=== PATIENT | male | born 1970 | race Caucasian/White ===

== ENCOUNTER 2019-01-03 09:17 | Emergency (ER) | payer OTHER ==
--- OUTSIDE RECORDS SUMMARY | 2019-01-03 09:26 | XMS REPORT | Continuity of Care Document ---
:1970 Author Organization [employer] Care Team Providers Name Role Phone [facility] [place] Unavailable Unavailable Problems Problem Status Onset Classification Date Comments Source Date Reported GI BLEED, VOMITING Active [facility] BLOOD AND IN STOOL 017 [facility] MORBID OBESITY Active [facility] 014 [facility] CERVICAL SPONDYLOSIS Active [address] OTHER Active 012 [facility] HYPOKALEMIA, GENERAL Active WEAKNESS 012 [facility] CHEST PAIN R/O ACS Active 012 [facility] DYSPNEA, AMS Active [address] Anxiety (finding) Active Problem 09/21/2016 [facility] Coronary Active Problem 09/21/2016 [facility] arteriosclerosis Medical (disorder) [place] Congestive heart Active Problem 09/21/2016 [facility] failure (disorder) [facility] Chronic obstructive Active Problem 09/21/2016 [facility] lung disease [facility] (disorder) [place] Hypertensive disorder, Active Problem 09/21/2016 [facility] systemic arterial Medical (disorder) [place] Morbid obesity Active Problem 09/21/2016 [facility] (disorder) [facility] Schizoaffective Active Problem 09/21/2016 [facility] disorder (disorder) [facility] Altered mental status Active Problem 11/28/2011 [facility] Anxiety Active Problem 11/28/2011 [facility] Chest pain Active Problem 11/28/2011 [facility] Nausea Active Problem 11/28/2011 [facility] Pain Active Problem 11/28/2011 [facility] Altered mental status Active Problem 06/25/2013 [facility] (finding) [facility] Chest pain (finding) Active Problem 06/25/2013 [facility] history of bipolar Resolved Problem 06/25/2013 [facility] disease(Confirmed) [facility] Hypercholesterolemia Active Problem 06/25/2013 [facility] (disorder) [facility] Nausea (finding) Active Problem 06/25/2013 [facility] Pain (finding) Active Problem 06/25/2013 [facility] Reflux (finding) Active Problem 06/25/2013 [facility] Sleep apnea (finding) Active Problem 06/25/2013 [facility] RESPIRATORY ABNORM NEC Active [facility] ALTERED MENTAL STATUS Active [facility] CERVICAL SPONDYLOSIS Active [facility] MORBID OBESITY Active [facility] Medications Medication Details Route Status Patient Ordering Order Source Instructions Provider Date Sucralfate 1000 1 gm=1 tab, Active 09/18[facility] [place] MG Oral Tablet PO, QID, # 28 2016 Medical [Carafate] tab, 0 Center Refill(s) Sucralfate 100 1 gm, 1 tab, No Longer 09/17[facility] MG/ML Oral Route: PO, Active 2016 Medical Suspension Drug form: Center [Carafate] TAB, QID, Dosing Weight 81.818, kg, Start date: 09/17/16 18:15:00 CDT, Stop date: 10/17/16 17:00:00 CDT pantoprazole 40 mg, Route: No Longer 09/17[facility] IVP, Drug Active 2016 Medical form: INJ, Center BID, Dosing Weight 81.818, kg, Start date: 09/17/16 18:15:00 CDT, Duration: 30 day, Stop date: 10/17/16 17:00:00 CDTNotes: (Same as: Protonix) Trazodone 50 mg=1 tab, Active 09/17[facility] Hydrochloride 50 PO, Bedtime, 2017 Medical MG Oral Tablet # 30 tab, 1 Center Refill(s) Sertraline 100 100 mg=1 tab, Active 09/17[facility] MG Oral Tablet PO, Daily, # 2017 Medical [Zoloft] 90 tab, 0 Center Refill(s) quetiapine 400 400 mg=1 tab, Active 09/17[facility] MG Oral Tablet PO, QPM, 0 2016 Medical [Seroquel] Refill(s) Center Lurasidone 60 mg=1 tab, Active 09/17[facility] Hydrochloride 60 PO, Daily, 0 2016 Medical MG Oral Tablet Refill(s) [place] [Latuda] Ondansetron 4 mg, 2 mL, Inactive 09/17[facility] Route: IVP, 2016 Medical Drug form: Center INJ, ONCE, Dosing Weight 81.818, kg, PRN Nausea & Vomiting, Start date: 09/17/16 10:05:00 CDTNotes: (Same as: Zofran) MEDICATION WASTE Product Size: 4 mg Product Wasted: ___ mg Flumazenil 0.2 mg, 2 mL, Inactive [facility] Route: IVP2016 Medical Drug form: Center INJ, PRN, Dosing Weight 81.818, kg, PRN Benzodiazepin e Reversal, Initial dose, Start date: 09/17/16 10:05:00 CDT, Duration: 1 day, Stop date: 09/18/16 10:04:00 CDTNotes: (Same as: Romazicon) Naloxone 0.4 mg, 1 mL, Inactive [facility] Route: IVP2016 Medical Drug form: Center INJ, Q2MIN, Dosing Weight 81.818, kg, PRN Narcotic Reversal, Start date: 09/17/16 10:05:00 CDT, Duration: 8 doses or times, Stop date: 09/18/16 0:00:00 CDTNotes: Same as Narcan Hydromorphone 0.5 mg, 0.25 Inactive [facility] mL, Route: 2016 Medical IVP, Drug Center form: INJ, Q5Min, Dosing Weight 81.818, kg, PRN Pain Score 7-10, Start date: 09/17/16 10:05:00 CDT, Duration: 4 doses or times, Stop date: 09/18/16 0:00:00 CDTNotes: Same as: Dilaudid Morphine 2 mg, 1 mL, Inactive [facility] Route: IVP2016 Medical Drug form: Center INJ, Q5Min, Dosing Weight 81.818, kg, PRN Pain Score 4-6, Start date: 09/17/16 10:05:00 CDT, Duration: 5 doses or times, Stop date: 09/18/16 0:00:00 CDTNotes: (Same as:MORPhine Sulfate) Labetalol 10 mg, 2 mL, Inactive [facility] Route: IVP2016 Medical Drug form: Center INJ, Q5Min, Dosing Weight 81.818, kg, PRN Elevated BP, Start date: 09/17/16 10:05:00 CDT, Duration: 5 doses or times, Stop date: 09/18/16 0:00:00 CDT Hydralazine 10 mg, 0.5 Inactive [place] mL, Route: 2017 Medical IVP, Drug Center form: INJ, Q20Min, Dosing Weight 81.818, kg, PRN Elevated BP, Start date: 09/17/16 10:05:00 CDT, Duration: 2 doses or times, Stop date: 09/18/16 0:00:00 CDTNotes: (Same as: Apresoline) Push over 5 minutes lithium 600 mg, 2 No Longer [place] cap, Route: Active 2017 Medical PO, Drug Center form: CAP, BID, Dosing Weight 139.545, kg, Start date: 09/17/16 9:00:00 CDT, Duration: 30 day, Stop date: 10/16/16 17:00:00 CDTNotes: Give with food. (Same as: [place] Carbonate) Abilify 2 mg, 1 tab, No Longer [facility] Route: PO, Active 2016 Medical Drug form: Center TAB, Daily, Dosing Weight 139.545, kg, Start date: 09/17/16 9:00:00 CDT, Duration: 30 day, Stop date: 10/16/16 9:00:00 CDTNotes: Same as: Abilify Non-Formulary Item Alprazolam 2 MG 2 mg, 4 tab, No Longer [place] Oral Tablet Route: PO, Active 2016 Medical [Xanax] Drug form: Center TAB, BID, Dosing Weight 139.545, kg, Start date: 09/17/16 9:00:00 CDT, Duration: 30 day, Stop date: 10/16/16 17:00:00 CDTNotes: With food or milk (Same as: Xanax) Docusate 100 mg, 1 No Longer [facility] cap, Route: Active 2017 Medical PO, Drug Center form: CAP, BID, Dosing Weight 139.545, kg, Start date: 09/17/16 9:00:00 CDT, Duration: 30 day, Stop date: 10/16/16 17:00:00 CDTNotes: (Same as: Colace) (Do Not Crush) Albuterol 0.833 3 ml, Route: No Longer [place] MG/ML / NEB, Drug Active 2017 Medical Ipratropium Form: SOLN, [place] [facility] 0.167 Dosing Weight MG/ML Inhalant 81.818, kg, Solution PRN, PRN [DuoNeb] Respiratory Protocol, Start date: 09/17/16 6:40:00 CDT, Duration: 30 day, Stop date: 10/17/16 6:39:00 CDTNotes: (Same as: Duoneb) sodium chloride 1,000 mL, No Longer [place] 0.9% 1000 ml INJ Rate: 100 Active 2017 Medical 1,000 mL ml/hr, Infuse Center over: 10 hr, Route: IV, Dosing Weight 139.545 kg, Total Volume: 1,000, Start date: 09/17/16 6:02:00 CDT, Duration: 30 day, Stop date: 10/17/16 6:01:00 CDT Sodium Chloride 100 mL, Rate: Inactive [place] 0.154 MEQ/ML 10 ml/hr, 2017 Medical Injectable Infuse over: [place] Solution 10 hr, Route: IVPB, Dosing Weight 139.545 kg, Total Volume: 100, Infuse at 8 mg / hr for 72 hours for GI bleeding, Start date: 09/17/16 6:02:00 CDT, Duration: 72 hr, Stop date: 09/20/16 6:01:00 CDT Protonix 40 mg, PO, Active [place] BID, # 30 2017 Medical tab, 0 Center Refill(s) lithium 600 mg 600 mg=1 cap, Active [facility] oral capsule PO, BID, 0 2016 Medical Refill(s) Center Alprazolam 2 MG 2 mg=1 tab, Inactive [facility] Oral Tablet PO, BID, 0 2017 Medical [Xanax] Refill(s) Center aripiprazole 2 2 mg=1 tab, Inactive [facility] MG Oral Tablet PO, Daily, 0 2017 Medical [Abilify] Refill(s) Center Sucralfate 100 1 gm=10 mL, Inactive [place] MG/ML Oral PO, 2017 Medical Suspension QID-Before Center [Carafate] Meals, 0 Refill(s) Acetaminophen 1 tab, Route: No Longer [place] 325 MG / PO, Drug Active 2016 Medical Hydrocodone Form: TAB, Center Bitartrate 5 MG Dosing Weight Oral Tablet 139.545, kg, Q6H, PRN Pain Score 4-6, Start date: 09/17/16 5:56:00 CDT, Duration: 30 day, Stop date: 10/17/16 5:55:00 CDTNotes: (Same as: [place] 325/5) Do not exceed 4gm/day of acetaminophen . Acetaminophen 650 mg, 2 No Longer [place] tab, Route: Active 2016 Medical PO, Drug Center form: TAB, Q6H, Dosing Weight 139.545, kg, PRN Pain 1-3/Temp > 100.4 F, Start date: 09/17/16 5:56:00 CDT, Duration: 30 day, Stop date: 10/17/16 5:55:00 CDTNotes: Do not exceed 4 gm/day. (Same as: Tylenol) Ondansetron 4 mg, 2 mL, No Longer [place] Route: IVP, Active 2016 Medical Drug form: Center INJ, Q6H, Dosing Weight 139.545, kg, PRN Nausea & Vomiting, Start date: 09/17/16 5:56:00 CDT, Duration: 30 day, Stop date: 10/17/16 5:55:00 CDTNotes: (Same as: Zofran) MEDICATION WASTE Product Size: 4 mg Product Wasted: 0 mg pantoprazole 40 =1 Pack, PO, Active [facility] MG Granules Daily, # 30 2013 Medical [Protonix] ea, 0 Center Refill(s) Acetaminophen 20 15 mL, PO, Active [facility] MG/ML / Q4H, Pain, # 2014 Medical Hydrocodone 470 mL, 0 Center Bitartrate 0.667 Refill(s) MG/ML Oral Solution Magnesium Oxide 500 mg, Inactive [place] Route: PO, 2013 Medical Drug form: Center TAB, ONCE, Dosing Weight 139.545, kg, Start date: 06/23/13 10:35:00, Stop date: 06/23/13 10:35:00 Magnesium 2 gm, 50 mL, Inactive [place] Sulfate Route: IVPB, 2013 Medical Drug form: [place] INJ, ONCE, Dosing Weight 139.545, kg, Total dose=2 gm, Start date: 06/23/13 7:35:00, Duration: 1 doses or times, Stop date: 06/23/13 7:35:00 Acetaminophen 20 15 mL, Route: No Longer [place] MG/ML / PO, Drug Active 2013 Medical Hydrocodone Form: SOLN, [place] Bitartrate 0.667 Dosing Weight MG/ML Oral 139.545, kg, Solution Q4H, Start date: 06/22/13 12:00:00, Duration: 30 day, Stop date: 07/22/13 8:00:00Do not exceed 4gm/day of acetaminophen . (Same as: Zolvit) Zofran 4 mg, 2 mL, No Longer [place] Route: IV, Active 2013 Medical Drug form: [place] INJ, Q4H, Dosing Weight 139.545, kg, PRN Nausea, Start date: 06/22/13 9:07:00, Duration: 30 day, Stop date: 07/22/13 9:06:00(Same as: Zofran) Acetaminophen 20 15 mL, Route: No Longer [facility] MG/ML / PO, Drug Active 2013 Medical Hydrocodone Form: SOLN, [place] Bitartrate 0.667 Dosing Weight MG/ML Oral 139.545, kg, Solution Q4H, PRN Pain, Start date: 06/22/13 7:52:00, Duration: 30 day, Stop date: 07/22/13 7:51:00Do not exceed 4gm/day of acetaminophen . (Same as: Zolvit) Enoxaparin 30 mg, 0.3 No Longer [place] mL, Route: Active 2013 Medical SUB-Q, Drug Center form: INJ, [id number], Dosing Weight 139.801, kg, Start date: 06/21/13 23:51:00, Duration: 30 day, Stop date: 07/21/13 11:51:00(Same as: Lovenox) Mefoxin 2 gm, Route: Inactive [place] IVPB, Drug 2013 Medical form: INJ, Center Q6H, Dosing Weight 139.801, kg, Start date: 06/21/13 15:00:00, Duration: 1 doses or times, Stop date: 06/21/13 15:00:00(Same As: Mefoxin) Naloxone 0.04 mg, 0.1 Inactive [facility] mL, Route: 2013 Medical IVP, Drug Center form: INJ, Q2MIN, Dosing Weight 139.801, kg, PRN Narcotic Reversal, Start date: 06/21/13 12:20:00, Duration: 8 doses or times, Stop date: 06/22/13 0:00:00Same as Narcan Flumazenil 0.2 mg, 2 mL, Inactive [facility] Route: IVP2013 Medical Drug form: Center INJ, PRN, Dosing Weight 139.801, kg, PRN Benzodiazepin e Reversal, Initial dose, Start date: 06/21/13 12:20:00, Duration: 1 day, Stop date: 06/22/13 12:19:00(Same as: Romazicon) Labetalol 10 mg, 2 mL, Inactive 06/21[facility] Route: IVP2013 Medical Drug form: Center INJ, Q5Min, Dosing Weight 139.801, kg, PRN Elevated BP, Start date: 06/21/13 12:20:00, Duration: 5 doses or times, Stop date: 06/22/13 0:00:00 Hydralazine 10 mg, 0.5 Inactive [facility], Route: 2013 Medical IVP, Drug Center form: INJ, Q20Min, Dosing Weight 139.801, kg, PRN Elevated BP, Start date: 06/21/13 12:20:00, Duration: 2 doses or times, Stop date: 06/22/13 0:00:00(Same as: Apresoline) Push over 5 minutes Ondansetron 4 mg, 2 mL, Inactive 06/21[facility] Route: IVP2013 Medical Drug form: Center INJ, ONCE, Dosing Weight 139.801, kg, PRN Nausea & Vomiting, Start date: 06/21/13 12:20:00(Same as: Zofran) Hydromorphone 0.5 mg, 0.25 Inactive 06/21[facility] mL, Route: 2013 Medical IVP, Drug Center form: INJ, Q5Min, Dosing Weight 139.801, kg, PRN Pain Score 7-10, Start date: 06/21/13 12:20:00, Duration: 4 doses or times, Stop date: 06/22/13 0:00:00Same as: Dilaudid Hydromorphone 15 mg, 30 mL, No Longer [place] Route: IV, Active 2013 Medical Initial Center Loading Dose: 0.4mg, LITHOPLATE MAKER Dose: 0.3 mg, LITHOPLATE MAKER Lockout: 10 minutes, Continuous Basal Rate: 0 mg, 4 Hour Limit (In MG): 7.2, Drug Form: INJ, Continuous, Start date: 06/21/13 12:00:00, Duration: 30 day, Stop date: 07/21/13 1...(Same as: Dilaudid) conc=0.5 mg/ml Hydromorphone LITHOPLATE MAKER Dose: ;Delay: ;Basal: Cefoxitin 20 2 gm, Route: Inactive [facility] MG/ML Injectable IVPB, Drug 2013 Medical Solution form: INJ, Center Q6H, Dosing Weight 139.801, kg, Start date: 06/21/13 12:00:00, Duration: 1 doses or times, Stop date: 06/21/13 12:00:00(Same As: Mefoxin) Naloxone 0.04 mg, 0.1 No Longer [facility] mL, Route: Active 2013 Medical IVP, Drug Center form: INJ, Q2MIN, Dosing Weight 139.801, kg, PRN Narcotic Reversal, Start date: 06/21/13 11:50:00, Duration: 30 day, Stop date: 07/21/13 12:49:00Same as Narcan Promethazine 12.5 mg, 0.5 No Longer [facility] mL, Route: Active 2013 Medical IM, Drug Center form: INJ, Q4H, Dosing Weight 139.801, kg, PRN Nausea & Vomiting, Start date: 06/21/13 11:50:00, Duration: 30 day, Stop date: 07/21/13 11:49:00Do not give IV push. (Same as: Phenergan) Ondansetron 4 mg, 2 mL, No Longer [facility] Route: IVP, Active 2013 Medical Drug form: Center INJ, Q12H, Dosing Weight 139.801, kg, PRN Nausea & Vomiting, Start date: 06/21/13 11:50:00, Duration: 30 day, Stop date: 07/21/13 11:49:00(Same as: Zofran) Calcium Chloride 1,000 mL, No Longer [facility] 0.0014 MEQ/ML / Rate: 100 Active 2013 Medical Potassium ml/hr, Infuse Center Chloride 0.004 over: 10 hr, MEQ/ML / Sodium Route: IV, Chloride 0.103 Dosing Weight MEQ/ML / Sodium 139.801 kg, Lactate 0.028 Total Volume: MEQ/ML 1,000, Start Injectable date: Solution 06/21/13 11:50:00, Stop date: 07/21/13 11:49:00 heparin, porcine 5,000 unit, Inactive [facility] Route: SUB-Q, 2013 Medical ONCE, Dosing Center Weight 139.801, kg, Start date: 06/21/13 7:22:00, Stop date: 06/21/13 7:22:00 Mefoxin 2 gm, Route: Inactive [facility] IVPB, Drug 2013 Medical form: INJ, Center PRE OP, Start date: 06/21/13 3:00:00, Duration: 1 day, Stop date: 06/22/13 2:59:00(Same As: Mefoxin) scopolamine 1 patch, Inactive [facility] Route: TOP, 2013 Medical Drug form: [place] ERFILM, PRE OP, Start date: 06/21/13 3:00:00, Duration: 1 day, Stop date: 06/22/13 2:59:00Change patch every 72 hours (Same as: Transderm-Sco p) Ofirmev 1,000 mg, 100 No Longer [facility] mL, Route: Active 2013 Medical IV, Drug Center form: INJ, PRE OP, Start date: 06/21/13 3:00:00, Duration: 1 day, Stop date: 06/22/13 2:59:00Infuse over 15 minutes Do not exceed 4gm/day of acetaminophen Ambien PO, Bedtime, No Longer [facility] 0 Refill(s) Active 2013 Medical Center Lipitor PO, Daily, 0 No Longer [facility] Refill(s) Active 2013 Medical Center Prevacid 30 mg, PO, No Longer [facility] Daily, # 15 Active 2013 Medical cap, 0 Center Refill(s) aspirin 81 mg 81 mg, 1 tab, PO No Longer [facility] tablet, enteric Route: PO, Active 2011 Medical coated Drug form: [place] ECTAB, Daily, Start date: 11/26/11 9:00:00, Duration: 30 day, Stop date: 12/25/11 9:00:00 Nexium 40 mg, Route: PO No Longer [facility] PO, Daily, Active 2011 Medical Start date: [place] 11/26/11 9:00:00, Duration: 30 day, Stop date: 12/25/11 9:00:00 Abilify 2 mg, 1 tab, PO No Longer [facility] Route: PO, Active 2011 Medical Drug form: [place] TAB, Bedtime, Start date: 11/25/11 21:00:00, Duration: 30 day, Stop date: 12/24/11 21:00:00 OxyContin 20 mg, 1 tab, PO No Longer [facility] Route: PO, Active 2011 Medical Drug form: [place] ERTAB, Q12H, Start date: 11/25/11 21:00:00, Duration: 30 day, Stop date: 12/25/11 9:00:00 amitriptyline 50 mg, 1 tab, PO No Longer [facility] Route: PO, Active 2011 Medical Drug form: [place] TAB, Bedtime, Start date: 11/25/11 21:00:00, Duration: 30 day, Stop date: 12/24/11 21:00:00 cefazolin + 2 gm, Route: IVPB No Longer [facility] Sodium Chloride IVPB, [id number], Active 2011 Medical 0.9% IV 100 mL Start date: [place] 11/25/11 20:30:00, Duration: 3 doses or times, Stop date: 11/26/11 12:30:00 acetaminophen-ox 2 tab, Route: PO No Longer [facility] ycodone 325 mg-5 PO, Drug Active 2011 Medical mg oral tablet Form: TAB, Center Q4H, PRN Pain Score 4-6, Start date: 11/25/11 18:15:00, Duration: 30 day, Stop date: 12/25/11 18:14:00 dexamethasone 4 mg, 1 mL, IV No Longer [facility] Route: IV, Active 2011 Medical Drug form: Center INJ, Q6H, Start date: 11/25/11 18:00:00, Duration: 1 day, Stop date: 11/26/11 12:00:00 Toradol 30 mg/mL 30 mg, 1 mL, IV No Longer [facility] injectable Route: IV, Active 2011 Medical solution Drug form: [place] INJ, Q6H, Start date: 11/25/11 18:00:00, Duration: 24 hr, Stop date: 11/26/11 12:00:00 Lopressor 100 mg, 1 PO No Longer [facility] tab, Route: Active 2011 Medical PO, Drug Center form: TAB, BID, Start date: 11/25/11 17:00:00, Duration: 30 day, Stop date: 12/25/11 9:00:00 lithium 600 mg, 2 PO No Longer [facility] tab, Route: Active 2011 Medical PO, Drug Center form: ERTAB, BID, Start date: 11/25/11 17:00:00, Duration: 30 day, Stop date: 12/25/11 9:00:00 Colace 100 mg 100 mg, 1 PO No Longer [facility] oral capsule cap, Route: Active 2011 Medical PO, Drug Center form: CAP, BID, Start date: 11/25/11 17:00:00, Duration: 30 day, Stop date: 12/25/11 9:00:00 Protonix 40 mg, 1 tab, PO No Longer [facility] Route: PO, Active 2011 Medical Drug form: Center ECTAB, Before Dinner, Start date: 11/25/11 16:30:00, Duration: 30 day, Stop date: 12/24/11 16:30:00 cefazolin (SCIP) 2 gm, Route: IVPB No Longer [facility] IVPB, Drug Active 2011 Medical form: INJ, Center [id number], Start date: 11/25/11 15:00:00, Duration: 24 hr, Stop date: 11/26/11 7:00:00 ondansetron 4 mg, 2 mL, IVP No Longer [facility] Route: IVP, Active 2011 Medical Drug form: Center INJ, ONCE, PRN Nausea & Vomiting, Start date: 11/25/11 14:55:00 hydromorphone 0.5 mg, 0.25 IVP No Longer [facility] mL, Route: Active 2011 Medical IVP, Drug Center form: INJ, Q5Min, PRN Pain Score 4-6, Start date: 11/25/11 14:55:00, Duration: 5 doses or times, Stop date: 11/26/11 0:00:00 naloxone 0.04 mg, 0.1 IVP No Longer [facility] mL, Route: Active 2011 Medical IVP, Drug Center form: INJ, Q2MIN, PRN Narcotic Reversal, Start date: 11/25/11 14:55:00, Duration: 8 doses or times, Stop date: 11/26/11 0:00:00 flumazenil 0.2 mg, 2 mL, IVP No Longer [facility] Route: IVP, Active 2011 Medical Drug form: Center INJ, PRN, PRN Benzodiazepin e Reversal, Initial dose, Start date: 11/25/11 14:55:00, Duration: 30 day, Stop date: 12/25/11 14:54:00 Flexeril 5 mg, 0.5 PO No Longer [facility] tab, Route: Active 2011 Medical PO, Drug Center form: TAB, TID, PRN Spasm, Start date: 11/25/11 14:14:00, Duration: 30 day, Stop date: 12/25/11 14:13:00 Zofran 4 mg, 2 mL, IV No Longer [facility] Route: IV, Active 2011 Medical Drug form: Center INJ, Q6H, PRN as needed for nausea/vomiti ng, Start date: 11/25/11 14:14:00, Duration: 30 day, Stop date: 12/25/11 14:13:00 Dulcolax 10 mg, 2 tab, PO No Longer [facility] Laxative Route: PO, Active 2011 Medical Drug form: [place] ECTAB, Daily, PRN Constipation, Start date: 11/25/11 14:12:00, Duration: 30 day, Stop date: 12/25/11 14:11:00 Cepacol Lozenge 1 lozenge, MUCOUS No Longer [facility] Route: MUCOUS MEM Active 2011 Medical MEM, Q2H, [place] Drug form: CON PRN Sore Throat, Start date: 11/25/11 14:12:00, Duration: 30 day, Stop date: 12/25/11 14:11:00 morphine Sulfate 4 mg, 1 mL, IVP No Longer [facility] Route: IVP, Active 2011 Medical Drug form: [place] INJ, Q4H, PRN Pain Score 7-10, Start date: 11/25/11 14:11:00, Duration: 30 day, Stop date: 12/25/11 14:10:00 normal saline 1,000 mL, IV No Longer [facility] 0.9% IV 1,000 mL Rate: 75 Active 2011 [facility] ml/hr, Infuse [place] over: 13.3 hr, Route: IV, Dosing Weight 115.909 kg, Total Volume: 1,000, Start date: 11/25/11 14:11:00, Duration: 30 day, Stop date: 12/25/11 14:10:00 Percocet 5/325 1 tab, Route: PO No Longer [facility] oral tablet PO, Drug Active 2011 Medical Form: TAB, [place] Q4H, PRN Pain Score 4-6, Start date: 11/25/11 14:10:00, Duration: 30 day, Stop date: 12/25/11 14:09:00 Klonopin 2 mg, 2 tab, PO No Longer [facility] Route: PO, Active 2011 Medical Drug form: [place] TAB, BID, PRN Anxiety, Start date: 11/25/11 14:09:00, Duration: 30 day, Stop date: 12/25/11 14:08:00 cefazolin 1 gm, Route: IVPB No Longer [facility] IVPB, Drug Active 2011 Medical form: Center PDR/INJ, PRE OP, Priority: STAT, Start date: 11/25/11 6:16:00, Duration: 1 day, Stop date: 11/26/11 6:15:00 Percocet 10/325 1 to 2 tabs, PO Active [facility] oral tablet PO, 4-6x/Day, 2011 Medical PRN, 20 tab, Center Substitution Allowed, Soft Stop OxyContin 20 mg 20 mg, 1 tab, PO Active [facility] oral tablet, PO, Q12H, 2011 Medical extended release Substitution Center Allowed, ERTAB amitriptyline 50 50 mg, 1 tab, PO Active [facility] [place] mg oral tablet PO, Bedtime, 2011 Medical 30 tab, [place] Substitution Allowed, TAB aspirin 81 mg 81 mg, 1 tab, PO Active [facility] tablet, enteric PO, Daily, 0 2011 Medical coated tab, [place] Substitution Allowed, ECTAB Klonopin 2 mg, 2 tab, PO No Longer [place] Route: PO, Active 2011 [facility] Drug form: TAB, BID, Start date: 09/16/11 9:00:00, Duration: 30 day, Stop date: 10/15/11 17:00:00 Eskalith 300 mg, 1 PO No Longer [facility] tab, Route: Active 2011 [facility] PO, Drug form: TAB, QAM, Start date: 09/16/11 9:00:00, Duration: 30 day, Stop date: 10/15/11 9:00:00 Plavix 75 mg, 1 tab, PO No Longer Choudhury Route: PO, Active 2011 [facility] Drug form: TAB, Daily, Start date: 09/16/11 9:00:00, Duration: 30 day, Stop date: 10/15/11 9:00:00 Abilify 10 mg, 2 tab, PO No Longer Choudhury Route: PO, Active 2011 [facility] Drug form: TAB, Daily, Start date: 09/16/11 9:00:00, Duration: 30 day, Stop date: 10/15/11 9:00:00 aspirin 325 mg 325 mg, 1 PO No Longer Choudhury tablet tab, Route: Active 2011 [facility] PO, Drug form: TAB, Daily, Start date: 09/16/11 9:00:00, Duration: 30 day, Stop date: 10/15/11 9:00:00 acetaminophen-hy 1 tab, Route: PO No Longer Raichman drocodone 325 PO, Drug Active 2011 [facility] mg-10 mg oral Form: TAB, tablet Q6H, PRN Pain, Start date: 09/16/11 8:07:00, Duration: 30 day, Stop date: 10/16/11 8:06:00 aspirin 81 mg 81 mg, 1 tab, CHEW No Longer Mckinney tablet, chewable Route: CHEW, Active 2011 [facility] Drug form: CHEWTAB, Breakfast, Start date: 09/16/11 8:00:00, Duration: 30 day, Stop date: 10/15/11 8:00:00 aspirin 325 mg 325 mg, 1 PO No Longer Mckinney tablet tab, Route: Active 2011 [facility] PO, Drug form: TAB, Breakfast, Start date: 09/16/11 8:00:00, Duration: 30 day, Stop date: 10/15/11 8:00:00 nitroglycerin 2% 1 inch, TOP No Longer Choudhury topical ointment Route: TOP, Active 2011 [facility] Drug form: OINT, Q24H, Start date: 09/16/11 2:00:00, Duration: 30 day, Stop date: 10/15/11 2:00:00 Lopressor 100 mg, 1 PO No Longer Choudhury tab, Route: Active 2011 [facility] PO, Drug form: TAB, Q12H, Start date: 09/15/11 21:00:00, Duration: 30 day, Stop date: 10/15/11 9:00:00 Eskalith 600 mg, 2 PO No Longer Choudhury tab, Route: Active 2011 [facility] PO, Drug form: TAB, Bedtime, Start date: 09/15/11 21:00:00, Duration: 30 day, Stop date: 10/14/11 21:00:00 trazodone 50 mg 100 mg, 2 PO No Longer Choudhury oral tablet tab, Route: Active 2011 [facility] PO, Drug form: TAB, Bedtime, Start date: 09/15/11 21:00:00, Duration: 30 day, Stop date: 10/14/11 21:00:00 nitroglycerin 0.4 mg, 1 SL No Longer Choudhury 0.4 mg tab, Route: Active 2011 [facility] sublingual SL, Drug tablet form: TAB, PRN, PRN Chest Pain, Start date: 09/15/11 19:09:00, Duration: 30 day, Stop date: 10/15/11 19:08:00 bacitracin/neomy 1 appl, TOP No Longer Choudhury turner/polymyxin B Route: TOP, Active 2011 [facility] topical ointment BID, Drug form: OINT, Start date: 09/15/11 19:00:00, Duration: 30 day, Stop date: 10/15/11 17:00:00 Protonix 40 mg, 1 tab, PO No Longer Choudhury Route: PO, Active 2011 [facility] Drug form: ECTAB, Before Dinner, Priority: NOW, Start date: 09/15/11 19:00:00, Duration: 30 day, Stop date: 10/15/11 16:30:00 hydrOXYzine 25 mg, 1 tab, PO No Longer Choudhury 09/14/ hydrochloride 25 Route: PO, Active 2011 [facility] mg oral tablet Drug form: TAB, BID, Priority: NOW, Start date: 09/15/11 18:55:00, Duration: 30 day, Stop date: 10/15/11 17:00:00 acetaminophen-co 1 tab, Route: PO No Longer Choudhury deine 300 mg-30 PO, Drug Active 2011 [facility] mg oral tablet Form: TAB, Q4H, PRN Pain, Start date: 09/15/11 18:33:00, Duration: 30 day, Stop date: 10/15/11 18:32:00 Lovenox 120 mg, 0.8 SUB-Q No Longer Mckinney mL, Route: Active 2011 [facility] SUB-Q, Drug form: INJ, [id number], Start date: 09/15/11 18:00:00, Duration: 30 day, Stop date: 10/15/11 6:00:00 metoprolol 12.5 mg, 0.5 PO No Longer Mckinney tab, Route: Active 2011 [facility] PO, Drug form: ERTAB, QAM, Priority: NOW, Start date: 09/15/11 17:24:00, Duration: 30 day, Stop date: 10/15/11 9:00:00 ondansetron 4 mg, Route: IVP No Longer Castellano IVP, Drug Active 2011 [facility] form: INJ, ONCE, Priority: STAT, Start date: 09/15/11 13:08:00, Stop date: 09/15/11 13:08:00 morphine Sulfate 5 mg, Route: IV No Longer Castellano IV, ONCE, Active 2011 [facility] Priority: STAT, Start date: 09/15/11 13:08:00, Stop date: 09/15/11 13:08:00 Sodium Chloride 250 mL, IVPB No Longer Hoberman 0.9% IV Route: IVPB, Active 2011 [facility] Start date: 09/15/11 12:29:00, Duration: 30 day, Stop date: 10/15/11 12:28:00, PRN Line Flush BD Normal Saline 10 mL, Route: IVP No Longer Hoberman Flush IVP, Drug Active 2011 [facility] Form: INJ, PRN, PRN Line Flush, Start date: 09/15/11 12:28:00, Duration: 30 day, Stop date: 10/15/11 12:27:00 Saline Flush 5 ml, Route: IVP No Longer Castellano 0.9% IVP, Drug Active 2011 [facility] Form: INJ, PRN, PRN Line Flush, Start date: 09/15/11 12:18:00, Duration: 24 hr, Stop date: 09/16/11 12:17:00 predniSONE 40 mg, 2 tab, PO No Longer Choudhury Route: PO, Active 2011 [facility] Drug form: TAB, Daily, Start date: 09/09/11 9:00:00, Duration: 30 day, Stop date: 10/08/11 9:00:00 Protonix 40 mg, 1 tab, PO No Longer Choudhury Route: PO, Active 2011 [facility] Drug form: ECTAB, Before Dinner, Start date: 09/08/11 16:30:00, Duration: 30 day, Stop date: 10/07/11 16:30:00 azithromycin 250 500 mg, 2 PO No Longer Choudhury 09/07/ MH mg oral tablet tab, Route: Active 2011 [facility] PO, Drug form: TAB, Q24H, Start date: 09/08/11 16:00:00, Duration: 30 day, Stop date: 10/07/11 16:00:00 Eskalith 600 mg, 2 PO No Longer Choudhury tab, Route: Active 2011 [facility] PO, Drug form: TAB, BID, Start date: 09/08/11 9:00:00, Duration: 30 day, Stop date: 10/07/11 17:00:00 aspirin 81 mg 81 mg, 1 tab, CHEW No Longer Choudhury tablet, chewable Route: CHEW, Active 2011 [facility] Drug form: CHEWTAB, Daily, Start date: 09/08/11 9:00:00, Duration: 30 day, Stop date: 10/07/11 9:00:00 Plavix 75 mg, 1 tab, PO No Longer Choudhury Route: PO, Active 2011 [facility] Drug form: TAB, Daily, Start date: 09/08/11 9:00:00, Duration: 30 day, Stop date: 10/07/11 9:00:00 Haldol 10 mg, 2 mL, IM No Longer Raichman Route: IM, Active 2011 [facility] Drug form: INJ, ONCE, Start date: 09/07/11 21:35:00, Stop date: 09/07/11 21:35:00 Haldol 5 mg, 1 mL, IM No Longer Choudhury Route: IM, Active 2011 [facility] Drug form: INJ, ONCE, Start date: 09/07/11 21:09:00, Stop date: 09/07/11 21:09:00 Abilify 2 mg, 1 tab, PO No Longer Choudhury Route: PO, Active 2011 [facility] Drug form: TAB, Bedtime, Start date: 09/07/11 21:00:00, Duration: 30 day, Stop date: 10/06/11 21:00:00 Lopressor 100 mg, 1 PO No Longer Choudhury tab, Route: Active 2011 [facility] PO, Drug form: TAB, Q12H, Start date: 09/07/11 21:00:00, Duration: 30 day, Stop date: 10/07/11 9:00:00 Sodium Chloride 1,000 mL, IV No Longer Choudhury 0.9% IV 1,000 mL Rate: 80 Active 2011 [facility] ml/hr, Infuse over: 12.5 hr, Route: IV, Dosing Weight 100 kg, Total Volume: 1,000, Start date: 09/07/11 20:00:00, Duration: 30 day, Stop date: 10/07/11 19:59:00 albuterol 2.49 mg, 3 NEB No Longer Choudhury mL, Route: Active 2011 [facility] NEB, Drug form: SOLN, RQ6H, Start date: 09/07/11 20:00:00, Duration: 30 day, Stop date: 10/07/11 14:00:00 methylPREDNISolo 60 mg, 0.96 IV No Longer Choudhury ne mL, Route: Active 2011 [facility] IV, Drug form: INJ, Q6H, Start date: 09/07/11 18:00:00, Duration: 30 day, Stop date: 10/07/11 12:00:00 albuterol 2.49 mg, 3 NEB No Longer Choudhury mL, Route: Active 2011 [facility] NEB, Drug form: SOLN, RQ6H, PRN Shortness of breath, Start date: 09/07/11 17:13:00, Duration: 30 day, Stop date: 10/07/11 17:12:00 Flexeril Substitution Active Allowed 2011 [facility] Flexeril Substitution Active Allowed 2011 [facility] trazodone Substitution Active Allowed 2011 [facility] Librium Substitution Active Allowed 2011 [facility] clonidine Substitution Active Allowed 2011 [facility] Klonopin Substitution Active Allowed 2011 [facility] Nexium Substitution Active Allowed 2011 [facility] Lopressor Substitution Active Allowed 2011 [facility] Plavix Substitution Active Allowed 2011 [facility] Abilify Substitution Active Allowed 2011 [facility] lithium Substitution Active Allowed 2011 [facility] Phenergan Substitution Active Allowed 2011 [facility] Haldol 5 mg/mL Substitution Active injectable Allowed 2011 [facility] solution Benadryl Substitution Active Allowed 2011 [facility] Suboxone 8 mg-2 Substitution Active mg sublingual Allowed, 2011 [facility] tablet, Maintenance disintegrating Ativan Substitution Active Allowed 2011 [facility] Sodium Chloride 250 mL, IVPB No Longer [place] 0.9% IV Route: IVPB, Active 2011 [facility] Start date: 09/07/11 9:12:00, Duration: 30 day, Stop date: 10/07/11 9:11:00, PRN Line Flush BD Normal Saline 10 mL, Route: IVP No Longer [place] Flush IVP, Drug Active 2011 [facility] Form: INJ, PRN, PRN Line Flush, Start date: 09/07/11 9:12:00, Duration: 30 day, Stop date: 10/07/11 9:11:00 naloxone Route: IVP, IVP No Longer [place] Drug form: Active 2011 [facility] INJ, ONCE, Priority: STAT, Start date: 09/07/11 8:58:00, Stop date: 09/07/11 8:58:00 Allergies, Adverse Reactions, Alerts No Known Medication Allergies Immunizations No Data Provided for This Section Results Order Name Results Value Reference Date Interpretation Comments Source Range HEMATOLOGY Basophils # 0.1 0.0 - 0.2 09/18 [facility] /[address] [place] [address] HEMATOLOGY Lymphocytes 1.2 1.0 - 5.5 09/18 [facility] /[address] [place] [address] HEMATOLOGY Basophils 1.0 0.0 - 1.0 09/[address] HEMATOLOGY Eosinophils 0.1 0.0 - 0.5 09/18 [facility] /[address] [place] [address] HEMATOLOGY Monocytes # 0.2 0.0 - 0.8 09/18 [facility] /[address] [place] [address] HEMATOLOGY Segs 71.8 45.0 - 09/18 [facility] [place] 75.0 /2016 [facility] HEMATOLOGY Segs-Bands # 4.1 1.5 - 8.1 09/18 [facility] HEMATOLOGY Monocytes 4.1 2.0 - 12.0 09/18 [facility] HEMATOLOGY Lymphocytes 20.5 20.0 - 09/18 [place] 40.0 /2016 [facility] HEMATOLOGY Eosinophils 2.6 0.0 - 4.0 09/18 [facility] HEMATOLOGY RDW 13.2 11.5 - 09/18 [place] 14.5 /2016 [facility] HEMATOLOGY MCHC 34.6 32.0 - 09/18 [place] 36.0 /2016 [facility] HEMATOLOGY MCH 30.5 27.0 - 09/18 [place] 31.0 [facility] HEMATOLOGY Hct 22.2 42.0 - 09/18 [place] 54.0 [facility] HEMATOLOGY MCV 88.0 80.0 - 09/18 [place] 94.0 [facility] HEMATOLOGY Platelet 213 133 - 450 09/18 [facility] HEMATOLOGY MPV 8.7 7.4 - 10.4 09/18 [facility] HEMATOLOGY WBC 5.7 3.7 - 10.4 09/18 [facility] HEMATOLOGY RBC 2.52 4.70 - 09/18 [place] 6.10 [facility] HEMATOLOGY Hgb 7.7 14.0 - 09/18 [place] 18.0 [facility] CHEM PANEL eGFR 103 09/18 [facility] Comment: The Medical eGFR is Center calculated using the CKD-EPI formula. In most young, healthy individuals the eGFR will be >90 mL/min/1.73m2 . The eGFR declines with age. An eGFR of 60-89 may be normal in some populations, particularly the elderly, for whom the CKD-EPI formula has not been extensively validated. Use of the eGFR is not recommended in the following populations:< br/>
Bailey viduals with unstable creatinine concentration s, including patients and those with serious co-morbid conditions.<b r/>
Patie nts with extremes in muscle mass or diet.

The data above are obtained from the National Kidney Disease Education Program (NKDEP) which additionally recommends that when the eGFR is used in patients with extremes of body mass index for purposes of drug dosing, the eGFR should be multiplied by the estimated BMI. CHEM PANEL CO2 25 24 - 32 09/18 [facility] CHEM PANEL Calcium Lvl 7.8 8.5 - 10.5 09/18 [facility] CHEM PANEL Potassium 3.6 3.5 - 5.1 09/18 [facility] Lvl /2016 [facility] CHEM PANEL AGAP 9.6 10.0 - 09/18 [place] 20.0 [facility] CHEM PANEL Chloride Lvl 104 95 - 109 09/18 [facility] CHEM PANEL Creatinine 0.90 0.50 - 09/18 [facility] Lvl 1.40 [facility] CHEM PANEL Sodium Lvl 135 135 - 145 09/18 [facility] CHEM PANEL Glucose Lvl 180 70 - 99 09/18 [facility] CHEM PANEL BUN 10 7 - 22 09/18 [facility] BLOOD BANK RBC product Product available 09/17 [facility] RESULTS (09/17/16 8:34 AM) /2016 [facility] BLOOD BANK ABO/Rh A POS 09/17 [facility] RESULTS [facility] BLOOD BANK Antibody Negative 09/17 [facility] RESULTS Scrn (09/17/16 6:38 AM) [facility] CHEM PANEL Phosphorus 3.3 2.5 - 4.5 09/17 [facility] CHEM PANEL eGFR 105 09/17 Result Comment: The Medical eGFR is Center calculated using the CKD-EPI formula. In most young, healthy individuals the eGFR will be >90 mL/min/1.73m2 . The eGFR declines with age. An eGFR of 60-89 may be normal in some populations, particularly the elderly, for whom the CKD-EPI formula has not been extensively validated. Use of the eGFR is not recommended in the following populations:< br/>
Bailey viduals with unstable creatinine concentration s, including patients and those with serious co-morbid conditions.<b r/>
Patie nts with extremes in muscle mass or diet.

The data above are obtained from the National Kidney Disease Education Program (NKDEP) which additionally recommends that when the eGFR is used in patients with extremes of body mass index for purposes of drug dosing, the eGFR should be multiplied by the estimated BMI. CHEM PANEL Alk Phos 64 39 - 136 09/17 [facility] [place] /[address] [place] [address] CHEM PANEL ASPARTATE 6 0 - 37 06/ [facility] TRANSAMINASE [address] [place] [address] CHEM PANEL Bili Total 0.6 0.2 - 1.3 06/ [address] CHEM PANEL ALANINE 13 0 - 65 06/ [facility] AMINOTRANSFE /[address] [place] [address] [facility] Globulin 2.6 2.7 - 4.2 06/ [address] CHEM PANEL A/G Ratio 1.0 0.7 - 1.6 / [address] CHEM PANEL Sodium Lvl 141 135 - 145 06/ [address] CHEM PANEL Creatinine 0.85 0.50 - 06/ [facility] 1.40 [facility] CHEM PANEL BUN 18 7 - [address] CHEM PANEL Potassium 4.4 3.5 - 5.1 09/17 [facility] [address] [place] [address] CHEM PANEL Glucose Lvl 96 70 - 99 09/[address] CHEM PANEL CO2 28 24 - 32 09/[address] CHEM PANEL AGAP 11.4 10.0 - 06 [facility] 20.0 [facility] CHEM PANEL Chloride Lvl 106 95 - 109 / [address] CHEM PANEL B/C Ratio 21 6 - 25 06/ [address] CHEM PANEL Calcium Lvl 8.3 8.5 - 10.5 09/[address] CHEM PANEL Total 5.2 6.4 - 8.4 / [facility] Protein [address] CHEM PANEL Albumin Lvl 2.6 3.5 - 5.0 / [address] CHEM PANEL Magnesium 2.1 1.8 - 2.4 06/ [address] HEMATOLOGY Lymphocytes 1.6 1.0 - 5.5 06/ [address] HEMATOLOGY Segs-Bands # 5.0 1.5 - 8.1 06/ [address] HEMATOLOGY Monocytes # 0.5 0.0 - 0.8 06/ [address] HEMATOLOGY Basophils # 0.1 0.0 - 0.2 06/ [address] HEMATOLOGY Eosinophils 0.1 0.0 - 0.5 06/ [address] HEMATOLOGY Basophils 0.9 0.0 - 1.0 06/ /2016 [facility] HEMATOLOGY Segs 69.6 45.0 - 06/ [place] 75.0 /2016 [facility] HEMATOLOGY Monocytes 6.4 2.0 - 12.0 06/ [facility] HEMATOLOGY Lymphocytes 22.3 20.0 - 06/02 [place] 40.0 /2016 [facility] HEMATOLOGY Eosinophils 0.8 0.0 - 4.0 06/ [facility] HEMATOLOGY PTT 29.3 22.9 - 06/ [place] 35.8 /2016 [facility] HEMATOLOGY INR 1.20 0.85 - 06 [place] 1.17 /2016 [facility] HEMATOLOGY PT 15.5 12.0 - 06 [place] 14.7 [facility] HEMATOLOGY RDW 12.8 11.5 - 06/ [place] 14.5 /2016 [facility] HEMATOLOGY Platelet 246 133 - 450 06 [facility] HEMATOLOGY MPV 9.0 7.4 - 10.4 09/17 [facility] HEMATOLOGY MCH 29.8 27.0 - 06 [place] 31.0 /2016 [facility] HEMATOLOGY MCHC 34.3 32.0 - 06/ [place] 36.0 /2016 [facility] HEMATOLOGY Hgb 7.6 14.0 - 06 [place] 18.0 /2016 [facility] HEMATOLOGY RBC 2.56 4.70 - 09/17 [place] 6.10 /2016 [facility] HEMATOLOGY Hct 22.2 42.0 - 06/ [place] 54.0 /2016 [facility] HEMATOLOGY MCV 87.0 80.0 - 09/17 [place] 94.0 [facility] HEMATOLOGY WBC 7.2 3.7 - 10.4 06 [facility] CHEM PANEL Magnesium 1.7 1.8 - 2.4 06/23 [facility] Lvl /2013 [facility] CHEM PANEL Phosphorus 3.1 2.5 - 4.5 03 [facility] ELECTROLYT AGAP 11.7 10.0 - 03 [facility] ES 20.0 [facility] ELECTROLYT eGFR 105 06/23 <sup>1</sup>R [facility] esult Medical Comment: The Center eGFR is calculated using the CKD-EPI formula. In most young, healthy individuals the eGFR will be >90 mL/min/1.73m2 . The eGFR declines with age. An eGFR of 60-89 may be normal in some populations, particularly the elderly, for whom the CKD-EPI formula has not been extensively validated. Use of the eGFR is not recommended in the following populations:& lt;br/>
I ndividuals with unstable creatinine concentration s, including patients and those with serious co-morbid conditions.<b r/>
Patie nts with extremes in muscle mass or diet.

The data above are obtained from the National Kidney Disease Education Program (NKDEP) which additionally recommends that when the eGFR is used in patients with extremes of body mass index for purposes of drug dosing, the eGFR should be multiplied by the estimated BMI. ELECTROLYT Creatinine 0.9 0.5 - 1.4 06/23 [facility] ELECTROLYT Potassium 3.7 3.5 - 5.1 06/23 [facility] ELECTROLYT Sodium Lvl 138 135 - 145 06/23 [facility] ELECTROLYT CO2 27 24 - 32 06/23 [facility] ELECTROLYT Chloride Lvl 103 95 - 109 06/23 [facility] ELECTROLYT BUN 11 7 - 22 06/23 [facility] ELECTROLYT Glucose Lvl 95 70 - 99 06/23 <sup>4</sup>I [facility] nterpretive Medical Data: Adult Center reference range values reflect the clinical guidelines
of the [place] [employer]. ELECTROLYT Calcium Lvl 8.6 8.5 - 10.5 06/23 [facility] HEMATOLOGY MCV 87.7 80.0 - 06/23 94.0 [facility] HEMATOLOGY MCH 31.2 27.0 - 06/23 [place] 31.0 [facility] HEMATOLOGY Hct 34.1 42.0 - 06/23 [place] 54.0 [facility] HEMATOLOGY Hgb 12.1 14.0 - 06/23 18.0 [facility] HEMATOLOGY Platelet 148 133 - 450 06/23 [facility] HEMATOLOGY MPV 9.1 7.4 - 10.4 06/23 [facility] HEMATOLOGY RDW 14.3 11.5 - 06/23 [place] 14.5 [facility] HEMATOLOGY MCHC 35.6 32.0 - 03 [place] 36.0 /2013 [facility] HEMATOLOGY RBC X 10x6 3.89 4.70 - 06/23 [place] 6.10 /2013 [facility] HEMATOLOGY WBC X 10x3 6.6 3.7 - 10.4 06/23 [facility] HEMATOLOGY Eosinophils 0.1 0.0 - 0.5 06/23 [place] # /2013 [facility] HEMATOLOGY Lymphocytes 1.7 1.0 - 5.5 06/23 [facility] HEMATOLOGY Eosinophils 1.6 0.0 - 4.0 06/23 [facility] HEMATOLOGY Segs-Bands # 4.3 1.5 - 8.1 06/23 [facility] HEMATOLOGY Basophils 0.5 0.0 - 1.0 06/23 [facility] HEMATOLOGY Monocytes # 0.4 0.0 - 0.8 06/23 [facility] HEMATOLOGY Segs 66.0 45.0 - 06/23 [place] 75.0 [facility] HEMATOLOGY Lymphocytes 26.0 20.0 - 06/23 [place] 40.0 /2013 [facility] HEMATOLOGY Monocytes 5.9 2.0 - 12.0 06/23 [facility] CHEM PANEL eGFR 124 06/22 <sup>2</sup>R [facility] Medical Comment: The Center eGFR is calculated using the CKD-EPI formula. In most young, healthy individuals the eGFR will be >90 mL/min/1.73m2 . The eGFR declines with age. An eGFR of 60-89 may be normal in some populations, particularly the elderly, for whom the CKD-EPI formula has not been extensively validated. Use of the eGFR is not recommended in the following populations:& lt;br/>
I ndividuals with unstable creatinine concentration s, including patients and those with serious co-morbid conditions.<b r/>
Patie nts with extremes in muscle mass or diet.

The data above are obtained from the National Kidney Disease Education Program (NKDEP) which additionally recommends that when the eGFR is used in patients with extremes of body mass index for purposes of drug dosing, the eGFR should be multiplied by the estimated BMI. CHEM PANEL Magnesium 2.0 1.8 - 2.4 06/22 [facility] Lvl /2013 [facility] CHEM PANEL Phosphorus 4.8 2.5 - 4.5 03 [facility] HEMATOLOGY WBC X 10x3 11.7 3.7 - 10.4 03 [facility] HEMATOLOGY MPV 9.5 7.4 - 10.4 06/22 [facility] HEMATOLOGY Hct 39.7 42.0 - 03 [place] 54.0 /2013 [facility] HEMATOLOGY MCH 29.8 27.0 - 03 [place] 31.0 /2013 [facility] HEMATOLOGY MCV 89.3 80.0 - 03 [place] 94.0 /2013 [facility] HEMATOLOGY RBC X 10x6 4.45 4.70 - 03 [place] 6.10 /2013 [facility] HEMATOLOGY Hgb 13.3 14.0 - 03 [place] 18.0 /2013 [facility] HEMATOLOGY RDW 14.3 11.5 - 03 [place] 14.5 /2013 [facility] HEMATOLOGY MCHC 33.4 32.0 - 03 [place] 36.0 /2013 [facility] HEMATOLOGY Platelet 185 133 - 450 03 [facility] HEMATOLOGY Monocytes # 0.5 0.0 - 0.8 03 [facility] HEMATOLOGY Segs-Bands # 10.4 1.5 - 8.1 06/22 [facility] HEMATOLOGY Lymphocytes 0.9 1.0 - 5.5 03 [place] # /2013 [facility] HEMATOLOGY Monocytes 4.1 2.0 - 12.0 03 [facility] HEMATOLOGY Basophils 0.1 0.0 - 1.0 06/22 [facility] HEMATOLOGY Lymphocytes 7.3 20.0 - 03 [place] 40.0 /2013 [facility] HEMATOLOGY Segs 88.5 45.0 - 03 [place] 75.0 /2013 [facility] CHEM PANEL AGAP 13.9 10.0 - 03 20.0 [facility] CHEM PANEL CO2 25 24 - 32 03 [facility] CHEM PANEL Calcium Lvl 8.9 8.5 - 10.5 03 [facility] CHEM PANEL Chloride Lvl 100 95 - 109 03 [facility] CHEM PANEL Sodium Lvl 134 135 - 145 03 [facility] CHEM PANEL Potassium 4.9 3.5 - 5.1 06/22 [facility] CHEM PANEL BUN 10 7 - 22 06/22 [facility] CHEM PANEL Creatinine 0.6 0.5 - 1.4 06/22 [facility] CHEM PANEL Glucose Lvl 98 70 - 99 06/22 <sup>5</sup>I nterpretive Medical Data: Adult Center reference range values reflect the clinical guidelines
of the [place] [employer]. CHEM PANEL eGFR 82 06/21 <sup>3</sup>R esult Medical Comment: The Center eGFR is calculated using the CKD-EPI formula. In most young, healthy individuals the eGFR will be >90 mL/min/1.73m2 . The eGFR declines with age. An eGFR of 60-89 may be normal in some populations, particularly the elderly, for whom the CKD-EPI formula has not been extensively validated. Use of the eGFR is not recommended in the following populations:& lt;br/>
I ndividuals with unstable creatinine concentration s, including patients and those with serious co-morbid conditions.<b r/>
Patie nts with extremes in muscle mass or diet.

The data above are obtained from the National Kidney Disease Education Program (NKDEP) which additionally recommends that when the eGFR is used in patients with extremes of body mass index for purposes of drug dosing, the eGFR should be multiplied by the estimated BMI. CHEM PANEL Creatinine 1.1 0.5 - 1.4 06/21 [facility] HEMATOLOGY Platelet 172 133 - 450 06/21 [facility] HEMATOLOGY aPTT 27.9 22.9 - 06/21 <sup>7</sup>I [facility] 35.8 /2013 nterpretive Medical Data: Heparin Center Therapeutic Range: 57 - 92 Seconds CHEM PANEL B/C Ratio 13 6 - 25 06/15 [facility] CHEM PANEL A/G Ratio 1.3 0.7 - 1.6 06/15 [facility] CHEM PANEL Globulin 3.2 2.0 - 4.0 06/15 [facility] CHEM PANEL AGAP 15.2 10.0 - 06/15 [facility] [place] 20.0 [facility] CHEM PANEL ALANINE 37 0 - 65 06/15 [facility] AMINOTRANSFE [facility] RASE [place] CHEM PANEL Bili Total 0.9 0.2 - 1.3 06/15 [facility] CHEM PANEL Calcium Lvl 9.1 8.5 - 10.5 06/15 [facility] CHEM PANEL BUN 12 7 - 22 06/15 [facility] CHEM PANEL Glucose Lvl 66 70 - 99 06/15 <sup>6</sup>I nterpretive Medical Data: Adult Center reference range values reflect the clinical guidelines
of the [place] [employer]. CHEM PANEL Alk Phos 100 39 - 136 06/15 [facility] CHEM PANEL Albumin Lvl 4.1 3.5 - 5.0 06/15 [facility] CHEM PANEL CO2 25 24 - 32 06/15 [facility] CHEM PANEL Chloride Lvl 104 95 - 109 06/15 [facility] CHEM PANEL Potassium 4.2 3.5 - 5.1 06/15 [facility] [employer] [facility] [employer] Lvl [facility] CHEM PANEL Sodium Lvl 140 135 - 145 06/15 [facility] CHEM PANEL ASPARTATE 15 0 - 37 06/15 TRANSAMINASE [facility] CHEM PANEL Total 7.3 6.4 - 8.4 06/15 Protein [facility] HEMATOLOGY Basophils # 0.1 0.0 - 0.2 06/15 [facility] HEMATOLOGY Monocytes # 0.7 0.0 - 0.8 06/15 [facility] HEMATOLOGY Eosinophils 0.2 0.0 - 0.5 06/15 [place] [facility] HEMATOLOGY Segs-Bands # 7.2 1.5 - 8.1 06/15 [facility] HEMATOLOGY Lymphocytes 2.7 1.0 - 5.5 06/15 [facility] HEMATOLOGY Lymphocytes 24.5 20.0 - 06/15 [place] 40.0 [facility] HEMATOLOGY Segs 66.4 45.0 - 06/15 [place] 75.0 /2013 [facility] HEMATOLOGY Monocytes 6.4 2.0 - 12.0 06/15 [facility] HEMATOLOGY Basophils 0.5 0.0 - 1.0 06/15 [facility] HEMATOLOGY Eosinophils 2.2 0.0 - 4.0 06/15 [facility] HEMATOLOGY MPV 9.7 7.4 - 10.4 06/15 [facility] HEMATOLOGY WBC X 10x3 10.9 3.7 - 10.4 06/15 [facility] HEMATOLOGY RDW 14.4 11.5 - 06/15 [place] 14.5 /2013 [facility] HEMATOLOGY RBC X 10x6 4.70 4.70 - 06/15 [place] 6.10 /2013 [facility] HEMATOLOGY Hct 41.3 42.0 - 06/15 [place] 54.0 /2013 [facility] HEMATOLOGY Hgb 14.5 14.0 - 06/15 [place] 18.0 /2013 [facility] HEMATOLOGY MCH 30.8 27.0 - 06/15 [place] 31.0 /2013 [facility] HEMATOLOGY MCV 87.7 80.0 - 06/15 [place] 94.0 /2013 [facility] HEMATOLOGY MCHC 35.1 32.0 - 06/15 [place] 36.0 /2013 [facility] SPECIAL Hgb A1C 4.4 <=5.6 % 06/15 [facility] CHEMISTRY [facility] URINE AND UA <=1.0 0.1 - 1.0 06/15 [facility] Urobilinogen mg/dL /2013 [facility] URINE AND Micro? Not Indicated 06/15 [facility] *NA* /2013 [facility] (06/15/2013 14:45:00 [facility] [place] URINE AND UA pH 6.5 5.0 - 8.0 06/15 [facility] STOOL [facility] URINE AND UA Turbidity Clear Clear 06/15 [facility] (06/15/2013 14:45:00 [facility]) /2013 [facility] URINE AND UA Spec Grav 1.018 <=1.030 06/15 [facility] STOOL [facility] URINE AND UA Color Yellow Yellow 06/15 [facility] *NA* /2013 Medical (06/15/2013 14:45:00 [facility]) [place] URINE AND UA Mucus Few /LPF None Seen 06/15 [facility] STOOL /LPF /2013 [facility] URINE AND UA Glucose Negative Negative 06/15 [facility] mg/dL mg/dL [facility] URINE AND UA Ketones Negative Negative 06/15 [facility] mg/dL mg/dL [facility] URINE AND UA Protein Negative Negative 06/15 [facility] [place] STOOL mg/dL mg/dL [facility] URINE AND UA Leuk Est Negative Negative 06/15 [facility] STOOL (06/15/2013 14:45:00 [facility] URINE AND UA WBC <1 0 - 5 06/15 [facility] STOOL [facility] URINE AND UA Blood Negative Negative 06/15 [facility] STOOL (06/15/2013 14:45:00 [facility]) [facility] URINE AND UA Nitrite Negative Negative 06/15 [facility] STOOL (06/15/2013 14:45:00 [facility] URINE AND UA Bili Negative Negative 06/15 [facility] STOOL *NA* /2013 Medical (06/15/2013 14:45:00 [facility]) Center BLOOD BANK ABO/Rh A POS 11/24 Unknown [facility] RESULTS [facility] BLOOD BANK Antibody Negative 11/24 Normal [facility] RESULTS Scrn (11/25/2011 10:10:00) [facility] CHEMISTRY AGAP 15.0 10.0 - 08 Normal [facility] 20.0 [facility] CHEMISTRY BUN 9 7 - 22 11/22 Normal [facility] CHEMISTRY Creatinine 0.9 0.5 - 1.4 11/22 Normal [facility] Lvl [facility] CHEMISTRY Glucose Lvl 75 70 - 99 11/22 Normal <sup>1</sup>I nterpretive Medical Data: Adult Center reference range values reflect the clinical guidelines
of the [place] [employer]. CHEMISTRY Chloride Lvl 106 95 - 109 / Normal [facility] CHEMISTRY Sodium Lvl 142 135 - 145 11/22 Normal [facility] Center CHEMISTRY CO2 26 24 - 32 / Normal [facility] CHEMISTRY Potassium 5.0 3.5 - 5.1 / Normal [facility] [employer] Lvl [facility] CHEMISTRY Calcium Lvl 9.6 8.5 - 10.5 / Normal [facility] HEMATOLOGY Basophils # 0.0 0.0 - 0.2 08/ Normal [facility] HEMATOLOGY Lymphocytes 3.3 1.0 - 5.5 08/ Normal [facility] [employer] [facility] # /2011 [facility] Center HEMATOLOGY Monocytes # 0.5 0.0 - 0.8 08/ Normal [facility] HEMATOLOGY Eosinophils 0.2 0.0 - 0.5 08/ Normal [facility] [place] # /2012 [facility] HEMATOLOGY Segs 59.7 45.0 - 08/ Normal [place] 75.0 /2011 [facility] HEMATOLOGY Monocytes 4.8 2.0 - 12.0 08/ Normal /2011 [facility] HEMATOLOGY Segs-Bands # 5.9 1.5 - 8.1 08/ Normal /2011 [facility] HEMATOLOGY Eosinophils 2.0 0.0 - 4.0 08/ Normal /2011 [facility] HEMATOLOGY Basophils 0.5 0.0 - 1.0 08/ Normal /2011 [facility] HEMATOLOGY Lymphocytes 33.0 20.0 - 08/ Normal [place] 40.0 /2011 [facility] HEMATOLOGY RDW 13.7 11.5 - 08/ Normal [place] 14.5 [facility] HEMATOLOGY Platelet 249 133 - 450 08/ Normal /2011 [facility] HEMATOLOGY RBC 4.89 4.70 - 08 Normal [place] 6.10 /2011 [facility] HEMATOLOGY Hgb 15.4 14.0 - 08 Normal [place] 18.0 /2011 [facility] HEMATOLOGY Hct 45.3 42.0 - 08/ Normal [place] 54.0 /2011 [facility] HEMATOLOGY MCHC 34.0 32.0 - 08/ Normal [place] 36.0 /2011 [facility] HEMATOLOGY MCV 92.6 80.0 - 08/ Normal [place] 94.0 /2011 [facility] HEMATOLOGY MCH 31.5 27.0 - 08/ HI [place] 31.0 /2011 [facility] HEMATOLOGY MPV 9.4 7.4 - 10.4 / Normal [facility] HEMATOLOGY WBC 9.9 3.7 - 10.4 / Normal [facility] HEMATOLOGY INR 1.04 0.85 - 08 Normal <sup>2</sup>I [facility] [employer] 1.17 nterpretive Medical Data: Center RECOMMENDED RANGES FOR PROTIME INR:
2.0-3.0 for most medical and surgical thromboemboli c states.
2.5-3.5 for artificial heart valves and recurrent embolism.<br/ >
INR SHOULD BE USED ONLY FOR PATIENTS ON STABLE ANTICOAGULANT THERAPY. HEMATOLOGY PT 13.6 12.0 - 08/ Normal [place] 14.7 /2011 [facility] HEMATOLOGY PTT 29.0 22.9 - 08/ Normal <sup>3</sup>I [facility] 35.8 /2011 nterpretive Medical Data: Heparin Center Therapeutic Range: 57 - 92 Seconds CHEMISTRY Troponin-I <0.02 0.00 - 09/15 Normal 0.40 /2011 [facility] CHEMISTRY CK MB 3.0 0.5 - 3.6 09/15 Normal [facility] CHEMISTRY Total CK 90 12 - 191 09/15 Normal [facility] CHEMISTRY HDL 21 >=35 09/15 LOW [facility] CHEMISTRY CHD Risk 5.86 4.00 - 09/15 Normal [facility] 7.30 [facility] CHEMISTRY LDL 72 0 - 129 09/15 Normal [facility] CHEMISTRY Chol 123 120 - 200 09/15 Normal [facility] CHEMISTRY Trig 149 0 - 200 09/15 Normal [facility] CHEMISTRY Phosphorus 3.8 2.5 - 4.5 09/15 Normal [facility] CHEMISTRY BUN 6 7 - 22 09/15 LOW [facility] CHEMISTRY Glucose Lvl 98 70 - 99 09/15 Normal <sup>1</sup>I nterpretive [facility] Data: Adult reference range values reflect the clinical guidelines of the [place] [employer]. CHEMISTRY Chloride Lvl 106 95 - 109 09/15 Normal [facility] CHEMISTRY Potassium 4.0 3.5 - 5.1 09/15 Normal [facility] CHEMISTRY Sodium Lvl 141 135 - 145 09/15 Normal [facility] CHEMISTRY Creatinine 0.9 0.5 - 1.4 09/15 Normal [facility] CHEMISTRY AGAP 10.0 10.0 - 09/15 Normal 20.0 [facility] CHEMISTRY Calcium Lvl 8.8 8.5 - 10.5 09/15 Normal [facility] CHEMISTRY CO2 29 24 - 32 09/15 Normal [facility] CHEMISTRY Magnesium 2.0 1.8 - 2.4 09/15 Normal [facility] CHEMISTRY CK MB Index 3.3 0.0 - 2.5 09/15 HI /2011 [facility] HEMATOLOGY Hgb 13.3 14.0 - 09/15 LOW 18.0 /2011 [facility] HEMATOLOGY MCV 92.0 80.0 - 09/15 Normal 94.0 /2011 [facility] HEMATOLOGY MCHC 34.6 32.0 - 09/15 Normal [facility] 36.0 /2011 [facility] HEMATOLOGY MCH 31.8 27.0 - 09/15 HI [facility] 31.0 /2011 [facility] HEMATOLOGY RDW 13.2 11.5 - 09/15 Normal [facility] 14.5 /2011 [facility] HEMATOLOGY Platelet 191 133 - 450 09/15 Normal /2011 [facility] HEMATOLOGY MPV 8.6 7.4 - 10.4 09/15 Normal /2011 [facility] HEMATOLOGY Hct 38.3 42.0 - 09/15 LOW MH 54.0 /2011 [facility] HEMATOLOGY RBC 4.16 4.70 - 09/15 LOW MH 6.10 /2011 [facility] HEMATOLOGY WBC 6.2 3.7 - 10.4 09/15 Normal /2011 [facility] HEMATOLOGY INR 1.04 0.85 - 09/15 Normal <sup>6</sup>I MH 1.17 /2011 nterpretive [facility] Data: RECOMMENDED RANGES FOR PROTIME INR: 2.0-3.0 for most medical and surgical thromboemboli c states. 2.5-3.5 for artificial heart valves and recurrent embolism. INR SHOULD BE USED ONLY FOR PATIENTS ON STABLE ANTICOAGULANT THERAPY. HEMATOLOGY PT 13.6 12.0 - 09/15 Normal 14.7 [facility] HEMATOLOGY PTT 31.9 22.9 - 09/15 Normal <sup>8</sup>I [facility] 35.8 /2011 nterpretive [facility] Data: Heparin Therapeutic Range: 57 - 92 Seconds HEMATOLOGY Basophils # 0.0 0.0 - 0.2 09/15 Normal /2011 [facility] HEMATOLOGY Eosinophils 0.1 0.0 - 0.5 09/15 Normal # /2011 [facility] HEMATOLOGY Monocytes # 0.4 0.0 - 0.8 09/15 Normal /2011 [facility] HEMATOLOGY Lymphocytes 1.4 1.0 - 5.5 09/15 Normal MH # /2011 [facility] HEMATOLOGY Segs-Bands # 4.3 1.5 - 8.1 09/15 Normal /2011 [facility] HEMATOLOGY Eosinophils 2.3 0.0 - 4.0 09/15 Normal /2011 [facility] HEMATOLOGY Basophils 0.5 0.0 - 1.0 09/15 Normal /2011 [facility] HEMATOLOGY Lymphocytes 21.8 20.0 - 09/15 Normal 40.0 /2011 [facility] HEMATOLOGY Segs 69.3 45.0 - 09/15 Normal MH 75.0 /2011 [facility] HEMATOLOGY Monocytes 6.1 2.0 - 12.0 09/15 Normal /2011 [facility] CHEMISTRY Hgb A1C 4.7 09/14 NA <sup>4</sup>I nterpretive [facility] Data: HbA1C% eAG(mg/dL) Interpretatio n 6.0 126 Very good control 6.5 140 Very good control 7.0 154 Good Control 7.5 169 Good Control 8.0 183 Marginal Control, take action to lower 8.5 197 Marginal Control, take action to lower 9.0 212 Poor Control, take action to lower 9.5 226 Poor Control, take action to lower 10.0 240 Poor Control, take action to lower CHEMISTRY Magnesium 1.9 1.8 - 2.4 09/14 Normal MH Lvl [facility] CHEMISTRY TSH 0.820 0.360 - 09/14 Normal MH 3.740 /2011 [facility] CHEMISTRY CK MB 2.9 0.5 - 3.6 09/14 Normal [facility] CHEMISTRY CK MB Index 2.5 0.0 - 2.5 09/14 Normal [facility] CHEMISTRY Troponin-I <0.02 0.00 - 09/14 Normal MH 0.40 /2011 [facility] CHEMISTRY Total CK 118 12 - 191 09/14 Normal [facility] CHEMISTRY U Cannab Scr Negative Negative 09/14 NA MH *NA* /2011 [facility] (09/15/2011 13:00:00) CHEMISTRY U Phencyc Negative Negative 09/14 NA MH Scr *NA* /2011 [facility] (09/15/2011 13:00:00) CHEMISTRY U Opiate Scr Positive Negative 09/14 ABN MH *ABN* /2011 [facility] (09/15/2011 13:00:00) CHEMISTRY UDS Note See Note 5 09/14 Normal <sup>5</sup>I (09/15/2011 13:00:00) nterpretive [facility] Data: Drugs reported as positive have not been confirmed by a second method and should be used for medical purposes only. To order confirmation, contact laboratory. note: Below are cut-off concentration s for all urine drugs of abuse performed in the laboratory. Some drugs listed in the table may not be included in this panel. Description Cut-off concentration Amphetamine 1000 ng/mL Barbiturates 200 ng/mL Benzodiazepin es 300 ng/mL Cocaine metabolites 300 ng/mL Opiates 300 ng/mL Phencyclidine 25 ng/mL Propoxyphene 300 ng/mL Marijuana metabolites 50 ng/mL Methadone 300 ng/mL Urine alcohol 20 mg/dL CHEMISTRY U Cocaine Negative Negative 09/14 NA MH Scr *NA* /2011 [facility] (09/15/2011 13:00:00) CHEMISTRY U Amph Scr Negative Negative 09/14 NA MH *NA* [facility] (09/15/2011 13:00:00) CHEMISTRY U Annette Scr Negative Negative 09/14 NA MH *NA* [facility] (09/15/2011 13:00:00) CHEMISTRY U Benzodia Positive Negative 09/14 ABN MH Scr *ABN* [facility] (09/15/2011 13:00:00) CHEMISTRY BNP 36 <=100 09/14 Normal <sup>3</sup>I nterpretive [facility] Data: Elevated results are in line with increasing severity of congestive heart failure. Minor elevations between 100 and 300 may be seen with Myocardial Ischemia, Sodium retaining drugs, and compensated/t reated heart failure. CHEMISTRY Chloride Lvl 104 95 - 109 09/14 Normal [facility] CHEMISTRY Potassium 4.2 3.5 - 5.1 09/14 Normal [facility] CHEMISTRY Creatinine 1.0 0.5 - 1.4 09/14 Normal [facility] CHEMISTRY BUN 8 7 - 22 09/14 [facility] CHEMISTRY Sodium Lvl 138 135 - 145 09/14 [facility] CHEMISTRY ALT 29 0 - 65 09/14 Normal [facility] CHEMISTRY Alk Phos 57 39 - 136 09/14 Normal [facility] CHEMISTRY Albumin Lvl 3.5 3.5 - 5.0 09/14 [facility] CHEMISTRY Calcium Lvl 8.9 8.5 - 10.5 09/14 Normal [facility] CHEMISTRY Total 6.5 6.4 - 8.4 09/14 Normal [facility] CHEMISTRY CO2 29 24 - 32 09/14 Normal [facility] CHEMISTRY A/G Ratio 1.2 0.7 - 1.6 09/14 Normal [facility] CHEMISTRY B/C Ratio 8 6 - 25 09/14 Normal [facility] CHEMISTRY Globulin 3.0 2.0 - 4.0 09/14 [facility] CHEMISTRY Bili Total 0.6 0.2 - 1.3 09/14 Normal /2011 [facility] CHEMISTRY AST 17 0 - 37 09/14 Normal /2011 [facility] CHEMISTRY Glucose Lvl 86 70 - 99 09/14 Normal <sup>2</sup>I MH /2011 nterpretive [facility] Data: Adult reference range values reflect the clinical guidelines of the [place] [employer]. CHEMISTRY AGAP 9.2 10.0 - 09/14 LOW MH 20.0 /2011 [facility] CHEMISTRY CK MB 3.0 0.5 - 3.6 09/14 Normal [facility] CHEMISTRY Troponin-I <0.02 0.00 - 09/14 Normal MH 0.40 /2011 [facility] CHEMISTRY Total CK 138 12 - 191 09/14 Normal /2011 [facility] CHEMISTRY CK MB Index 2.2 0.0 - 2.5 09/14 Normal [facility] HEMATOLOGY INR 1.01 0.85 - 09/14 Normal <sup>7</sup>I MH 1.17 nterpretive [facility] Data: RECOMMENDED RANGES FOR PROTIME INR: 2.0-3.0 for most medical and surgical thromboemboli c states. 2.5-3.5 for artificial heart valves and recurrent embolism. INR SHOULD BE USED ONLY FOR PATIENTS ON STABLE ANTICOAGULANT THERAPY. HEMATOLOGY PTT 30.3 22.9 - 09/14 Normal <sup>9</sup>I MH 35.8 /2011 nterpretive [facility] Data: Heparin Therapeutic Range: 57 - 92 Seconds HEMATOLOGY PT 13.3 12.0 - 09/14 Normal MH 14.7 [facility] HEMATOLOGY MPV 9.6 7.4 - 10.4 09/14 Normal /2011 [facility] HEMATOLOGY MCHC 34.6 32.0 - 09/14 Normal MH 36.0 /2011 [facility] HEMATOLOGY RDW 13.0 11.5 - 09/14 Normal MH 14.5 /2011 [facility] HEMATOLOGY Platelet 206 133 - 450 09/14 Normal MH /2011 [facility] HEMATOLOGY RBC 4.07 4.70 - 09/14 LOW MH 6.10 [facility] HEMATOLOGY MCV 91.8 80.0 - 09/14 Normal MH 94.0 /2011 [facility] HEMATOLOGY WBC 7.2 3.7 - 10.4 09/14 Normal /2011 [facility] HEMATOLOGY Hgb 12.9 14.0 - 09/14 LOW MH 18.0 /2011 [facility] HEMATOLOGY Hct 37.3 42.0 - 09/14 LOW MH 54.0 /2011 [facility] HEMATOLOGY MCH 31.8 27.0 - 05 HI MH 31.0 /2011 [facility] HEMATOLOGY Basophils 0.6 0.0 - 1.0 / Normal MH /2011 [facility] HEMATOLOGY Eosinophils 0.1 0.0 - 0.5 / Normal MH # /2011 [facility] HEMATOLOGY Monocytes # 0.5 0.0 - 0.8 05/ Normal /2011 [facility] HEMATOLOGY Lymphocytes 1.9 1.0 - 5.5 09/14 Normal MH # /2011 [facility] HEMATOLOGY Segs-Bands # 4.6 1.5 - 8.1 09/14 Normal MH /2011 [facility] HEMATOLOGY Segs 64.4 45.0 - 05 Normal MH 75.0 /2011 [facility] HEMATOLOGY Eosinophils 2.0 0.0 - 4.0 09/14 Normal [facility] HEMATOLOGY Monocytes 6.5 2.0 - 12.0 09/14 Normal /2011 [facility] HEMATOLOGY Lymphocytes 26.5 20.0 - 09/14 Normal MH 40.0 /2011 [facility] HEMATOLOGY Basophils # 0.0 0.0 - 0.2 09/14 Normal [facility] BEDSIDE Comment1 Notify 09/08 NA GLUCOSE RN/MD [facility] TESTING BEDSIDE Gluc POC 101 70 - 99 09/08 [place] <sup>1</sup>I GLUCOSE [facility] /2011 nterpretive [facility] TESTING Data: Upper Reportable Limit: 200 mg/dL. BEDSIDE Gluc POC 98 70 - 99 09/08 Normal <sup>2</sup>I GLUCOSE [facility] nterpretive [facility] TESTING Data: Upper Reportable Limit: 200 mg/dL. BEDSIDE Gluc POC 90 70 - 99 09/07 Normal <sup>3</sup>I GLUCOSE [facility] /2011 nterpretive [facility] TESTING Data: Upper Reportable Limit: 200 mg/dL. BEDSIDE Comment1 Notify 09/07 NA GLUCOSE RN/MD /2011 [facility] TESTING BEDSIDE Comment2 Assess 09/07 NA GLUCOSE Patient /2011 [facility] TESTING BEDSIDE Comment1 Notify 09/07 NA GLUCOSE RN/MD /2011 [facility] TESTING BEDSIDE Comment2 Assess 09/07 NA GLUCOSE Patient /2011 [facility] TESTING BEDSIDE Comment2 Assess 09/07 NA GLUCOSE Patient /2011 [facility] TESTING CHEMISTRY U Opiate Scr Negative Negative 09/06 *NA* /2011 [facility] (09/07/2011 11:56:00) CHEMISTRY U Phencyc Negative Negative 05/22 NA MH Scr *NA* /2011 [facility] (09/07/2011 11:56:00) CHEMISTRY UDS Note See Note 5 09/06 Normal <sup>5</sup>I (09/07/2011 11:56:00) nterpretive [facility] Data: Drugs reported as positive have not been confirmed by a second method and should be used for medical purposes only. To order confirmation, contact laboratory. note: Below are cut-off concentration s for all urine drugs of abuse performed in the laboratory. Some drugs listed in the table may not be included in this panel. Description Cut-off concentration Amphetamine 1000 ng/mL Barbiturates 200 ng/mL Benzodiazepin es 300 ng/mL Cocaine metabolites 300 ng/mL Opiates 300 ng/mL Phencyclidine 25 ng/mL Propoxyphene 300 ng/mL Marijuana metabolites 50 ng/mL Methadone 300 ng/mL Urine alcohol 20 mg/dL CHEMISTRY U Amph Scr Negative Negative 09/06 NA MH *NA* /2011 [facility] (09/07/2011 11:56:00) CHEMISTRY U Benzodia Positive Negative 09/06 ABN MH Scr *ABN* /2011 [facility] (09/07/2011 11:56:00) CHEMISTRY U Cocaine Positive Negative 09/06 ABN MH Scr *ABN* /2011 [facility] (09/07/2011 11:56:00) CHEMISTRY U Cannab Scr Positive Negative 09/06 ABN MH *ABN* /2011 [facility] (09/07/2011 11:56:00) CHEMISTRY U Annette Scr Negative Negative 09/06 NA MH *NA* /2011 [facility] (09/07/2011 11:56:00) URINALYSIS UA Ketones Negative Negative 09/06 NA MH *NA* /2011 [facility] (09/07/2011 11:56:00) URINALYSIS UA Glucose Negative Negative 09/06 Normal (09/07/2011 11:56:00) [facility] URINALYSIS UA 0.2 0.1 - 1.0 09/06 Normal Urobilinogen /2011 [facility] URINALYSIS UA Blood Large Negative 09/06 ABN MH *ABN* /2011 [facility] (09/07/2011 11:56:00) URINALYSIS UA Bili Negative Negative 09/06 NA *NA* [facility] (09/07/2011 11:56:00) URINALYSIS UA Color Yellow Yellow 09/06 NA *NA* [facility] (09/07/2011 11:56:00) URINALYSIS UA Nitrite Negative Negative 09/06 Normal (09/07/2011 11:56:00) [facility] URINALYSIS UA Leuk Est Negative Negative 09/06 Normal (09/07/2011 11:56:00) [facility] URINALYSIS UA Protein Trace Negative 09/06 ABN *ABN* [facility] (09/07/2011 11:56:00) URINALYSIS UA pH 5.5 5.0 - 8.0 09/06 Normal [facility] URINALYSIS UA Spec Grav >=1.030 <=1.030 09/06 ABN *ABN* [facility] (09/07/2011 11:56:00) URINALYSIS UA Turbidity Slight Cloudy Clear 09/06 Normal (09/07/2011 11:56:00) [facility] URINALYSIS UA Amorph Few /HPF None Seen 09/06 [facility] Erin *ABN* [facility] (09/07/2011 11:56:00) URINALYSIS UA Sq Epi Few /LPF Few 09/06 Normal (09/07/2011 11:56:00) [facility] URINALYSIS UA RBC 0-2 /HPF 0 - 2 09/06 Normal (09/07/2011 11:56:00) [facility] URINALYSIS UA WBC 6-10 /HPF None Seen 09/06 ABN *ABN* /2011 [facility] (09/07/2011 11:56:00) URINALYSIS UA Mucus Moderate /LPF None Seen 09/06 ABN *ABN* [facility] (09/07/2011 11:56:00) URINALYSIS UA Bacteria Few /HPF None Seen 09/06 Normal (09/07/2011 11:56:00) [facility] CHEMISTRY Rate Art 10 09/06 NA [facility] CHEMISTRY Mode Art nrm 09/06 [facility] CHEMISTRY [place] Art Positive 09/06 Normal (09/07/2011 09:18:00) [place] CHEMISTRY BE Art 1 -2-2 - 2 09/06 Normal [place] CHEMISTRY Temp Art 37.0 09/06 NA [place] CHEMISTRY HCO3 Art 27 22 - 26 09/06 HI [facility] CHEMISTRY Site Art Right Ra 09/06 Normal MH (09/07/2011 09:18:00) [place] CHEMISTRY O2 Sat Art 98.0 95.0 - 09/06 Normal MH 100.0 /2011 [place] CHEMISTRY pCO2 Art 49 35 - 45 09/06 HI [place] CHEMISTRY pO2 Art 115 80 - 100 09/06 HI [place] CHEMISTRY pH Art 7.35 7.35 - 09/06 Normal MH 7.45 /2011 [place] CHEMISTRY Etoh (%) <0.003 09/06 NA <sup>6</sup>I nterpretive [facility] Data: Negative Range: <0.003% Toxic Range: >0.25% CHEMISTRY Ethanol Lvl <3 09/06 NA <sup>7</sup>I nterpretive [facility] Data: Negative Range: <3 mg/dL Toxic Range: >250 mg/dL CHEMISTRY Ammonia 28.0 <=45.0 09/06 Normal [facility] [facility] CHEMISTRY Bili Total 0.4 0.2 - 1.3 09/06 Normal [facility] CHEMISTRY ALT 20 0 - 65 09/06 Normal [facility] CHEMISTRY AST 44 0 - 37 09/06 HI [facility] CHEMISTRY Alk Phos 67 39 - 136 09/06 Normal [facility] CHEMISTRY Albumin Lvl 3.5 3.5 - 5.0 09/06 Normal [facility] CHEMISTRY Potassium 4.6 3.5 - 5.1 09/06 Normal [facility] CHEMISTRY CO2 26 24 - 32 09/06 Normal [facility] CHEMISTRY Chloride Lvl 109 95 - 109 09/06 Normal [facility] CHEMISTRY Total 6.3 6.4 - 8.4 09/06 LOW [facility] CHEMISTRY Calcium Lvl 8.1 8.5 - 10.5 09/06 LOW [facility] CHEMISTRY BUN 10 7 - 22 09/06 Normal [facility] CHEMISTRY Creatinine 0.9 0.5 - 1.4 09/06 Normal [facility] CHEMISTRY Sodium Lvl 142 135 - 145 09/06 Normal [facility] CHEMISTRY Glucose Lvl 111 70 - 99 09/06 HI <sup>4</sup>I MH /2011 nterpretive [facility] Data: Adult reference range values reflect the clinical guidelines of the [employer]. CHEMISTRY Globulin 2.8 2.0 - 4.0 09/06 Normal [facility] /2011 [facility] CHEMISTRY A/G Ratio 1.3 0.7 - 1.6 09/06 Normal /2011 [facility] CHEMISTRY B/C Ratio 11 6 - 25 09/06 Normal /2011 [facility] CHEMISTRY AGAP 11.6 10.0 - 09/06 Normal [facility] 20.0 /2011 [facility] HEMATOLOGY Eosinophils 0.0 0.0 - 0.5 / Normal MH # /2011 [facility] HEMATOLOGY Basophils # 0.0 0.0 - 0.2 09/06 Normal [facility] /2011 [facility] HEMATOLOGY Segs-Bands # 11.4 1.5 - 8.1 09/06 HI [facility] /2011 [facility] HEMATOLOGY Lymphocytes 1.1 1.0 - 5.5 09/06 Normal [facility] # /2011 [facility] HEMATOLOGY Monocytes # 0.6 0.0 - 0.8 09/06 Normal /2011 [facility] HEMATOLOGY Basophils 0.2 0.0 - 1.0 09/06 Normal [facility] /2011 [facility] HEMATOLOGY Lymphocytes 8.1 20.0 - 09/06 LOW MH 40.0 /2011 [facility] HEMATOLOGY Segs 86.7 45.0 - 09/06 HI MH 75.0 /2011 [facility] HEMATOLOGY Eosinophils 0.1 0.0 - 4.0 09/06 Normal [facility] HEMATOLOGY Monocytes 4.9 2.0 - 12.0 09/06 Normal /2011 [facility] HEMATOLOGY Hgb 13.6 14.0 - 09/06 LOW [facility] 18.0 [facility] HEMATOLOGY RBC 4.20 4.70 - 09/06 LOW MH 6.10 /2011 [facility] HEMATOLOGY WBC 13.1 3.7 - 10.4 09/06 HI MH /2011 [facility] HEMATOLOGY Hct 38.5 42.0 - 09/06 LOW MH 54.0 /2011 [facility] HEMATOLOGY MCH 32.3 27.0 - 09/06 HI MH 31.0 /2011 [facility] HEMATOLOGY MCV 91.8 80.0 - 09/06 Normal MH 94.0 /2011 [facility] HEMATOLOGY RDW 13.6 11.5 - 09/06 Normal MH 14.5 /2011 [facility] HEMATOLOGY MPV 9.2 7.4 - 10.4 09/06 Normal /2011 [facility] HEMATOLOGY Platelet 226 133 - 450 09/06 Normal MH /2011 [facility] HEMATOLOGY MCHC 35.2 32.0 - 09/06 Normal 36.0 /2011 [facility] IMMUNOLOGY [facility]-HIV 1/2 Negative Negative 09/06 NA Ab *NA* /2011 [facility] (09/07/2011 08:40:00) Pathology Reports No Data Provided for This Section Diagnostic Reports Report Value Date Source Chest 1view PORTABLE CHEST 2013-06-21 12:06:00 06/21/2013 [facility] COMPARISON: September 15, 2011 CLINICAL INDICATION: r/o pneumothorax IMPRESSION: New endotracheal tube is seen 3 cm above the gilberto. Low lung volumes with spurious widening of the cardiomediastinal silhouette and bilateral platelike atelectasis. A background of interstitial edema may be present. No large pneumothorax is identified, however, a supine film is suboptimal for that determination. An erect film of the chest is suggested in order to more accurately exclude a pneumothorax. Consultation Notes No Data Provided for This Section Discharge Summaries No Data Provided for This Section History and Physicals No Data Provided for This Section Vital Signs Vital Sign Value Date Comments Source Temperature Oral (F) 97.1 F 09/18/2016 [facility] Heart Rate 85 09/18/2016 [facility] Respitory Rate 18 09/18/2016 [facility] Systolic (mm Hg) 125 09/18/2016 [facility] Diastolic (mm Hg) 71 09/18/2016 [facility] Heart Rate 69 09/18/2016 [facility] Temperature Oral (F) 97.3 F 09/18/2016 [facility] Systolic (mm Hg) 118 09/18/2016 [facility] Diastolic (mm Hg) 81 09/18/2016 [facility] Respitory Rate 20 09/18/2016 [facility] Temperature Oral (F) 97.8 F 09/18/2016 [facility] Heart Rate 74 09/18/2016 [facility] Respitory Rate 18 09/18/2016 [facility] Systolic (mm Hg) 113 09/18/2016 [facility] Diastolic (mm Hg) 73 09/18/2016 [facility] BMI Calculated 23.8 09/17/2016 [facility] Weight 81.818 09/17/2016 [facility] Height 185.42 cm 09/17/2016 [facility] Respitory Rate 20 06/23/2013 [facility] Diastolic (mm Hg) 89 06/23/2013 [facility] Systolic (mm Hg) 139 06/23/2013 [facility] Heart Rate 88 06/23/2013 [facility] Temperature Oral (F) 97.6 F 06/23/2013 [facility] Diastolic (mm Hg) 90 06/23/2013 [facility] Systolic (mm Hg) 149 06/23/2013 [facility] Heart Rate 73 06/23/2013 [facility] Respitory Rate 20 06/23/2013 [facility] Temperature Oral (F) 98.4 F 06/23/2013 [facility] Diastolic (mm Hg) 80 06/23/2013 [facility] Temperature Oral (F) 97.9 F 06/23/2013 [facility] Heart Rate 72 06/23/2013 [facility] Respitory Rate 20 06/23/2013 [facility] Systolic (mm Hg) 128 06/23/2013 [facility] BMI Calculated 40.59 06/21/2013 [facility] Height 185.42 cm 06/21/2013 [facility] Weight 139.545 06/21/2013 [facility] BMI Calculated 40.66 06/21/2013 [facility] Weight 139.801 06/21/2013 [facility] Height 185.42 cm 06/15/2013 [facility] Respitory Rate 18 11/26/2011 [facility] Heart Rate 85 11/26/2011 [facility] Temperature Oral (F) 97.4 F 11/26/2011 [facility] Diastolic (mm Hg) 71 11/26/2011 [facility] Systolic (mm Hg) 123 11/26/2011 [facility] Systolic (mm Hg) 118 11/26/2011 [facility] Diastolic (mm Hg) 74 11/26/2011 [facility] Respitory Rate 18 11/26/2011 [facility] Temperature Oral (F) 97.1 F 11/26/2011 [facility] Heart Rate 90 11/26/2011 [facility] Diastolic (mm Hg) 73 11/26/2011 [facility] Systolic (mm Hg) 115 11/26/2011 [facility] Respitory Rate 18 11/26/2011 [facility] Heart Rate 80 11/26/2011 [facility] Temperature Oral (F) 97.6 F 11/26/2011 [facility] Weight 115.909 11/25/2011 [facility] Height 185.42 cm 11/25/2011 [facility] Weight 115.909 11/24/2011 [facility] Height 185.42 cm 11/24/2011 [facility] Weight 115.909 11/24/2011 [facility] Height 185.42 cm 11/24/2011 [facility] Temperature Oral (F) 97.3 F 09/16/2011 [facility] Heart Rate 73 09/16/2011 [facility] Respitory Rate 20 09/16/2011 [facility] Systolic (mm Hg) 124 09/16/2011 [facility] Diastolic (mm Hg) 64 09/16/2011 [facility] Systolic (mm Hg) 129 09/16/2011 [facility] Diastolic (mm Hg) 75 09/16/2011 [facility] Heart Rate 71 09/16/2011 [facility] Temperature Oral (F) 97.6 F 09/16/2011 [facility] Respitory Rate 20 09/16/2011 [facility] Heart Rate 78 09/16/2011 [facility] Diastolic (mm Hg) 63 09/16/2011 [facility] Respitory Rate 19 09/16/2011 [facility] Systolic (mm Hg) 111 09/16/2011 [facility] Temperature Oral (F) 98.0 F 09/16/2011 [facility] Weight 118.182 09/15/2011 [facility] Height 185.42 cm 09/15/2011 [facility] Heart Rate 64 09/09/2011 [facility] Temperature Oral (F) 98.3 F 09/09/2011 [facility] Respitory Rate 18 09/09/2011 [facility] Diastolic (mm Hg) 91 09/09/2011 [facility] Systolic (mm Hg) 144 09/09/2011 [facility] Temperature Oral (F) 98.1 F 09/09/2011 [facility] Heart Rate 68 09/09/2011 [facility] Respitory Rate 18 09/09/2011 [facility] Diastolic (mm Hg) 99 09/09/2011 [facility] Systolic (mm Hg) 140 09/09/2011 [facility] Respitory Rate 18 09/09/2011 [facility] Heart Rate 68 09/09/2011 [facility] Temperature Oral (F) 98.1 F 09/09/2011 [facility] Diastolic (mm Hg) 99 09/09/2011 [facility] Systolic (mm Hg) 140 09/09/2011 [facility] Weight 100.000 09/07/2011 [facility] Encounters Location Location Encounter Encounter Reason Attending ADM DC Status Source Details Type Number For Provider Date Date Visit Inpatient [id number] DYSPNEA, THOMPSON 09/06 09/08 Active [facility] 1 AMS CHOUDHURY [facility] palencia OU [id number] THOMPSON 09/14 09/15 Discharg [facility] 2 CHOUDHURY ed Dayday palencia [employer] OU [id number] MARISSA 11/24 11/25 [address] [facility] Inpatient [id number] _MAPID:Yoel Lynn 06/21 06/23 [facility] [id number] NCNTRRFV /2013 [place] [id number] [facility] Inpatient [id number] Mohamed 09/17 09/18 [facility] 3 Fontanez [facility] Preadmit [id number] MORBID DICK LYNN Active [place] [address] OBESITY [facility] Procedures Procedure Code Date Perfomer Comments Source Appendectomy [id number] [facility] Excision<sup>1</sup [id number] lipoma [facility] Gastric bypass [id number] [facility] Operation [id number] [facility] Tonsillectomy [id number] [facility] Assessment and Plan Assessment and Plan Date Source Extracted from:Title: GI consult note 09/18/2016 [facility] Author: Melina Bonilla MD Date: 09/17/16 Assessment/Plan 43 y/o male currently incarcerated with PMH of CAD s/p stents 2011 off of any ASA or Plavix with hx of Gastric bypass in 2013 complicated with multiple GI bleeding likely due to Anastomotic ul cers now here with Melena and significant acute on chronic anemia with stable vitals. UGI bleed - Differential includes anastomotic PUD due to ischemia at the site v/s Esophagitis v/s gastritis. - NO hx of liver disease or recent Etoh intake. Pt is incarcerated - Maintain 2 large bore IV's and IV fluid resuscitation - Make sure there is an active type and screen - Transfusion goals: Hgb >7gm/dl , INR <1.5 and platelet >50K. Currently at goal. - NPO. SMALL amount of ice chips is fine - PRN zofran for nausea/vomiting. - PPI drip 80mg bolus then 8mg/hr - Liquid caraftae 10ml QID X 2 weeks - vitals stable Plan - EGD Today - Pt is consented and posted. - F/u EGD reccomendations. Patient was seen and examined. Plan was discussed with the attending of Record - Dr. Sonali Bonilla MD Pager: [phone] Gastroenterology and Hepatology Fellow - PGY 4 Thank you for the consultation. Please page or call with questions or concerns. Addendum by Compa Lyon MD on 09/19/2016 17:17 CDT I have seen and examined the patient with Dr. Bonilla and Dr. Fong on September 17, 2016. I have reviewed the residents/fellows history, physical exam and the assessment and plan of care. I have personally reviewed the lab results and radiology tests and discussed the findings with Dr. Bonilla and Dr. Fong. Extracted from:Title: History and Physical Author: Jorge Fontanez MD Date: 09/17/16 Assessment/Plan 43 y/o male (incarcerated) with PMH of CAD s/p stents 2011, CHF, HTN, chronic bronchitis, morbid obesity s/p marilynn-en-Y gastric bypass 2013, anxiety, schizoaffective disorders who was referred from [facility] for evaluation of acute GI bleed. 1.Acute GI bleeding likely upper GI bleed secondary to PUD will keep NPO, will start IV hydration will place on IV protonix GTT will follow up stat repeat labs (CBC, CMP, Magnesium, Phosphorus and coagulation) and will transfuse PRBC if needed will follow up vital signs including orthostatics GI consult requested for evaluation Ordered: Admit/Condition 2.CAD - Coronary artery disease EKG at OSH, sinus tachycardia with no specific ST segment or T wave abnormalities will hold off aspirin and plavix given active GI bleed stable HR, will not restart lopressor now given risk of hypotension 3.CHF - Congestive heart failure pt reports chronic, well compensated, diastolic HF appears Euvolemic, not in distress will hold off restarting lasix diuresis for now 4.Hypertension well controlled off antihypertensives will follow up blood pressure trend and manage accordingly 5.COPD well saturating on room air will add as needed duoneb 6.Schizo-affective psychosis will resume home dose of abilify and lithium 7.Anxiety will resume home dose of xanax 8.Morbid obesity counselled on weight loss 9.Smoker counselled on cessation Prophylaxis SCD Disposition pending GI evaluation Extracted from:Title: Clinical Document 06/23/2013 [facility] Author: Robert Hinojosa Date: 06/22/2013 General Surgery Progress Note Patient: BRITTON KOHLI Age: 43 years Sex: Male : 1970 Associated Diagnoses: None Author: Robert Hinojosa MD Basic Information 43 yo male with MO (BMI 41) with many associated comorbidities including CHF, CAD, reflux esophagitis, HTN, and DAYLIN s/p robotic-assisted RYGB. Patient feels well this morning. Pain and nausea controlled. Review of Systems Constitutional: No fever, No chills. Eye: No recent visual problem. Respiratory: Denies shortness of breath. Cardiovascular: Denies chest pain. Gastrointestinal: Minimal incisional abdominal pain reported Hematology/Lymphatics: No bleeding tendency. Immunologic: Not immunocompromised. Integumentary: No rash. Neurologic: No numbness. Health Status Allergies: Allergies (1) Active Reaction NKDA None Documented Active Problems (13) Altered mental status Anxiety CAD - Coronary artery disease Chest pain CHF - Congestive heart failure COPD Hypercholesterolemia Hypertension Morbid obesity Nausea Pain Reflux Sleep apnea Scheduled Meds (2):acetaminophen-hydrocodone (acetaminophen-hydrocodone 300 mg- 10 mg/15 mL oral liquid), enoxaparin Unscheduled Meds: None PRN Meds (4):acetaminophen-hydrocodone (acetaminophen-hydrocodone 300 mg-10 mg/ 15 mL oral liquid), naloxone, ondansetron (Zofran), promethazine One Time Meds (1):(Completed) heparin Continuous Infusions (2):Lactated Ringers Injection IV 1,000 mL, hydromorphone 15 mg (HYDROmorphone 0.5mg/mL LITHOPLATE MAKER (15mg/30 mL) 15 mg) Physical Examination Vitals and Temp: Vitals Tmp(F) Pulse BP RR SpO2 FIO2 06/22 09:09 ---- --- ----- -- 98 28% 06/22 08:00 97.6 74 115/71 18 98 2.0L/m 06/22 04:24 97.6 72 116/74 20 98 2.0L/m 06/21 23:32 97.6 77 123/78 20 98 2.0L/m 06/21 21:02 ---- --- ----- -- 98 2.0L/m 24 Hr Tmax: 97.9F (36.61c) at 06/21 14:55 Vital Signs are the last 5 in the past 48 hours. Input/Output Record In Out Bal 06/22 24hr Tot 0 0 0 06/21 24hr Tot [phone] General: No acute distress, Patient alert and oriented x3. Respiratory: Lungs are clear to auscultation, Respirations are non-labored. Cardiovascular: Normal rate, Regular rhythm, No murmur. Gastrointestinal: Soft, appropriately tender, incisions c/d/i. No rebound or guarding. minimal abdominal distention. Neurologic: A&Ox3, nonfocal exam. Review / Management Results review: Labs (Last four charted values) WBC H 11.7 (JUN 22) H 10.9 (JUN 15) Hgb L 13.3 (JUN 22) 14.5 (JUN 15) Hct L 39.7 (JUN 22) L 41.3 (JUN 15) Plt 185 (JUN 22) 172 (JUN 21) 219 (JUN 15) Na L 134 (JUN 22) 140 (JUN 15) K 4.9 (JUN 22) 4.2 (JUN 15) CO2 25 (JUN 22) 25 (JUN 15) Cl 100 (JUN 22) 104 (JUN 15) Cr 0.6 (JUN 22) 1.1 (JUN 21) 0.9 (JUN 15) BUN 10 (JUN 22) 12 (JUN 15) Glucose Random 98 (JUN 22) L 66 (JUN 15) Mg 2.0 (JUN 22) Phos H 4.8 (JUN 22) Ca 8.9 (JUN 22) 9.1 (JUN 15) PTT 27.9 (JUN 21) Impression and Plan 43 yo male with MO (BMI 41) with many associated comorbidities including CHF, CAD, reflux esophagitis, HTN, and DAYLIN s/p robotic-assisted RYGB POD 1. Neuro - start zolvit liquid for pain control. wean LITHOPLATE MAKER today. CV - HDS Pulm - KEVIN, encourage IS GI - advance to bariatric clears today - wean IVF, strict I&Os. currently voiding spontaneously with adequate UOP. Heme: no evidence of bleeding ID: afebrile, no evidence of infection Ppx - lovenox Addendum by Dick Lynn MD on 06/24/2013 13:37 I, Dr. Dick Lynn, the consulting physician have seen and examined the patient with Dr. Hinojosa, reviewed the above note, and agree with the assessment and plan. Extracted from:Title: Clinical Document Author: Dick Lynn Date: 06/21/2013 DATE OF OPERATION/PROCEDURE: 06/21/2013 PREOPERATIVE DIAGNOSIS: 1. Morbid obesity. 2. CHF 3. CAD. 4. Reflux esophagitis. 5. Hypertension. 6. Obstructive sleep apnea. POSTOPERATIVE DIAGNOSIS: 1. Morbid obesity. 2. CHF 3. CAD. 4. Reflux esophagitis. 5. Hypertension. 6. Obstructive sleep apnea. PROCEDURES: 1. Robotic-assisted Marilynn-en-Y gastric bypass. 2. EGD. 3. Application of Evicel. SURGEON: Dr. Dick Lynn. BUILDING MAINTENANCE SUPERVISOR: Dr. Thu Heath. INDICATIONS FOR PROCEDURE: This is a 43-year-old male with severe morbid obesity with a BMI that started out at 41 before his weight loss at our medical managed weight loss program, who also has multiple comorbidities. The patient has elected to go forward with a laparoscopic Marilynn-en-Y gastric bypass after demonstrating a full understanding of the risks and benefits of the surgery. PROCEDURE IN DETAIL: The patient was brought to the operating room, placed supine on the operating table, and then was sedated, intubated, and placed under general endotracheal anesthesia. The abdomen was prepped and drape d in standard surgical fashion. The abdomen was entered using a 5-mm Optiview port in the right upper quadrant. Pneumoperitoneum was achieved and the entire abdomen was inspected with no gross abnormality identified. Additional ports were placed according to my normal robotic-assisted Marilynn-en-Y gastric bypass with an 8-mm port in the left upper quadrant, a 5-mm port in the left lateral position; a Magdy retracto r at the subxiphoid region and two 12 mm ports; one in the middle abdomen, one in the right upper abdomen. Attention was first turned to the stomach where the angle of His was taken down using blunt dissection and the fat pad was removed with the Harmonic scalpel. The pars flaccida was opened up to identify a clear posterior passageway. Next, the omentum was divided from the colon to the greater curvature. The robot was docked. I then created a small pouch around a 30 mL balloon using sequential staple fires from a flexible endoscopic stapler buttressed with SeamGuard. Once this was complete, the small bowel was measured from 50 cm from the ligament of Treitz and brought up to the small pouch. The posterior row of the two layered gastrojejunostomy was completed with 2-0 Vicryl suture. The small bowel was divided at this point. An additional 100 cm of small bowel was counted out and a [id number] functional end-to-side jejunojejunostomy was created using a single staple fire and closed with hand manuel turing. The mesentery defect was then closed using 2-0 silk suture. Attention was then turned back to the small pouch, which was opened using monopolar scissors using a 34-Danish calibration device to measure the size of the enterotomy. A two layered hand sewn gastrojej unostomy was then created with 2-0 Vicryl suture around the calibration tube. Once complete, the robot was undocked and EGD was passed into the oropharynx through the esophagus and into the small pouch. The pouch of the appropriate size and the anastomosis was found to be patent with no evidence of bleeding. A leak test was performed with no evidence of leak. The air was suctioned and the EGD was removed. Eviseal was placed at the anastomoses and at the Palacios defect. The 12-mm trocar sites were closed using interrupted 0 Vicryl suture passed with a Cedric- Gibbs. Pneumoperitoneum was released and all the trocars were removed. The trocar sites were closed using 4-0 Monocryl and covered in Dermabond. The patient was then awoken from anesthesia, extubated, and brought to the recovery room in good condition. INTRAVENOUS FLUIDS: Please see anesthesia records for IV fluids. ESTIMATED BLOOD LOSS: 30 mL. COMPLICATIONS: None. FINDINGS: Please see procedure in detail. Addendum by Dick Lynn MD on 06/21/2013 14:26 There were no qualified residents available so I asked Dr. Thu Heath to assist. Plan of Care No Data Provided for This Section Social History Social History Date Source Social History TypeResponse 09/17/2016 [facility] Substance Abuse Use: Current. Type: Marijuana. Recreational Drug Route: Inhaled. Frequency: 1-2 times per week. Previous Treatment: None. Started age 14 Years. IV drug use: No. Ready to change: No. Alcohol Current, Frequency: 1-2 times per year. Smoking Status Former smoker; Type: Cigarettes; Tobacco use per day: 2; Started [age] age: 14.0; Ready to change: No; Exposure to Tobacco Smoke None; Cigarette Smoking Last 365 Days Yes; Reg Smoking Cessation Counseling No Family History No Data Provided for This Section Advance Directives No Data Provided for This Section Functional Status No Data Provided for This Section
--- OUTSIDE RECORDS SUMMARY | 2019-01-03 09:27 | XMS REPORT | CCD ---
:1970 Author Organization [facility] Care Team Providers Name Role Phone Vivek Hyde Rae Consulting Provider Allergies, Adverse Reactions, Alerts Substance Reaction Status NKDA Active Problem List Condition Effective Dates Status Altered mental status Active Anxiety Active Medications Medication Instructions Start Date End Date Status Haldol 10 mg, 2 mL, Route: 09/07/2011 09/08/2011 Completed IM, Drug form: INJ, ONCE, Start date: 09/07/11 21:35:00, Stop date: 09/07/11 21:35:00 Lopressor Substitution Allowed 09/07/2011 Ordered Plavix Substitution Allowed 09/07/2011 Ordered Abilify Substitution Allowed 09/07/2011 Ordered lithium Substitution Allowed 09/07/2011 Ordered Phenergan Substitution Allowed 09/07/2011 Ordered Flexeril Substitution Allowed 09/07/2011 Ordered Haldol 5 mg/mL injectable Substitution Allowed 09/07/2011 Ordered solution predniSONE 40 mg, 2 tab, Route: 09/09/2011 09/09/2011 Discontinued PO, Drug form: TAB, Daily, Start date: 09/09/11 9:00:00, Duration: 30 day, Stop date: 10/08/11 9:00:00 Benadryl Substitution Allowed 09/07/2011 Ordered Flexeril Substitution Allowed 09/07/2011 Ordered trazodone Substitution Allowed 09/07/2011 Ordered azithromycin 250 mg oral 500 mg, 2 tab, Route: 09/08/2011 09/09/2011 Discontinued tablet PO, Drug form: TAB, Q24H, Start date: 09/08/11 16:00:00, Duration: 30 day, Stop date: 10/07/11 16:00:00 Suboxone 8 mg-2 mg Substitution Allowed, 09/07/2011 Ordered sublingual tablet, Maintenance disintegrating Librium Substitution Allowed 09/07/2011 Ordered naloxone Route: IVP, Drug form: 09/07/2011 09/07/2011 Completed INJ, ONCE, Priority: STAT, Start date: 09/07/11 8:58:00, Stop date: 09/07/11 8:58:00 Ativan Substitution Allowed 09/07/2011 Ordered clonidine Substitution Allowed 09/07/2011 Ordered Klonopin Substitution Allowed 09/07/2011 Ordered Sodium Chloride 0.9% IV 1,000 mL, Rate: 80 09/07/2011 09/08/2011 Discontinued 1,000 mL ml/hr, Infuse over: 12.5 hr, Route: IV, Dosing Weight 100 kg, Total Volume: 1,000, Start date: 09/07/11 20:00:00, Duration: 30 day, Stop date: 10/07/11 19:59:00 albuterol 2.49 mg, 3 mL, Route: 09/07/2011 09/09/2011 Discontinued NEB, Drug form: SOLN, RQ6H, PRN Shortness of breath, Start date: 09/07/11 17:13:00, Duration: 30 day, Stop date: 10/07/11 17:12:00 albuterol 2.49 mg, 3 mL, Route: 09/07/2011 09/09/2011 Discontinued NEB, Drug form: SOLN, RQ6H, Start date: 09/07/11 20:00:00, Duration: 30 day, Stop date: 10/07/11 14:00:00 Nexium Substitution Allowed 09/07/2011 Ordered Eskalith 600 mg, 2 tab, Route: 09/08/2011 09/09/2011 Discontinued PO, Drug form: TAB, BID, Start date: 09/08/11 9:00:00, Duration: 30 day, Stop date: 10/07/11 17:00:00 aspirin 81 mg tablet, 81 mg, 1 tab, Route: 09/08/2011 09/09/2011 Discontinued chewable CHEW, Drug form: CHEWTAB, Daily, Start date: 09/08/11 9:00:00, Duration: 30 day, Stop date: 10/07/11 9:00:00 Abilify 2 mg, 1 tab, Route: 09/07/2011 09/09/2011 Discontinued PO, Drug form: TAB, Bedtime, Start date: 09/07/11 21:00:00, Duration: 30 day, Stop date: 10/06/11 21:00:00 Lopressor 100 mg, 1 tab, Route: 09/07/2011 09/09/2011 Discontinued PO, Drug form: TAB, Q12H, Start date: 09/07/11 21:00:00, Duration: 30 day, Stop date: 10/07/11 9:00:00 Plavix 75 mg, 1 tab, Route: 09/08/2011 09/09/2011 Discontinued PO, Drug form: TAB, Daily, Start date: 09/08/11 9:00:00, Duration: 30 day, Stop date: 10/07/11 9:00:00 Protonix 40 mg, 1 tab, Route: 09/08/2011 09/09/2011 Discontinued PO, Drug form: ECTAB, Before Dinner, Start date: 09/08/11 16:30:00, Duration: 30 day, Stop date: 10/07/11 16:30:00 Sodium Chloride 0.9% IV 250 mL, Route: IVPB, 09/07/2011 09/09/2011 Discontinued Start date: 09/07/11 9:12:00, Duration: 30 day, Stop date: 10/07/11 9:11:00, PRN Line Flush Haldol 5 mg, 1 mL, Route: IM, 09/07/2011 09/08/2011 Completed Drug form: INJ, ONCE, Start date: 09/07/11 21:09:00, Stop date: 09/07/11 21:09:00 BD Normal Saline Flush 10 mL, Route: IVP, 09/07/2011 09/09/2011 Discontinued Drug Form: INJ, PRN, PRN Line Flush, Start date: 09/07/11 9:12:00, Duration: 30 day, Stop date: 10/07/11 9:11:00 methylPREDNISolone 60 mg, 0.96 mL, Route: 09/07/2011 09/08/2011 Discontinued IV, Drug form: INJ, Q6H, Start date: 09/07/11 18:00:00, Duration: 30 day, Stop date: 10/07/11 12:00:00 Vital Signs Most recent to oldest 1 2 3 [Reference Range]: Temperature Oral 98.3 DegF 98.1 DegF 98.1 DegF [96.4-99.1 DegF] (09/09/2011 15:09:00) (09/09/2011 14:38:00) (09/09/2011 12: 19:00) Systolic Blood Pressure 144 mmHg 140 mmHg 140 mmHg [90-140 mmHg] *HI* (09/09/2011 14:38:00) (09/09/2011 12:19:00) (09/09/2011 15:09:00) Diastolic Blood Pressure 91 mmHg 99 mmHg 99 mmHg [60-90 mmHg] *HI* *HI* *HI* (09/09/2011 15:09:00) (09/09/2011 14:38:00) (09/09/2011 12:19:00) Respiratory Rate [14-20 18 BRMIN 18 BRMIN 18 BRMIN BRMIN] (09/09/2011 15:09:00) (09/09/2011 14:38:00) (09/09/2011 12:19:00) Peripheral Pulse Rate 64 bpm 68 bpm 68 bpm [60-100 bpm] (09/09/2011 15:09:00) (09/09/2011 14:38:00) (09/09/2011 12:19: 00) Weight 100.000 kg (09/07/2011 08:27:00) Results BEDSIDE GLUCOSE TESTING Most recent to oldest 1 2 3 [Reference Range]: Gluc POC Lifscn [70-99 101 mg/dL 1 98 mg/dL 2 90 mg/dL 3 mg/dL] *HI* (09/08/2011 20:43:00) (09/08/2011 16:45:00) (09/09/2011 07:50:00) Comment1 Notify RN/MD Notify RN/MD Notify RN/MD *NA* *NA* *NA* (09/09/2011 07:50:00) (09/08/2011 16:45:00) (09/08/2011 11:56:00) Comment2 Assess Patient Assess Patient Assess Patient *NA* *NA* *NA* (09/08/2011 16:45:00) (09/08/2011 11:56:00) (09/08/2011 08:13:00) 1Interpretive Data: Upper Reportable Limit: 200 mg/dL.2Interpretive Data: Upper Reportable Limit: 200 mg/dL.3Interpretive Data: Upper Reportable Limit: 200 mg/dL.URINALYSIS Most recent to oldest [Reference Range]: 1 2 3 UA Turbidity [Clear] Slight Cloudy (09/07/2011 11:56:00) UA Color [Yellow] Yellow *NA* (09/07/2011 11:56:00) UA pH [5.0-8.0] 5.5 (09/07/2011 11:56:00) UA Spec Grav [<=1.030] >=1.030 *ABN* (09/07/2011 11:56:00) UA Glucose [Negative] Negative (09/07/2011 11:56:00) UA Blood [Negative] Large *ABN* (09/07/2011 11:56:00) UA Ketones [Negative] Negative *NA* (09/07/2011 11:56:00) UA Protein [Negative] Trace *ABN* (09/07/2011 11:56:00) UA Urobilinogen [0.1-1.0 EU/dL] 0.2 EU/dL (09/07/2011 11:56:00) UA Bili [Negative] Negative *NA* (09/07/2011 11:56:00) UA Leuk Est [Negative] Negative (09/07/2011 11:56:00) UA Nitrite [Negative] Negative (09/07/2011 11:56:00) UA WBC [None Seen /HPF] 6-10 /HPF *ABN* (09/07/2011 11:56:00) UA RBC [0-2 /HPF] 0-2 /HPF (09/07/2011 11:56:00) UA Bacteria [None Seen /HPF] Few /HPF (09/07/2011 11:56:00) UA Sq Epi [Few /LPF] Few /LPF (09/07/2011 11:56:00) UA Amorph Erin [None Seen /HPF] Few /HPF *ABN* (09/07/2011 11:56:00) UA Mucus [None Seen /LPF] Moderate /LPF *ABN* (09/07/2011 11:56:00) CHEMISTRY Most recent to oldest [Reference Range]: 1 2 3 Sodium Lvl [135-145 mEq/L] 142 mEq/L (09/07/2011 08:40:00) Potassium Lvl [3.5-5.1 mEq/L] 4.6 mEq/L (09/07/2011 08:40:00) Chloride Lvl [95-109 mEq/L] 109 mEq/L (09/07/2011 08:40:00) CO2 [24-32 mEq/L] 26 mEq/L (09/07/2011 08:40:00) AGAP [10.0-20.0 mEq/L] 11.6 mEq/L (09/07/2011 08:40:00) Creatinine Lvl [0.5-1.4 mg/dL] 0.9 mg/dL (09/07/2011 08:40:00) BUN [7-22 mg/dL] 10 mg/dL (09/07/2011 08:40:00) B/C Ratio [6-25] 11 (09/07/2011 08:40:00) Glucose Lvl [70-99 mg/dL] 111 mg/dL 4 *HI* (09/07/2011 08:40:00) Total Protein [6.4-8.4 g/dL] 6.3 g/dL *LOW* (09/07/2011 08:40:00) Albumin Lvl [3.5-5.0 g/dL] 3.5 g/dL (09/07/2011 08:40:00) Globulin [2.0-4.0 g/dL] 2.8 g/dL (09/07/2011 08:40:00) A/G Ratio [0.7-1.6] 1.3 (09/07/2011 08:40:00) Calcium Lvl [8.5-10.5 mg/dL] 8.1 mg/dL *LOW* (09/07/2011 08:40:00) ALT [0-65 U/L] 20 U/L (09/07/2011 08:40:00) AST [0-37 U/L] 44 U/L *HI* (09/07/2011 08:40:00) Alk Phos [39-136 U/L] 67 U/L (09/07/2011 08:40:00) Bili Total [0.2-1.3 mg/dL] 0.4 mg/dL (09/07/2011 08:40:00) Ammonia [<=45.0 uMol/L] 28.0 uMol/L (09/07/2011 08:40:00) U Amph Scr [Negative] Negative *NA* (09/07/2011 11:56:00) U Annette Scr [Negative] Negative *NA* (09/07/2011 11:56:00) U Benzodia Scr [Negative] Positive *ABN* (09/07/2011 11:56:00) U Cocaine Scr [Negative] Positive *ABN* (09/07/2011 11:56:00) U Opiate Scr [Negative] Negative *NA* (09/07/2011 11:56:00) U Phencyc Scr [Negative] Negative *NA* (09/07/2011 11:56:00) U Cannab Scr [Negative] Positive *ABN* (09/07/2011 11:56:00) UDS Note See Note 5 (09/07/2011 11:56:00) Etoh (%) <.003 % 6 *NA* (09/07/2011 08:40:00) Ethanol Lvl <3 mg/dL 7 *NA* (09/07/2011 08:40:00) pH Art [7.35-7.45] 7.35 (09/07/2011 09:18:00) pCO2 Art [35-45 mmHg] 49 mmHg *HI* (09/07/2011 09:18:00) pO2 Art [80-100 mmHg] 115 mmHg *HI* (09/07/2011 09:18:00) HCO3 Art [22-26 mMol/L] 27 mMol/L *HI* (09/07/2011 09:18:00) BE Art [-2-2 mMol/L] 1 mMol/L (09/07/2011 09:18:00) O2 Sat Art [95.0-100.0 %] 98.0 % (09/07/2011 09:18:00) Site Art Right Ra (09/07/2011 09:18:00) Temp Art 37.0 DegC *NA* (09/07/2011 09:18:00) Allens Art Positive (09/07/2011 09:18:00) Mode Art nrm *NA* (09/07/2011 09:18:00) Rate Art 10 *NA* (09/07/2011 09:18:00) 4Interpretive Data: Adult reference range values reflect the clinical guidelinesof the [place] [employer].5Interpretive Data: Drugs reported as positive have not been confirmed by a second method and should be used for medical purposes only. To orderconfirmation, contact laboratory. note : Below are cut-off concentrations for all urine drugs of abuse performed in the laboratory. Some drugs listed in the table may not be included in this panel.Description Cut-off concentration Amphetamine 1000 ng/mLBarbiturates 200 ng/mLBenzodiazepines 300 ng/mLCocaine metabolites 300 ng /mLOpiates 300 ng/mLPhencyclidine 25 ng/ mLPropoxyphene 300 ng/mLMarijuana metabolites 50 ng/ mLMethadone 300 ng/mLUrine alcohol 20 mg/ [id number] Data: Negative Range: <0.003%Toxic Range: >0.25% 7Interpretive Data: Negative Range: <3 mg/dLToxic Range: >250 mg/ dLHEMATOLOGY Most recent to oldest [Reference Range]: 1 2 3 WBC [3.7-10.4 K/CMM] 13.1 K/CMM *HI* (09/07/2011 08:40:00) RBC [4.70-6.10 M/CMM] 4.20 M/CMM *LOW* (09/07/2011 08:40:00) Hgb [14.0-18.0 g/dL] 13.6 g/dL *LOW* (09/07/2011 08:40:00) Hct [42.0-54.0 %] 38.5 % *LOW* (09/07/2011 08:40:00) MCV [80.0-94.0 fL] 91.8 fL (09/07/2011 08:40:00) MCH [27.0-31.0 pg] 32.3 pg *HI* (09/07/2011 08:40:00) MCHC [32.0-36.0 g/dL] 35.2 g/dL (09/07/2011 08:40:00) RDW [11.5-14.5 %] 13.6 % (09/07/2011 08:40:00) Platelet [133-450 K/CMM] 226 K/CMM (09/07/2011 08:40:00) MPV [7.4-10.4 fL] 9.2 fL (09/07/2011 08:40:00) Segs [45.0-75.0 %] 86.7 % *HI* (09/07/2011 08:40:00) Lymphocytes [20.0-40.0 %] 8.1 % *LOW* (09/07/2011 08:40:00) Monocytes [2.0-12.0 %] 4.9 % (09/07/2011 08:40:00) Eosinophils [0.0-4.0 %] 0.1 % (09/07/2011 08:40:00) Basophils [0.0-1.0 %] 0.2 % (09/07/2011 08:40:00) Segs-Bands # [1.5-8.1 K/CMM] 11.4 K/CMM *HI* (09/07/2011 08:40:00) Lymphocytes # [1.0-5.5 K/CMM] 1.1 K/CMM (09/07/2011 08:40:00) Monocytes # [0.0-0.8 K/CMM] 0.6 K/CMM (09/07/2011 08:40:00) Eosinophils # [0.0-0.5 K/CMM] 0.0 K/CMM (09/07/2011 08:40:00) Basophils # [0.0-0.2 K/CMM] 0.0 K/CMM (09/07/2011 08:40:00) IMMUNOLOGY Most recent to oldest [Reference Range]: 1 2 3 CDC-HIV 1/2 Ab [Negative] Negative *NA* (09/07/2011 08:40:00)
--- OUTSIDE RECORDS SUMMARY | 2019-01-03 09:27 | XMS REPORT | CCD ---
:1970 Author Organization [facility] Care Team Providers Name Role Phone Vivek Hyde Rae Consulting Provider Allergies, Adverse Reactions, Alerts Substance Reaction Status NKDA Active Problem List Condition Effective Dates Status Altered mental status Active Anxiety Active Chest pain Active Medications Medication Instructions Start Date End Date Status Saline Flush 0.9% 5 ml, Route: IVP, Drug 09/15/2011 09/15/2011 Discontinued Form: INJ, PRN, PRN Line Flush, Start date: 09/15/11 12:18:00, Duration: 24 hr, Stop date: 09/16/11 12:17:00 metoprolol 12.5 mg, 0.5 tab, Route: 09/15/2011 09/15/2011 Discontinued PO, Drug form: ERTAB, QAM, Priority: NOW, Start date: 09/15/11 17:24:00, Duration: 30 day, Stop date: 10/15/11 9:00:00 aspirin 81 mg tablet, 81 mg, 1 tab, Route: 09/16/2011 09/15/2011 Discontinued chewable CHEW, Drug form: CHEWTAB, Breakfast, Start date: 09/16/11 8:00:00, Duration: 30 day, Stop date: 10/15/11 8:00:00 Lovenox 120 mg, 0.8 mL, Route: 09/15/2011 09/16/2011 Discontinued SUB-Q, Drug form: INJ, [id number], Start date: 09/15/11 18:00:00, Duration: 30 day, Stop date: 10/15/11 6:00:00 Sodium Chloride 0.9% IV 250 mL, Route: IVPB, 09/15/2011 09/16/2011 Discontinued Start date: 09/15/11 12:29:00, Duration: 30 day, Stop date: 10/15/11 12:28:00, PRN Line Flush acetaminophen-hydrocodone 1 tab, Route: PO, Drug 09/16/2011 09/16/2011 Discontinued 325 mg-10 mg oral tablet Form: TAB, Q6H, PRN Pain, Start date: 09/16/11 8:07:00, Duration: 30 day, Stop date: 10/16/11 8:06:00 aspirin 325 mg tablet 325 mg, 1 tab, Route: 09/16/2011 09/15/2011 Discontinued PO, Drug form: TAB, Breakfast, Start date: 09/16/11 8:00:00, Duration: 30 day, Stop date: 10/15/11 8:00:00 BD Normal Saline Flush 10 mL, Route: IVP, Drug 09/15/2011 09/16/2011 Discontinued Form: INJ, PRN, PRN Line Flush, Start date: 09/15/11 12:28:00, Duration: 30 day, Stop date: 10/15/11 12:27:00 Lopressor 100 mg, 1 tab, Route: 09/15/2011 09/16/2011 Discontinued PO, Drug form: TAB, Q12H, Start date: 09/15/11 21:00:00, Duration: 30 day, Stop date: 10/15/11 9:00:00 Klonopin 2 mg, 2 tab, Route: PO, 09/16/2011 09/16/2011 Discontinued Drug form: TAB, BID, Start date: 09/16/11 9:00:00, Duration: 30 day, Stop date: 10/15/11 17:00:00 Eskalith 600 mg, 2 tab, Route: 09/15/2011 09/16/2011 Discontinued PO, Drug form: TAB, Bedtime, Start date: 09/15/11 21:00:00, Duration: 30 day, Stop date: 10/14/11 21:00:00 Eskalith 300 mg, 1 tab, Route: 09/16/2011 09/16/2011 Discontinued PO, Drug form: TAB, QAM, Start date: 09/16/11 9:00:00, Duration: 30 day, Stop date: 10/15/11 9:00:00 hydrOXYzine hydrochloride 25 mg, 1 tab, Route: PO, 09/15/2011 09/16/2011 Discontinued 25 mg oral tablet Drug form: TAB, BID, Priority: NOW, Start date: 09/15/11 18:55:00, Duration: 30 day, Stop date: 10/15/11 17:00:00 Plavix 75 mg, 1 tab, Route: PO, 09/16/2011 09/16/2011 Discontinued Drug form: TAB, Daily, Start date: 09/16/11 9:00:00, Duration: 30 day, Stop date: 10/15/11 9:00:00 aspirin 81 mg tablet, 81 mg, 1 tab, Route: 09/16/2011 09/16/2011 Discontinued chewable CHEW, Drug form: CHEWTAB, Breakfast, Start date: 09/16/11 8:00:00, Duration: 30 day, Stop date: 10/15/11 8:00:00 nitroglycerin 0.4 mg 0.4 mg, 1 tab, Route: 09/15/2011 09/16/2011 Discontinued sublingual tablet SL, Drug form: TAB, PRN, PRN Chest Pain, Start date: 09/15/11 19:09:00, Duration: 30 day, Stop date: 10/15/11 19:08:00 Abilify 10 mg, 2 tab, Route: PO, 09/16/2011 09/16/2011 Discontinued Drug form: TAB, Daily, Start date: 09/16/11 9:00:00, Duration: 30 day, Stop date: 10/15/11 9:00:00 trazodone 50 mg oral 100 mg, 2 tab, Route: 09/15/2011 09/16/2011 Discontinued tablet PO, Drug form: TAB, Bedtime, Start date: 09/15/11 21:00:00, Duration: 30 day, Stop date: 10/14/11 21:00:00 ondansetron 4 mg, Route: IVP, Drug 09/15/2011 09/15/2011 Completed form: INJ, ONCE, Priority: STAT, Start date: 09/15/11 13:08:00, Stop date: 09/15/11 13:08:00 bacitracin/neomycin/polymy 1 appl, Route: TOP, BID, 09/15/2011 09/16/2011 Discontinued sania B topical ointment Drug form: OINT, Start date: 09/15/11 19:00:00, Duration: 30 day, Stop date: 10/15/11 17:00:00 morphine Sulfate 5 mg, Route: IV, ONCE, 09/15/2011 09/15/2011 Completed Priority: STAT, Start date: 09/15/11 13:08:00, Stop date: 09/15/11 13:08:00 acetaminophen-codeine 300 1 tab, Route: PO, Drug 09/15/2011 09/16/2011 Discontinued mg-30 mg oral tablet Form: TAB, Q4H, PRN Pain, Start date: 09/15/11 18:33:00, Duration: 30 day, Stop date: 10/15/11 18:32:00 aspirin 325 mg tablet 325 mg, 1 tab, Route: 09/16/2011 09/15/2011 Discontinued PO, Drug form: TAB, Daily, Start date: 09/16/11 9:00:00, Duration: 30 day, Stop date: 10/15/11 9:00:00 Protonix 40 mg, 1 tab, Route: PO, 09/15/2011 09/16/2011 Discontinued Drug form: ECTAB, Before Dinner, Priority: NOW, Start date: 09/15/11 19:00:00, Duration: 30 day, Stop date: 10/15/11 16:30:00 nitroglycerin 2% topical 1 inch, Route: TOP, Drug 09/16/2011 09/16/2011 Discontinued ointment form: OINT, Q24H, Start date: 09/16/11 2:00:00, Duration: 30 day, Stop date: 10/15/11 2:00:00 Vital Signs Most recent to oldest 1 2 3 [Reference Range]: Height 185.42 cm (09/15/2011 12:11:00) Temperature Oral 97.3 DegF 97.6 DegF 98.0 DegF [96.4-99.1 DegF] (09/16/2011 13:10:00) (09/16/2011 08:12:00) (09/16/2011 04: 10:00) Systolic Blood Pressure 124 mmHg 129 mmHg 111 mmHg [90-140 mmHg] (09/16/2011 13:10:00) (09/16/2011 08:12:00) (09/16/2011 04:10: 00) Diastolic Blood Pressure 64 mmHg 75 mmHg 63 mmHg [60-90 mmHg] (09/16/2011 13:10:00) (09/16/2011 08:12:00) (09/16/2011 04:10: 00) Respiratory Rate [14-20 20 BRMIN 20 BRMIN 19 BRMIN BRMIN] (09/16/2011 13:10:00) (09/16/2011 08:12:00) (09/16/2011 04:10:00) Peripheral Pulse Rate 73 bpm 71 bpm 78 bpm [60-100 bpm] (09/16/2011 13:10:00) (09/16/2011 08:12:00) (09/16/2011 04:10: 00) Weight 118.182 kg (09/15/2011 12:11:00) Results CHEMISTRY Most recent to oldest 1 2 3 [Reference Range]: Sodium Lvl [135-145 mEq/L] 141 mEq/L 138 mEq/L (09/16/2011 07:30:00) (09/15/2011 13:00:00) Potassium Lvl [3.5-5.1 4.0 mEq/L 4.2 mEq/L mEq/L] (09/16/2011 07:30:00) (09/15/2011 13:00:00) Chloride Lvl [95-109 106 mEq/L 104 mEq/L mEq/L] (09/16/2011 07:30:00) (09/15/2011 13:00:00) CO2 [24-32 mEq/L] 29 mEq/L 29 mEq/L (09/16/2011 07:30:00) (09/15/2011 13:00:00) AGAP [10.0-20.0 mEq/L] 10.0 mEq/L 9.2 mEq/L (09/16/2011 07:30:00) *LOW* (09/15/2011 13:00:00) Creatinine Lvl [0.5-1.4 0.9 mg/dL 1.0 mg/dL mg/dL] (09/16/2011 07:30:00) (09/15/2011 13:00:00) BUN [7-22 mg/dL] 6 mg/dL 8 mg/dL *LOW* (09/15/2011 13:00:00) (09/16/2011 07:30:00) B/C Ratio [6-25] 8 (09/15/2011 13:00:00) Glucose Lvl [70-99 mg/dL] 98 mg/dL 1 86 mg/dL 2 (09/16/2011 07:30:00) (09/15/2011 13:00:00) Total Protein [6.4-8.4 6.5 g/dL g/dL] (09/15/2011 13:00:00) Albumin Lvl [3.5-5.0 g/dL] 3.5 g/dL (09/15/2011 13:00:00) Globulin [2.0-4.0 g/dL] 3.0 g/dL (09/15/2011 13:00:00) A/G Ratio [0.7-1.6] 1.2 (09/15/2011 13:00:00) Calcium Lvl [8.5-10.5 8.8 mg/dL 8.9 mg/dL mg/dL] (09/16/2011 07:30:00) (09/15/2011 13:00:00) Phosphorus [2.5-4.5 mg/dL] 3.8 mg/dL (09/16/2011 07:30:00) Magnesium Lvl [1.8-2.4 2.0 mg/dL 1.9 mg/dL mg/dL] (09/16/2011 07:30:00) (09/15/2011 18:40:00) ALT [0-65 U/L] 29 U/L (09/15/2011 13:00:00) AST [0-37 U/L] 17 U/L (09/15/2011 13:00:00) Alk Phos [39-136 U/L] 57 U/L (09/15/2011 13:00:00) Bili Total [0.2-1.3 mg/dL] 0.6 mg/dL (09/15/2011 13:00:00) Total CK [12-191 U/L] 90 U/L 118 U/L 138 U/L (09/16/2011 07:30:00) (09/15/2011 18:40:00) (09/15/2011 13:00:00) CK MB [0.5-3.6 ng/mL] 3.0 ng/mL 2.9 ng/mL 3.0 ng/mL (09/16/2011 07:30:00) (09/15/2011 18:40:00) (09/15/2011 13:00:00) CK MB Index [0.0-2.5] 3.3 2.5 2.2 *HI* (09/15/2011 18:40:00) (09/15/2011 13:00:00) (09/16/2011 07:30:00) Troponin-I [0.00-0.40 <0.02 ng/mL <0.02 ng/mL <0.02 ng/mL ng/mL] (09/16/2011:30:00) (09/15/2011 18:40:00) (09/15/2011 13:00:00) BNP [<=100 pg/mL] 36 pg/mL 3 (09/15/2011 13:00:00) CHD Risk [4.00-7.30] 5.86 (09/16/2011 07:30:00) Chol [120-200 mg/dL] 123 mg/dL (09/16/2011:30:00) Trig [0-200 mg/dL] 149 mg/dL (09/16/2011 07:30:00) HDL [>=35 mg/dL] 21 mg/dL *LOW* (09/16/2011 07:30:00) LDL [0-129 mg/dL] 72 mg/dL (09/16/2011 07:30:00) Hgb A1C 4.7 % 4 *NA* (09/15/2011 18:40:00) TSH [0.360-3.740 uIU/mL] 0.820 uIU/mL (09/15/2011 18:40:00) U Amph Scr [Negative] Negative *NA* (09/15/2011 13:00:00) U Annette Scr [Negative] Negative *NA* (09/15/2011 13:00:00) U Benzodia Scr [Negative] Positive *ABN* (09/15/2011 13:00:00) U Cocaine Scr [Negative] Negative *NA* (09/15/2011 13:00:00) U Opiate Scr [Negative] Positive *ABN* (09/15/2011 13:00:00) U Phencyc Scr [Negative] Negative *NA* (09/15/2011 13:00:00) U Cannab Scr [Negative] Negative *NA* (09/15/2011 13:00:00) UDS Note See Note 5 (09/15/2011 13:00:00) 1Interpretive Data: Adult reference range values reflect the clinical guidelinesof the [place] [employer].2Interpretive Data: Adult reference range values reflect the clinical guidelinesof the [place] [employer].3Interpretive Data: Elevated results are in line with increasing severity of congestive heart failure. Minor elevations between 100 and 300 may be seen with Myocardial Ischemia, Sodium retaining drugs, and compensated/ treated heart failure.4Interpretive Data: HbA1C% eAG(mg/dL) Interpretation 6.0 126Very good control 6.5 140 Very good control 7.0 154 Good Control 7.5 169 Good Control 8.0 183 Marginal Control, take action to lower 8.5 197 Marginal Control, take action to lower 9.0 212 Poor Control, take action to lower 9.5 226 Poor Control, takeaction to lower10.0 240 Poor Control, take action to [id number] Data: Drugs reported as positive have not been confirmed by a second method and should be used for medical purposes only. To orderconfirmation, contact laboratory. note: Below are cut-off concentrations for all urine drugs of abuse performed in the laboratory. Some drugs listed in the table may not be included in this panel.Description Cut-off concentration Amphetamine 1000 ng/mLBarbiturates 200 ng/mLBenzodiazepines 300 ng/mLCocaine metabolites 300 ng/mLOpiates 300 ng/mLPhencyclidine 25 ng/mLPropoxyphene 300 ng/mLMarijuana metabolites 50 ng/mLMethadone 300 ng/mLUrine alcohol 20 mg/dLHEMATOLOGY Most recent to oldest [Reference 1 2 3 Range]: WBC [3.7-10.4 K/CMM] 6.2 K/CMM 7.2 K/CMM (09/16/2011 07:30:00) (09/15/2011 13:00:00) RBC [4.70-6.10 M/CMM] 4.16 M/CMM 4.07 M/CMM *LOW* *LOW* (09/16/2011 07:30:00) (09/15/2011 13:00:00) Hgb [14.0-18.0 g/dL] 13.3 g/dL 12.9 g/dL *LOW* *LOW* (09/16/2011 07:30:00) (09/15/2011 13:00:00) Hct [42.0-54.0 %] 38.3 % 37.3 % *LOW* *LOW* (09/16/2011 07:30:00) (09/15/2011 13:00:00) MCV [80.0-94.0 fL] 92.0 fL 91.8 fL (09/16/2011 07:30:00) (09/15/2011 13:00:00) MCH [27.0-31.0 pg] 31.8 pg 31.8 pg *HI* *HI* (09/16/2011 07:30:00) (09/15/2011 13:00:00) MCHC [32.0-36.0 g/dL] 34.6 g/dL 34.6 g/dL (09/16/2011 07:30:00) (09/15/2011 13:00:00) RDW [11.5-14.5 %] 13.2 % 13.0 % (09/16/2011 07:30:00) (09/15/2011 13:00:00) Platelet [133-450 K/CMM] 191 K/CMM 206 K/CMM (09/16/2011 07:30:00) (09/15/2011 13:00:00) MPV [7.4-10.4 fL] 8.6 fL 9.6 fL (09/16/2011 07:30:00) (09/15/2011 13:00:00) Segs [45.0-75.0 %] 69.3 % 64.4 % (09/16/2011 07:30:00) (09/15/2011 13:00:00) Lymphocytes [20.0-40.0 %] 21.8 % 26.5 % (09/16/2011 07:30:00) (09/15/2011 13:00:00) Monocytes [2.0-12.0 %] 6.1 % 6.5 % (09/16/2011 07:30:00) (09/15/2011 13:00:00) Eosinophils [0.0-4.0 %] 2.3 % 2.0 % (09/16/2011 07:30:00) (09/15/2011 13:00:00) Basophils [0.0-1.0 %] 0.5 % 0.6 % (09/16/2011 07:30:00) (09/15/2011 13:00:00) Segs-Bands # [1.5-8.1 K/CMM] 4.3 K/CMM 4.6 K/CMM (09/16/2011 07:30:00) (09/15/2011 13:00:00) Lymphocytes # [1.0-5.5 K/CMM] 1.4 K/CMM 1.9 K/CMM (09/16/2011 07:30:00) (09/15/2011 13:00:00) Monocytes # [0.0-0.8 K/CMM] 0.4 K/CMM 0.5 K/CMM (09/16/2011 07:30:00) (09/15/2011 13:00:00) Eosinophils # [0.0-0.5 K/CMM] 0.1 K/CMM 0.1 K/CMM (09/16/2011 07:30:00) (09/15/2011 13:00:00) Basophils # [0.0-0.2 K/CMM] 0.0 K/CMM 0.0 K/CMM (09/16/2011 07:30:00) (09/15/2011 13:00:00) PT [12.0-14.7 seconds] 13.6 seconds 13.3 seconds (09/16/2011 07:30:00) (09/15/2011 13:00:00) INR [0.85-1.17] 1.04 6 1.01 7 (09/16/2011 07:30:00) (09/15/2011 13:00:00) PTT [22.9-35.8 seconds] 31.9 seconds 8 30.3 seconds 9 (09/16/2011 07:30:00) (09/15/2011 13:00:00) 6Interpretive Data: RECOMMENDED RANGES FOR PROTIME INR: 2.0-3.0 for most medical and surgical thromboembolic states. 2.5-3.5 for artificial heart valves and recurrent embolism.INR SHOULD BE USED ONLY FOR PATIENTS ON STABLE ANTICOAGULANT THERAPY.7Interpretive Data: RECOMMENDED RANGES FOR PROTIME INR: 2.0-3.0 for most medical and surgical thromboembolic states. 2.5-3.5 for artificial heart valves and recurrent embolism.INR SHOULD BE USED ONLY FOR PATIENTS ON STABLE ANTICOAGULANT THERAPY.8Interpretive Data: Heparin Therapeutic Range: 57 - 92 [id number] Data: Heparin Therapeutic Range : 57 - 92 Seconds
--- OUTSIDE RECORDS SUMMARY | 2019-01-03 09:27 | XMS REPORT | CCD ---
:1970 Author Organization [facility] Care Team Providers Name Role Phone Harris Preston Referring Provider Allergies, Adverse Reactions, Alerts Substance Reaction Status NKDA Active Problem List Condition Effective Dates Status Altered mental status Active Anxiety Active Chest pain Active Nausea Active Pain Active Medications Medication Instructions Start Date End Date Status cefazolin 1 gm, Route: IVPB, Drug 11/25/2011 11/25/2011 Completed form: PDR/INJ, PRE OP, Priority: STAT, Start date: 11/25/11 6:16:00, Duration: 1 day, Stop date: 11/26/11 6:15:00 OxyContin 20 mg oral 20 mg, 1 tab, PO, Q12H, 11/23/2011 Ordered tablet, extended release Substitution Allowed, ERTAB amitriptyline 50 mg oral 50 mg, 1 tab, PO, 11/23/2011 Ordered tablet Bedtime, 30 tab, Substitution Allowed, TAB aspirin 81 mg tablet, 81 mg, 1 tab, PO, Daily, 11/23/2011 Ordered enteric coated 0 tab, Substitution Allowed, ECTAB Percocet 5/325 oral 1 tab, Route: PO, Drug 11/25/2011 11/26/2011 Discontinued tablet Form: TAB, Q4H, PRN Pain Score 4-6, Start date: 11/25/11 14:10:00, Duration: 30 day, Stop date: 12/25/11 14:09:00 Lopressor 100 mg, 1 tab, Route: PO, 11/25/2011 11/26/2011 Discontinued Drug form: TAB, BID, Start date: 11/25/11 17:00:00, Duration: 30 day, Stop date: 12/25/11 9:00:00 lithium 600 mg, 2 tab, Route: PO, 11/25/2011 11/26/2011 Discontinued Drug form: ERTAB, BID, Start date: 11/25/11 17:00:00, Duration: 30 day, Stop date: 12/25/11 9:00:00 Abilify 2 mg, 1 tab, Route: PO, 11/25/2011 11/26/2011 Discontinued Drug form: TAB, Bedtime, Start date: 11/25/11 21:00:00, Duration: 30 day, Stop date: 12/24/11 21:00:00 cefazolin + Sodium 2 gm, Route: IVPB, 11/25/2011 11/26/2011 Completed Chloride 0.9% IV 100 mL [id number], Start date: 11/25/11 20:30:00, Duration: 3 doses or times, Stop date: 11/26/11 12:30:00 aspirin 81 mg tablet, 81 mg, 1 tab, Route: PO, 11/26/2011 11/26/2011 Discontinued enteric coated Drug form: ECTAB, Daily, Start date: 11/26/11 9:00:00, Duration: 30 day, Stop date: 12/25/11 9:00:00 Klonopin 2 mg, 2 tab, Route: PO, 11/25/2011 11/26/2011 Discontinued Drug form: TAB, BID, PRN Anxiety, Start date: 11/25/11 14:09:00, Duration: 30 day, Stop date: 12/25/11 14:08:00 OxyContin 20 mg, 1 tab, Route: PO, 11/25/2011 11/26/2011 Discontinued Drug form: ERTAB, Q12H, Start date: 11/25/11 21:00:00, Duration: 30 day, Stop date: 12/25/11 9:00:00 Nexium 40 mg, Route: PO, Daily, 11/26/2011 11/25/2011 Deleted Start date: 11/26/11 9:00:00, Duration: 30 day, Stop date: 12/25/11 9:00:00 acetaminophen-oxycodone 2 tab, Route: PO, Drug 11/25/2011 11/26/2011 Discontinued 325 mg-5 mg oral tablet Form: TAB, Q4H, PRN Pain Score 4-6, Start date: 11/25/11 18:15:00, Duration: 30 day, Stop date: 12/25/11 18:14:00 amitriptyline 50 mg, 1 tab, Route: PO, 11/25/2011 11/26/2011 Discontinued Drug form: TAB, Bedtime, Start date: 11/25/11 21:00:00, Duration: 30 day, Stop date: 12/24/11 21:00:00 Dulcolax Laxative 10 mg, 2 tab, Route: PO, 11/25/2011 11/26/2011 Discontinued Drug form: ECTAB, Daily, PRN Constipation, Start date: 11/25/11 14:12:00, Duration: 30 day, Stop date: 12/25/11 14:11:00 dexamethasone 4 mg, 1 mL, Route: IV, 11/25/2011 11/26/2011 Completed Drug form: INJ, Q6H, Start date: 11/25/11 18:00:00, Duration: 1 day, Stop date: 11/26/11 12:00:00 Cepacol Lozenge 1 lozenge, Route: MUCOUS 11/25/2011 11/26/2011 Discontinued MEM, Q2H, Drug form: CON PRN Sore Throat, Start date: 11/25/11 14:12:00, Duration: 30 day, Stop date: 12/25/11 14:11:00 Colace 100 mg oral 100 mg, 1 cap, Route: PO, 11/25/2011 11/26/2011 Discontinued capsule Drug form: CAP, BID, Start date: 11/25/11 17:00:00, Duration: 30 day, Stop date: 12/25/11 9:00:00 Flexeril 5 mg, 0.5 tab, Route: PO, 11/25/2011 11/26/2011 Discontinued Drug form: TAB, TID, PRN Spasm, Start date: 11/25/11 14:14:00, Duration: 30 day, Stop date: 12/25/11 14:13:00 ondansetron 4 mg, 2 mL, Route: IVP, 11/25/2011 11/25/2011 Discontinued Drug form: INJ, ONCE, PRN Nausea & Vomiting, Start date: 11/25/11 14:55:00 hydromorphone 0.5 mg, 0.25 mL, Route: 11/25/2011 11/25/2011 Completed IVP, Drug form: INJ, Q5Min, PRN Pain Score 4-6, Start date: 11/25/11 14:55:00, Duration: 5 doses or times, Stop date: 11/26/11 0:00:00 naloxone 0.04 mg, 0.1 mL, Route: 11/25/2011 11/25/2011 Discontinued IVP, Drug form: INJ, Q2MIN, PRN Narcotic Reversal, Start date: 11/25/11 14:55:00, Duration: 8 doses or times, Stop date: 11/26/11 0:00:00 flumazenil 0.2 mg, 2 mL, Route: IVP, 11/25/2011 11/25/2011 Discontinued Drug form: INJ, PRN, PRN Benzodiazepine Reversal, Initial dose, Start date: 11/25/11 14:55:00, Duration: 30 day, Stop date: 12/25/11 14:54:00 Protonix 40 mg, 1 tab, Route: PO, 11/25/2011 11/26/2011 Discontinued Drug form: ECTAB, Before Dinner, Start date: 11/25/11 16:30:00, Duration: 30 day, Stop date: 12/24/11 16:30:00 morphine Sulfate 4 mg, 1 mL, Route: IVP, 11/25/2011 11/26/2011 Discontinued Drug form: INJ, Q4H, PRN Pain Score 7-10, Start date: 11/25/11 14:11:00, Duration: 30 day, Stop date: 12/25/11 14:10:00 cefazolin (SCIP) 2 gm, Route: IVPB, Drug 11/25/2011 11/25/2011 Deleted form: INJ, ABXQ8H, Start date: 11/25/11 15:00:00, Duration: 24 hr, Stop date: 11/26/11 7:00:00 Toradol 30 mg/mL 30 mg, 1 mL, Route: IV, 11/25/2011 11/26/2011 Completed injectable solution Drug form: INJ, Q6H, Start date: 11/25/11 18:00:00, Duration: 24 hr, Stop date: 11/26/11 12:00:00 Zofran 4 mg, 2 mL, Route: IV, 11/25/2011 11/26/2011 Discontinued Drug form: INJ, Q6H, PRN as needed for nausea/vomiting, Start date: 11/25/11 14:14:00, Duration: 30 day, Stop date: 12/25/11 14:13:00 normal saline 0.9% IV 1,000 mL, Rate: 75 ml/hr, 11/25/2011 11/26/2011 Discontinued 1,000 mL Infuse over: 13.3 hr, Route: IV, Dosing Weight 115.909 kg, Total Volume: 1,000, Start date: 11/25/11 14:11:00, Duration: 30 day, Stop date: 12/25/11 14:10:00 Percocet 10/325 oral 1 to 2 tabs, PO, 11/23/2011 11/26/2011 Ordered tablet 4-6x/Day, PRN, 20 tab, Substitution Allowed, Soft Stop Vital Signs Most recent to oldest 1 2 3 [Reference Range]: Height 185.42 cm 185.42 cm 185.42 cm (11/25/2011 09:39:00) (11/24/2011 09:26:00) (11/24/2011 07:28:00) Temperature Oral 97.4 DegF 97.1 DegF 97.6 DegF [96.4-99.1 DegF] (11/26/2011 16:00:00) (11/26/2011 11:18:00) (11/26/2011 07: 26:00) Systolic Blood Pressure 123 mmHg 118 mmHg 115 mmHg [90-140 mmHg] (11/26/2011 16:00:00) (11/26/2011 11:18:00) (11/26/2011 07:26: 00) Diastolic Blood Pressure 71 mmHg 74 mmHg 73 mmHg [60-90 mmHg] (11/26/2011 16:00:00) (11/26/2011 11:18:00) (11/26/2011 07:26: 00) Respiratory Rate [14-20 18 BRMIN 18 BRMIN 18 BRMIN BRMIN] (11/26/2011 16:00:00) (11/26/2011 11:18:00) (11/26/2011 07:26:00) Peripheral Pulse Rate 85 bpm 90 bpm 80 bpm [60-100 bpm] (11/26/2011 16:00:00) (11/26/2011 11:18:00) (11/26/2011 07:26: 00) Weight 115.909 kg 115.909 kg 115.909 kg (11/25/2011 09:39:00) (11/24/2011 09:26:00) (11/24/2011 07:28:00) Results BLOOD BANK RESULTS Most recent to oldest [Reference Range]: 1 ABO/Rh A POS *Unknown* (11/25/2011 10:10:00) Antibody Scrn Negative (11/25/2011 10:10:00) CHEMISTRY Most recent to oldest [Reference Range]: 1 Sodium Lvl [135-145 mEq/L] 142 mEq/L (11/23/2011 16:00:00) Potassium Lvl [3.5-5.1 mEq/L] 5.0 mEq/L (11/23/2011 16:00:00) Chloride Lvl [95-109 mEq/L] 106 mEq/L (11/23/2011 16:00:00) CO2 [24-32 mEq/L] 26 mEq/L (11/23/2011 16:00:00) AGAP [10.0-20.0 mEq/L] 15.0 mEq/L (11/23/2011 16:00:00) Creatinine Lvl [0.5-1.4 mg/dL] 0.9 mg/dL (11/23/2011 16:00:00) BUN [7-22 mg/dL] 9 mg/dL (11/23/2011 16:00:00) Glucose Lvl [70-99 mg/dL] 75 mg/dL 1 (11/23/2011 16:00:00) Calcium Lvl [8.5-10.5 mg/dL] 9.6 mg/dL (11/23/2011 16:00:00) 1Interpretive Data: Adult reference range values reflect the clinical guidelines of the [place] [employer].HEMATOLOGY Most recent to oldest [Reference Range]: 1 WBC [3.7-10.4 K/CMM] 9.9 K/CMM (11/23/2011 16:00:00) RBC [4.70-6.10 M/CMM] 4.89 M/CMM (11/23/2011 16:00:00) Hgb [14.0-18.0 g/dL] 15.4 g/dL (11/23/2011 16:00:00) Hct [42.0-54.0 %] 45.3 % (11/23/2011 16:00:00) MCV [80.0-94.0 fL] 92.6 fL (11/23/2011 16:00:00) MCH [27.0-31.0 pg] 31.5 pg *HI* (11/23/2011 16:00:00) MCHC [32.0-36.0 g/dL] 34.0 g/dL (11/23/2011 16:00:00) RDW [11.5-14.5 %] 13.7 % (11/23/2011 16:00:00) Platelet [133-450 K/CMM] 249 K/CMM (11/23/2011 16:00:00) MPV [7.4-10.4 fL] 9.4 fL (11/23/2011 16:00:00) Segs [45.0-75.0 %] 59.7 % (11/23/2011 16:00:00) Lymphocytes [20.0-40.0 %] 33.0 % (11/23/2011 16:00:00) Monocytes [2.0-12.0 %] 4.8 % (11/23/2011 16:00:00) Eosinophils [0.0-4.0 %] 2.0 % (11/23/2011 16:00:00) Basophils [0.0-1.0 %] 0.5 % (11/23/2011 16:00:00) Segs-Bands # [1.5-8.1 K/CMM] 5.9 K/CMM (11/23/2011 16:00:00) Lymphocytes # [1.0-5.5 K/CMM] 3.3 K/CMM (11/23/2011 16:00:00) Monocytes # [0.0-0.8 K/CMM] 0.5 K/CMM (11/23/2011 16:00:00) Eosinophils # [0.0-0.5 K/CMM] 0.2 K/CMM (11/23/2011 16:00:00) Basophils # [0.0-0.2 K/CMM] 0.0 K/CMM (11/23/2011 16:00:00) PT [12.0-14.7 seconds] 13.6 seconds (11/23/2011 16:00:00) INR [0.85-1.17] 1.04 2 (11/23/2011 16:00:00) PTT [22.9-35.8 seconds] 29.0 seconds 3 (11/23/2011 16:00:00) 2Interpretive Data: RECOMMENDED RANGES FOR PROTIME INR: 2.0-3.0 for most medical and surgical thromboembolic states. 2.5-3.5 for artificial heart valves and recurrent embolism. INR SHOULD BE USED ONLY FOR PATIENTS ON STABLE ANTICOAGULANT THERAPY.3Interpretive Data: Heparin Therapeutic Range: 57 - 92 Seconds
--- OUTSIDE RECORDS SUMMARY | 2019-01-03 09:28 | XMS REPORT | Summary of Care ---
:1970 Author Encounter Dates Location Diagnoses Discharge Disposition Providers 06/21/2013 - [facility] Ish Lynn 06/23/[address] [place] [address] [address] Ish Lynn Reason for Visit MORBID OBESITY Vital Signs Most recent to oldest 1 2 3 [Reference Range]: Height 185.42 cm 185.42 cm (06/21/2013 14:25:00 [facility] (06/15/2013 15:08:00 [facility] Temperature Oral 97.6 DegF 98.4 DegF 97.9 DegF [96.4-99.1 DegF] (06/23/2013 08:10:00 [facility] (06/23/2013 05:16:00 [facility] (06/23/2013 01:11:00 [facility] Systolic Blood Pressure 139 mmHg 149 mmHg 128 mmHg [90-140 mmHg] (06/23/2013 08:10:00 [facility] *HI* (06/23/2013 01:11: 00 [facility] (06/23/2013 05:16:00 [facility] Diastolic Blood Pressure 89 mmHg 90 mmHg 80 mmHg [60-90 mmHg] (06/23/2013 08:10:00 [facility] (06/23/2013 05:16:00 [facility] (06/23/2013 01:11:00 [facility] Respiratory Rate [14-20 20 BRMIN 20 BRMIN 20 BRMIN BRMIN] (06/23/2013 08:10:00 [facility] (06/23/2013 05:16:00 [facility] (06/23/2013 01:11:00 [facility] Peripheral Pulse Rate 88 bpm 73 bpm 72 bpm [60-100 bpm] (06/23/2013 08:10:00 [facility] (06/23/2013 05:16:00 [facility] ([facility] Weight 139.545 kg 139.801 kg (06/21/2013 14:25:00 [facility]) (06/21/2013 06:49:00 [facility]) Body Mass Index 40.59 m2 40.66 m2 (06/21/2013 14:25:00 [facility]) (06/21/2013 06:49:00 [facility]) Problem List Condition Effective Dates Status Health Status Informant Altered mental status(Confirmed) Active Anxiety(Confirmed) Active CAD - Coronary artery Active disease(Confirmed) Chest pain(Confirmed) Active CHF - Congestive heart Active failure(Confirmed) COPD(Confirmed) Active history of bipolar Resolved disease(Confirmed) Hypercholesterolemia(Confirmed) Active Hypertension(Confirmed) Active Morbid obesity(Confirmed) Active Nausea(Confirmed) Active Pain(Confirmed) Active Reflux(Confirmed) Active Sleep apnea(Confirmed) Active Allergies, Adverse Reactions, Alerts Substance Reaction Severity Status NKDA Active Medications Medication Instructions Start Date Stop Date Status acetaminophen-hydrocodone 15 mL, Route: PO, Drug Form: SOLN, Dosing Weight 139.545, kg, Q4H, PRN Pain, Start date: 06/22/13 7:52:00, Duration: 30 day, Stop date: 07/22/13 7:51:00 06/22/2013 06/23/2013 Discontinued 300 mg-10 mg/15 mL oral Do not exceed 4gm/day of acetaminophen. (Same as: Zolvit) liquid acetaminophen-hydrocodone 15 mL, Route: PO, Drug Form: SOLN, Dosing Weight 139.545, kg, Q4H, Start date: 06/22/13 12:00:00, Duration: 30 day, Stop date: 8:00:00 06/22/2013 06/23/2013 Discontinued 300 mg-10 mg/15 mL oral Do not exceed 4gm/day of acetaminophen. (Same as: Zolvit) liquid acetaminophen-hydrocodone 15 mL, PO, Q4H, Pain, # 06/23/2013 Ordered 300 mg-10 mg/15 mL oral 470 mL, 0 Refill(s) liquid Ambien PO, Bedtime, 0 Refill(s) 06/15/2013 06/23/2013 Discontinued cefOXitin (SCIP) 2 gm, Route: IVPB, Drug form: INJ, Q6H, Dosing Weight 139.801 , kg, Start date: 06/21/13 12:00:00, Duration: 1 doses or times, Stop date: 09/29 12:00:00 06/21/2013 06/21/2013 Deleted (Same As: Mefoxin) enoxaparin 30 mg, 0.3 mL, Route: SUB-Q, Drug form: INJ, [id number], Dosing Weight 139.801, kg, Start date: 06/21/13 23:51:00, Duration: 30 day, Stop date: 07/21/13 11:51:00 06/21/2013 06/23/2013 Discontinued (Same as: Lovenox) flumazenil 0.2 mg, 2 mL, Route: IVP, Drug form: INJ, PRN, Dosing Weight 139.801, kg, PRN Benzodiazepine Reversal, Initial dose, Start date: 06/21/13 12: 20:00, Duration: 1 day, Stop date: 06/22/13 12:19:00 06/21/2013 06/21/2013 Discontinued (Same as: Romazicon) heparin 5,000 unit, Route: SUB-Q, 06/21/2013 06/21/2013 Completed ONCE, Dosing Weight 139.801, kg, Start date: 06/21/13 7:22:00, Stop date: 06/21/13 7:22:00 hydrALAZINE 10 mg, 0.5 mL, Route: IVP, Drug form: INJ, Q20Min, Dosing Weight 139.801, kg, PRN Elevated BP, Start date: 06/21/13 12:20:00, Duration: 2 doses or times, Stop date: 06/22/13 0:00:00 06/21/2013 06/21/2013 Discontinued (Same as: Apresoline)Push over 5 minutes hydromorphone 0.5 mg, 0.25 mL, Route: IVP, Drug form: INJ, Q5Min, Dosing Weight 139.801, kg, PRN Pain Score 7-10, Start date: 06/21/13 12:20:00, Duration : 4 doses or times, Stop date: 06/22/13 0:00:00 06/21/2013 06/21/2013 Discontinued Same as: Dilaudid HYDROmorphone 0.5mg/mL 15 mg, 30 mL, Route: IV, Initial Loading Dose: 0.4mg, ULTRASONIC TESTER Dose: 0.3 mg, ULTRASONIC TESTER Lockout: 10 minutes, Continuous Basal Rate: 0 mg, 4 Hour Limit (In MG): 7.2, Drug Form: INJ, Continuous, Start date: 06/21/13201306/22/2013 Discontinued ULTRASONIC TESTER (15mg/30 mL) 15 mg 12:00:00, Duration: 30 day, Stop date: 07/21/13 1... (Same as: Dilaudid) conc=0.5 mg/mlHydromorphone ULTRASONIC TESTER Dose: ;Delay: ;Basal: labetalol 10 mg, 2 mL, Route: IVP, 06/21/2013 06/21/2013 Discontinued Drug form: INJ, Q5Min, Dosing Weight 139.801, kg, PRN Elevated BP, Start date: 06/21/13 12:20:00, Duration: 5 doses or times, Stop date: 06/22/13 0:00:00 Lactated Ringers 1,000 mL, Rate: 100 06/21/2013 06/23/2013 Discontinued Injection IV 1,000 mL ml/hr, Infuse over: 10 hr, Route: IV, Dosing Weight 139.801 kg, Total Volume: 1,000, Start date: 06/21/13 11:50:00, Stop date: 07/21/13 11:49:00 Lipitor PO, Daily, 0 Refill(s) 06/15/2013 06/23/2013 Discontinued magnesium oxide 500 mg, Route: PO, Drug 06/23/2013 06/23/2013 Discontinued form: TAB, ONCE, Dosing Weight 139.545, kg, Start date: 06/23/13 10:35:00, Stop date: 06/23/13 10:35:00 magnesium sulfate 2 gm, 50 mL, Route: IVPB, 06/23/2013 06/23/2013 Completed Drug form: INJ, ONCE, Dosing Weight 139.545, kg, Total dose=2 gm, Start date: 06/23/13 7:35:00, Duration: 1 doses or times, Stop date: 06/23/13 7:35:00 Mefoxin 2 gm, Route: IVPB, Drug form: INJ, Q6H, Dosing Weight 139.801, kg, Start date: 06/21/13 15:00:00, Duration: 1 doses or times, Stop date: 06/21/13 15:00:00 06/21/2013 06/21/2013 Completed (Same As: Mefoxin) Mefoxin 2 gm, Route: IVPB, Drug form: INJ, PRE OP, Start date: 06/21/13 3:00: 00, Duration: 1 day, Stop date: 06/22/13 2:59:00 06/21/2013 06/21/2013 Completed (Same As: Mefoxin) naloxone 0.04 mg, 0.1 mL, Route: IVP, Drug form: INJ, Q2MIN, Dosing Weight 139.801, kg, PRN Narcotic Reversal, Start date: 06/21/13 11:50:00, Duration: 30 day, Stop date: 07/21/13 12:49:00 06/21/2013 06/23/2013 Discontinued Same as Narcan naloxone 0.04 mg, 0.1 mL, Route: IVP, Drug form: INJ, Q2MIN, Dosing Weight 139.801, kg, PRN Narcotic Reversal, Start date: 06/21/13 12:20:00, Duration: 8 doses or times, Stop date: 06/22/13 0:00:00 06/21/2013 06/21/2013 Discontinued Same as Narcan Ofirmev 1,000 mg, 100 mL, Route: IV, Drug form: INJ, PRE OP, Start date: 06/21 3:00:00, Duration: 1 day, Stop date: 06/22/13 2:59:00 06/21/20132013 Discontinued Infuse over 15 minutes Do not exceed 4gm/day of acetaminophen ondansetron 4 mg, 2 mL, Route: IVP, Drug form: INJ, Q12H, Dosing Weight 139.801, kg, PRN Nausea & Vomiting, Start date: 06/21/13 11:50:00, Duration: 30 day, Stop date: 07/21/13 11:49:00 06/21/2013 06/22/2013 Discontinued (Same as: Zofran) ondansetron 4 mg, 2 mL, Route: IVP, Drug form: INJ, ONCE, Dosing Weight 139.801, kg, PRN Nausea & Vomiting, Start date: 06/21/13 12:20:00 06/21/2013 06/21/2013 Completed (Same as: Zofran) Prevacid 30 mg, PO, Daily, # 15 06/15/2013 06/23/2013 Discontinued cap, 0 Refill(s) promethazine 12.5 mg, 0.5 mL, Route: IM, Drug form: INJ, Q4H, Dosing Weight 139.801, kg, PRN Nausea & Vomiting, Start date: 06/21/13 11:50:00, Duration: 30 day, Stop date: 07/21/13 11:49:00 06/21/2013 06/23/2013 Discontinued Do not give IV push. (Same as: Phenergan) Protonix 40 mg oral =1 Pack, PO, Daily, # 30 06/23/2013 Ordered granule ea, 0 Refill(s) scopolamine 1 patch, Route: TOP, Drug form: ERFILM, PRE OP, Start date: 3:00:00, Duration: 1 day, Stop date: 06/22/13 2:59:00 06/21/20132013 Completed Change patch every 72 hours (Same as: Transderm-Scop) Zofran 4 mg, 2 mL, Route: IV, Drug form: INJ, Q4H, Dosing Weight 139.545, kg, PRN Nausea, Start date: 06/22/13 9:07:00, Duration: 30 day, Stop date: 07/22/13 9:06:00 06/22/2013 06/23/2013 Discontinued (Same as: Zofran) Results ELECTROLYTES Most recent to oldest 1 2 3 [Reference Range]: Sodium Lvl [135-145 mEq/L] 138 mEq/L 134 mEq/L 140 mEq/L (06/23/2013 05:34:[facility] *[facility]* ([facility]15[facility]2013 14[facility]45[facility] ([facility] Potassium Lvl [3.5-5.1 3.7 mEq/L 4.9 mEq/L 4.2 mEq/L mEq/L] (06/23/2013 05:34:[facility] (06/22/2013 03:04:00 [facility] (06/15/2013 14:45:00 [facility]) Chloride Lvl [95-109 mEq/L] 103 mEq/L 100 mEq/L 104 mEq/L (06/23/2013 05:34:00 [facility]) (06/22/2013 03:04:00 [facility]) (06/15/2013 14:45:00 [facility]) CO2 [24-32 mEq/L] 27 mEq/L 25 mEq/L 25 mEq/L (06/23/2013 05:34:00 [facility]) (06/22/2013 03:04:00 [facility]) (06/15/2013 14:45:00 [facility]) AGAP [10.0-20.0 mEq/L] 11.7 mEq/L 13.9 mEq/L 15.2 mEq/L (06/23/2013 05:34:00 [facility]) (06/22/2013 03:04:00 [facility]) (06/15/2013 14:45:00 [facility]) CHEM PANEL Most recent to oldest 1 2 3 [Reference Range]: Creatinine Lvl [0.5-1.4 0.9 mg/dL 0.6 mg/dL 1.1 mg/dL mg/dL] (06/23/2013 05:34:00 [facility]) (06/22/2013 03:04:00 [facility]) (06/21/2013 11:50:00 [facility]) eGFR 105 mL/min/1.73m2 1 124 mL/min/1.73m2 2 82 mL/min/1.73m2 3 *NA* *NA* *NA* (06/23/2013 05:34:00 [facility]) (06/22/2013 03:04:25 [facility]) (06/21/2013 11:50:00 [facility]) BUN [7-22 mg/dL] 11 mg/dL 10 mg/dL 12 mg/dL (06/23/2013 05:34:00 [facility]) (06/22/2013 03:04:00 [facility]) (06/15/2013 14:45:00 [facility]) B/C Ratio [6-25] 13 (06/15/2013 14:45:00 [facility] Glucose Lvl [70-99 mg/dL] 95 mg/dL 4 98 mg/dL 5 66 mg/dL 6 (06/23/2013 05:34:00 [facility] (06/22/2013 [facility]:04:00 [facility] *LOW* (06/15/2013 14:45:00 [facility]) Total Protein [6.4-8.4 7.3 g/dL g/dL] (06/15/2013 14:45:00 [facility]) Albumin Lvl [3.5-5.0 g/dL] 4.1 g/dL (06/15/2013 14:45:00 [facility]) Globulin [2.0-4.0 g/dL] 3.2 g/dL (06/15/2013 14:45:00 [facility]) A/G Ratio [0.7-1.6] 1.3 (06/15/2013 14:45:00 [facility]) Calcium Lvl [8.5-10.5 8.6 mg/dL 8.9 mg/dL 9.1 mg/dL mg/dL] (06/23/2013 05:34:00 [facility]) (06/22/2013 03:04:00 [facility]) (06/15/2013 14:45:00 [facility]) Phosphorus [2.5-4.5 mg/dL] 3.1 mg/dL 4.8 mg/dL (06/23/2013 05:34:00 [facility]) *HI* (06/22/2013 03:04:25 [facility]) Magnesium Lvl [1.8-2.4 1.7 mg/dL 2.0 mg/dL mg/dL] *LOW* (06/22/2013 03:04:25 [facility]) (06/23/2013 05:34:00 [facility]) ALT [0-65 unit/L] 37 unit/L (06/15/2013 14:45:00 [facility]) AST [0-37 unit/L] 15 unit/L (06/15/2013 14:45:00 [facility]) Alk Phos [39-136 unit/L] 100 unit/L (06/15/2013 14:45:00 [facility]) Bili Total [0.2-1.3 mg/dL] 0.9 mg/dL (06/15/2013 14:45:00 [facility]) 1Result Comment: The eGFR is calculated using the CKD-EPI formula. In most young , healthy individualsthe eGFR will be >90 mL/min/1.73m2. The eGFR declines with age. An eGFR of 60-89 may be normal in some populations, particularly the elderly, for whom the CKD-EPI formula has not been extensively validated. Use of the eGFR is not recommended in the following populations: Individuals with unstable creatinine concentrations, including patients and those with serious co-morbid conditions. Patients with extremes in muscle mass or diet. The data above are obtained from the National Kidney Disease Education Program ( NKDEP) which additionally recommends that when the eGFR is used in patients with extremes of body mass index for purposesof drug dosing, the eGFR should be multiplied by the estimated BMI.2Result Comment: The eGFR is calculated using the CKD-EPI formula. In most young, healthy individualsthe eGFR will be >90 mL/ min/1.73m2. The eGFR declines with age. An eGFR of 60-89 may be normal in some populations, particularly the elderly, for whom the CKD-EPI formula has not been extensively validated. Use of the eGFR is not recommended in the following populations: Individuals with unstable creatinine concentrations, including patients and those with serious co-morbid conditions. Patients with extremes in muscle mass or diet. The data above are obtained from the National Kidney Disease Education Program ( NKDEP) which additionally recommends that when the eGFR is used in patients with extremes of body mass index for purposesof drug dosing, the eGFR should be multiplied by the estimated BMI.3Result Comment: The eGFR is calculated using the CKD-EPI formula. In most young, healthy individualsthe eGFR will be >90 mL/ min/1.73m2. The eGFR declines with age. An eGFR of 60-89 may be normal in some populations, particularly the elderly, for whom the CKD-EPI formula has not been extensively validated. Use of the eGFR is not recommended in the following populations: Individuals with unstable creatinine concentrations, including patients and those with serious co-morbid conditions. Patients with extremes in muscle mass or diet. The data above are obtained from the National Kidney Disease Education Program ( NKDEP) which additionally recommends that when the eGFR is used in patients with extremes of body mass index for purposesof drug dosing, the eGFR should be multiplied by the estimated BMI.4Interpretive Data: Adult reference range values reflect the clinical guidelines of the [place] [employer].5Interpretive Data: Adult reference range values reflect the clinical guidelines of the [place] [employer].6Interpretive Data: Adult reference range values reflect the clinical guidelines of the [place] [employer].SPECIAL CHEMISTRY Most recent to oldest [Reference Range]: 1 2 3 Hgb A1C [<=5.6 %] 4.4 % (06/15/2013 14:45:00 [facility]) URINE AND STOOL Most recent to oldest [Reference Range]: 1 2 3 UA Turbidity [Clear] Clear (06/15/2013 14:45:00 [facility]) UA Color [Yellow] Yellow *NA* (06/15/2013 14:45:00 [facility]) UA pH [5.0-8.0] 6.5 (06/15/2013 14:45:00 [facility]) UA Spec Grav [<=1.030] 1.018 (06/15/2013 14:45:00 [facility]) UA Glucose [Negative mg/dL] Negative mg/dL *NA* (06/15/2013 14:45:00 [facility]) UA Blood [Negative] Negative (06/15/2013 14:45:00 [facility]) UA Ketones [Negative mg/dL] Negative mg/dL *NA* (06/15/2013 14:45:00 [facility]) UA Protein [Negative mg/dL] Negative mg/dL (06/15/2013 14:45:00 [facility]) UA Urobilinogen [0.1-1.0 mg/dL] <=1.0 mg/dL *NA* (06/15/2013 14:45:00 [facility]) UA Bili [Negative] Negative *NA* (06/15/2013 14:45:00 [facility]) UA Leuk Est [Negative] Negative (06/15/2013 14:45:00 [facility]) UA Nitrite [Negative] Negative (06/15/2013 14:45:00 [facility]) UA WBC [0-5 /HPF] <1 /HPF (06/15/2013 14:45:00 [facility]) UA Mucus [None Seen /LPF] Few /LPF *NA* (06/15/2013 [facility]45[facility] Micro? Not Indicated *NA* (06/15/2013 14:45:00 [facility]) HEMATOLOGY Most recent to oldest 1 2 3 [Reference Range]: WBC [3.7-10.4 K/CMM] 6.6 K/CMM 11.7 K/CMM 10.9 K/CMM (06/23/2013 05:34:[facility] *HI* *HI* (06/22/2013 03:04:25 [facility]) (06/15/2013 [facility]45[facility] RBC [4.70-6.10 M/CMM] 3.89 M/CMM 4.45 M/CMM 4.70 M/CMM *LOW* *LOW* (06/15/2013 14:45:00 [facility] (06/23/2013 05:34[facility] (06/22/2013 [facility]:04:[facility]) Hgb [14.0-18.0 g/dL] 12.1 g/dL 13.3 g/dL 14.5 g/dL *LOW* *LOW* (06/15/2013 [facility]:45:[facility] (06/23/2013 [facility]34[facility] (06/22/2013 03:04:[facility]) Hct [42.0-54.0 %] 34.1 % 39.7 % 41.3 % *LOW* *LOW* *LOW* (06/23/2013 05:34:[facility] (06/22/2013 03:04:[facility]) (06/15/2013 14:45:00 [facility]) MCV [80.0-94.0 fL] 87.7 fL 89.3 fL 87.7 fL (06/23/2013 05:34:[facility] (06/22/2013 [facility]:04:[facility]) (06/15/2013 14:45:00 [facility]) MCH [27.0-31.0 pg] 31.2 pg 29.8 pg 30.8 pg *HI* (06/22/2013 03:04:25 [facility]) (06/15/2013 14:45:00 [facility]) (06/23/2013 05:34:00 [facility]) MCHC [32.0-36.0 g/dL] 35.6 g/dL 33.4 g/dL 35.1 g/dL (06/23/2013 05:34:00 [facility]) (06/22/2013 03:04:25 [facility]) (06/15/2013 14:45:00 [facility] RDW [11.5-14.5 %] 14.3 % 14.3 % 14.4 % (06/23/2013 05:34:00 [facility] (06/22/2013 03:04:25 [facility]) (06/15/2013 14:45:00 [facility]) Platelet [133-450 K/CMM] 148 K/CMM 185 K/CMM 172 K/CMM (06/23/2013 05:34:00 [facility]) (06/22/2013 03:04:25 [facility]) (06/21/2013 11:50:00 [facility] MPV [7.4-10.4 fL] 9.1 fL 9.5 fL 9.7 fL (06/23/2013 05:34:00 [facility]) (06/22/2013 03:04:25 [facility]) (06/15/2013 14:45:00 [facility] Segs [45.0-75.0 %] 66.0 % 88.5 % 66.4 % (06/23/2013 05:34:00 [facility] *HI* (06/15/2013 14:45:00 [facility] ([facility]/2013 [facility] Lymphocytes [20.0-40.0 %] 26.0 % 7.3 % 24.5 % (06/23/2013 05:34:00 [facility] *LOW* (06/15/2013 14:45:00 [facility] (06/22/2013 03:04:25 [facility] Monocytes [2.0-12.0 %] 5.9 % 4.1 % 6.4 % (06/23/2013 05:34:00 [facility]) (06/22/2013 03:04:25 [facility]) (06/15/2013 14:45:00 [facility] Eosinophils [0.0-4.0 %] 1.6 % 2.2 % (06/23/2013 05:34:00 [facility] (06/15/2013 14:45:00 [facility] Basophils [0.0-1.0 %] 0.5 % 0.1 % 0.5 % (06/23/2013 05:34:00 [facility]) (06/22/2013 03:04:25 [facility] (06/15/2013 14:45:00 [facility] Segs-Bands # [1.5-8.1 4.3 K/CMM 10.4 K/CMM 7.2 K/CMM K/CMM] (06/23/2013 05:34:00 [facility]) *HI* (06/15/2013 14:45:00 [facility]) (06/22/2013 03:04:25 [facility]) Lymphocytes # [1.0-5.5 1.7 K/CMM 0.9 K/CMM 2.7 K/CMM K/CMM] (06/23/2013 05:34:00 [facility] *LOW* (06/15/2013 14:45:00 [facility]) (06/22/2013 03:04:25 [facility]) Monocytes # [0.0-0.8 K/CMM] 0.4 K/CMM 0.5 K/CMM 0.7 K/CMM (06/23/2013 05:34:00 [facility]) (06/22/2013 03:04:25 [facility] (06/15/2013 14:45:00 [facility] Eosinophils # [0.0-0.5 0.1 K/CMM 0.2 K/CMM K/CMM] (06/23/2013 05:34:00 [facility]) (06/15/2013 14:45:00 [facility] Basophils # [0.0-0.2 K/CMM] 0.1 K/CMM (06/15/2013 14:45:00 [facility] PTT [22.9-35.8 seconds] 27.9 seconds 7 (06/21/2013 11:50:00 [facility]) 7Interpretive Data: Heparin Therapeutic Range: 57 - 92 Seconds Medications Administered During Your Visit No data available for this section Immunizations No data available for this section Procedures Procedure Type Body Site Date of Procedure Related Diagnosis Appendectomy Excision1 Operation Tonsillectomy 1lipoma Social History Social History Type Response Alcohol Current, Frequency: 1-2 times per year. Smoking Status Use: Former smoker. Type: Cigarettes. Tobacco smoke exposure: None. Did the Patient Smoke Cigarettes Anytime During the Last 365 Days? No. Cessation Counseling Provided? No. Assessment and Plan Extracted from: Title: Clinical Document Author: Robert Hinojosa Date: 06/22/2013 General Surgery [...] 1,000 mL, hydromorphone 15 mg (HYDROmorphone 0.5mg/mL ULTRASONIC TESTER (15mg/30 mL) 15 mg) Physical Examination Vitals [...] Tot 0 0 0 06/21 24hr Tot [id number] General: No acute distress, Patient alert [...] start zolvit liquid for pain control. wean ULTRASONIC TESTER today. CV - HDS Pulm - KEVIN, encourage IS GI - advance to bariatric clears today - wean IVF, strict I&Os. currently voiding spontaneously with adequate UOP. Heme: no evidence of bleeding ID: afebrile, no evidence of infection Ppx - lovenox Addendum by Ish Lynn MD on I, Dr. Ish Lynn, the consulting 06/24/2013 13:37 physician have seen and examined the patient with Dr. Hinojosa, reviewed the above note, and agree with the assessment and plan. Extracted from: Title: Clinical Document Author: Ish Lynn Date: 06/21/2013 DATE OF OPERATION/PROCEDURE: 06/21/2013 PREOPERATIVE DIAGNOSIS: 1. Morbid obesity. 2. CHF 3. CAD. 4. Reflux esophagitis. 5. Hypertension. 6. Obstructive sleep apnea. POSTOPERATIVE DIAGNOSIS: 1. Morbid obesity. 2. CHF 3. CAD. 4. Reflux esophagitis. 5. Hypertension. 6. Obstructive sleep apnea. PROCEDURES: 1. Robotic-assisted Jose-en-Y gastric bypass. 2. EGD. 3. Application of Evicel. SURGEON: Dr. Ish Lynn. BROADCAST ENGINEER: Dr. Thu Heath. INDICATIONS FOR PROCEDURE: This is a 43-year-old male with severe morbid obesity with a BMI that started out at 41 before his weight loss at our medical managed weight loss program, who also has multiple comorbidities. The patient has elected to go forward with a laparoscopic Jose-en-Y gastric bypass after demonstrating a full understanding [...] were placed according to my normal robotic-assisted Jose-en-Y gastric bypass with an 8-mm port in [...] small bowel was counted out and a [id number] functional end-to-side jejunojejunostomy was created using a single staple fire and closed with hand manuel turing. The mesentery defect was then closed using 2-0 silk suture. Attention was then turned back to the small pouch, which was opened using monopolar scissors using a 34-Cypriot calibration device to measure the size of [...] Please see procedure in detail. Addendum by Ish Lynn MD on There were no qualified residents 06/21/2013 14:26 available so I asked Dr. Thu Heath to assist.
--- OUTSIDE RECORDS SUMMARY | 2019-01-03 09:28 | XMS REPORT | Summary of Care ---
:1970 Author Organization [facility] Address [address] [place] [id number]- Encounter HQ Mitch_derrick(FIN) [phone] Date(s): 09/17/16 - 09/18/[address] Professional Services provided by The [facility] [place] [address]- Discharge Disposition: Home or Self Care Attending Physician: Prince Meagan Hunter MD Admitting Physician: Jorge Fontanez MD Referring Physician: Arturo Buckley MD Vital Signs Most recent to oldest [Reference 1 2 3 Range]: Height 185.42 cm (09/17/16 6:09 AM) Temperature Oral [96.4-99.1 DegF] 97.1 DegF 97.3 DegF 97.8 DegF (09/18/16 11:31 AM) (09/18/16 7:50 AM) (09/18/16 4:00 AM) Blood Pressure [90-140/60-90 125/71 mmHg 118/81 mmHg 113/73 mmHg mmHg] (09/18/16 11:31 AM) (09/18/16 7:50 AM) (09/18/16 4:00 AM) Respiratory Rate [14-20 BRMIN] 18 BRMIN 20 BRMIN 18 BRMIN (09/18/16 11:31 AM) (09/18/16 7:50 AM) (09/18/16 4:00 AM) Peripheral Pulse Rate [60-100 85 bpm 69 bpm 74 bpm bpm] (09/18/16 11:31 AM) (09/18/16 7:50 AM) (09/18/16 4:00 AM) Weight 81.818 kg (09/17/16 6:09 AM) Body Mass Index 23.8 m2 (09/17/16 6:09 AM) Problem List Condition Effective Dates Status Health Status Informant Anxiety(Confirmed) Active CAD - Coronary artery Active disease(Confirmed) CHF - Congestive heart Active failure(Confirmed) COPD(Confirmed) Active Hypertension(Confirmed) Active Morbid obesity(Confirmed) Active Schizo-affective psychosis(Confirmed) Active Allergies, Adverse Reactions, Alerts Substance Reaction Severity Status NKDA Active Medications Abilify 2 mg, 1 tab, Route: PO, Drug form: TAB, Daily, Dosing Weight 139.545, kg, Start date: 09/17/16 9:00:00 CDT, Duration: 30 day, Stop date: 10/16/16 9:00:00 CDT Notes: Same as: Abilify Non-Formulary Item Start Date: 09/17/16 Stop Date: 09/18/16 Status: DiscontinuedAbilify 2 mg oral tablet 2 mg=1 tab, PO, Daily, 0 Refill(s) Start Date: 09/17/16 Stop Date: 09/17/16 Status: Discontinuedacetaminophen 650 mg, 2 tab, Route: PO, Drug form: TAB, Q6H, Dosing Weight 139.545, kg, PRN Pain 1-3/Temp > 100.4 F, Start date: 09/17/16 5:56:00 CDT, Duration: 30 day, Stop date: 10/17/16 5:55:00 CDT Notes: Do not exceed 4 gm/day. (Same as: Tylenol) Start Date: 09/17/16 Stop Date: 09/18/16 Status: Discontinuedacetaminophen-hydrocodone 325 mg-5 mg oral tablet 1 tab, Route: PO, Drug Form: TAB, Dosing Weight 139.545, kg, Q6H, PRN Pain Score 4-6, Start date: 09/17/16 5:56:00 CDT, Duration: 30 day, Stop date: 5:55:00 CDT Notes: (Same as: [place] 325/5) Do not exceed 4gm/day of acetaminophen. Start Date: 09/17/16 Stop Date: 09/18/16 Status: Discontinuedacetaminophen-hydrocodone 325 mg-5 mg oral tablet 2 tab, Route: PO, Drug Form: TAB, Dosing Weight 139.545, kg, Q6H, PRN Pain Score 7-10, Start date: 09/17/16 5:56:00 CDT, Duration: 30 day, Stop date: 10/17 5:55:00 CDT Notes: (Same as: [place] 325/5) Do not exceed 4gm/day of acetaminophen. Start Date: 09/17/16 Stop Date: 09/18/16 Status: DiscontinuedANES flumazenil 0.2 mg, 2 mL, Route: IVP, Drug form: INJ, PRN, Dosing Weight 81.818, kg, PRN Benzodiazepine Reversal, Initial dose, Start date: 09/17/16 10:05:00 CDT, Duration: 1 day, Stop date: 09/18/16 10:04:00 CDT Notes: (Same as: Romazicon) Start Date: 09/17/16 Stop Date: 09/17/16 Status: DiscontinuedANES hydrALAZINE 10 mg, 0.5 mL, Route: IVP, Drug form: INJ, Q20Min, Dosing Weight 81.818, kg, PRN Elevated BP, Start date: 09/17/16 10:05:00 CDT, Duration: 2 doses or times, Stop date: 09/18/16 0:00:00 CDT Notes: (Same as: Apresoline)Push over 5 minutes Start Date: 09/17/16 Stop Date: 09/17/16 Status: DiscontinuedANES HYDROmorphone 0.5 mg, 0.25 mL, Route: IVP, Drug form: INJ, Q5Min, Dosing Weight 81.818, kg, PRN Pain Score 7-10, Start date: 09/17/16 10:05:00 CDT, Duration: 4 doses or times, Stop date: 09/18/16 0:00:00 CDT Notes: Same as: Dilaudid Start Date: 09/17/16 Stop Date: 09/17/16 Status: DiscontinuedANES labetalol 10 mg, 2 mL, Route: IVP, Drug form: INJ, Q5Min, Dosing Weight 81.818, kg, PRN Elevated BP, Start date: 09/17/16 10:05:00 CDT, Duration: 5 doses or times, Stop date: 09/18/16 0:00:00 CDT Start Date: 09/17/16 Stop Date: 09/17/16 Status: DiscontinuedANES morphine Sulfate 2 mg, 1 mL, Route: IVP, Drug form: INJ, Q5Min, Dosing Weight 81.818, kg, PRN Pain Score 4-6, Start date: 09/17/16 10:05:00 CDT, Duration: 5 doses or times, Stop date: 09/18/16 0:00:00 CDT Notes: (Same as:MORPhine Sulfate) Start Date: 09/17/16 Stop Date: 09/17/16 Status: DiscontinuedANES naloxone 0.4 mg, 1 mL, Route: IVP, Drug form: INJ, Q2MIN, Dosing Weight 81.818, kg, PRN Narcotic Reversal, Start date: 09/17/16 10:05:00 CDT, Duration: 8 doses or times , Stop date: 09/18/16 0:00:00 CDT Notes: Same as Narcan Start Date: 09/17/16 Stop Date: 09/17/16 Status: DiscontinuedANES ondansetron 4 mg, 2 mL, Route: IVP, Drug form: INJ, ONCE, Dosing Weight 81.818, kg, PRN Nausea & Vomiting, Start date: 09/17/16 10:05:00 CDT Notes: (Same as: [place]) MEDICATION WASTE Product Size: 4 mgProduct Wasted: ___ mg Start Date: 09/17/16 Stop Date: 09/17/16 Status: CompletedCarafate 1 g oral tablet 1 gm=1 tab, PO, QID, # 28 tab, 0 Refill(s) Start Date: 09/18/16 Stop Date: 09/25/16 Status: OrderedCarafate 1 g/10 mL oral suspension 1 gm, 1 tab, Route: PO, Drug form: TAB, QID, Dosing Weight 81.818, kg, Start date: 09/17/16 18:15:00CDT, Stop date: 10/17/16 17:00:00 CDT Start Date: 09/17/16 Stop Date: 09/18/16 Status: DiscontinuedCarafate 1 g/10 mL oral suspension 1 gm=10 mL, PO, QID-Before Meals, 0 Refill(s) Start Date: 09/17/16 Stop Date: 09/17/16 Status: Discontinueddocusate 100 mg, 1 cap, Route: PO, Drug form: CAP, BID, Dosing Weight 139.545, kg, Start date: 09/17/16 9:00:00 CDT, Duration: 30 day, Stop date: 10/16/16 17:00:00 CDT Notes: (Same as: Colace) (Do Not Crush) Start Date: 09/17/16 Stop Date: 09/18/16 Status: DiscontinuedDuoNeb inhalation solution 3 ml, Route: NEB, Drug Form: SOLN, Dosing Weight 81.818, kg, PRN, PRN Respiratory Protocol, Start date: 09/17/16 6:40:00 CDT, Duration: 30 day, Stop date: 10/17/16 6:39:00 CDT Notes: (Same as: Duoneb) Start Date: 09/17/16 Stop Date: 09/18/16 Status: DiscontinuedLatuda 60 mg oral tablet 60 mg=1 tab, PO, Daily, 0 Refill(s) Start Date: 09/17/16 Status: Orderedlithium 600 mg, 2 cap, Route: PO, Drug form: CAP, BID, Dosing Weight 139.545, kg, Start date: 09/17/16 9:00:00 CDT, Duration: 30 day, Stop date: 10/16/16 17:00:00 CDT Notes: Give with food. (Same as: [place] Carbon[place]) Start Date: 09/17/16 Stop Date: 09/18/16 Status: Discontinuedlithium 600 mg oral capsule 600 mg=1 cap, PO, BID, 0 Refill(s) Start Date: 09/17/16 Status: Orderedondansetron 4 mg, 2 mL, Route: IVP, Drug form: INJ, Q6H, Dosing Weight 139.545, kg, PRN Nausea & Vomiting, Start date: 09/17/16 5:56:00 CDT, Duration: 30 day, Stop date: 10/17/16 5:55:00 CDT Notes: (Same as: Zofran) MEDICATION WASTE Product Size: 4 mgProduct Wasted: 0 mg Start Date: 09/17/16 Stop Date: 09/18/16 Status: Discontinuedpantoprazole 40 mg, Route: IVP, Drug form: INJ, BID, Dosing Weight 81.818, kg, Start date: 18:15:00 CDT,Duration: 30 day, Stop date: 10/17/16 17:00:00 CDT Notes: (Same as: Protonix) Start Date: 09/17/16 Stop Date: 09/18/16 Status: Discontinuedpantoprazole 80 mg + sodium chloride 0.9% INJ 100 mL 100 mL, Rate: 10 ml/hr, Infuse over: 10 hr, Route: IVPB, Dosing Weight 139.545 kg, Total Volume: 100, Infuse at 8 mg / hr for 72 hours for GI bleeding, Start date: 09/17/16 6:02:00 CDT, Duration: 72 hr, Stop date: 09/20/16 6:01:00 CDT Start Date: 09/17/16 Stop Date: 09/17/16 Status: DiscontinuedProtonix 40 mg, PO, BID, # 30 tab, 0 Refill(s) Start Date: 09/17/16 Stop Date: 10/17/16 Status: OrderedSEROquel 400 mg oral tablet 400 mg=1 tab, PO, QPM, 0 Refill(s) Start Date: 09/17/16 Status: Orderedsodium chloride 0.9% 1000 ml INJ 1,000 mL 1,000 mL, Rate: 100 ml/hr, Infuse over: 10 hr, Route: IV, Dosing Weight 139.545 kg, Total Volume: 1,000, Start date: 09/17/16 6:02:00 CDT, Duration: 30 day, Stop date: 10/17/16 6:01:00 CDT Start Date: 09/17/16 Stop Date: 09/18/16 Status: Discontinuedtrazodone 50 mg oral tablet 50 mg=1 tab, PO, Bedtime, # 30 tab, 1 Refill(s) Start Date: 09/17/16 Status: OrderedXanax 2 mg oral tablet 2 mg, 4 tab, Route: PO, Drug form: TAB, BID, Dosing Weight 139.545, kg, Start date: 09/17/16 9:00:00CDT, Duration: 30 day, Stop date: 10/16/16 17:00:00 CDT Notes: With food or milk(Same as: Xanax) Start Date: 09/17/16 Stop Date: 09/18/16 Status: DiscontinuedXanax 2 mg oral tablet 2 mg=1 tab, PO, BID, 0 Refill(s) Start Date: 09/17/16 Stop Date: 09/17/16 Status: DiscontinuedZoloft 100 mg oral tablet 100 mg=1 tab, PO, Daily, # 90 tab, 0 Refill(s) Start Date: 09/17/16 Status: Ordered Results BLOOD BANK RESULTS Most recent to oldest [Reference Range]: 1 2 ABO/Rh A POS *Unknown* (09/17/16 6:38 AM) Antibody Scrn Negative (09/17/16 6:38 AM) RBC product Product available (09/17/16 8:34 AM) ELECTROLYTES Most recent to oldest [Reference Range]: 1 2 Sodium Lvl [135-145 mEq/L] 135 mEq/L 141 mEq/L (09/18/16 8:43 AM) (09/17/16 6:38 AM) Potassium Lvl [3.5-5.1 mEq/L] 3.6 mEq/L 4.4 mEq/L (09/18/16 8:43 AM) (09/17/16 6:38 AM) Chloride Lvl [95-109 mEq/L] 104 mEq/L 106 mEq/L (09/18/16 8:43 AM) (09/17/16 6:38 AM) CO2 [24-32 mEq/L] 25 mEq/L 28 mEq/L (09/18/16 8:43 AM) (09/17/16 6:38 AM) AGAP [10.0-20.0 mEq/L] 9.6 mEq/L 11.4 mEq/L *LOW* (09/17/16 6:38 AM) (09/18/16 8:43 AM) CHEM PANEL Most recent to oldest [Reference Range]: 1 2 Creatinine Lvl [0.50-1.40 mg/dL] 0.90 mg/dL 0.85 mg/dL (09/18/16 8:43 AM) (09/17/16 6:38 AM) eGFR 103 mL/min/1.73m2 1 105 mL/min/1.73m2 2 *NA* *NA* (09/18/16 8:43 AM) (09/17/16 6:38 AM) BUN [7-22 mg/dL] 10 mg/dL 18 mg/dL (09/18/16 8:43 AM) (09/17/16 6:38 AM) B/C Ratio [6-25] 21 (09/17/16 6:38 AM) Glucose Lvl [70-99 mg/dL] 180 mg/dL 96 mg/dL *HI* (09/17/16 6:38 AM) (09/18/16 8:43 AM) Total Protein [6.4-8.4 g/dL] 5.2 g/dL *LOW* (09/17/16 6:38 AM) Albumin Lvl [3.5-5.0 g/dL] 2.6 g/dL *LOW* (09/17/16 6:38 AM) Globulin [2.7-4.2 g/dL] 2.6 g/dL *LOW* (09/17/16 6:38 AM) A/G Ratio [0.7-1.6] 1.0 (09/17/16 6:38 AM) Calcium Lvl [8.5-10.5 mg/dL] 7.8 mg/dL 8.3 mg/dL *LOW* *LOW* (09/18/16 8:43 AM) (09/17/16 6:38 AM) Phosphorus [2.5-4.5 mg/dL] 3.3 mg/dL (09/17/16 6:38 AM) Magnesium Lvl [1.8-2.4 mg/dL] 2.1 mg/dL (09/17/16 6:38 AM) ALT [0-65 unit/L] 13 unit/L (09/17/16 6:38 AM) AST [0-37 unit/L] 6 unit/L (09/17/16 6:38 AM) Alk Phos [39-136 unit/L] 64 unit/L (09/17/16 6:38 AM) Bili Total [0.2-1.3 mg/dL] 0.6 mg/dL (09/17/16 6:38 AM) 1Result Comment: The eGFR is calculated using [...] eGFR should be multiplied by the estimated BMI.HEMATOLOGY Most recent to oldest [Reference Range]: 1 2 WBC [3.7-10.4 K/CMM] 5.7 K/CMM 7.2 K/CMM (09/18/16 8:51 AM) (09/17/16 6:38 AM) RBC [4.70-6.10 M/CMM] 2.52 M/CMM 2.56 M/CMM *LOW* *LOW* (09/18/16 8:51 AM) (09/17/16 6:38 AM) Hgb [14.0-18.0 g/dL] 7.7 g/dL 7.6 g/dL *LOW* *LOW* (09/18/16 8:51 AM) (09/17/16 6:38 AM) Hct [42.0-54.0 %] 22.2 % 22.2 % *LOW* *LOW* (09/18/16 8:51 AM) (09/17/16 6:38 AM) MCV [80.0-94.0 fL] 88.0 fL 87.0 fL (09/18/16 8:51 AM) (09/17/16 6:38 AM) MCH [27.0-31.0 pg] 30.5 pg 29.8 pg (09/18/16 8:51 AM) (09/17/16 6:38 AM) MCHC [32.0-36.0 g/dL] 34.6 g/dL 34.3 g/dL (09/18/16 8:51 AM) (09/17/16 6:38 AM) RDW [11.5-14.5 %] 13.2 % 12.8 % (09/18/16 8:51 AM) (09/17/16 6:38 AM) Platelet [133-450 K/CMM] 213 K/CMM 246 K/CMM (09/18/16 8:51 AM) (09/17/16 6:38 AM) MPV [7.4-10.4 fL] 8.7 fL 9.0 fL (09/18/16 8:51 AM) (09/17/16 6:38 AM) Segs [45.0-75.0 %] 71.8 % 69.6 % (09/18/16 8:51 AM) (09/17/16 6:38 AM) Lymphocytes [20.0-40.0 %] 20.5 % 22.3 % (09/18/16 8:51 AM) (09/17/16 6:38 AM) Monocytes [2.0-12.0 %] 4.1 % 6.4 % (09/18/16 8:51 AM) (09/17/16 6:38 AM) Eosinophils [0.0-4.0 %] 2.6 % 0.8 % (09/18/16 8:51 AM) (09/17/16 6:38 AM) Basophils [0.0-1.0 %] 1.0 % 0.9 % (09/18/16 8:51 AM) (09/17/16 6:38 AM) Segs-Bands # [1.5-8.1 K/CMM] 4.1 K/CMM 5.0 K/CMM (09/18/16 8:51 AM) (09/17/16 6:38 AM) Lymphocytes # [1.0-5.5 K/CMM] 1.2 K/CMM 1.6 K/CMM (09/18/16 8:51 AM) (09/17/16 6:38 AM) Monocytes # [0.0-0.8 K/CMM] 0.2 K/CMM 0.5 K/CMM (09/18/16 8:51 AM) (09/17/16 6:38 AM) Eosinophils # [0.0-0.5 K/CMM] 0.1 K/CMM 0.1 K/CMM (09/18/16 8:51 AM) (09/17/16 6:38 AM) Basophils # [0.0-0.2 K/CMM] 0.1 K/CMM 0.1 K/CMM (09/18/16 8:51 AM) (09/17/16 6:38 AM) PT [12.0-14.7 seconds] 15.5 seconds *HI* (09/17/16 6:38 AM) INR [0.85-1.17] 1.20 *HI* (09/17/16 6:38 AM) PTT [22.9-35.8 seconds] 29.3 seconds (09/17/16 6:38 AM) Immunizations No data available for this section Procedures Procedure Date Related Diagnosis Body Site Appendectomy Excision1 Gastric bypass Operation Tonsillectomy 1lipoma Social History Social History Type Response Substance Abuse Use: Current. Type: Marijuana. Recreational [...] Days Yes; Reg Smoking Cessation Counseling No Assessment and Plan Extracted from: Title: GI consult note Author: Melina Bonilla MD Date: 09/17/16 Assessment/Plan [...] incarcerated - Maintain 2 large bore IV's & IV fluid resuscitation - Make sure there is an active type and screen - Transfusion goals: Hgb >7gm/dl , INR <1.5 & platelet >50K. Currently at goal. - NPO. [...] Record - Dr. Sonali Bonilla MD Pager: [phone] Gastroenterology & Hepatology Fellow - PGY 4 Thank you for the consultation. Please page or call with questions or concerns. Addendum by Compa Lyon MD on 09/19/2016 17:17 CDT I have seen and examined the patient with Dr. Bonilla and Dr. Fong on September 17, 2016. I have reviewed the resident s/fellow s history, physical exam and the assessment and plan of care. I have pe rsonally reviewed the lab results and radiology tests and discussed the findings with Dr. Bonilla and Dr. Fong. Extracted from: Title: History and Physical Author: Jorge Fontanez MD Date: 09/17/16 Assessment/Plan 43 y/o male (incarcerated) with PMH of CAD s/p stents 2011, CHF, HTN, chronic bronchitis, morbid obesity s/p marilynn-en-Y gastric bypass 2013, anxiety, schizoaffective disorders who was referred from [facility] for evaluation of acute GI bleed. 1.Acute [...]
--- OUTSIDE RECORDS SUMMARY | 2019-01-03 09:28 | XMS REPORT ---
:1970 Author [facility] Address [address] [place] [address] [address] [place] [address] Care Team Providers Name Role Phone Unavailable Unavailable Unavailable Problems This patient has no known problems. Allergies, Adverse Reactions, Alerts This patient has no known allergies or adverse reactions. Medications This patient has no known medications. Results Test Description Test Time Test Comments Text Results Atomic Results Result Comments CHEST 1 VIEW PORTABLE 2018-02-26 08:14:00 [id number] [place], [place] [id number] IMAGING REPORTPatient Name: Karin KOHLIte of Service: 09-04-0145Ejq: 47 Sex: M Order #: [id number] Room: ERSDOB: 1970 X-Ray Number: [id number] Record Number: [id number] Hospital Number: [id number] Physician: Dee RAMIREZ Physician: Dov RAMIREZ.02/25/2018 10:43 PMHistory: Chest pain.Technique: Single AP chest projection.Findings: Single chest projection demonstrates normal heart size and clearlungs. No infiltrates or abnormalities are depicted. The osseous structuresappear intact.Impression:No acute-appearing cardiopulmonary abnormalities.Electronically Signed By: Quinton Dupree M.D., 02/26/2018 8:11 AMLegally authenticated by MARIE Lance 2018-02-26 08:11:53 TROPONIN ER 2018-02-26 01:50:00 Test Item Value Reference Range Comments TROPER (test code=TROPER) 0.01 ng/ml 0.0-0.08 INTERPRETIVE DATA A POC TROPONIN OF </=0.08 NG/ML IS CONSIDERED NEGATIVE PROBRAIN NATRIURETIC [id number] 23:15:00 Test Item Value Reference Range Comments NT-PROBNP (test code=PROBNP) 32 pg/mL Exclusion for heart failure for patients of all ages is 300 pg/mL. Inclusion for heart failure for patients age <50 is 450 pg/mL; for patients age 50-75 is 900 pg/mL; for patients age >75 is 1800 pg/mL. [id number] 23:15:00 Test Item Value Reference Range Comments %CKMB (test code=%MB) 1.0 % CKMB (test code=CKMB) 0.5 NG/ML 0.22-2.4 CK (test code=CK) 48 U/L 55-170 CKINTERP (test code=CKINTERP) NEGATIVE Negative BMP, BASIC METABOLIC [id number] 23:13:00 Test Item Value Reference Range Comments SODIUM (test code=NA) 139 MMOL/L 137-145 K+ (test code=KSERUM) 4.1 MMOL/L 3.5-5.1 PLEASE NOTE NEW REFERENCE RANGE(S) IN EFFECT EFFECTIVE 11/20/2009 - NEW ANALYZER ([employer] 5600) CHLORIDE (test code=CL) 105 MMOL/L 98-107 CO2 (test code=CO2) 29 MMOL/L 22-30 BUN (test code=BUN) 13 MG/DL 9-20 CREA (test code=CREA) 0.8 MG/DL 0.8-1.5 GLUCOSE (test 61 MG/DL 70-99 Fasting glucose normal code=GLUCOSE) <100 MG/DL- [employer] recommendation CALCIUM (test 9.4 MG/DL 8.4-10.2 code=CABLOOD) GFR (test code=GFR) 111 mL/min/1.73m2 A GFR of >90 mL/min/1.73m2 is considered normal. [id number] 23:11:00 Test Item Value Reference Range Comments WBC (test code=WBC) 5.7 K/UL 3.5-10.9 RBC (test code=RBC) 4.14 M/UL 4.3-5.7 HGB (test code=HGB) 13.2 G/DL 13.0-17.9 HCT (test code=HCT) 36.8 % 38-52 MCV (test code=MCV) 88.9 FL 80-98 MCH (test code=MCH) 31.9 PG 28-32 MCHC (test code=MCHC) 35.9 G/DL 32.5-36.5 RDW (test code=RDW) 12.4 % 11.5-14.5 PLT (test code=PLT) 171 K/UL 150-450 MPV (test code=MPV) 10.9 FL 7.4-10.4 MANDIFF (test code=MANDIFF) NO SCAN (test code=SCAN) NO NEUT% (test code=NEUT%) 54.7 % 40-75 LYMPH% (test code=LYMPH%) 33.3 % 24-44 MONO% (test code=MONO%) 9.6 % 0-13 EOS% (test code=EOS%) 1.7 % 0-4 BASO % (test code=BASO%) 0.5 % 0-2 IG (test code=IG) 0 % 0-1 IG% (test code=IG%) 0.2 % 0-1 IG%=Metamyelocytes, Myelocytes, and Promyelocytes. (Immature neutrophils not including "bands".) > 3% IG indicates risk of sepsis NRBC% (test code=NRBC%) 0 /100 WBC ABS NEUT (test code=NEUT) 3.1 K/UL 1.2-7.2 PROTHROMBIN TIME WITH [id number] 23:07:00 Test Item Value Reference Range Comments PROTHROMBIN TIME (test 14.4 SECONDS 12.0-14.6 INR Usual Range=2 to 3 for code=PT) prevention of deep vein thrombosis (DVT) INR (test code=INR) 1.1 [id number] 23:07:00 Test Item Value Reference Range Comments PTT (test code=PTT) 27.5 SECONDS 24.4-36.3 HEPARIN THERAPEUTIC RANGE 57-92 SECONDS TROPONIN [id number] 22:41:00 Test Item Value Reference Range Comments TROPER (test code=TROPER) 0.00 ng/ml 0.0-0.08 INTERPRETIVE DATA A POC TROPONIN OF </=0.08 NG/ML IS CONSIDERED NEGATIVE
[2019-01-03] MEDS ORDERED: ACETAMINOPHEN 500 MG TAB ONE (10:26)
[2019-01-03 10:37] LABS: Absolute Lymphocytes (CBC) 1.2 K/uL (0.7-4.9); Basophils % 0.6 % (0-1.3); Hematocrit 37.1 % (39.6-49.0); Lymphocytes % 27.3 % (15.3-44.8); MPV 9.8 fL (7.6-11.3); RBC Red Blood Cell Count 4.21 M/uL (4.33-5.43)
[2019-01-03 10:39] LABS: Protime INR 1.05
[2019-01-03 10:47] LABS: Barbiturates NEGATIVE (NEGATIVE); Benzodiazepines NEGATIVE (NEGATIVE); Cocaine NEGATIVE (NEGATIVE); METHAMPHETAM NEGATIVE (NEGATIVE); Methadone NEGATIVE (NEGATIVE); Opiates NEGATIVE (NEGATIVE); Phencyclidine NEGATIVE (NEGATIVE); THC Cannibis NEGATIVE (NEGATIVE)
--- NOTE | 2019-01-03 10:47 | RAD REPORT ---
EXAM DESCRIPTION: CT - Head Brain Wo Cont - 01/03/2019 10:30 am CLINICAL HISTORY: Headache, hypertension COMPARISON: CT head September 2012 TECHNIQUE: Axial 5 mm thick images of the head were obtained without IV contrast. All CT scans are performed using dose optimization technique as appropriate and may include automated exposure control or mA/KV adjustment according to patient size. FINDINGS: No intracranial hemorrhage, mass, edema or shift of mid-line structures. No acute infarcti on changes seen. No abnormal extra-axial fluid collections. Ventricles are normal. Mastoid air cells and visualized portions of the paranasal sinuses are clear. No acute bony findings. IMPRESSION: Negative non-contrast CT head examination. No significant change from 2013 exam.
[2019-01-03 10:50] LABS: ALT/SGPT 23 U/L (12-78); AST/SGOT 23 U/L (15-37); Albumin 3.9 g/dL (3.4-5.0); Alkaline Phosphatase 75 U/L (45-117); BUN Blood Urea Nitrogen 10 mg/dL (7-18); Bicarbonate 27 mmol/L (21-32); Bilirubin Direct 0.2 mg/dL (0-0.2); Bilirubin Total 0.7 mg/dL (0.2-1.0); Glucose Level 92 mg/dL (74-106); Magnesium 2.1 mg/dL (1.8-2.4); NT PRO-BNP 94 pg/mL (<125); Protein, Total 6.6 g/dL (6.4-8.2); Sodium Level 143 mmol/L (136-145); Troponin (Emerg Dept Use Only) < 0.02 ng/mL (0.0-0.045)
[2019-01-03] MEDS ORDERED: KETOROLAC 30 MG/ML INJ ONE (11:15)
[2019-01-03] MEDS ORDERED: DIPHENHYDRAMINE 50 MG/ML VIAL ONE (11:15)
--- NOTE | 2019-01-03 11:20 | RAD REPORT ---
EXAM DESCRIPTION: RAD - Chest Single View - 01/03/2019 10:49 am CLINICAL HISTORY: Hypertension, shortness of breath COMPARISON: February 2017 TECHNIQUE: AP portable chest image was obtained 1029 hours . FINDINGS: No focal lung parenchymal process. No pulmonary edema findings seen. Lung parenchyma simil ar to comparison. Heart and vasculature are normal. No measurable pleural effusion and no pneumothora x. No acute bone finding. Right convex thoracic scoliotic curvature noted and stable. No acute aortic findings suspected. IMPRESSION: No acute cardiopulmonary process. Chest findings are stable from February 2017.
--- NOTE | 2019-01-03 12:38 | ER ---
Nurse's Notes [facility] Name: Benigno Mireles Age: 48 yrs Sex: Male : 1970 Arrival Date: 01/03/2019 Time: 09:20 Bed 6 Private MD: Jonas Gibson H Diagnosis: Hypertensive heart disease;Paresthesia of skin Presentation: 01/03 09:35 Presenting complaint: Patient states: 729 BP 162/92, took 1 nitro at 0745, reports not jl7 taking his HTN or blood thinners for the past few months; reports left sided chest pain rated 8/10, radiate to left subscapular region, face feels like pins and needles "Like it's on fire", bilateral jaw pain, bilateral ringing in the ears, right sided BAKER rated 9/10. Reports SOB, Denies N/V. Transition of care: patient was not received from another setting of care. Onset of symptoms was January 03, 2019 at 07:30. Risk Assessment: Do you want to hurt yourself or someone else? Patient reports no desire to harm self or others. Initial Sepsis Screen: Does the patient meet any 2 criteria? No. Patient's initial sepsis screen is negative. Does the patient have a suspected source of infection? No. Patient's initial sepsis screen is negative. Care prior to arrival: Medication(s) given: Nitro x1. 09:35 Method Of Arrival: Ambulatory jl7 09:35 Acuity: ALISHA 3 jl7 Triage Assessment: 09:44 General: Appears in no apparent distress. uncomfortable, Behavior is calm, cooperative, jl7 appropriate for age. Pain: Complains of pain in face and chest Pain currently is 8 out of 10 on a pain scale. Quality of pain is described as burning, tingling, Pain began 2 hours ago. Is continuous. EENT: Reports ringing in left ear and right ear Denies blurred vision. Neuro: Level of Consciousness is awake, alert, obeys commands, Oriented to person, place, time, situation, Reports headache in right parietal area, since 729. Cardiovascular: Reports chest pain, Denies nausea, Heart tones S1 S2 present Patient's skin is warm and dry. Rhythm is sinus rhythm Chest pain is described as Pain is 8 out of 10 on a pain scale. quality is sharp, is located in left anterior chest wall radiates to left scapula began 2 hours prior to arrival episodes are continuous. Respiratory: Reports shortness of breath at rest Airway is patent Respiratory effort is even, unlabored, Respiratory pattern is regular, symmetrical, Breath sounds are clear bilaterally. GI: No signs and/or symptoms were reported involving the gastrointestinal system. Patient currently denies diarrhea, nausea, vomiting. : No signs and/or symptoms were reported regarding the genitourinary system. Derm: Skin is pink, warm \\T\\ dry. Musculoskeletal: No signs and/or symptoms reported regarding the musculoskeletal system. Historical: - Allergies: : NKA; jl7 - Home Meds: Lisinopril Oral [Active]; Metoprolol Tartrate Oral [Active]; Plavix Oral [Active]; jl7 pantoprazole 40 mg Oral TbEC 1 tab 2 times per day [Active]; - PMHx: Bipolar disorder; CHF; Hypertension; CAD; Arthritis; GERD; jl7 - PSHx: Heart stents; Appendectomy; Tonsillectomy; Gastric Bypass; jl7 - Immunization history:: Adult Immunizations up to date. - Social history:: Smoking status: Patient uses tobacco products, smokes one pack cigarettes per day. Patient/guardian denies using alcohol, street drugs. - Ebola Screening: : No symptoms or risks identified at this time. Screenin:51 Abuse screen: Denies threats or abuse. Denies injuries from another. Nutritional jl7 screening: No deficits noted. Tuberculosis screening: No symptoms or risk factors identified. 10:32 Fall Risk IV access (20 points). Total Marrufo Fall Scale indicates No Risk (0-24 pts). jl7 Assessment: 09:51 General: See triage assessment. jl7 10:32 Reassessment: Patient appears in no apparent distress at this time. No changes from jl7 previously documented assessment. Patient and/or family updated on plan of care and expected duration. Pain level reassessed. Patient is alert, oriented x 3, equal unlabored respirations, skin warm/dry/pink. 11:30 Reassessment: Patient appears in no apparent distress at this time. Patient and/or jl7 family updated on plan of care and expected duration. Pain level reassessed. Patient is alert, oriented x 3, equal unlabored respirations, skin warm/dry/pink. Patient states feeling better. Vital Signs: 09:44 BP 142 / 92; Pulse 69; Resp 16; Pulse Ox 100% ; Weight 74.84 kg; Height 6 ft. 1 in. jl7 (185.42 cm); Pain 9/10; 10:36 BP 121 / 85; Pulse 61; Resp 16 S; Pulse Ox 100% on R/A; jl7 12:00 BP 117 / 80; Pulse 62; Resp 16 S; Pulse Ox 100% on R/A; jl7 09:44 Body Mass Index 21.77 (74.84 kg, 185.42 cm) jl7 ED Course: 09:20 Patient arrived in ED. mr 09:20 Jonas Gibson DO is Private Physician. mr 09:25 Eladio Aguirre, JOSEFA is Primary Nurse. jl7 09:32 Lionel Parr MD is Attending Physician. kdr 09:40 Triage completed. jl7 09:44 Arm band placed on right wrist. jl7 09:50 EKG done, by locate technician. reviewed by Lionel Parr MD. at1 09:51 Patient has correct armband on for positive identification. Placed in gown. Bed in low jl7 position. Call light in reach. Side rails up X 1. utilities service investigator on. Pulse ox on. NIBP on. Warm blanket given. 10:32 Initial lab(s) drawn, by me, sent to lab. Urine collected: clean catch specimen, clear. jl7 Inserted saline lock: 20 gauge in left forearm, using aseptic technique. Blood collected. 10:37 CT Head Brain wo Cont In Process Unspecified. EDMS 10:52 XRAY Chest (1 view) In Process Unspecified. EDMS 11:59 Repeat lab(s) drawn. by me, sent to lab. dh3 12:37 Jonas Gibson DO is Referral Physician. kdr 12:52 No provider procedures requiring assistance completed. IV discontinued, intact, jl7 bleeding controlled, No redness/swelling at site. Pressure dressing applied. Administered Medications: 10:38 Drug: Tylenol 1000 mg Route: PO; jl7 11:05 Follow up: Response: No adverse reaction; Pain is unchanged, physician notified jl7 11:17 Drug: Benadryl 25 mg Route: IVP; Site: left forearm; jl7 11:30 Follow up: Response: No adverse reaction; Pain is decreased jl7 11:17 Drug: TORadol - Ketorolac 15 mg Route: IVP; Site: left forearm; jl7 11:30 Follow up: Response: No adverse reaction; Pain is decreased jl7 Outcome: 12:37 Discharge ordered by . kdr 12:52 Discharged to home ambulatory. jl7 12:52 Condition: stable 12:52 Discharge instructions given to patient, Instructed on discharge instructions, follow up and referral plans. Demonstrated understanding of instructions, follow-up care. 12:52 Patient left the ED. jl7 Signatures: Dispatcher [employer] EDMS Lionel Parr MD MD kdr Novoa, Brenda mr RuBetina, water regulator and valve repairer EKG Tat1 Eladio Aguirre RN RN jl7 Eleanor Wetzel 3 Corrections: (The following items were deleted from the chart) 09:51 09:44 Pain: Complains of pain in face and chest Pain currently is 8 out of 10 on a pain jl7 scale. Quality of pain is described as burning, tingling, Pain began 2 hours ago. Is continuous, jl7 09:51 09:44 Neuro: Level of Consciousness is awake, alert, obeys commands, Oriented to jl7 person, place, time, situation, jl7 10:33 10:32 Fall Risk IV access (20 points). jl7 jl7
--- NOTE | 2019-01-03 12:39 | EDPHYS ---
Physician Documentation [facility] Name: Benigno Mireles Age: 48 yrs Sex: Male : 1970 Arrival Date: 01/03/2019 Time: 09:20 Bed 6 Private MD: Jonas Gibson H ED Physician Lionel Parr HPI: 01/03 10:21 This 48 yrs old Male presents to ER via Ambulatory with complaints of High kdr Blood Pressure. 10:21 The patient has elevated blood pressure and discovered this at home, with a home kdr device. Onset: The symptoms/episode began/occurred just prior to arrival, this morning. Modifying factors: The symptoms are aggravated by activity, movement, The symptoms are alleviated by Nothing. Associated signs and symptoms: Pertinent positives: chest pain, dizziness, headache, lightheadedness, nausea, vomiting, weakness. Severity of symptoms: At its worst the blood pressure was moderate, just prior to arrival, this morning, in the emergency department the blood pressure is improved, moderately. The patient has not experienced similar symptoms in the past. Historical: - Allergies: 09:44 NKA; jl7 - Home Meds: :44 Lisinopril Oral [Active]; Metoprolol Tartrate Oral [Active]; Plavix Oral [Active]; jl7 pantoprazole 40 mg Oral TbEC 1 tab 2 times per day [Active]; - PMHx: 09:44 Bipolar disorder; CHF; Hypertension; CAD; Arthritis; GERD; jl7 - PSHx: 09:44 Heart stents; Appendectomy; Tonsillectomy; Gastric Bypass; jl7 - Immunization history:: Adult Immunizations up to date. - Social history:: Smoking status: Patient uses tobacco products, smokes one pack cigarettes per day. Patient/guardian denies using alcohol, street drugs. - Ebola Screening: : No symptoms or risks identified at this time. ROS: 10:21 Constitutional: Negative for fever, chills, and weight loss - upper boddy - nipples kdr upward gabi , tingling, BAKER - focal right parietal Eyes: Negative for injury, pain, redness, and discharge, Respiratory: Negative for shortness of breath, cough, wheezing, and pleuritic chest pain, Abdomen/GI: Negative for abdominal pain, nausea, vomiting, diarrhea, and constipation, Back: Negative for injury and pain. 10:21 Skin: Negative for injury, rash, and discoloration, Psych: Negative for depression, anxiety, suicide ideation, homicidal ideation, and hallucinations, Allergy/Immunology: Negative for hives, rash, and allergies, Endocrine: Negative for neck swelling, polydipsia, polyuria, polyphagia, and marked weight changes, Hematologic/Lymphatic: Negative for swollen nodes, abnormal bleeding, and unusual bruising. 10:21 Cardiovascular: Positive for chest pain, Negative for edema, orthopnea, palpitations, paroxysmal nocturnal dyspnea, acute changes. 10:21 Neuro: Positive for headache. Exam: 13:04 Constitutional: This is a well developed, well nourished patient who is awake, alert, kdr and in no acute distress. Head/Face: Normocephalic, atraumatic. Eyes: Pupils equal round and reactive to light, extra-ocular motions intact. Lids and lashes normal. Conjunctiva and sclera are non-icteric and not injected. Cornea within normal limits. Periorbital areas with no swelling, redness, or edema. Neck: Trachea midline, no thyromegaly or masses palpated, and no cervical lymphadenopathy. Supple, full range of motion without nuchal rigidity, or vertebral point tenderness. No Meningismus. Chest/axilla: Normal chest wall appearance and motion. Nontender with no deformity. No lesions are appreciated. Cardiovascular: Regular rate and rhythm with a normal S1 and S2. No gallops, murmurs, or rubs. Normal PMI, no JVD. No pulse deficits. Respiratory: Lungs have equal breath sounds bilaterally, clear to auscultation and percussion. No rales, rhonchi or wheezes noted. No increased work of breathing, no retractions or nasal flaring. Abdomen/GI: Soft, non-tender, with normal bowel sounds. No distension or tympany. No guarding or rebound. No evidence of tenderness throughout. Back: No spinal tenderness. No costovertebral tenderness. Full range of motion. Skin: Warm, dry with normal turgor. Normal color with no rashes, no lesions, and no evidence of cellulitis. MS/ Extremity: Pulses equal, no cyanosis. Neurovascular intact. Full, normal range of motion. Neuro: Awake and alert, GCS 15, oriented to person, place, time, and situation. Cranial nerves II-XII grossly intact. Motor strength 5/5 in all extremities. Sensory grossly intact. Cerebellar exam normal. Normal gait. Psych: Awake, alert, with orientation to person, place and time. Behavior, mood, and affect are within normal limits. Vital Signs: 09:44 BP 142 / 92; Pulse 69; Resp 16; Pulse Ox 100% ; Weight 74.84 kg; Height 6 ft. 1 in. jl7 (185.42 cm); Pain 9/10; 10:36 BP 121 / 85; Pulse 61; Resp 16 S; Pulse Ox 100% on R/A; jl7 12:00 BP 117 / 80; Pulse 62; Resp 16 S; Pulse Ox 100% on R/A; jl7 09:44 Body Mass Index 21.77 (74.84 kg, 185.42 cm) 7 MDM: 12:37 Patient medically screened. kdr 13:04 Data reviewed: vital signs, nurses notes, lab test result(s), EKG, radiologic studies. kdr Counseling: I had a detailed discussion with the patient and/or guardian regarding: the historical points, exam findings, and any diagnostic results supporting the discharge/admit diagnosis, lab results, radiology results, the need for outpatient follow up. 01/03 10:06 Order name: Basic Metabolic Panel; Complete Time: 10: [facility] 01/03 10:06 Order name: CBC with Diff; Complete Time: : [facility] 01/03 10:06 Order name: LFT's; Complete Time: 10: [facility] 01/03 10:06 Order name: Magnesium; Complete Time: 10: [facility] 01/03 10:06 Order name: NT PRO-BNP; Complete Time: 10:54 [facility] 01/03 10:06 Order name: PT-INR; Complete Time: 10:54 [facility] 01/03 10:06 Order name: Troponin (emerg Dept Use Only); Complete Time: 10:54 [facility] 01/03 10:06 Order name: XRAY Chest (1 view); Complete Time: 12:36 [facility] 01/03 10:07 Order name: ETOH Level; Complete Time: 10:54 [facility] 01/03 10:07 Order name: UDS; Complete Time: 10:54 [facility] 01/03 10:19 Order name: CT Head Brain wo Cont; Complete Time: 10: [facility] 01/03 10:30 Order name: Urine Dipstick--Ancillary (enter results) 01/03 11:52 Order name: Troponin (emerg Dept Use Only); Complete Time: 12:36 [facility] 01/03 10:06 Order name: EKG; Complete Time: 10:08 [facility] 01/03 10:06 Order name: Cardiac monitoring; Complete Time: 10:12 [facility] 01/03 10:06 Order name: EKG - Nurse/Tech; Complete Time: 10:24 [facility] 01/03 10:06 Order name: IV Saline Lock; Complete Time: 10:12 [facility] 01/03 10:06 Order name: Labs collected and sent; Complete Time: 10:12 [facility] 01/03 10:06 Order name: O2 Per Protocol; Complete Time: 10:12 [facility] 01/03 10:06 Order name: O2 Sat Monitoring; Complete Time: 10:12 [facility] Administered Medications: 10:38 Drug: Tylenol 1000 mg Route: PO; 7 11:05 Follow up: Response: No adverse reaction; Pain is unchanged, physician notified jl7 11:17 Drug: Benadryl 25 mg Route: IVP; Site: left forearm; jl7 11:30 Follow up: Response: No adverse reaction; Pain is decreased jl7 11:17 Drug: TORadol - Ketorolac 15 mg Route: IVP; Site: left forearm; jl7 11:30 Follow up: Response: No adverse reaction; Pain is decreased jl7 Disposition: 01/03/19 12:37 Discharged to Home. Impression: Hypertensive heart disease, Paresthesia of skin. - Condition is Stable. - Discharge Instructions: Hypertension, [id number], Paresthesia, [id number]. - Medication Reconciliation Form, Thank You Letter form. - Follow up: Jonas Gibson DO; When: 2 - 3 days; Reason: If symptoms return, Further diagnostic work-up, Recheck today's complaints, Continuance of care, Re-evaluation by your physician. - Problem is new. - Symptoms have improved. Signatures: Dispatcher [employer] Lionel Perez MD MD kdr Eladio Aguirre RN RN jl7 Corrections: (The following items were deleted from the chart) 12:52 12:37 01/03/2019 12:37 Discharged to Home. Impression: Hypertensive heart disease; jl7 Paresthesia of skin. Condition is Stable. Forms are Medication Reconciliation Form, Thank You Letter, Antibiotic Education, Prescription Opioid Use. Follow up: Jonas Gibson; When: 2 - 3 days; Reason: If symptoms return, Further diagnostic work-up, Recheck today's complaints, Continuance of care, Re-evaluation by your physician. Problem is new. Symptoms have improved. kdr
[2019-01-03 13:16] VITALS: O2SAT 100
[2019-01-03 13:19] VITALS: BP 117/80
[2019-01-03 13:52] LABS: Urine Blood NEGATIVE (NEG); Urine Glucose NEGATIVE (NEG); Urine Protein NEGATIVE (NEG); Urine Specific Gravity 1.015 (1.005-1.030)
--- NOTE | 2019-01-03 16:58 | EKG ---
Test Date: 2019-01-03 Test Time: 09:47:35 Foot Doctor: EJ MEASUREMENT RESULTS: Intervals: Rate: 69 NC: 138 QRSD: 98 QT: 384 QTc: 411 [place]: P: 8 NC: 138 QRS: -6 T: 31 INTERPRETIVE STATEMENTS: Normal sinus rhythm Normal ECG Compared to ECG 09/08/2016 17:41:42 No significant changes Electronically Signed On 01-03-19 16:56:44 CDT by Karri Paul
== END 2019-01-03 12:52 | disposition home or self-care (01) ==
LOC: ER 09:17
DX: I11.9 Hypertensive heart disease without heart failure (principal); R20.2 Paresthesia of skin; I10 Essential (primary) hypertension; I50.9 Heart failure, unspecified; F31.9 Bipolar disorder, unspecified; F17.210 Nicotine dependence, cigarettes, uncomplicated; Z79.01 Long term (current) use of anticoagulants; Z95.818 Presence of other cardiac implants and grafts
CPT/HCPCS: 36415; 70450; 71045; 80048; 80076; 80307; 80320; 81003; 83735; 83880; 84484; 85025; 85610; 93005; 96374; 96375; 99284

== ENCOUNTER 2019-08-23 12:51 | Emergency (ER) | payer OTHER ==
--- OUTSIDE RECORDS SUMMARY | 2019-08-23 12:58 | XMS REPORT | CCD ---
:1970 Author Organization [facility] Care Team Providers Name Role Phone Vivek Hyde Rae Consulting Provider [phone] Allergies, Adverse Reactions, Alerts Substance Reaction Status [...] 12.5 mg, 0.5 tab, Route: 09/15/2011 09/15/2011 Dis continued PO, Drug form: ERTAB, QAM, Priority: NOW, Start date: 09/15/11 17:24:00, Duration: 30 day, Stop date: 10/15/11 9:00:00 aspirin 81 mg tablet, 81 mg, 1 tab, Route: 09/16/2011 09/15/2011 Discontinued chewable CHEW, Drug form: CHEWTAB, Breakfast, Start date: 09/16/11 8:00:00, Duration: 30 day, Stop date: 10/15/11 8:00:00 Lovenox 120 mg, 0.8 mL, Route: 09/15/2011 09/16/2011 Disco ntinued SUB-Q, Drug form: INJ, [id number], Start date: 09/15/11 18:00:00, Duration: 30 day, Stop date: 10/15/11 6:00:00 Sodium Chloride 0.9% IV 250 mL, Route: IVPB, 09/15/2011 2 Discontinued Start date: 09/15/11 12:29:00, Duration: 30 day, Stop date: 10/15/11 12:28:00, PRN Line Flush acetaminophen-hydrocodone 1 tab, Route: PO, Drug 09/16/201109/15 Discontinued 325 mg-10 mg oral tablet Form: TAB, Q6H, PRN Pain, Start date: 09/16/11 8:07:00, Duration: 30 day, Stop date: 10/16/11 8:06:00 aspirin 325 mg tablet 325 mg, 1 tab, Route: 09/16/2011 09/15/2011 Discontinued PO, Drug form: TAB, Breakfast, Start date: 09/16/11 8:00:00, Duration: 30 day, Stop date: 10/15/11 8:00:00 BD Normal Saline Flush 10 mL, Route: IVP, Drug 09/15/2011 012 Discontinued Form: INJ, PRN, PRN Line Flush, Start date: 09/15/11 12:28:00, Duration: 30 day, Stop date: 10/15/11 12:27:00 Lopressor 100 mg, 1 tab, Route: 09/15/2011 09/16/2011 Discon tinued PO, Drug form: TAB, Q12H, Start date: 09/15/11 21:00:00, Duration: 30 day, Stop date: 10/15/11 9:00:00 Klonopin 2 mg, 2 tab, Route: PO, 09/16/2011 09/16/2011 Disc ontinued Drug form: TAB, BID, Start date: 09/16/11 9:00:00, Duration: 30 day, Stop date: 10/15/11 17:00:00 Eskalith 600 mg, 2 tab, Route: 09/15/2011 09/16/2011 Discon tinued PO, Drug form: TAB, Bedtime, Start date: 09/15/11 21:00:00, Duration: 30 day, Stop date: 10/14/11 21:00:00 Eskalith 300 mg, 1 tab, Route: 09/16/2011 09/16/2011 Discon tinued PO, Drug form: TAB, QAM, Start date: 09/16/11 9:00:00, Duration: 30 day, Stop date: 10/15/11 9:00:00 hydrOXYzine hydrochloride 25 mg, 1 tab, Route: PO, 09/15/2011 Discontinued 25 mg oral tablet Drug form: TAB, BID, Priority: NOW, Start date: 09/15/11 18:55:00, Duration: 30 day, Stop date: 10/15/11 17:00:00 Plavix 75 mg, 1 tab, Route: PO, 09/16/2011 09/16/2011 Dis continued Drug form: TAB, Daily, Start date: 09/16/11 [...] mg, 2 tab, Route: PO, 09/16/2011 09/16/2011 Dis continued Drug form: TAB, Daily, Start date: 09/16/11 9:00:00, Duration: 30 day, Stop date: 10/15/11 9:00:00 trazodone 50 mg oral 100 mg, 2 tab, Route: 09/15/2011 09/16/2011 Discontinued tablet PO, Drug form: TAB, Bedtime, Start date: 09/15/11 21:00:00, Duration: 30 day, Stop date: 10/14/11 21:00:00 ondansetron 4 mg, Route: IVP, Drug 09/15/2011 09/15/2011 Compl eted form: INJ, ONCE, Priority: STAT, Start date: 09/15/11 13:08:00, Stop date: 09/15/11 13:08:00 bacitracin/neomycin/polymy 1 appl, Route: TOP, BID, 09/15/2011 Discontinued sania B topical ointment Drug form: OINT, Start date: 09/15/11 19:00:00, Duration: 30 day, Stop date: 10/15/11 17:00:00 morphine Sulfate 5 mg, Route: IV, ONCE, 09/15/2011 09/15/2011 C ompleted Priority: STAT, Start date: 09/15/11 13:08:00, Stop date: 09/15/11 13:08:00 acetaminophen-codeine 300 1 tab, Route: PO, Drug 09/15/201109/15 Discontinued mg-30 mg oral tablet Form: TAB, Q4H, PRN Pain, Start date: 09/15/11 18:33:00, Duration: 30 day, Stop date: 10/15/11 18:32:00 aspirin 325 mg tablet 325 mg, 1 tab, Route: 09/16/2011 09/15/2011 Discontinued PO, Drug form: TAB, Daily, Start date: 09/16/11 9:00:00, Duration: 30 day, Stop date: 10/15/11 9:00:00 Protonix 40 mg, 1 tab, Route: PO, 09/15/2011 09/16/2011 Dis continued Drug form: ECTAB, Before Dinner, Priority: NOW, Start date: 09/15/11 19:00:00, Duration: 30 day, Stop date: 10/15/11 16:30:00 nitroglycerin 2% topical 1 inch, Route: TOP, Drug 09/16/201108/18 Discontinued ointment form: OINT, Q24H, Start date: 09/16/11 2:00:00, Duration: 30 day, Stop date: 10/15/11 2:00:00 Vital Signs Most recent to oldest 1 2 3 [Reference Range]: Height 185.42 cm (09/15/2011 12:11:00) Temperature Oral 97.3 DegF 97.6 DegF 98.0 DegF [96.4-99.1 DegF] (09/16/2011 13:10:00) (09/16/2011 08:12:00) ( 04:10:00) Systolic Blood Pressure 124 mmHg 129 mmHg 111 mmHg [90-140 mmHg] (09/16/2011 13:10:00) (09/16/2011 08:12:00) ( 04:10:00) Diastolic Blood Pressure 64 mmHg 75 mmHg 63 mmHg [60-90 mmHg] (09/16/2011 13:10:00) (09/16/2011 08:12:00) ( 04:10:00) Respiratory Rate [14-20 20 BRMIN 20 BRMIN 19 BRMIN BRMIN] (09/16/2011 13:10:00) (09/16/2011 08:12:00) ( 04:10:00) Peripheral Pulse Rate 73 bpm 71 bpm 78 bpm [60-100 bpm] (09/16/2011 13:10:00) (09/16/2011 08:12:00) ( 04:10:00) Weight 118.182 kg (09/15/2011 12:11:00) Results CHEMISTRY [...] U/L 138 U/L (09/16/2011 07:30:00) (09/15/2011 18:40:00) ( 13:00:00) CK MB [0.5-3.6 ng/mL] 3.0 ng/mL 2.9 ng/mL 3.0 ng/mL (09/16/2011 07:30:00) (09/15/2011 18:40:00) ( 13:00:00) CK MB Index [0.0-2.5] 3.3 2.5 2.2 *HI* (09/15/2011 18:40:00) ( 2 13:00:00) (09/16/2011 07:30:00) Troponin-I [0.00-0.40 <0.02 ng/mL <0.02 ng/mL <0.02 ng/m L ng/mL] (09/16/2011 07:30:00) (09/15/2011 18:40:00) ( 13:00:00) BNP [<=100 pg/mL] 36 pg/mL 3 (09/15/2011 13:00:00) CHD Risk [4.00-7.30] 5.86 (09/16/2011 07:30:00) Chol [120-200 mg/dL] 123 mg/dL (09/16/2011 07:30:00) Trig [0-200 mg/dL] 149 mg/dL (09/16/2011 07:30:00) HDL [>=35 mg/dL] 21 mg/dL *LOW* (09/16/2011:30:00) LDL [0-129 mg/dL] 72 mg/dL (09/16/2011 07:30:00) [...] range values reflect the clinical guidelinesof the [place] [employer].2Interpretive Data: Adult reference range values reflect the clinical guidelinesof the [place] [employer].3Interpretive Data: Elevated results are in line with increasing severity of congestive heart failure. Minor elevations between 100 and 300 may be seen with Myocardial Ischemia, Sodium retaining drugs, and compensated/treated heart failure.4Interpretive Data: HbA1C% eAG(mg/dL) Interpretation 6.0 126Very good control 6.5 140 Very good control 7.0 154 Good Control 7.5 169 Good Control 8.0 183 Marginal Control, take action to lower 8.5 197 Marginal Control, take action to lower 9.0 212 Poor Control, take action to lower 9.5 226 Poor Control, takeaction to lower10.0 240 Poor Control, take action to [id number] Data: Drugs reported as positive have not [...] Data: Heparin Therapeutic Range: 57 - 92 [id number] Data: Heparin Therapeutic Range: 57 - 92 Seconds
--- OUTSIDE RECORDS SUMMARY | 2019-08-23 12:58 | XMS REPORT | Continuity of Care Document ---
:1970 Author Organization [facility] [place] Care Team Providers Name Role Phone [facility] [place] Unavailable Un available Problems Problem Status Onset Classification Date Comments Sourc e Date Reported GI BLEED, VOMITING Active [facility] BLOOD AND IN STOOL 017 [facility] MORBID OBESITY Active [facility] [place] 014 [facility] CERVICAL SPONDYLOSIS Active [address] HYPOKALEMIA, GENERAL Active WEAKNESS 012 [place] OTHER Active [address] CHEST PAIN R/O ACS Active [address] DYSPNEA, AMS Active [address] Anxiety (finding) Active Problem 09/21/2016 [facility] Coronary Active Problem 09/21/2016 [facility] arteriosclerosis Med ical (disorder) [place] Congestive heart Active Problem 09/21/2016 [facility] failure (disorder) [facility] Chronic obstructive Active Problem 09/21/2016 [facility] lung disease Medical (disorder) [place] Hypertensive disorder, Active Problem 09/21/2016 [facility] systemic arterial Me dical (disorder) [place] Morbid obesity Active Problem 09/21/2016 [facility] [place] (disorder) [facility] Schizoaffective Active Problem 09/21/2016 [facility] disorder (disorder) [facility] Altered mental status Active Problem 11/28/2011 [facility] Anxiety Active Problem 11/28/2011 [facility] Chest pain Active Problem 11/28/2011 [facility] Nausea Active Problem 11/28/2011 [facility] Pain Active Problem 11/28/2011 [facility] Altered mental status Active Problem 06/25/2013 [facility] (finding) [facility] Chest pain (finding) Active Problem 06/25/2013 [facility] history of bipolar Resolved Problem 06/25/2013 [facility] disease(Confirmed) [facility] Hypercholesterolemia Active Problem 06/25/2013 [facility] (disorder) [facility] Nausea (finding) Active Problem 06/25/2013 [facility] Pain (finding) Active Problem 06/25/2013 [facility] [place] Reflux (finding) Active Problem 06/25/2013 [facility] Sleep apnea (finding) Active Problem 06/25/2013 [facility] RESPIRATORY ABNORM NEC Active [facility] ALTERED MENTAL STATUS Active [facility] CERVICAL SPONDYLOSIS Active [facility] MORBID OBESITY Active [facility] Medications Medication Details Route Status Patient Ordering Order Source Instructions Provider Date Sucralfate 1000 1 gm = 1 tab, Active 09/18[facility] [place] MG Oral Tablet PO, QID, # 28 2017 Med ical [Carafate] tab, 0 Center Refill(s) Sucralfate 100 1 gm, 1 tab, No Longer 09/17[facility] MG/ML Oral Route: PO, Active 2016 Medical Suspension Drug form: Center [Carafate] TAB, QID, Dosing Weight 81.818, kg, Start date: 09/17/16 18:15:00 CDT, Stop date: 10/17/16 17:00:00 CDT pantoprazole Notes: (Same No Longer [facility] bonilla as: Protonix) Active [address] [place] [address] Trazodone 50 mg = 1 Active 09/17[facility] Hydrochloride 50 tab, PO, 2017 Medica l MG Oral Tablet Bedtime, # [address] tab, 1 Refill(s) Sertraline 100 100 mg = 1 Active 09/17[facility] [place] as MG Oral Tablet tab, PO, 2017 Medical [Zoloft] Daily, # 90 Center tab, 0 Refill(s) quetiapine 400 400 mg = 1 Active 09/17[facility] [place] as MG Oral Tablet tab, PO, QPM, 2016 Med ical [Seroquel] 0 Refill(s) [place] Lurasidone 60 mg = 1 Active 09/17[facility] Hydrochloride 60 tab, PO, 2017 Medica l MG Oral Tablet Daily, 0 Center [Latuda] Refill(s) Ondansetron Notes: (Same Inactive [place] as: Zofran) [facility] MEDICATION WASTE Product Size: 4 mg Product Wasted: ___ mg Flumazenil Notes: (Same Inactive 09/17[facility] [place] as: 2017 Medical Romazicon) Center Naloxone Notes: Same Inactive 09/17[facility] [place] as Narcan 2017 [facility] Hydromorphone Notes: [place]: Dilaudid 2017 [facility] Morphine Notes: (Same Inactive [place] as:MORPhine 2017 Medical Sulfate) Center Labetalol 10 mg, 2 mL, Inactive [facility] Route: IVP, 2017 Medical Drug form: Center INJ, Q5Min, Dosing Weight 81.818, kg, PRN Elevated BP, Start date: 09/17/16 10:05:00 CDT, Duration: 5 doses or times, Stop date: 09/18/16 0:00:00 CDT Hydralazine Notes: (Same Inactive [place] as: 2017 Medical Apresoline) Center Push over 5 minutes lithium Notes: Give No Longer [facility] with food. Active 2017 Medical (Same as: [place] Carbonate) Abilify Notes: Same No Longer [facility] as: Abilify Active 2017 Medical Non-Formulary Center Item Alprazolam 2 MG Notes: With No Longer [facility] Oral Tablet food or milk Active 2017 Medical [Xanax] (Same as: [place] Xanax) Docusate Notes: (Same No Longer [facility] as: Colace) Active 2017 Medical (Do Not Center Crush) Albuterol 0.833 Notes: (Same No Longer [facility] [place] MG/ML / as: Duoneb) Active 2017 Medical Ipratropium Center [place] 0.167 MG/ML Inhalant Solution [DuoNeb] sodium chloride 1,000 mL, [place] Longer [place] 0.9% 1000 ml INJ Rate: 100 Active 2017 Medic al 1,000 mL ml/hr, Infuse Center over: 10 hr, Route: IV, Dosing Weight 139.545 kg, Total Volume: 1,000, Start date: 09/17/16 6:02:00 CDT, Duration: 30 day, Stop date: 10/17/16 6:01:00 CDT Sodium Chloride 100 mL, Rate: Inactive [facility] [place] 0.154 MEQ/ML 10 ml/hr, 2017 Medical Injectable Infuse over: Center Solution 10 hr, Route: IVPB, Dosing Weight 139.545 kg, Total Volume: 100, Infuse at 8 mg / hr for 72 hours for GI bleeding, Start date: 09/17/16 6:02:00 CDT, Duration: 72 hr, Stop date: 09/20/16 6:01:00 CDT Protonix 40 mg, PO, Active [place] BID, # 30 2017 Medical tab, 0 Center Refill(s) lithium 600 mg 600 mg = 1 Active [place] oral capsule cap, PO, BID, 2017 Medic al 0 Refill(s) [place] Alprazolam 2 MG 2 mg = 1 tab, Inactive 09/17/ H [place] Oral Tablet PO, BID, 0 2017 Medical [Xanax] Refill(s) Center aripiprazole 2 2 mg = 1 tab, Inactive [place] MG Oral Tablet PO, Daily, 0 2017 [facility] daryl [Abilify] Refill(s) [place] Sucralfate 100 1 gm = 10 mL, Inactive [place] MG/ML Oral PO, 2017 Medical Suspension QID-Before Center [Carafate] Meals, 0 Refill(s) Acetaminophen Notes: (Same No Longer [place] 325 MG / as: [place] Active 2017 Medical Hydrocodone 325/5) Do [place] Bitartrate 5 MG not exceed Oral Tablet 4gm/day of acetaminophen . Acetaminophen Notes: Do not No Longer [facility] exceed 4 Active 2017 Medical gm/day. Center (Same as: Tylenol) Ondansetron Notes: (Same [place] as: Zofran) Active 2017 [facility] Center MEDICATION WASTE Product Size: 4 mg Product Wasted: 0 mg pantoprazole 40 = 1 Pack, PO, Active [place] MG Granules Daily, # 30 2013 Medical [Protonix] ea, 0 [place] Refill(s) Acetaminophen 20 15 mL, PO, Active [place] MG/ML / Q4H, Pain, # 2013 Medical Hydrocodone 470 mL, 0 [place] Bitartrate 0.667 Refill(s) MG/ML Oral Solution Magnesium Oxide 500 mg, [place]active [place] Route: PO, 2013 Medical Drug form: [place] TAB, ONCE, Dosing Weight 139.545, kg, Start date: 06/23/13 10:35:00, Stop date: 06/23/13 10:35:00 Magnesium 2 gm, 50 mL, Inactive [place] Sulfate Route: IVPB, 2013 Medical Drug form: Center INJ, ONCE, Dosing Weight 139.545, kg, Total dose = 2 gm, Start date: 06/23/13 7:35:00, Duration: 1 doses or times, Stop date: 06/23/13 7:35:00 Acetaminophen 20 15 mL, Route: No Longer [place] MG/ML / PO, Drug Active 2013 Medical Hydrocodone Form: SOLN, [place] Bitartrate 0.667 Dosing Weight MG/ML Oral 139.545, kg, Solution Q4H, Start date: 06/22/13 12:00:00, Duration: 30 day, Stop date: 07/22/13 8:00:00Do not exceed 4gm/day of acetaminophen . (Same as: Zolvit) Zofran 4 mg, 2 mL, No Longer [place] Route: IV, Active 2013 Medical Drug form: Center INJ, Q4H, Dosing Weight 139.545, kg, PRN Nausea, Start date: 06/22/13 9:07:00, Duration: 30 day, Stop date: 07/22/13 9:06:00(Same as: Zofran) Acetaminophen 20 15 mL, Route: No Longer [place] MG/ML / PO, Drug Active 2013 Medical Hydrocodone Form: SOLN, Center Bitartrate 0.667 Dosing Weight MG/ML Oral 139.545, kg, Solution Q4H, PRN Pain, Start date: 06/22/13 7:52:00, Duration: 30 day, Stop date: 07/22/13 7:51:00Do not exceed 4gm/day of acetaminophen . (Same as: Zolvit) Enoxaparin 30 mg, 0.3 No Longer [place] mL, Route: Active 2013 Medical SUB-Q, Drug Center form: INJ, [id number], Dosing Weight 139.801, kg, Start date: 06/21/13 23:51:00, Duration: 30 day, Stop date: 07/21/13 11:51:00(Same as: Lovenox) Mefoxin 2 gm, Route: Inactive 06/21[facility] IVPB, Drug 2013 Medical form: INJ, Center Q6H, Dosing Weight 139.801, kg, Start date: 06/21/13 15:00:00, Duration: 1 doses or times, Stop date: 06/21/13 15:00:00(Same As: Mefoxin) Naloxone 0.04 mg, 0.1 Inactive 06/21[facility] [place] mL, Route: 2013 Medical IVP, Drug Center form: INJ, Q2MIN, Dosing Weight 139.801, kg, PRN Narcotic Reversal, Start date: 06/21/13 12:20:00, Duration: 8 doses or times, Stop date: 06/22/13 0:00:00Same as Narcan Flumazenil 0.2 mg, 2 mL, Inactive [place] Route: IVP, 2013 Medical Drug form: Center INJ, PRN, Dosing Weight 139.801, kg, PRN Benzodiazepin e Reversal, Initial dose, Start date: 06/21/13 12:20:00, Duration: 1 day, Stop date: 06/22/13 12:19:00(Same as: Romazicon) Labetalol 10 mg, 2 mL, Inactive 06/21[facility] [place] Route: IVP2013 Medical Drug form: Center INJ, Q5Min, Dosing Weight 139.801, kg, PRN Elevated BP, Start date: 06/21/13 12:20:00, Duration: 5 doses or times, Stop date: 06/22/13 0:00:00 Hydralazine 10 mg, 0.5 Inactive 06/21[facility] [place] mL, Route: 2013 Medical IVP, Drug Center form: INJ, Q20Min, Dosing Weight 139.801, kg, PRN Elevated BP, Start date: 06/21/13 12:20:00, Duration: 2 doses or times, Stop date: 06/22/13 0:00:00(Same as: Apresoline) Push over 5 minutes Ondansetron 4 mg, 2 mL, Inactive 06/21[facility] [place] Route: IVP2013 Medical Drug form: Center INJ, ONCE, Dosing Weight 139.801, kg, PRN Nausea & Vomiting, Start date: 06/21/13 12:20:00(Same as: Zofran) Hydromorphone 0.5 mg, 0.25 Inactive [place] mL, Route: 2013 Medical IVP, Drug Center form: INJ, Q5Min, Dosing Weight 139.801, kg, PRN Pain Score 7-10, Start date: 06/21/13 12:20:00, Duration: 4 doses or times, Stop date: 06/22/13 0:00:00Same as: Dilaudid Hydromorphone 15 mg, 30 mL, No Longer [facility] Route: IV, Active 2013 [facility] Loading Dose: 0.4mg, [employer] Dose: 0.3 mg, [employer] Lockout: 10 minutes, Continuous Basal Rate: 0 mg, 4 Hour Limit (In MG): 7.2, Drug Form: INJ, Continuous, Start date: 06/21/13 12:00:00, Duration: 30 day, Stop date: 07/21/13 1...(Same as: Dilaudid) conc = 0.5 mg/ml Hydromorphone [employer] Dose: ;Delay: ;Basal: Cefoxitin 20 2 gm, Route: [place]active [place] MG/ML Injectable IVPB, Drug 2013 [facility] Solution form: INJ, Center Q6H, Dosing Weight 139.801, kg, Start date: 06/21/13 12:00:00, Duration: 1 doses or times, Stop date: 06/21/13 12:00:00(Same As: Mefoxin) Naloxone 0.04 mg, 0.1 No Longer [facility] mL, Route: Active 2013 [facility] IVP, Drug Center form: INJ, Q2MIN, Dosing Weight 139.801, kg, PRN Narcotic Reversal, Start date: 06/21/13 11:50:00, Duration: 30 day, Stop date: 07/21/13 12:49:00Same as Narcan Promethazine 12.5 mg, 0.5 No Longer [facility] mL, Route: Active 2013 [facility] IM, Drug Center form: INJ, Q4H, Dosing Weight 139.801, kg, PRN Nausea & Vomiting, Start date: 06/21/13 11:50:00, Duration: 30 day, Stop date: 07/21/13 11:49:00Do not give IV push. (Same as: Phenergan) Ondansetron 4 mg, 2 mL, No Longer [place] as Route: IVP, Active 2013 Medical Drug form: Center INJ, Q12H, Dosing Weight 139.801, kg, PRN Nausea & Vomiting, Start date: 06/21/13 11:50:00, Duration: 30 day, Stop date: 07/21/13 11:49:00(Same as: Zofran) Calcium Chloride 1,000 mL, No Longer [place] 0.0014 MEQ/ML / Rate: 100 Active 2013 Medica l Potassium ml/hr, Infuse Center Chloride 0.004 over: 10 hr, MEQ/ML / Sodium Route: IV, Chloride 0.103 Dosing Weight MEQ/ML / Sodium 139.801 kg, Lactate 0.028 Total Volume: MEQ/ML 1,000, Start Injectable date: Solution 06/21/13 11:50:00, Stop date: 07/21/13 11:49:00 heparin, porcine 5,000 unit, Inactive [facility] Route: SUB-Q, 2013 Medical ONCE, Dosing Center Weight 139.801, kg, Start date: 06/21/13 7:22:00, Stop date: 06/21/13 7:22:00 Mefoxin 2 gm, Route: Inactive [facility] IVPB, Drug 2013 Medical form: INJ, Center PRE OP, Start date: 06/21/13 3:00:00, Duration: 1 day, Stop date: 06/22/13 2:59:00(Same As: Mefoxin) scopolamine 1 patch, Inactive [facility] Route: TOP, 2013 Medical Drug form: [place] ERFILM, PRE OP, Start date: 06/21/13 3:00:00, Duration: 1 day, Stop date: 06/22/13 2:59:00Change patch every 72 hours (Same as: Transderm-Sco p) Ofirmev 1,000 mg, 100 No Longer [place] mL, Route: Active 2013 Medical IV, Drug Center form: INJ, PRE OP, Start date: 06/21/13 3:00:00, Duration: 1 day, Stop date: 06/22/13 2:59:00Infuse over 15 minutes Do not exceed 4gm/day of acetaminophen Ambien PO, Bedtime, No Longer [facility] 0 Refill(s) Active 2013 [facility] Lipitor PO, Daily, 0 No Longer [facility] Refill(s) Active 2013 [facility] Prevacid 30 mg, PO, No Longer [facility] Daily, # 15 Active 2013 Medical cap, 0 Center Refill(s) aspirin 81 mg 81 mg, 1 tab, PO No Longer Mohan [facility] tablet, enteric Route: PO, Active 2011 Medic al coated Drug form: [place] ECTAB, Daily, Start date: 11/26/11 9:00:00, Duration: 30 day, Stop date: 12/25/11 9:00:00 Nexium 40 mg, Route: PO [place] Longer [place] PO, Daily, Active 2011 Medical Start date: [place] 11/26/11 9:00:00, Duration: 30 day, Stop date: 12/25/11 9:00:00 Abilify 2 mg, 1 tab, PO No Longer Mohan [place] Route: PO, Active 2011 Medical Drug form: [place] TAB, Bedtime, Start date: 11/25/11 21:00:00, Duration: 30 day, Stop date: 12/24/11 21:00:00 OxyContin 20 mg, 1 tab, PO No Longer Mohan [facility] Route: PO, Active 2011 Medical Drug form: [place] ERTAB, Q12H, Start date: 11/25/11 21:00:00, Duration: 30 day, Stop date: 12/25/11 9:00:00 amitriptyline 50 mg, 1 tab, PO No Longer Mohan [facility] Route: PO, Active 2011 Medical Drug form: [place] TAB, Bedtime, Start date: 11/25/11 21:00:00, Duration: 30 day, Stop date: 12/24/11 21:00:00 cefazolin + 2 gm, Route: IVPB No Longer Mohan [facility] Sodium Chloride IVPB, ABXQ8H, Active 2011 Me dical 0.9% IV 100 mL Start date: Alberto musa 11/25/11 20:30:00, Duration: 3 doses or times, Stop date: 11/26/11 12:30:00 acetaminophen-ox 2 tab, Route: PO No Longer Mohan [facility] ycodone 325 mg-5 PO, Drug Active 2011 Medica l mg oral tablet Form: TAB, Center Q4H, PRN Pain Score 4-6, Start date: 11/25/11 18:15:00, Duration: 30 day, Stop date: 12/25/11 18:14:00 dexamethasone 4 mg, 1 mL, IV No Longer Mohan [facility] Route: IV, Active 2011 Medical Drug form: Center INJ, Q6H, Start date: 11/25/11 18:00:00, Duration: 1 day, Stop date: 11/26/11 12:00:00 Toradol 30 mg/mL 30 mg, 1 mL, IV No Longer Mohan 11/24 [facility] injectable Route: IV, Active 2011 Medical solution Drug form: Center INJ, Q6H, Start date: 11/25/11 18:00:00, Duration: 24 hr, Stop date: 11/26/11 12:00:00 Lopressor 100 mg, 1 PO No Longer [place] tab, Route: Active 2011 Medical PO, Drug Center form: TAB, BID, Start date: 11/25/11 17:00:00, Duration: 30 day, Stop date: 12/25/11 9:00:00 lithium 600 mg, 2 PO No Longer Mohan [facility] tab, Route: Active 2011 Medical PO, Drug Center form: ERTAB, BID, Start date: 11/25/11 17:00:00, Duration: 30 day, Stop date: 12/25/11 9:00:00 Colace 100 mg 100 mg, 1 PO No Longer Mohan [facility] oral capsule cap, Route: Active 2011 Medical PO, Drug Center form: CAP, BID, Start date: 11/25/11 17:00:00, Duration: 30 day, Stop date: 12/25/11 9:00:00 Protonix 40 mg, 1 tab, PO No Longer [place] Route: PO, Active 2011 Medical Drug form: Center ECTAB, Before Dinner, Start date: 11/25/11 16:30:00, Duration: 30 day, Stop date: 12/24/11 16:30:00 cefazolin (SCIP) 2 gm, Route: IVPB No Longer Mohan 11/24 [facility] IVPB, Drug Active 2011 Medical form: INJ, Center ABXQ8H, Start date: 11/25/11 15:00:00, Duration: 24 hr, Stop date: 11/26/11 7:00:00 ondansetron 4 mg, 2 mL, IVP No Longer Dies Jason as Route: IVP, Active 2011 Medical Drug form: Center INJ, ONCE, PRN Nausea & Vomiting, Start date: 11/25/11 14:55:00 hydromorphone 0.5 mg, 0.25 IVP No Longer Dies [facility] mL, Route: Active 2011 Medical IVP, Drug Center form: INJ, Q5Min, PRN Pain Score 4-6, Start date: 11/25/11 14:55:00, Duration: 5 doses or times, Stop date: 11/26/11 0:00:00 naloxone 0.04 mg, 0.1 IVP No Longer Dies [facility] mL, Route: Active 2011 Medical IVP, Drug Center form: INJ, Q2MIN, PRN Narcotic Reversal, Start date: 11/25/11 14:55:00, Duration: 8 doses or times, Stop date: 11/26/11 0:00:00 flumazenil 0.2 mg, 2 mL, IVP [place] Long[place] Route: IVP, Active 2011 Medical Drug form: Center INJ, PRN, PRN Benzodiazepin e Reversal, Initial dose, Start date: 11/25/11 14:55:00, Duration: 30 day, Stop date: 12/25/11 14:54:00 Flexeril 5 mg, 0.5 PO No Longer Mohan [facility] tab, Route: Active 2011 Medical PO, Drug Center form: TAB, TID, PRN Spasm, Start date: 11/25/11 14:14:00, Duration: 30 day, Stop date: 12/25/11 14:13:00 Zofran 4 mg, 2 mL, IV No Longer [place] Route: IV, Active 2011 Medical Drug form: [place] INJ, Q6H, PRN as needed for nausea/vomiti ng, Start date: 11/25/11 14:14:00, Duration: 30 day, Stop date: 12/25/11 14:13:00 Dulcolax 10 mg, 2 tab, PO No Longer [place] Laxative Route: PO, Active 2011 Medical Drug form: [place] ECTAB, Daily, PRN Constipation, Start date: 11/25/11 14:12:00, Duration: 30 day, Stop date: 12/25/11 14:11:00 Cepacol Lozenge 1 lozenge, MUCOUS No Longer Mohan [facility] Route: MUCOUS MEM Active 2011 Medical MEM, Q2H, Center Drug form: CON PRN Sore Throat, Start date: 11/25/11 14:12:00, Duration: 30 day, Stop date: 12/25/11 14:11:00 morphine Sulfate 4 mg, 1 mL, IVP No Longer Mohan [facility] Route: IVP, Active 2011 Medical Drug form: [place] INJ, Q4H, PRN Pain Score 7-10, Start date: 11/25/11 14:11:00, Duration: 30 day, Stop date: 12/25/11 14:10:00 normal saline 1,000 mL, IV No Longer Mohan [facility] 0.9% IV 1,000 mL Rate: 75 Active 2011 Medica l ml/hr, Infuse [place] over: 13.3 hr, Route: IV, Dosing Weight 115.909 kg, Total Volume: 1,000, Start date: 11/25/11 14:11:00, Duration: 30 day, Stop date: 12/25/11 14:10:00 Percocet 5/325 1 tab, Route: PO No Longer Mohan [facility] oral tablet PO, Drug Active 2011 Medical Form: TAB, Center Q4H, PRN Pain Score 4-6, Start date: 11/25/11 14:10:00, Duration: 30 day, Stop date: 12/25/11 14:09:00 Klonopin 2 mg, 2 tab, PO [place] Longer [place] Route: PO, Active 2011 Medical Drug form: [place] TAB, BID, PRN Anxiety, Start date: 11/25/11 14:09:00, Duration: 30 day, Stop date: 12/25/11 14:08:00 cefazolin 1 gm, Route: IVPB No Longer [place] IVPB, Drug Active 2011 Medical form: [place] PDR/INJ, PRE OP, Priority: STAT, Start date: 11/25/11 6:16:00, Duration: 1 day, Stop date: 11/26/11 6:15:00 Percocet 10/325 1 to 2 tabs, PO Active Mohan [place] oral tablet PO, 4-6x/Day, 2011 Medica l PRN, 20 tab, Center Substitution Allowed, Soft Stop OxyContin 20 mg 20 mg, 1 tab, PO Active Mohan [place] oral tablet, PO, Q12H, 2011 Medical extended release Substitution Ce nter Allowed, ERTAB amitriptyline 50 50 mg, 1 tab, PO Active Mohan [place] mg oral tablet PO, Bedtime, 2011 Medi daryl 30 tab, Center Substitution Allowed, TAB aspirin 81 mg 81 mg, 1 tab, PO Active Mohan 11/22/ H [place] tablet, enteric PO, Daily, 0 2011 Med ical coated tab, Center Substitution Allowed, ECTAB Klonopin 2 mg, 2 tab, PO No Longer [place] Route: PO, Active 2011 [facility] Drug form: TAB, BID, Start date: 09/16/11 9:00:00, Duration: 30 day, Stop date: 10/15/11 17:00:00 Eskalith 300 mg, 1 PO No Longer [facility] tab, Route: Active 2011 [facility] PO, Drug form: TAB, QAM, Start date: 09/16/11 9:00:00, Duration: 30 day, Stop date: 10/15/11 9:00:00 Plavix 75 mg, 1 tab, PO No Longer [facility] Route: PO, Active 2011 [facility] Drug form: TAB, Daily, Start date: 09/16/11 9:00:00, Duration: 30 day, Stop date: 10/15/11 9:00:00 Abilify 10 mg, 2 tab, PO No Longer [facility] Route: PO, Active 2011 [facility] Drug form: TAB, Daily, Start date: 09/16/11 9:00:00, Duration: 30 day, Stop date: 10/15/11 9:00:00 aspirin 325 mg 325 mg, 1 PO No Longer Choudhury tablet tab, Route: Active 2011 [facility] PO, Drug form: TAB, Daily, Start date: 09/16/11 9:00:00, Duration: 30 day, Stop date: 10/15/11 9:00:00 acetaminophen-hy 1 tab, Route: PO No Longer [facility]man drocodone 325 PO, Drug Active 2011 [facility] mg-10 mg oral Form: TAB, tablet Q6H, PRN Pain, Start date: 09/16/11 8:07:00, Duration: 30 day, Stop date: 10/16/11 8:06:00 aspirin 81 mg 81 mg, 1 tab, CHEW No Longer [place] tablet, chewable Route: CHEW, Active 2011 [facility] Drug form: CHEWTAB, Breakfast, Start date: 09/16/11 8:00:00, Duration: 30 day, Stop date: 10/15/11 8:00:00 aspirin 325 mg 325 mg, 1 PO No Longer [facility] tablet tab, Route: Active 2011 [facility] PO, Drug form: TAB, Breakfast, Start date: 09/16/11 8:00:00, Duration: 30 day, Stop date: 10/15/11 8:00:00 nitroglycerin 2% 1 inch, TOP No Longer Choudhury topical ointment Route: TOP, Active 2011 [facility] Drug form: OINT, Q24H, Start date: 09/16/11 2:00:00, Duration: 30 day, Stop date: 10/15/11 2:00:00 Lopressor 100 mg, 1 PO No Longer Choud[facility]ury tab, Route: Active 2011 [facility] PO, Drug form: TAB, Q12H, Start date: 09/15/11 21:00:00, Duration: 30 day, Stop date: 10/15/11 9:00:00 Eskalith 600 mg, 2 PO No Longer Choudhury 09/15/ MH tab, Route: Active 2011 [facility] PO, Drug form: TAB, Bedtime, Start date: 09/15/11 21:00:00, Duration: 30 day, Stop date: 10/14/11 21:00:00 trazodone 50 mg 100 mg, 2 PO No Longer [facility]ury 09/15/ MH oral tablet tab, [facility]: TAB, Bedtime, Start date: 09/15/11 21:00:00, Duration: 30 day, Stop date: 10/14/11 21:00:00 nitroglycerin 0.4 mg, 1 SL No Longer Choudhury 09/15/ MH 0.4 mg tab, Route: Active 2011 [facility] sublingual SL, Drug tablet form: TAB, PRN, PRN Chest Pain, Start date: 09/15/11 19:09:00, Duration: 30 day, Stop date: 10/15/11 19:08:00 bacitracin/neomy 1 appl, TOP No Longer Choudhury 09/15/ MH turner/polymyxin B Route: TOP, Active 2011 [facility] topical ointment BID, Drug form: OINT, Start date: 09/15/11 19:00:00, Duration: 30 day, Stop date: 10/15/11 17:00:00 Protonix 40 mg, 1 tab, PO No Longer Choudhury 09/15/ MH Route: PO, Active 2011 [facility] Drug form: ECTAB, Before Dinner, Priority: NOW, Start date: 09/15/11 19:00:00, Duration: 30 day, Stop date: 10/15/11 16:30:00 hydrOXYzine 25 mg, 1 tab, PO No Longer Choud[facility]ury 09/14/ MH hydrochloride 25 Route: PO, Active 2011 [facility] oral tablet Drug form: TAB, BID, Priority: NOW, Start date: 09/15/11 18:55:00, Duration: 30 day, Stop date: 10/15/11 17:00:00 acetaminophen-co 1 tab, Route: PO No Longer Choudhury 09/14/ MH deine 300 mg-30 PO, Drug Active [address] [facility] [address] mg oral tablet Form: TAB, Q4H, PRN Pain, Start date: 09/15/11 18:33:00, Duration: 30 day, Stop date: 10/15/11 18:32:00 Lovenox 120 mg, 0.8 SUB-Q No Longer [facility] 09/14/ mL, Route: Active 2011 [facility] [facility] SUB-Q, Drug form: INJ, [id number], Start date: 09/15/11 18:00:00, Duration: 30 day, Stop date: 10/15/11 6:00:00 metoprolol 12.5 mg, 0.5 PO No Longer M[place] tab, Route: Active 2011 [facility] PO, Drug form: ERTAB, QAM, Priority: NOW, Start date: 09/15/11 17:24:00, Duration: 30 day, Stop date: 10/15/11 9:00:00 ondansetron 4 mg, Route: IVP No Longer [facility] 09/14[facility] IVP, Drug Active 2011 [facility] form: INJ, ONCE, Priority: STAT, Start date: 09/15/11 13:08:00, Stop date: 09/15/11 13:08:00 morphine Sulfate 5 mg, Route: IV No Longer [place] 09/14[facility] IV, ONCE, Active 2011 [facility] Priority: STAT, Start date: 09/15/11 13:08:00, Stop date: 09/15/11 13:08:00 Sodium Chloride 250 mL, IVPB No Longer Hoberman 0.9% IV Route: IVPB, Active 2011 [facility] Start date: 09/15/11 12:29:00, Duration: 30 day, Stop date: 10/15/11 12:28:00, PRN Line Flush BD Normal Saline 10 mL, Route: IVP No Longer [place] 09/14[facility] Flush IVP, Drug Active 2011 [facility] Form: INJ, PRN, PRN Line Flush, Start date: 09/15/11 12:28:00, Duration: 30 day, Stop date: 10/15/11 12:27:00 Saline Flush 5 ml, Route: IVP No Longer [place]ellano 09/14[facility] 0.9% IVP, Drug Active 2011 [facility] Form: INJ, PRN, PRN Line Flush, Start date: 09/15/11 12:18:00, Duration: 24 hr, Stop date: 09/16/11 12:17:00 predniSONE 40 mg, 2 tab, PO No Longer Choudhury Route: PO, Active 2011 [facility] Drug form: TAB, Daily, Start date: 09/09/11 9:00:00, Duration: 30 day, Stop date: 10/08/11 9:00:00 Protonix 40 mg, 1 tab, PO No Longer Choudhury Route: PO, Active 2011 [facility] Drug form: ECTAB, Before Dinner, Start date: 09/08/11 16:30:00, Duration: 30 day, Stop date: 10/07/11 16:30:00 azithromycin 250 500 mg, 2 PO No Longer Choudhury 09/07/ MH mg oral tablet tab, Route: Active 2011 [facility] PO, Drug form: TAB, Q24H, Start date: 09/08/11 16:00:00, Duration: 30 day, Stop date: 10/07/11 16:00:00 Eskalith 600 mg, 2 PO No Longer Choudhury tab, Route: Active 2011 [facility] PO, Drug form: TAB, BID, Start date: 09/08/11 9:00:00, Duration: 30 day, Stop date: 10/07/11 17:00:00 aspirin 81 mg 81 mg, 1 tab, CHEW No Longer Choudhury tablet, chewable Route: CHEW, Active 2011 [facility] Drug form: CHEWTAB, Daily, Start date: 09/08/11 9:00:00, Duration: 30 day, Stop date: 10/07/11 9:00:00 Plavix 75 mg, 1 tab, PO No Longer Choudhury Route: PO, Active 2011 [facility] Drug form: TAB, Daily, Start date: 09/08/11 9:00:00, Duration: 30 day, Stop date: 10/07/11 9:00:00 Haldol 10 mg, 2 mL, IM No Longer Raichman Route: IM, Active 2011 [facility] Drug form: INJ, ONCE, Start date: 09/07/11 21:35:00, Stop date: 09/07/11 21:35:00 Haldol 5 mg, 1 mL, IM No Longer Choudhury 09/07/ MH Route: IM, Active 2011 [facility] Drug form: INJ, ONCE, Start date: 09/07/11 21:09:00, Stop date: 09/07/11 21:09:00 Abilify 2 mg, 1 tab, PO No Longer Choudhury 09/07/ MH Route: PO, Active 2011 [facility] Drug form: TAB, Bedtime, Start date: 09/07/11 21:00:00, Duration: 30 day, Stop date: 10/06/11 21:00:00 Lopressor 100 mg, 1 PO No Longer Choudhury 09/07/ MH tab, Route: Active 2011 [facility] PO, Drug form: TAB, Q12H, Start date: 09/07/11 21:00:00, Duration: 30 day, Stop date: 10/07/11 9:00:00 Sodium Chloride 1,000 mL, IV No Longer Choudhury 09/07/ MH 0.9% IV 1,000 mL Rate: 80 Active 2011 [facility] est ml/hr, Infuse over: 12.5 hr, Route: IV, Dosing Weight 100 kg, Total Volume: 1,000, Start date: 09/07/11 20:00:00, Duration: 30 day, Stop date: 10/07/11 19:59:00 albuterol 2.49 mg, 3 NEB No Longer Choudhury 09/07/ MH mL, Route: Active 2011 [facility] NEB, Drug form: SOLN, RQ6H, Start date: 09/07/11 20:00:00, Duration: 30 day, Stop date: 10/07/11 14:00:00 methylPREDNISolo 60 mg, 0.96 IV No Longer Choudhury 09/06/ M H ne mL, Route: Active 2011 [facility] IV, Drug form: INJ, Q6H, Start date: 09/07/11 18:00:00, Duration: 30 day, Stop date: 10/07/11 12:00:00 albuterol 2.49 mg, 3 NEB No Longer Choudhury 09/06/ MH mL, Route: Active 2011 [facility] NEB, Drug form: SOLN, RQ6H, PRN Shortness of breath, Start date: 09/07/11 17:13:00, Duration: 30 day, Stop date: 10/07/11 17:12:00 Flexeril Substitution Active Allowed 2011 [facility] Flexeril Substitution Active Allowed 2011 [facility] trazodone Substitution Active Allowed 2011 [facility] Librium Substitution Active Allowed 2011 [facility] clonidine Substitution Active Allowed 2011 [facility] Klonopin Substitution Active Allowed 2011 [facility] Nexium Substitution Active Allowed 2011 [facility] Lopressor Substitution Active Allowed 2011 [facility] Plavix Substitution Active Allowed 2011 [facility] Abilify Substitution Active Allowed 2011 [facility] lithium Substitution Active Allowed 2011 [facility] Phenergan Substitution Active Allowed 2011 [facility] Haldol 5 mg/mL Substitution Active injectable Allowed 2011 [facility] solution Benadryl Substitution Active Allowed 2011 [facility] Suboxone 8 mg-2 Substitution Active mg sublingual Allowed, 2011 [facility] tablet, Maintenance disintegrating Ativan Substitution Active Allowed 2011 [facility] Sodium Chloride 250 mL, IVPB No Longer [place] 0.9% IV Route: IVPB, Active 2011 [facility] Start date: 09/07/11 9:12:00, Duration: 30 day, Stop date: 10/07/11 9:11:00, PRN Line Flush BD Normal Saline 10 mL, Route: IVP No Longer [place] Flush IVP, Drug Active 2011 [facility] Form: INJ, PRN, PRN Line Flush, Start date: 09/07/11 9:12:00, Duration: 30 day, Stop date: 10/07/11 9:11:00 naloxone Route: IVP, IVP No Longer [place] Drug form: Active 2011 [facility] INJ, ONCE, Priority: STAT, Start date: 09/07/11 8:58:00, Stop date: 09/07/11 8:58:00 Allergies, Adverse Reactions, Alerts No Known Medication Allergies Immunizations No Data Provided for This Section Results Order Name Results Value Reference Date Interpretation Comments [facility] HEMATOLOGY Basophils # 0.1 0.0 - 0.2 09/18 Elsa s /[address] [place] [address] HEMATOLOGY Lymphocytes 1.2 1.0 - 5.5 09/18 s # [facility] HEMATOLOGY Basophils 1.0 0.0 - 1.0 09/18 [facility] HEMATOLOGY Eosinophils 0.1 0.0 - 0.5 09/18 s [facility] HEMATOLOGY Monocytes # 0.2 0.0 - 0.8 09/18 [facility] HEMATOLOGY Segs 71.8 45.0 - 09/18 [place] 75.0 [facility] HEMATOLOGY Segs-Bands # 4.1 1.5 - 8.1 09/18 [facility] HEMATOLOGY Monocytes 4.1 2.0 - 12.0 09/18 [facility] HEMATOLOGY Lymphocytes 20.5 20.0 - 09/18 [place] 40.0 [facility] HEMATOLOGY Eosinophils 2.6 0.0 - 4.0 09/18 [facility] HEMATOLOGY RDW 13.2 11.5 - 09/18 14.5 [facility] HEMATOLOGY MCHC 34.6 32.0 - 09/18 [place] 36.0 [facility] HEMATOLOGY MCH 30.5 27.0 - 09/18 [place] 31.0 [facility] HEMATOLOGY Hct 22.2 42.0 - 09/18 [place] 54.0 [facility] HEMATOLOGY MCV 88.0 80.0 - 09/18 [place] 94.0 [facility] HEMATOLOGY Platelet 213 133 - 450 09/18 [facility] HEMATOLOGY MPV 8.7 7.4 - 10.4 09/18 [facility] HEMATOLOGY WBC 5.7 3.7 - 10.4 09/18 [facility] HEMATOLOGY RBC 2.52 4.70 - 09/18 [place] 6.10 [facility] HEMATOLOGY Hgb 7.7 14.0 - 09/18 [place] 18.0 [facility] CHEM PANEL eGFR 103 09/18 Result Comment: The Medical eGFR is Center [...] PANEL CO2 25 24 - 32 09/18 [facility] CHEM PANEL Calcium Lvl 7.8 8.5 - 10.5 09/18 Jason as [facility] CHEM PANEL Potassium 3.6 3.5 - 5.1 09/18 [facility] CHEM PANEL AGAP 9.6 10.0 - 09/18 [facility] 20.0 [facility] CHEM PANEL Chloride Lvl 104 95 - 109 09/18 [facility] CHEM PANEL Creatinine 0.90 0.50 - 09/18 [place] Lvl 1.40 [facility] CHEM PANEL Sodium Lvl 135 135 - 145 09/18 [facility] CHEM PANEL Glucose Lvl 180 70 - 99 09/18 [facility] CHEM PANEL BUN 10 7 - 22 09/18 [facility] BLOOD BANK RBC product Product available 09/17 [facility] RESULTS (09/17/16 8:34 AM) [facility] BLOOD BANK ABO/Rh A POS 09/17 [facility] RESULTS [facility] BLOOD BANK Antibody Negative 09/17 [facility] RESULTS Scrn (09/17/16 6:38 AM) [facility] CHEM PANEL Phosphorus 3.3 2.5 - 4.5 09/17 [facility] CHEM PANEL eGFR 105 09/17 Result Comment: [...] PANEL Alk Phos 64 39 - 136 06/ [address] CHEM PANEL ASPARTATE 6 0 - 37 06 [facility] TRANSAMINASE [address] CHEM PANEL Bili Total 0.6 0.2 - 1.3 09/[address] CHEM PANEL ALANINE 13 0 - 65 06 [facility] AMINOTRANSFE [address] CHEM PANEL Globulin 2.6 2.7 - 4.2 09/[address] CHEM PANEL A/G Ratio 1.0 0.7 - 1.6 09/[address] CHEM PANEL Sodium Lvl 141 135 - 145 09/[address] CHEM PANEL Creatinine 0.85 0.50 - 06 [facility] Lvl 1.40 /2016 [facility] CHEM PANEL BUN 18 7 - 22 09/[address] CHEM PANEL Potassium 4.4 3.5 - 5.1 09/[address] CHEM PANEL Glucose Lvl 96 70 - 99 09/[address] CHEM PANEL CO2 28 24 - 32 09/[address] CHEM PANEL AGAP 11.4 10.0 - 06 [facility] 20.0 [facility] CHEM PANEL Chloride Lvl 106 95 - 109 09/[address] CHEM PANEL B/C Ratio 21 6 - 25 09/[address] CHEM PANEL Calcium Lvl 8.3 8.5 - 10.5 09/[address] CHEM PANEL Total 5.2 6.4 - 8.4 09/17 [facility] Protein [address] CHEM PANEL Albumin Lvl 2.6 3.5 - 5.0 09/[address] CHEM PANEL Magnesium 2.1 1.8 - 2.4 09/[address] HEMATOLOGY Lymphocytes 1.6 1.0 - 5.5 06/ [place] # /2016 [facility] HEMATOLOGY Segs-Bands # 5.0 1.5 - 8.1 09/17 [facility] HEMATOLOGY Monocytes # 0.5 0.0 - 0.8 06/ s [facility] HEMATOLOGY Basophils # 0.1 0.0 - 0.2 06/ s [facility] HEMATOLOGY Eosinophils 0.1 0.0 - 0.5 06 [place] # /2016 [facility] HEMATOLOGY Basophils 0.9 0.0 - 1.0 06/ [facility] HEMATOLOGY Segs 69.6 45.0 - 06 [place] 75.0 [facility] HEMATOLOGY Monocytes 6.4 2.0 - 12.0 09/17 [facility] HEMATOLOGY Lymphocytes 22.3 20.0 - 06/ [place] 40.0 /2016 [facility] HEMATOLOGY Eosinophils 0.8 0.0 - 4.0 09/17 [facility] HEMATOLOGY PTT 29.3 22.9 - 06 [place] 35.8 /2016 [facility] HEMATOLOGY INR 1.20 0.85 - 06 [place] 1.17 /2016 [facility] HEMATOLOGY PT 15.5 12.0 - 06 [place] 14.7 [facility] HEMATOLOGY RDW 12.8 11.5 - 06/ [place] 14.5 [facility] HEMATOLOGY Platelet 246 133 - 450 09/17 [facility] HEMATOLOGY MPV 9.0 7.4 - 10.4 09/17 [facility] HEMATOLOGY MCH 29.8 27.0 - 06/ [place] 31.0 /2016 [facility] HEMATOLOGY MCHC 34.3 32.0 - 06/ [place] 36.0 [facility] HEMATOLOGY Hgb 7.6 14.0 - 06/ [place] 18.0 [facility] HEMATOLOGY RBC 2.56 4.70 - 06 [place] 6.10 [facility] HEMATOLOGY Hct 22.2 42.0 - 06/ [place] 54.0 [facility] HEMATOLOGY MCV 87.0 80.0 - 06/ [place] 94.0 [facility] HEMATOLOGY WBC 7.2 3.7 - 10.4 06 [facility] CHEM PANEL Magnesium 1.7 1.8 - 2.4 06/23 [facility] CHEM PANEL Phosphorus 3.1 2.5 - 4.5 06/23 [facility] ELECTROLYT AGAP 11.7 10.0 - 06/23 [facility] ES 20.0 [facility] ELECTROLYT eGFR 105 06/23 <sup>1</sup>R [facility] s esult Medical Comment: The Center eGFR is [...] ELECTROLYT Creatinine 0.9 0.5 - 1.4 06/23 [facility] ELECTROLYT Potassium 3.7 3.5 - 5.1 06/23 [facility] ELECTROLYT Sodium Lvl 138 135 - 145 06/23 [facility] ELECTROLYT CO2 27 24 - 32 06/23 [facility] ELECTROLYT Chloride Lvl 103 95 - 109 06/23 [facility] s [facility] ELECTROLYT BUN 11 7 - 22 06/23 [facility] ELECTROLYT Glucose Lvl 95 70 - 99 06/23 <sup>4</sup>I [facility] nterpretive Medical Data: Adult Center reference range values reflect the clinical guidelines
of the [employer]. ELECTROLYT Calcium Lvl 8.6 8.5 - 10.5 06/23 [facility] HEMATOLOGY MCV 87.7 80.0 - 0308 [place] 94.0 /2013 [facility] HEMATOLOGY MCH 31.2 27.0 - 06/23 31.0 [facility] HEMATOLOGY Hct 34.1 42.0 - 06/23 54.0 /2013 [facility] HEMATOLOGY Hgb 12.1 14.0 - 06/23 18.0 /2013 [facility] HEMATOLOGY Platelet 148 133 - 450 06/23 [facility] HEMATOLOGY MPV 9.1 7.4 - 10.4 06/23 [facility] HEMATOLOGY RDW 14.3 11.5 - 06/23 14.5 [facility] HEMATOLOGY MCHC 35.6 32.0 - 06/23 [place] 36.0 [facility] HEMATOLOGY RBC X 10x6 3.89 4.70 - 06/23 6.10 [facility] HEMATOLOGY WBC X 10x3 6.6 3.7 - 10.4 06/23 [facility] HEMATOLOGY Eosinophils 0.1 0.0 - 0.5 06/23 [place] [facility] HEMATOLOGY Lymphocytes 1.7 1.0 - 5.5 06/23 s [facility] HEMATOLOGY Eosinophils 1.6 0.0 - 4.0 06/23 [facility] HEMATOLOGY Segs-Bands # 4.3 1.5 - 8.1 06/23 [facility] HEMATOLOGY Basophils 0.5 0.0 - 1.0 06/23 [facility] HEMATOLOGY Monocytes # 0.4 0.0 - 0.8 06/23 [facility] HEMATOLOGY Segs 66.0 45.0 - 06/23 [place] 75.0 [facility] HEMATOLOGY Lymphocytes 26.0 20.0 - 06/23 [place] 40.0 [facility] HEMATOLOGY Monocytes 5.9 2.0 - 12.0 06/23 [facility] CHEM PANEL eGFR 124 06/22 <sup>2</sup>R esult Medical Comment: The Center eGFR is [...] PANEL Magnesium 2.0 1.8 - 2.4 06/22 [facility] Lvl [facility] CHEM PANEL Phosphorus 4.8 2.5 - 4.5 06/22 [facility] HEMATOLOGY WBC X 10x3 11.7 3.7 - 10.4 06/22 [facility] HEMATOLOGY MPV 9.5 7.4 - 10.4 06/22 [facility] HEMATOLOGY Hct 39.7 42.0 - 06/22 [place] 54.0 [facility] HEMATOLOGY MCH 29.8 27.0 - 06/22 [place] 31.0 [facility] HEMATOLOGY MCV 89.3 80.0 - 06/22 [place] 94.0 /2013 [facility] HEMATOLOGY RBC X 10x6 4.45 4.70 - 06/22 [place] 6.10 [facility] HEMATOLOGY Hgb 13.3 14.0 - 06/22 [place] 18.0 /2013 [facility] HEMATOLOGY RDW 14.3 11.5 - 06/22 14.5 /2013 [facility] HEMATOLOGY MCHC 33.4 32.0 - 06/22 [place] 36.0 [facility] HEMATOLOGY Platelet 185 133 - 450 06/22 [facility] HEMATOLOGY Monocytes # 0.5 0.0 - 0.8 06/22 [facility] HEMATOLOGY Segs-Bands # 10.4 1.5 - 8.1 06/22 [facility] HEMATOLOGY Lymphocytes 0.9 1.0 - 5.5 06/22 [facility] s # /2013 [facility] HEMATOLOGY Monocytes 4.1 2.0 - 12.0 06/22 [facility] HEMATOLOGY Basophils 0.1 0.0 - 1.0 06/22 [facility] HEMATOLOGY Lymphocytes 7.3 20.0 - 06/22 40.0 [facility] HEMATOLOGY Segs 88.5 45.0 - 06/22 [facility] 75.0 [facility] CHEM PANEL AGAP 13.9 10.0 - 06/22 20.0 [facility] CHEM PANEL CO2 25 24 - 32 06/22 [facility] CHEM PANEL Calcium Lvl 8.9 8.5 - 10.5 06/22 [facility] CHEM PANEL Chloride Lvl 100 95 - 109 06/22 [facility] CHEM PANEL Sodium Lvl 134 135 - 145 06/22 [facility] CHEM PANEL Potassium 4.9 3.5 - 5.1 06/22 [facility] CHEM PANEL BUN 10 7 - 22 06/22 [facility] CHEM PANEL Creatinine 0.6 0.5 - 1.4 06/22 [facility] CHEM PANEL Glucose Lvl 98 70 - 99 06/22 <sup>5</sup>I nterpretive Medical Data: Adult Center reference range values reflect the clinical guidelines
of the [employer]. CHEM PANEL eGFR 82 06/21 [...] PANEL Creatinine 1.1 0.5 - 1.4 06/21 [facility] HEMATOLOGY Platelet 172 133 - 450 06/21 [facility] HEMATOLOGY aPTT 27.9 22.9 - 03 <sup>7</sup>I s 35.8 nterpretive Medical Data: [facility] Center Therapeutic Range: 57 - 92 [place] CHEM PANEL B/C Ratio 13 6 - 25 06/15 [facility] CHEM PANEL A/G Ratio 1.3 0.7 - 1.6 06/15 [facility] CHEM PANEL Globulin 3.2 2.0 - 4.0 06/15 [facility] CHEM PANEL AGAP 15.2 10.0 - 06/15 20.0 [facility] CHEM PANEL ALANINE 37 0 - 65 06/15 [facility] CHEM PANEL Bili Total 0.9 0.2 - 1.3 06/15 [facility] CHEM PANEL Calcium Lvl 9.1 8.5 - 10.5 06/15 [facility] CHEM PANEL BUN 12 7 - 22 06/15 [facility] CHEM PANEL Glucose Lvl 66 70 - 99 06/15 <sup>6</sup>I nterpretive Medical Data: Adult Center reference range values reflect the clinical guidelines
of the [employer]. CHEM PANEL Alk Phos 100 39 - 136 06/15 [facility] CHEM PANEL Albumin Lvl 4.1 3.5 - 5.0 06/15 [facility] CHEM PANEL CO2 25 24 - 32 06/15 [facility] CHEM PANEL Chloride Lvl 104 95 - 109 06/15 [facility] CHEM PANEL Potassium 4.2 3.5 - 5.1 06/15 [facility] CHEM PANEL Sodium Lvl 140 135 - 145 06/15 [facility] CHEM PANEL ASPARTATE 15 0 - 37 06/15 TRANSAMINASE [facility] CHEM PANEL Total 7.3 6.4 - 8.4 06/15 [facility] HEMATOLOGY Basophils # 0.1 0.0 - 0.2 06/15 [facility] HEMATOLOGY Monocytes # 0.7 0.0 - 0.8 06/15 [facility] HEMATOLOGY Eosinophils 0.2 0.0 - 0.5 06/[place] # /2013 [facility] HEMATOLOGY Segs-Bands # 7.2 1.5 - 8.1 06/15 [facility] HEMATOLOGY Lymphocytes 2.7 1.0 - 5.5 06/15 s # /2013 [facility] HEMATOLOGY Lymphocytes 24.5 20.0 - 06/15 [place] 40.0 /2013 [facility] HEMATOLOGY Segs 66.4 45.0 - 06/15 [place] 75.0 /2013 [facility] HEMATOLOGY Monocytes 6.4 2.0 - 12.0 06/15 [facility] HEMATOLOGY Basophils 0.5 0.0 - 1.0 06/15 [facility] HEMATOLOGY Eosinophils 2.2 0.0 - 4.0 06/15 [facility] HEMATOLOGY MPV 9.7 7.4 - 10.4 06/15 [facility] HEMATOLOGY WBC X 10x3 10.9 3.7 - 10.4 06/15 [facility] HEMATOLOGY RDW 14.4 11.5 - 06/15 [place] 14.5 /2013 [facility] HEMATOLOGY RBC X 10x6 4.70 4.70 - 06/15 6.10 /2013 [facility] HEMATOLOGY Hct 41.3 42.0 - 06/15 54.0 /2013 [facility] HEMATOLOGY Hgb 14.5 14.0 - 06/15 18.0 /2013 [facility] HEMATOLOGY MCH 30.8 27.0 - 06/15 31.0 [facility] HEMATOLOGY MCV 87.7 80.0 - 06/15 [place] 94.0 /2013 [facility] HEMATOLOGY MCHC 35.1 32.0 - 06/15 [place] 36.0 /2013 [facility] SPECIAL Hgb A1C 4.4 <=5.6 % 06/15 [facility] CHEMISTRY [facility] URINE AND UA <=1.0 0.1 - 1.0 06/15 [facility] STOOL Urobilinogen mg/dL /2013 [facility] URINE AND Micro? Not Indicated 06/15 [facility] STOOL *NA* /2013 [facility] (06/15/2013 14:45:00 [facility] URINE AND UA pH 6.5 5.0 - 8.0 06/15 [facility] URINE AND UA Turbidity Clear Clear 06/15 [facility] STOOL (06/15/2013 14:45:00 [facility] URINE AND UA Spec Grav 1.018 <=1.030 06/15 [facility] URINE AND UA Color Yellow Yellow 06/15 [facility] STOOL *NA* /2013 Medical (06/15/2013 14:45:00 [facility] URINE AND UA Mucus Few /LPF None Seen 06/15 [facility] STOOL /LPF /2013 [facility] [place] URINE AND UA Glucose Negative Negative 06/15 [facility] mg/dL mg/dL [facility] [place] URINE AND UA Ketones Negative Negative 06/15 [facility] mg/dL mg/dL [facility] [place] URINE AND UA Protein Negative Negative 06/15 [facility] mg/dL mg/dL [facility] URINE AND UA Leuk Est Negative Negative 06/15 [facility] (06/15/2013 14:45:00 [facility] URINE AND UA WBC <1 0 - 5 06/15 [facility] [place] URINE AND UA Blood Negative Negative 06/15 [facility] (06/15/2013 14:45:00 [facility] URINE AND UA Nitrite Negative Negative 06/15 [facility] (06/15/2013 14:45:00 [facility] URINE AND UA Bili Negative Negative 06/15 [facility] *NA* /2013 Medical (06/15/2013 14:45:00 [facility] [place] BLOOD BANK ABO/Rh A POS 11/24 Unknown [facility] RESULTS [facility] BLOOD BANK Antibody Negative 11/24 Normal [facility] RESULTS Scrn (11/25/2011 10:10:00) [facility] CHEMISTRY AGAP 15.0 10.0 - 11/22 Normal [facility] 20.0 [facility] CHEMISTRY BUN 9 7 - 22 11/22 Normal [facility] CHEMISTRY Creatinine 0.9 0.5 - 1.4 11/22 Normal [facility] Lvl /2011 [facility] CHEMISTRY Glucose Lvl 75 70 - 99 11/22 Normal <sup>1</sup>I [place] nterpretive Medical Data: Adult Center reference range values reflect the clinical guidelines
of the [employer]. CHEMISTRY Chloride Lvl 106 95 - 109 08/07 [facility] CHEMISTRY Sodium Lvl 142 135 - 145 08/ [facility] CHEMISTRY CO2 26 24 - 32 08/ [facility] CHEMISTRY Potassium 5.0 3.5 - 5.1 08/07 Normal [place] Lvl /2011 [facility] CHEMISTRY Calcium Lvl 9.6 8.5 - 10.5 08/ [facility] [place] [facility] HEMATOLOGY Basophils # 0.0 0.0 - 0.2 08/ [facility] [place] [facility] HEMATOLOGY Lymphocytes 3.3 1.0 - 5.5 08/ [place] # /2011 [facility] HEMATOLOGY Monocytes # 0.5 0.0 - 0.8 08/ [facility] [place] [facility] HEMATOLOGY Eosinophils 0.2 0.0 - 0.5 08/ [place] # [facility] HEMATOLOGY Segs 59.7 45.0 - 08/07 Normal [place] 75.0 /2011 [facility] Center HEMATOLOGY Monocytes 4.8 2.0 - 12.0 08/ Normal [facility] HEMATOLOGY Segs-Bands # 5.9 1.5 - 8.1 08/ Normal [facility] HEMATOLOGY Eosinophils 2.0 0.0 - 4.0 08/07 [facility] [place] [facility] HEMATOLOGY Basophils 0.5 0.0 - 1.0 08/07 [facility] HEMATOLOGY Lymphocytes 33.0 20.0 - 08/07 Normal [place] 40.0 /2011 [facility] Center HEMATOLOGY RDW 13.7 11.5 - 08/07 Normal [place] 14.5 /2011 [facility] Center HEMATOLOGY Platelet 249 133 - 450 08/ Normal [facility] HEMATOLOGY RBC 4.89 4.70 - 08/07 Normal [place] 6.10 /2011 [facility] Center HEMATOLOGY Hgb 15.4 14.0 - 08/07 Normal [place] 18.0 /2011 [facility] HEMATOLOGY Hct 45.3 42.0 - 08/07 Normal [place] 54.0 /2011 [facility] Center HEMATOLOGY MCHC 34.0 32.0 - 08/07 Normal [place] 36.0 /2011 [facility] Center HEMATOLOGY MCV 92.6 80.0 - 08/07 Normal [place] 94.0 /2011 Medical Center HEMATOLOGY MCH 31.5 27.0 - 08/07 [place] [facility] 31.0 /2011 [facility] HEMATOLOGY MPV 9.4 7.4 - 10.4 08 Normal [facility] HEMATOLOGY WBC 9.9 3.7 - 10.4 11/22 Normal [facility] HEMATOLOGY INR 1.04 0.85 - 11/22 Normal <sup>2</sup>I Elsa s 1.17 nterpretive Medical Data: Center RECOMMENDED RANGES FOR PROTIME INR:
2.0-3.0 for most medical and surgical thromboemboli c states.
2.5-3.5 for artificial heart valves and recurrent embolism.<br/ >
INR SHOULD BE USED ONLY FOR PATIENTS ON STABLE ANTICOAGULANT THERAPY. HEMATOLOGY PT 13.6 12.0 - 11/22 Normal [facility] 14.7 [facility] HEMATOLOGY PTT 29.0 22.9 - 11/22 Normal <sup>3</sup>I Elsa s 35.8 nterpretive Medical Data: [facility] Therapeutic Range: 57 - 92 Seconds CHEMISTRY Troponin-I <0.02 0.00 - 09/15 Normal 0.40 [facility] CHEMISTRY CK MB 3.0 0.5 - 3.6 09/15 Normal [facility] CHEMISTRY Total CK 90 12 - 191 09/15 Normal [facility] CHEMISTRY HDL 21 >=35 09/15 LOW [facility] CHEMISTRY CHD Risk 5.86 4.00 - 09/15 Normal 7.30 /2011 [facility] CHEMISTRY LDL 72 0 - 129 09/15 Normal [facility] CHEMISTRY Chol 123 120 - 200 09/15 Normal [facility] CHEMISTRY Trig 149 0 - 200 09/15 Normal [facility] CHEMISTRY Phosphorus 3.8 2.5 - 4.5 09/15 Normal [facility] CHEMISTRY BUN 6 7 - 22 09/15 LOW [facility] CHEMISTRY Glucose Lvl 98 70 - 99 09/15 Normal <sup>1</sup>I nterpretive [facility] Data: Adult reference range values reflect the clinical guidelines of the [employer]. CHEMISTRY Chloride Lvl 106 95 - 109 09/15 Normal [facility] CHEMISTRY Potassium 4.0 3.5 - 5.1 09/15 Normal Lvl /2011 [facility] CHEMISTRY Sodium Lvl 141 135 - 145 09/15 Normal [facility] CHEMISTRY Creatinine 0.9 0.5 - 1.4 09/15 Normal MH Lvl /2011 [facility] CHEMISTRY AGAP 10.0 10.0 - 09/15 Normal MH 20.0 /2011 [facility] CHEMISTRY Calcium Lvl 8.8 8.5 - 10.5 09/15 Normal /2011 [facility] CHEMISTRY CO2 29 24 - 32 09/15 Normal /2011 [facility] CHEMISTRY Magnesium 2.0 1.8 - 2.4 09/15 Normal Lvl /2011 [facility] CHEMISTRY CK MB Index 3.3 0.0 - 2.5 09/15 HI MH /2011 [facility] HEMATOLOGY Hgb 13.3 14.0 - 09/15 LOW MH 18.0 /2011 [facility] HEMATOLOGY MCV 92.0 80.0 - 09/15 Normal MH 94.0 /2011 [facility] HEMATOLOGY MCHC 34.6 32.0 - 09/15 Normal MH 36.0 /2011 [facility] HEMATOLOGY MCH 31.8 27.0 - 09/15 HI MH 31.0 [facility] HEMATOLOGY RDW 13.2 11.5 - 09/15 Normal MH 14.5 [facility] HEMATOLOGY Platelet 191 133 - 450 09/15 Normal /2011 [facility] HEMATOLOGY MPV 8.6 7.4 - 10.4 09/15 Normal /2011 [facility] HEMATOLOGY Hct 38.3 42.0 - 09/15 LOW MH 54.0 /2011 [facility] HEMATOLOGY RBC 4.16 4.70 - 09/15 LOW MH 6.10 /2011 [facility] HEMATOLOGY WBC 6.2 3.7 - 10.4 09/15 Normal /2011 [facility] HEMATOLOGY INR 1.04 0.85 - 09/15 Normal <sup>6</sup>I 1.17 nterpretive [facility] Data: RECOMMENDED RANGES FOR PROTIME INR: 2.0-3.0 for most medical and surgical thromboemboli c states. 2.5-3.5 for artificial heart valves and recurrent embolism. INR SHOULD BE USED ONLY FOR PATIENTS ON STABLE ANTICOAGULANT THERAPY. HEMATOLOGY PT 13.6 12.0 - 09/15 Normal MH 14.7 [facility] HEMATOLOGY PTT 31.9 22.9 - 09/15 Normal <sup>8</sup>I MH 35.8 /2011 nterpretive [facility] Data: Heparin Therapeutic Range: 57 - 92 Seconds HEMATOLOGY Basophils # 0.0 0.0 - 0.2 09/15 Normal /2011 [facility] HEMATOLOGY Eosinophils 0.1 0.0 - 0.5 09/15 Normal MH # /2011 [facility] HEMATOLOGY Monocytes # 0.4 0.0 - 0.8 09/15 Normal MH /2011 [facility] HEMATOLOGY Lymphocytes 1.4 1.0 - 5.5 09/15 Normal MH # /2011 [facility] HEMATOLOGY Segs-Bands # 4.3 1.5 - 8.1 09/15 Normal MH /2011 [facility] HEMATOLOGY Eosinophils 2.3 0.0 - 4.0 09/15 Normal /2011 [facility] HEMATOLOGY Basophils 0.5 0.0 - 1.0 09/15 Normal MH /2011 [facility] HEMATOLOGY Lymphocytes 21.8 20.0 - 09/15 Normal MH 40.0 /2011 [facility] HEMATOLOGY Segs 69.3 45.0 - 09/15 Normal MH 75.0 /2011 [facility] HEMATOLOGY Monocytes 6.1 2.0 - 12.0 09/15 Normal /2011 [facility] CHEMISTRY Hgb A1C 4.7 09/14 NA <sup>4</sup>I nterpretive [facility] Data: HbA1C% eAG(mg/dL) Interpretatio n [...] Magnesium 1.9 1.8 - 2.4 09/14 Normal Lvl /2011 [facility] CHEMISTRY TSH 0.820 0.360 - 09/14 Normal MH 3.740 /2011 [facility] CHEMISTRY CK MB 2.9 0.5 - 3.6 09/14 Normal [facility] CHEMISTRY CK MB Index 2.5 0.0 - 2.5 09/14 Normal /2011 [facility] CHEMISTRY Troponin-I <0.02 0.00 - 09/14 Normal 0.40 /2011 [facility] CHEMISTRY Total CK 118 12 - 191 09/14 Normal [facility] CHEMISTRY U Cannab Scr Negative Negative 09/14 NA MH *NA* /2011 [facility] (09/15/2011 13:00:00) CHEMISTRY U Phencyc Negative Negative 09/14 NA MH Scr *NA* /2011 [facility] (09/15/2011 13:00:00) CHEMISTRY U Opiate Scr Positive Negative 09/14 ABN MH *ABN* /2011 [facility] (09/15/2011 13:00:00) CHEMISTRY UDS Note See Note 5 09/14 Normal <sup>5</sup>I (09/15/2011 13:00:00) nterpretiv e [facility] Data: Drugs reported as positive [...] Negative 09/14 NA MH Scr *NA* /2011 [facility] (09/15/2011 13:00:00) CHEMISTRY U Amph Scr Negative Negative 09/14 NA MH *NA* [facility] (09/15/2011 13:00:00) CHEMISTRY U Annette Scr Negative Negative 09/14 NA MH *NA* /2011 [facility] (09/15/2011 13:00:00) CHEMISTRY U Benzodia Positive Negative 09/14 ABN MH Scr *ABN* /2011 [facility] (09/15/2011 13:00:00) CHEMISTRY BNP 36 <=100 09/14 Normal <sup>3</sup>I nterpretive [facility] Data: Elevated results are in line with increasing severity of congestive heart failure. Minor elevations between 100 and 300 may be seen with Myocardial Ischemia, Sodium retaining drugs, and compensated/t reated heart failure. CHEMISTRY Chloride Lvl 104 95 - 109 09/14 Normal [facility] CHEMISTRY Potassium 4.2 3.5 - 5.1 09/14 Normal Lvl [facility] CHEMISTRY Creatinine 1.0 0.5 - 1.4 09/14 Normal Lv [facility] CHEMISTRY BUN 8 7 - 22 09/14 Normal [facility] CHEMISTRY Sodium Lvl 138 135 - 145 05/ Normal MH [facility] CHEMISTRY ALT 29 0 - 65 09/14 Normal [facility] CHEMISTRY Alk Phos 57 39 - 136 / Normal [facility] CHEMISTRY Albumin Lvl 3.5 3.5 - 5.0 09/14 Normal MH /2011 [facility] CHEMISTRY Calcium Lvl 8.9 8.5 - 10.5 09/14 Normal /2011 [facility] CHEMISTRY Total 6.5 6.4 - 8.4 09/14 Normal MH [facility] CHEMISTRY CO2 29 24 - 32 05/ Normal MH [facility] CHEMISTRY A/G Ratio 1.2 0.7 - 1.6 09/14 Normal MH [facility] CHEMISTRY B/C Ratio 8 6 - 25 09/14 Normal [facility] CHEMISTRY Globulin 3.0 2.0 - 4.0 09/14 Normal [facility] CHEMISTRY Bili Total 0.6 0.2 - 1.3 09/14 Normal [facility] CHEMISTRY AST 17 0 - 37 09/14 Normal [facility] CHEMISTRY Glucose Lvl 86 70 - 99 09/14 Normal <sup>2</sup>I nterpretive [facility] Data: Adult reference range values reflect the clinical guidelines of the [employer]. CHEMISTRY AGAP 9.2 10.0 - 09/14 LOW MH 20.0 [facility] CHEMISTRY CK MB 3.0 0.5 - 3.6 09/14 Normal [facility] CHEMISTRY Troponin-I <0.02 0.00 - 09/14 Normal 0.40 /2011 [facility] CHEMISTRY Total CK 138 12 - 191 09/14 Normal [facility] CHEMISTRY CK MB Index 2.2 0.0 - 2.5 09/14 Normal [facility] HEMATOLOGY INR 1.01 0.85 - 09/14 Normal <sup>7</sup>I 1.17 /2011 nterpretive [facility] Data: RECOMMENDED RANGES FOR PROTIME INR: 2.0-3.0 for most medical and surgical thromboemboli c states. 2.5-3.5 for artificial heart valves and recurrent embolism. INR SHOULD BE USED ONLY FOR PATIENTS ON STABLE ANTICOAGULANT THERAPY. HEMATOLOGY PTT 30.3 22.9 - 09/14 Normal <sup>9</sup>I MH 35.8 /2012 nterpretive [facility] Data: Heparin Therapeutic Range: 57 - 92 Seconds HEMATOLOGY PT 13.3 12.0 - 05/30 Normal MH 14.7 /2011 [facility] HEMATOLOGY MPV 9.6 7.4 - 10.4 05/ Normal MH /2011 [facility] HEMATOLOGY MCHC 34.6 32.0 - 05 Normal MH 36.0 /2011 [facility] HEMATOLOGY RDW 13.0 11.5 - 09/14 Normal MH 14.5 /2011 [facility] HEMATOLOGY Platelet 206 133 - 450 05/ Normal MH /2011 [facility] HEMATOLOGY RBC 4.07 4.70 - 05 LOW MH 6.10 /2011 [facility] HEMATOLOGY MCV 91.8 80.0 - 05 Normal MH 94.0 /2011 [facility] HEMATOLOGY WBC 7.2 3.7 - 10.4 05/ Normal MH /2011 [facility] HEMATOLOGY Hgb 12.9 14.0 - 09/14 LOW MH 18.0 /2011 [facility] HEMATOLOGY Hct 37.3 42.0 - 09/14 LOW MH 54.0 /2011 [facility] HEMATOLOGY MCH 31.8 27.0 - 05 HI MH 31.0 /2011 [facility] HEMATOLOGY Basophils 0.6 0.0 - 1.0 05/30 Normal MH /2011 [facility] HEMATOLOGY Eosinophils 0.1 0.0 - 0.5 05/30 Normal MH # /2011 [facility] HEMATOLOGY Monocytes # 0.5 0.0 - 0.8 05/ Normal MH /2011 [facility] HEMATOLOGY Lymphocytes 1.9 1.0 - 5.5 05/30 Normal MH # /2011 [facility] HEMATOLOGY Segs-Bands # 4.6 1.5 - 8.1 05/ Normal MH /2011 [facility] HEMATOLOGY Segs 64.4 45.0 - 09/14 Normal MH 75.0 /2011 [facility] HEMATOLOGY Eosinophils 2.0 0.0 - 4.0 05/30 Normal MH /2011 [facility] HEMATOLOGY Monocytes 6.5 2.0 - 12.0 05/ Normal MH /2011 [facility] HEMATOLOGY Lymphocytes 26.5 20.0 - 05 Normal MH 40.0 /2011 [facility] HEMATOLOGY Basophils # 0.0 0.0 - 0.2 05/30 Normal MH /2011 [facility] BEDSIDE Comment1 Notify 09/08 NA GLUCOSE RN/MD /2012 [facility] TESTING BEDSIDE Gluc POC 101 70 - 99 09/08 HI <sup>1</sup>I GLUCOSE Lifscn /2011 nterpretive [facility] TESTING Data: Upper Reportable Limit: 200 mg/dL. BEDSIDE Gluc POC 98 70 - 99 09/08 Normal <sup>2</sup>I GLUCOSE Lif /2011 nterpretive [facility] TESTING Data: Upper Reportable Limit: 200 mg/dL. BEDSIDE Gluc POC 90 70 - 99 09/07 Normal <sup>3</sup>I GLUCOSE Lif nterpretive [facility] TESTING Data: Upper Reportable Limit: 200 mg/dL. BEDSIDE Comment1 Notify 09/07 NA GLUCOSE RN/MD /2011 [facility] TESTING BEDSIDE Comment2 Assess 09/07 NA MH GLUCOSE Patient /2011 [facility] TESTING BEDSIDE Comment1 Notify 09/07 NA GLUCOSE RN/MD /2011 [facility] TESTING BEDSIDE Comment2 Assess 09/07 NA MH GLUCOSE Patient /2011 [facility] TESTING BEDSIDE Comment2 Assess 09/07 NA GLUCOSE Patient /2011 [facility] TESTING CHEMISTRY U Opiate Scr Negative Negative 09/06 NA MH *NA* /2011 [facility] (09/07/2011 11:56:00) CHEMISTRY U Phencyc Negative Negative 09/06 NA MH Scr *NA* [facility] (09/07/2011 11:56:00) CHEMISTRY UDS Note See Note 5 09/06 Normal <sup>5</sup>I (09/07/2011 11:56:00) nterpretiv e [facility] Data: Drugs reported as positive [...] Scr Negative Negative 09/06 NA MH *NA* [facility] (09/07/2011 11:56:00) CHEMISTRY U Benzodia Positive Negative 09/06 ABN MH Scr *ABN* [facility] (09/07/2011 11:56:00) CHEMISTRY U Cocaine Positive Negative 09/06 ABN MH Scr *ABN* [facility] (09/07/2011 11:56:00) CHEMISTRY U Cannab Scr Positive Negative 09/06 ABN MH *ABN* [facility] (09/07/2011 11:56:00) CHEMISTRY U Annette Scr Negative Negative 09/06 NA MH *NA* [facility] (09/07/2011 11:56:00) URINALYSIS UA Ketones Negative Negative 09/06 NA MH *NA* /2011 [facility] (09/07/2011 11:56:00) URINALYSIS UA Glucose Negative Negative 09/06 Normal (09/07/2011 11:56:00) [facility] URINALYSIS UA 0.2 0.1 - 1.0 09/06 Normal Urobilinogen [facility] URINALYSIS UA Blood Large Negative 09/06 ABN MH *ABN* [facility] (09/07/2011 11:56:00) URINALYSIS UA Bili Negative Negative 09/06 NA MH *NA* [facility] (09/07/2011 11:56:00) URINALYSIS UA Color Yellow Yellow 09/06 NA MH *NA* [facility] (09/07/2011 11:56:00) URINALYSIS UA Nitrite Negative Negative 09/06 Normal (09/07/2011 11:56:00) [facility] URINALYSIS UA Leuk Est Negative Negative 09/06 Normal (09/07/2011 11:56:00) [facility] URINALYSIS UA Protein Trace Negative 09/06 ABN MH *ABN* [facility] (09/07/2011 11:56:00) URINALYSIS UA pH 5.5 5.0 - 8.0 09/06 Normal [facility] URINALYSIS UA Spec Grav >=1.030 <=1.030 09/06 ABN MH *ABN* [facility] (09/07/2011 11:56:00) URINALYSIS UA Turbidity Slight Cloudy Clear 09/06 Normal (09/07/2011 11:56:00) [facility] URINALYSIS UA Amorph Few /HPF None Seen 09/06 ABN Erin *ABN* [facility] (09/07/2011 11:56:00) URINALYSIS UA Sq Epi Few /LPF Few 09/06 Normal MH (09/07/2011 11:56:00) /2011 [facility] URINALYSIS UA RBC 0-2 /HPF 0 - 2 09/06 Normal MH (09/07/2011 11:56:00) [facility] URINALYSIS UA WBC 6-10 /HPF None Seen 09/06 ABN MH *ABN* /2011 [facility] (09/07/2011 11:56:00) URINALYSIS UA Mucus Moderate /LPF None Seen 09/06 ABN MH *ABN* /2011 [facility] (09/07/2011 11:56:00) URINALYSIS UA Bacteria Few /HPF None Seen 09/06 Normal MH (09/07/2011 11:56:00) [facility] CHEMISTRY Rate Art 10 09/06 NA [facility] CHEMISTRY Mode Art nrm 09/06 NA [facility] CHEMISTRY Allens Art Positive 09/06 Normal MH (09/07/2011 09:18:00) [facility] CHEMISTRY BE Art 1 -2-2 - 2 09/06 Normal [facility] CHEMISTRY Temp Art 37.0 09/06 NA [facility] CHEMISTRY HCO3 Art 27 22 - 26 09/06 HI [facility] CHEMISTRY Site Art Right Ra 09/06 Normal MH (09/07/2011 09:18:00) [facility] CHEMISTRY O2 Sat Art 98.0 95.0 - 09/06 Normal MH 100.0 [facility] CHEMISTRY pCO2 Art 49 35 - 45 09/06 HI [facility] CHEMISTRY pO2 Art 115 80 - 100 09/06 HI [facility] CHEMISTRY pH Art 7.35 7.35 - 09/06 Normal MH 7.45 [facility] CHEMISTRY Etoh (%) <0.003 09/06 NA <sup>6</sup>I nterpretive [facility] Data: Negative Range: <0.003% Toxic Range: >0.25% CHEMISTRY Ethanol Lvl <3 09/06 NA <sup>7</sup>I nterpretive [facility] Data: Negative Range: <3 mg/dL Toxic Range: >250 mg/dL CHEMISTRY Ammonia 28.0 <=45.0 09/06 Normal [facility] CHEMISTRY Bili Total 0.4 0.2 - 1.3 09/06 Normal MH /2011 [facility] CHEMISTRY ALT 20 0 - 65 05/ Normal MH /2011 [facility] CHEMISTRY AST 44 0 - 37 / HI MH /2011 [facility] CHEMISTRY Alk Phos 67 39 - 136 / Normal MH /2011 [facility] CHEMISTRY Albumin Lvl 3.5 3.5 - 5.0 / Normal MH /2011 [facility] CHEMISTRY Potassium 4.6 3.5 - 5.1 09/06 Normal MH Lvl /2011 [facility] CHEMISTRY CO2 26 24 - 32 / Normal MH /2011 [facility] CHEMISTRY Chloride Lvl 109 95 - 109 09/06 Normal MH /2011 [facility] CHEMISTRY Total 6.3 6.4 - 8.4 09/06 LOW MH Protein [facility] CHEMISTRY Calcium Lvl 8.1 8.5 - 10.5 09/06 LOW MH /2011 [facility] CHEMISTRY BUN 10 7 - 22 09/06 Normal MH /2011 [facility] CHEMISTRY Creatinine 0.9 0.5 - 1.4 09/06 Normal MH Lvl /2011 [facility] CHEMISTRY Sodium Lvl 142 135 - 145 09/06 Normal /2011 [facility] CHEMISTRY Glucose Lvl 111 70 - 99 09/06 HI <sup>4</sup>I /2011 nterpretive [facility] Data: Adult reference range values reflect the clinical guidelines of the [employer]. CHEMISTRY Globulin 2.8 2.0 - 4.0 09/06 Normal /2011 [facility] CHEMISTRY A/G Ratio 1.3 0.7 - 1.6 09/06 Normal MH /2011 [facility] CHEMISTRY B/C Ratio 11 6 - 25 09/06 Normal /2011 [facility] CHEMISTRY AGAP 11.6 10.0 - 09/06 Normal MH 20.0 /2011 [facility] HEMATOLOGY Eosinophils 0.0 0.0 - 0.5 / Normal MH # /2011 [facility] HEMATOLOGY Basophils # 0.0 0.0 - 0.2 / Normal MH /2011 [facility] HEMATOLOGY Segs-Bands # 11.4 1.5 - 8.1 / HI MH /2011 [facility] HEMATOLOGY Lymphocytes 1.1 1.0 - 5.5 / Normal MH # /2011 [facility] HEMATOLOGY Monocytes # 0.6 0.0 - 0.8 / Normal MH /2011 [facility] HEMATOLOGY Basophils 0.2 0.0 - 1.0 / Normal MH /2011 [facility] HEMATOLOGY Lymphocytes 8.1 20.0 - 05/ LOW MH 40.0 /2012 [facility] HEMATOLOGY Segs 86.7 45.0 - 05/ HI MH 75.0 /2011 [facility] HEMATOLOGY Eosinophils 0.1 0.0 - 4.0 09/06 Normal [facility] HEMATOLOGY Monocytes 4.9 2.0 - 12.0 09/06 Normal /2011 [facility] HEMATOLOGY Hgb 13.6 14.0 - 09/06 LOW MH 18.0 /2011 [facility] HEMATOLOGY RBC 4.20 4.70 - 09/06 LOW MH 6.10 /2011 [facility] HEMATOLOGY WBC 13.1 3.7 - 10.4 09/06 HI MH /2011 [facility] HEMATOLOGY Hct 38.5 42.0 - 09/06 LOW MH 54.0 /2011 [facility] HEMATOLOGY MCH 32.3 27.0 - 09/06 HI MH 31.0 /2011 [facility] HEMATOLOGY MCV 91.8 80.0 - 09/06 Normal MH 94.0 /2011 [facility] HEMATOLOGY RDW 13.6 11.5 - 09/06 Normal MH 14.5 /2011 [facility] MPV 9.2 7.4 - 10.4 09/06 Normal /2011 [facility] Platelet 226 133 - 450 09/06 Normal [facility] HEMATOLOGY MCHC 35.2 32.0 - 09/06 Normal MH 36.0 [facility] IMMUNOLOGY CDC-HIV 1/2 Negative Negative 09/06 [facility] Ab *NA* /2011 [facility] (09/07/2011 08:40:00) Pathology Reports No Data Provided for This Section Diagnostic Reports Report Value Date Source Chest 1view PORTABLE CHEST 2013-06-21 12:06:00 06/21/2013 [facility] COMPARISON: September 15, 2011 CLINICAL INDICATION: r/o pneumothorax IMPRESSION: New endotracheal tube is seen 3 cm above the car jordy. Low lung volumes with spurio us widening of the cardiomediastinal silhouette and bilateral platelike atelectasis. A background of interstitial edema may be present. No large pneumothorax is luis ntified, however, a supine film is suboptimal for [...] Source Temperature Oral (F) 97.1 F 09/18/2016 [facility] Heart Rate 85 09/18/2016 [facility] Respitory Rate 18 09/18/2016 [facility] Systolic (mm Hg) 125 09/18/2016 [facility] Diastolic (mm Hg) 71 09/18/2016 [facility] Center Heart Rate 69 09/18/2016 [facility] Temperature Oral (F) 97.3 F 09/18/2016 [facility] Systolic (mm Hg) 118 09/18/2016 [facility] Diastolic (mm Hg) 81 09/18/2016 [facility] Respitory Rate 20 09/18/2016 [facility] Temperature Oral (F) 97.8 F 09/18/2016 [facility] Heart Rate 74 09/18/2016 [facility] Respitory Rate 18 09/18/2016 [facility] Systolic (mm Hg) 113 09/18/2016 [facility] Diastolic (mm Hg) 73 09/18/2016 [facility] Center BMI Calculated 23.8 09/17/2016 [facility] Weight 81.818 09/17/2016 [facility] Height 185.42 cm 09/17/2016 [facility] Respitory Rate 20 06/23/2013 [facility] Diastolic (mm Hg) 89 06/23/2013 [facility] Center Systolic (mm Hg) 139 06/23/2013 [facility] Heart Rate 88 06/23/2013 [facility] Temperature Oral (F) 97.6 F 06/23/2013 [facility] Diastolic (mm Hg) 90 06/23/2013 [facility] Center Systolic (mm Hg) 149 06/23/2013 [facility] Heart Rate 73 06/23/2013 [facility] Respitory Rate 20 06/23/2013 [facility] Temperature Oral (F) 98.4 F 06/23/2013 [facility] Diastolic (mm Hg) 80 06/23/2013 [facility] Temperature Oral (F) 97.9 F 06/23/2013 [facility] Heart Rate 72 06/23/2013 [facility] Respitory Rate 20 06/23/2013 [facility] Systolic (mm Hg) 128 06/23/2013 [facility] BMI Calculated 40.59 06/21/2013 [facility] Height 185.42 cm 06/21/2013 [facility] Weight 139.545 06/21/2013 [facility] BMI Calculated 40.66 06/21/2013 [facility] Weight 139.801 06/21/2013 [facility] Height 185.42 cm 06/15/2013 [facility] Respitory Rate 18 11/26/2011 [facility] Heart Rate 85 11/26/2011 [facility] Temperature Oral (F) 97.4 F 11/26/2011 [facility] Diastolic (mm Hg) 71 11/26/2011 [facility] Systolic (mm Hg) 123 11/26/2011 [facility] Center Systolic (mm Hg) 118 11/26/2011 [facility] Center Diastolic (mm Hg) 74 11/26/2011 [facility] Respitory Rate 18 11/26/2011 [facility] Temperature Oral (F) 97.1 F 11/26/2011 [facility] Heart Rate 90 11/26/2011 [facility] Diastolic (mm Hg) 73 11/26/2011 [facility] Systolic (mm Hg) 115 11/26/2011 [facility] dical Center Respitory Rate 18 11/26/2011 [facility] Heart Rate 80 11/26[facility] Temperature Oral (F) 97.6 F 11/26/2011 [facility] Weight 115.909 11/25/2011 [facility] Height 185.42 cm 11/25/2011 [facility] Weight 115.909 11/24/2011 [facility] Height 185.42 cm 11/24/2011 [facility] Weight 115.909 11/24/2011 [facility] Height 185.42 cm 11/24/2011 [facility] Temperature Oral (F) 97.3 F 09/16/2011 [facility] Rate 73 09/16/2011 [facility] Rate 20 09/16/2011 [facility] Systolic (mm Hg) 124 09/16/2011 [facility] Diastolic (mm Hg) 64 09/16/[address] Systolic (mm Hg) 129 09/16/2011 [facility] Diastolic (mm Hg) 75 09/16/[address] Heart Rate 71 09/16/2011 [facility] Temperature Oral (F) 97.6 F 09/16/2011 [facility] Resp[facility] Rate 20 09/16/2011 [facility] Heart Rate 78 09/16/2011 [facility] Diastolic (mm Hg) 63 09/16/[address] Respitory Rate 19 09/16/2011 [facility] Systolic (mm Hg) 111 09/16/2011 [facility] Temperature Oral (F) 98.0 F 09/16/2011 [facility] Weight 118.182 09/15/2011 [facility] Height 185.42 cm 09/15/2011 [facility] Heart Rate 64 09/09/2011 [facility] Temperature Oral (F) 98.3 F 09/09/2011 [facility] Respitory Rate 18 09/09/2011 [facility] Diastolic (mm Hg) 91 09/09/[address] [facility] [address] Systolic (mm Hg) 144 09/09/2011 [facility] Temperature Oral (F) 98.1 F 09/09/2011 [facility] Heart Rate 68 09/09/2011 [facility] Respitory Rate 18 09/09/2011 [facility] Diastolic (mm Hg) 99 09/09/[address] Systolic (mm Hg) 140 09/09/2011 [facility] Rate 18 09/09/2011 [facility] Heart Rate 68 09/09/2011 [facility] Temperature Oral (F) 98.1 F 09/09/2011 [facility] Diastolic (mm Hg) 99 09/09/[address] [facility] [address] Systolic (mm Hg) 140 09/09/2011 [facility] Weight 100.000 09/07/2011 [facility] Encounters Location Location Encounter Encounter Reason Attending ADM DC Stat us Source Details Type Number For Provider Date Date Visit Inpatient [id number] DYSPNEA, THOMPSON 09/06 09/08 Active [facility] 1 AMS [place] /2011 [facility] [place] [id number] THOMPSON 09/14 09/15 Discharg [facility] 2 CHOUDHURY ed Renéwe s t [facility] OU [id number] AMRISSA 11/24 11/[address] /2011 ed Medic al [facility] Inpatient [id number] _MAPID:Yoel Lynn 06/21 06/23 [facility] [id number] NCNTRRFV /2013 [facility] 4 [id number] [facility] Inpatient [id number] Mohamed 09/17 09/18 [facility] 3 Fontanez /2016 [facility] Preadmit [id number] MORBID DICK LYNN Act dionisio [place] [address] [facility]ES[facility] Procedures Procedure Code Date Perfomer Comments Source Appendectomy [id number] [facility] Excision<sup>1</sup [id number] lipoma [place] [facility] Gastric bypass [id number] [facility] Operation [id number] [facility] Tonsillectomy [id number] [facility] Assessment and Plan Assessment and Plan Date Source Extracted from:Title: GI consult note 09/18/2016 [facility] Author: Melina Bonilla MD Date: 09/17/16 Assessment/Plan 43 y/o male currently incarcer ated with PMH of CAD s/p stents 2011 off of any ASA or Plavix with hx of Gastric bypass in 2013 complicated with multiple GI bleeding likely due to Anastomotic ul cers now here with Melena and significan t acute on chronic anemia with stable vitals. UGI bleed - Differential includes anastomotic PUD due to ischemia at the site v/s Esophagitis v/s gastritis. - NO hx of liver disease or recent Etoh intake. Pt is incarc erated - Maintain 2 large bore IV's and IV fluid resuscitation - Make sure there is an active type and screen - Transfusion goals: Hgb >7gm/dl , INR < 1.5 and platelet >50K. Currently at goal. - [...] Record - Dr. Sonali Bonilla MD Pager: [phone] Gastroenterology and Hepatology Fellow - PGY 4 Thank you for the consultation. Please page or call wi th questions or concerns. Addendum by Compa Lyon MD on 09/19/2016 17:17 CDT I have seen and examined the patient wit h Dr. Bonilla and Dr. Fong on September 17, 2016. I have reviewed the residents/fellows history, physical exam and the assessment and plan of care. I have personally reviewed the lab result s and radiology tests and discussed the findings with Dr. Bonilla and Dr. Fong. Extracted from:Title: History and Physical Author: Jorge Fontanez MD Date: 09/17/16 Assessment/Plan 43 y/o male (incarcerated) with PMH of C AD s/p stents 2011, CHF, HTN, chronic bronchitis, morbid obesity s/p marilynn-en-Y gastric bypass 2013, anxiety, schizoaffective disorders who was referred from [facility] for evaluation of acute GI bleed. 1.Acute GI bleeding likely upper GI bleed secondary to PUD will keep NPO, will start IV hydration will place on IV protonix GTT will follow up stat repeat labs (CBC, CM P, Magnesium, Phosphorus and coagulation) and will transfuse PRBC if needed will follow up vital signs including orthostatics GI consult requested for evaluation Ordered: Admit/Condition 2.CAD - Coronary artery disease EKG at OSH, sinus tachycardia with no specific ST segment or T wave abnormalities will hold off aspirin and plavix given active GI bleed stable HR, will not restart lopressor now given risk of hypo tension 3.CHF - Congestive heart failure pt reports [...] evaluation Extracted from:Title: Clinical Document 06/23/2013 [facility] Author: Robert Hinojosa Date: 06/22/2013 General Surgery Progress Note Patient: BRITTON KOHLI MR N: [id number] Age: 43 years Sex: Male : 1970 Associated Diagnoses: None Author: Robert Hinojosa MD Basic Information 43 yo male with MO (BMI 41) with many as sociated comorbidities including CHF, CAD, reflux esophagitis, HTN, and DAYLIN s/p robotic-assisted RYGB. Patient feels well this morning. Pain and nausea controlled. Review of Systems Constitutional: No fever, No chills. Eye: No recent visual problem. Respiratory: Denies shortness of breath. Cardiovascular: Denies chest pain. Gastrointestinal: Minimal incisional abdominal pain reporte d Hematology/Lymphatics: No bleeding tendency. Immunologic: Not immunocompromised. Integumentary: No rash. Neurologic: No numbness. Health Status Allergies: Allergies (1) Active Reaction NKDA None Documented Active Problems (13) Altered mental status Anxiety CAD - Coronary artery disease Chest pain CHF - Congestive heart failure COPD Hypercholesterolemia Hypertension Morbid obesity Nausea Pain Reflux Sleep apnea Scheduled Meds (2):acetaminophen-hydroco done (acetaminophen-hydrocodone 300 mg- 10 mg/15 mL oral liquid), enoxaparin Unscheduled Meds: None PRN Meds (4):acetaminophen-hydrocodone ( acetaminophen-hydrocodone 300 mg-10 mg/15 mL oral liquid), naloxone, ondansetron (Zofran), promethazine One Time Meds (1):(Completed) heparin Continuous Infusions (2):Lactated Ringer s Injection IV 1,000 mL, hydromorphone 15 mg (HYDROmorphone 0.5mg/mL REPAIR DEPARTMENT SUPERVISOR (15mg/30 mL) 15 mg) Physical Examination Vitals and Temp: Vitals Tmp(F) Pulse BP RR SpO2 FIO2 06/22 09:09 ---- --- ----- -- 98 28% 06/22 08:00 97.6 74 115/71 18 98 2.0L/m 06/22 04:24 97.6 72 116/74 20 98 2.0L/m 06/21 23:32 97.6 77 123/78 20 98 2.0L/m 06/21 21:02 ---- --- ----- -- 98 2.0L/m 24 Hr Tmax: 97.9F (36.61c) at 06/21 14:5 5 Vital Signs are the last 5 in the past 48 hours. Input/Output Record In Out Bal 06/22 24hr Tot 0 0 0 06/21 24hr Tot [id number] General: No acute distress, Patient alert and oriented x3. Respiratory: Lungs are clear to auscultation, Respirations are non-labored. Cardiovascular: Normal rate, Regular rhythm, No murmur. Gastrointestinal: Soft, appropriately t jimmy, incisions c/d/i. No rebound or guarding. minimal abdominal distention. Neurologic: A&Ox3, nonfocal exam. Review / Management Results review: Labs (Last four charted values) WBC H 11.7 (JUN 22) H 10.9 (JUN 15) Hgb L 13.3 (JUN 22) 14.5 (MAY 20 8) Hct L 39.7 (JUN 22) L 41.3 [...] male with MO (BMI 41) with many as sociated comorbidities including CHF, CAD, reflux esophagitis, HTN, and DAYLIN s/p robotic-assisted RYGB POD 1. Neuro - start zolvit liquid for pain control. wean REPAIR DEPARTMENT SUPERVISOR today . CV - HDS Pulm - KEVIN, encourage [...] Application of Evicel. SURGEON: Dr. Dick Lynn. STATUE CARVER: Dr. Thu Heath. INDICATIONS FOR PROCEDURE: This is a 43-year-old male wit h severe morbid obesity with a BMI that started out at 41 before his weight loss at our medical managed weight loss program, who also has multiple comorbidities. The patient has elected to go forward w ith a laparoscopic Marilynn-en-Y gastric bypass after demonstrating a full understanding of the risks and benefits of the surgery. PROCEDURE IN DETAIL: The patient was brought to the operating room, placed supine on the operating table, and then was sedated, intubated, and placed under general endotracheal anesthesia. The abdomen was prepped and drape d in standard surgical fashion. The abd omen was entered using a 5-mm Optiview port in the right upper quadrant. Pneumoperitoneum was achieved and the entire abdomen was inspected with no gross abnormality identified. Additional ports were placed according t o my normal robotic-assisted Marilynn-en-Y gastric bypass with an 8-mm port in the left upper quadrant, a 5-mm port in the left lateral position; a Magdy retracto r at the subxiphoid region and two 12 mm ports; one in the middle abdomen, one in the right upper abdomen. Attention was first turned to the stomac h where the angle of His was taken down using blunt dissection and the fat pad was removed with the Harmonic scalpel. The pars flaccida was opened up to identify a clear posterior passageway. Next, th e omentum was divided from the colon to the greater curvature. The robot was docked. I then created a small pouch around a 30 mL balloon using sequential staple fires from a flexible endoscopic stapler buttressed with SeamGuard. Once this was complete, the small bowel was measured from 50 cm from the l igament of Treitz and brought up to the small pouch. The posterior row of the two layered gastrojejunostomy was completed with 2-0 Vicryl suture. The small bowel was divided at this point. An additiona l 100 cm of small bowel was counted out and a qotb-sj-kiti functional end-to-side jejunojejunostomy was created using a single staple fire and closed with hand manuel turing. The mesentery defect was then closed using 2-0 silk suture. Attention was then turned back to the sm all pouch, which was opened using monopolar scissors using a 34-Azerbaijani calibration device to measure the size of the enterotomy. A two layered hand sewn gastrojej unostomy was then created with 2-0 Vicryl suture around the calibration tube. Once complete, the robot was undocked an d EGD was passed into the oropharynx through the esophagus and into the small pouch. The pouch of the appropriate size and the anastomosis was found to be patent with no evidence of bleeding. A leak t est was performed with no evidence of leak. The air was suctioned and the EGD was removed. Eviseal was placed at the anastomoses an d at the Palacios defect. The 12-mm trocar sites were closed using interrupted 0 Vicryl suture passed with a Cedric- Gibbs. Pneumoperitoneum was released and all the trocars were removed. The troca r sites were closed using 4-0 Monocryl and covered in Dermabond. The patient was then awoken from anesthesia, extubated, and brought to the recovery room in good condition. INTRAVENOUS FLUIDS: Please see anesthesia records for IV fluids. ESTIMATED BLOOD LOSS: 30 mL. COMPLICATIONS: None. FINDINGS: Please see procedure in detail. Addendum by Dick Lynn MD on 06/21/2013 14:26 There were no qualified residents availmicehl lezama so I asked Dr. Thu Heath to assist. Plan of Care No Data Provided for This Section Social History Social History Date Source Social History TypeResponse 09/17/2016 [facility] Substance Abuse Use: Current. Type: Marijuana. Recreat ional Drug Route: Inhaled. Frequency: 1-2 times per [...]
--- OUTSIDE RECORDS SUMMARY | 2019-08-23 12:58 | XMS REPORT | CCD ---
:1970 Author Organization [facility] Care Team Providers Name Role Phone Vivek Hyde Rae Consulting Provider Allergies, Adverse Reactions, Alerts Substance Reaction Status NKDA Active Problem List Condition Effective Dates Status Altered mental status Active Anxiety Active Medications Medication Instructions Start Date End Date Status Haldol 10 mg, 2 mL, Route: 09/07/2011 09/08/2011 Complete d IM, Drug form: INJ, ONCE, Start date: 09/07/11 21:35:00, Stop date: 09/07/11 21:35:00 Lopressor Substitution Allowed 09/07/2011 Ordered Plavix Substitution Allowed 09/07/2011 Ordered Abilify Substitution Allowed 09/07/2011 Ordered lithium Substitution Allowed 09/07/2011 Ordered Phenergan Substitution Allowed 09/07/2011 Ordered Flexeril Substitution Allowed 09/07/2011 Ordered Haldol 5 mg/mL injectable Substitution Allowed 09/07/2011 Ordered solution predniSONE 40 mg, 2 tab, Route: 09/09/2011 09/09/2011 Discont inued PO, Drug form: TAB, Daily, Start date: 09/09/11 9:00:00, Duration: 30 day, Stop date: 10/08/11 9:00:00 Benadryl Substitution Allowed 09/07/2011 Ordered Flexeril Substitution Allowed 09/07/2011 Ordered trazodone Substitution Allowed 09/07/2011 Ordered azithromycin 250 mg oral 500 mg, 2 tab, Route: 09/08/2011 012 Discontinued tablet PO, Drug form: TAB, Q24H, Start date: 09/08/11 16:00:00, Duration: 30 day, Stop date: 10/07/11 16:00:00 Suboxone 8 mg-2 mg Substitution Allowed, 09/07/2011 Ordered sublingual tablet, Maintenance disintegrating Librium Substitution Allowed 09/07/2011 Ordered naloxone Route: IVP, Drug form: 09/07/2011 09/07/2011 Compl eted INJ, ONCE, Priority: STAT, Start date: 09/07/11 [...] 2.49 mg, 3 mL, Route: 09/07/2011 09/09/2011 Discon tinued NEB, Drug form: SOLN, RQ6H, PRN Shortness of breath, Start date: 09/07/11 17:13:00, Duration: 30 day, Stop date: 10/07/11 17:12:00 albuterol 2.49 mg, 3 mL, Route: 09/07/2011 09/09/2011 Discon tinued NEB, Drug form: SOLN, RQ6H, Start date: 09/07/11 20:00:00, Duration: 30 day, Stop date: 10/07/11 14:00:00 Nexium Substitution Allowed 09/07/2011 Ordered Eskalith 600 mg, 2 tab, Route: 09/08/2011 09/09/2011 Discon tinued PO, Drug form: TAB, BID, Start date: 09/08/11 9:00:00, Duration: 30 day, Stop date: 10/07/11 17:00:00 aspirin 81 mg tablet, 81 mg, 1 tab, Route: 09/08/2011 09/09/2011 Discontinued chewable CHEW, Drug form: CHEWTAB, Daily, Start date: 09/08/11 9:00:00, Duration: 30 day, Stop date: 10/07/11 9:00:00 Abilify 2 mg, 1 tab, Route: 09/07/2011 09/09/2011 Disconti nued PO, Drug form: TAB, Bedtime, Start date: 09/07/11 21:00:00, Duration: 30 day, Stop date: 10/06/11 21:00:00 Lopressor 100 mg, 1 tab, Route: 09/07/2011 09/09/2011 Discon tinued PO, Drug form: TAB, Q12H, Start date: 09/07/11 21:00:00, Duration: 30 day, Stop date: 10/07/11 9:00:00 Plavix 75 mg, 1 tab, Route: 09/08/2011 09/09/2011 Discont inued PO, Drug form: TAB, Daily, Start date: 09/08/11 9:00:00, Duration: 30 day, Stop date: 10/07/11 9:00:00 Protonix 40 mg, 1 tab, Route: 09/08/2011 09/09/2011 Discont inued PO, Drug form: ECTAB, Before Dinner, Start date: 09/08/11 16:30:00, Duration: 30 day, Stop date: 10/07/11 16:30:00 Sodium Chloride 0.9% IV 250 mL, Route: IVPB, 09/07/2011 2 Discontinued Start date: 09/07/11 9:12:00, Duration: 30 day, Stop date: 10/07/11 9:11:00, PRN Line Flush Haldol 5 mg, 1 mL, Route: IM, 09/07/2011 09/08/2011 Compl eted Drug form: INJ, ONCE, Start date: 09/07/11 [...] DegF [96.4-99.1 DegF] (09/09/2011 15:09:00) (09/09/2011 14:38:00) ( 12:19:00) Systolic Blood Pressure 144 mmHg 140 mmHg 140 mmHg [90-140 mmHg] *HI* (09/09/2011 14:38:00) ( 2 12:19:00) (09/09/2011 15:09:00) Diastolic Blood Pressure 91 mmHg 99 mmHg 99 mmHg [60-90 mmHg] *HI* *HI* *HI* (09/09/2011 15:09:00) (09/09/2011 14:38:00) ( 12:19:00) Respiratory Rate [14-20 18 BRMIN 18 BRMIN 18 BRMIN BRMIN] (09/09/2011 15:09:00) (09/09/2011 14:38:00) ( 12:19:00) Peripheral Pulse Rate 64 bpm 68 bpm 68 bpm [60-100 bpm] (09/09/2011 15:09:00) (09/09/2011 14:38:00) ( 12:19:00) Weight 100.000 kg (09/07/2011 08:27:00) Results BEDSIDE GLUCOSE TESTING Most recent to oldest 1 2 3 [Reference Range]: Gluc POC Lifscn [70-99 101 mg/dL 1 98 mg/dL 2 90 mg/dL 3 mg/dL] *HI* (09/08/2011 20:43:00) ( 2 16:45:00) (09/09/2011 07:50:00) Comment1 Notify RN/MD Notify RN/MD Notify RN/MD *NA* *NA* *NA* (09/09/2011 07:50:00) (09/08/2011 16:45:00) ( 11:56:00) Comment2 Assess Patient Assess Patient Assess Patient *NA* *NA* *NA* (09/08/2011 16:45:00) (09/08/2011 11:56:00) ( 08:13:00) 1Interpretive Data: Upper Reportable Limit: 200 [...] range values reflect the clinical guidelinesof the [place] [employer] Association.5Interpretive Data: Drugs reported as positive [...] metabolites 50 ng/mLMethadone 300 ng/mLUrine alcohol 20 mg/nV7Ieybxcuahcls Data: Negative Range: <0.003%Toxic Range: >0.25%7Interpretive Data: Negative Range: <3 mg/dLToxic Range: >250 mg/dLHEMATOLOGY Most recent to oldest [Reference Range]: 1 [...]
--- OUTSIDE RECORDS SUMMARY | 2019-08-23 12:59 | XMS REPORT | CCD ---
:1970 Author Organization [facility] Care Team Providers Name Role Phone Harris Preston Referring Provider Allergies, Adverse Reactions, Alerts Substance Reaction Status NKDA Active Problem List Condition Effective Dates Status Altered mental status Active Anxiety Active Chest pain Active Nausea Active Pain Active Medications Medication Instructions Start Date End Date Status cefazolin 1 gm, Route: IVPB, Drug 11/25/2011 11/25/2011 Comp leted form: PDR/INJ, PRE OP, Priority: STAT, Start [...] mg, 1 tab, Route: PO, 11/25/2011 11/26/2011 Di scontinued Drug form: TAB, BID, Start date: 11/25/11 17:00:00, Duration: 30 day, Stop date: 12/25/11 9:00:00 lithium 600 mg, 2 tab, Route: PO, 11/25/2011 11/26/2011 Di scontinued Drug form: ERTAB, BID, Start date: 11/25/11 17:00:00, Duration: 30 day, Stop date: 12/25/11 9:00:00 Abilify 2 mg, 1 tab, Route: PO, 11/25/2011 11/26/2011 Disc ontinued Drug form: TAB, Bedtime, Start date: 11/25/11 21:00:00, Duration: 30 day, Stop date: 12/24/11 21:00:00 cefazolin + Sodium 2 gm, Route: IVPB, 11/25/2011 11/26/2011 Com pleted Chloride 0.9% IV 100 mL [id number], Start date: 11/25/11 20:30:00, Duration: 3 doses or times, Stop date: 11/26/11 12:30:00 aspirin 81 mg tablet, 81 mg, 1 tab, Route: PO, 11/26/2011 012 Discontinued enteric coated Drug form: ECTAB, Daily, Start date: 11/26/11 9:00:00, Duration: 30 day, Stop date: 12/25/11 9:00:00 Klonopin 2 mg, 2 tab, Route: PO, 11/25/2011 11/26/2011 Disc ontinued Drug form: TAB, BID, PRN Anxiety, Start date: 11/25/11 14:09:00, Duration: 30 day, Stop date: 12/25/11 14:08:00 OxyContin 20 mg, 1 tab, Route: PO, 11/25/2011 11/26/2011 Dis continued Drug form: ERTAB, Q12H, Start date: 11/25/11 21:00:00, Duration: 30 day, Stop date: 12/25/11 9:00:00 Nexium 40 mg, Route: PO, Daily, 11/26/2011 11/25/2011 Del eted Start date: 11/26/11 9:00:00, Duration: 30 day, Stop date: 12/25/11 9:00:00 acetaminophen-oxycodone 2 tab, Route: PO, Drug 11/25/2011 012 Discontinued 325 mg-5 mg oral tablet Form: TAB, Q4H, PRN Pain Score 4-6, Start date: 11/25/11 18:15:00, Duration: 30 day, Stop date: 12/25/11 18:14:00 amitriptyline 50 mg, 1 tab, Route: PO, 11/25/2011 11/26/2011 Di scontinued Drug form: TAB, Bedtime, Start date: 11/25/11 21:00:00, Duration: 30 day, Stop date: 12/24/11 21:00:00 Dulcolax Laxative 10 mg, 2 tab, Route: PO, 11/25/2011 11/26/2011 Discontinued Drug form: ECTAB, Daily, PRN Constipation, Start date: 11/25/11 14:12:00, Duration: 30 day, Stop date: 12/25/11 14:11:00 dexamethasone 4 mg, 1 mL, Route: IV, 11/25/2011 11/26/2011 Comp leted Drug form: INJ, Q6H, Start date: 11/25/11 18:00:00, Duration: 1 day, Stop date: 11/26/11 12:00:00 Cepacol Lozenge 1 lozenge, Route: MUCOUS 11/25/2011 11/26/2011 Discontinued MEM, Q2H, Drug form: CON PRN Sore Throat, Start date: 11/25/11 14:12:00, Duration: 30 day, Stop date: 12/25/11 14:11:00 Colace 100 mg oral 100 mg, 1 cap, Route: PO, 11/25/2011 2 Discontinued capsule Drug form: CAP, BID, Start date: 11/25/11 17:00:00, Duration: 30 day, Stop date: 12/25/11 9:00:00 Flexeril 5 mg, 0.5 tab, Route: PO, 11/25/2011 11/26/2011 Di scontinued Drug form: TAB, TID, PRN Spasm, Start date: 11/25/11 14:14:00, Duration: 30 day, Stop date: 12/25/11 14:13:00 ondansetron 4 mg, 2 mL, Route: IVP, 11/25/2011 11/25/2011 Disc ontinued Drug form: INJ, ONCE, PRN Nausea & Vomiting, Start date: 11/25/11 14:55:00 hydromorphone 0.5 mg, 0.25 mL, Route: 11/25/2011 11/25/2011 Com pleted IVP, Drug form: INJ, Q5Min, PRN Pain Score 4-6, Start date: 11/25/11 14:55:00, Duration: 5 doses or times, Stop date: 11/26/11 0:00:00 naloxone 0.04 mg, 0.1 mL, Route: 11/25/2011 11/25/2011 Disc ontinued IVP, Drug form: INJ, Q2MIN, PRN Narcotic Reversal, Start date: 11/25/11 14:55:00, Duration: 8 doses or times, Stop date: 11/26/11 0:00:00 flumazenil 0.2 mg, 2 mL, Route: IVP, 11/25/2011 11/25/2011 Di scontinued Drug form: INJ, PRN, PRN Benzodiazepine Reversal, Initial dose, Start date: 11/25/11 14:55:00, Duration: 30 day, Stop date: 12/25/11 14:54:00 Protonix 40 mg, 1 tab, Route: PO, 11/25/2011 11/26/2011 Dis continued Drug form: ECTAB, Before Dinner, Start date: [...] mg, 2 mL, Route: IV, 11/25/2011 11/26/2011 Disco ntinued Drug form: INJ, Q6H, PRN as needed for nausea/vomiting, Start date: 11/25/11 14:14:00, Duration: 30 day, Stop date: 12/25/11 14:13:00 normal saline 0.9% IV 1,000 mL, Rate: 75 ml/hr, 11/25/20112011 Discontinued 1,000 mL Infuse over: 13.3 hr, Route: IV, Dosing Weight 115.909 kg, Total Volume: 1,000, Start date: 11/25/11 14:11:00, Duration: 30 day, Stop date: 12/25/11 14:10:00 Percocet 10/325 oral 1 to 2 tabs, PO, 11/23/2011 11/26/2011 Ord ered tablet 4-6x/Day, PRN, 20 tab, Substitution Allowed, Soft Stop Vital Signs Most recent to oldest 1 2 3 [Reference Range]: Height 185.42 cm 185.42 cm 185.42 cm (11/25/2011 09:39:00) (11/24/2011 09:26:00) (11/2011 07:28:00) Temperature Oral 97.4 DegF 97.1 DegF 97.6 DegF [96.4-99.1 DegF] (11/26/2011 16:00:00) (11/26/2011 11:18:00) ( 07:26:00) Systolic Blood Pressure 123 mmHg 118 mmHg 115 mmHg [90-140 mmHg] (11/26/2011 16:00:00) (11/26/2011 11:18:00) (01/2012 07:26:00) Diastolic Blood Pressure 71 mmHg 74 mmHg 73 mmHg [60-90 mmHg] (11/26/2011 16:00:00) (11/26/2011 11:18:00) (01/2012 07:26:00) Respiratory Rate [14-20 18 BRMIN 18 BRMIN 18 BRMIN BRMIN] (11/26/2011 16:00:00) (11/26/2011 11:18:00) (01/2012 07:26:00) Peripheral Pulse Rate 85 bpm 90 bpm 80 bpm [60-100 bpm] (11/26/2011 16:00:00) (11/26/2011 11:18:00) (01/2012 07:26:00) Weight 115.909 kg 115.909 kg 115.909 kg (11/25/2011 09:39:00) (11/24/2011 09:26:00) (11/2011 07:28:00) Results BLOOD BANK RESULTS Most recent [...] values reflect the clinical guidelines of the [place] [employer].HEMATOLOGY Most recent to oldest [Reference [...] USED ONLY FOR PATIENTS ON STABLE ANTICOAGULANT THERAPY.3 Interpretive Data: Heparin Therapeutic Range: 57 - 92 Seconds
--- OUTSIDE RECORDS SUMMARY | 2019-08-23 12:59 | XMS REPORT ---
:1970 Author Organization [facility] t Address [address] [place] [address] Care Team Providers Name Role Phone Unavailable Unavailable Unavailable Problems This patient has no known problems. Allergies, Adverse Reactions, Alerts This patient has no known allergies or adverse reactions. Medications This patient has no known medications. Results Test Description Test Time Test Comments Text Results Atomic Results Result Comments CHEST 1 VIEW PORTABLE 2018-02-26 08:14:00 [id number] [place], [place] [id number] IMAGING REPO RTPatient Name: BRITTON KOHLIDate of Service: [id number]: [id number] Sex: M Order #: [id number] [facility] X-Ray Number: [id number] al Record Number: [id number] Hospit al Number: [id number] Physician: Dee RAMIREZ Physician: Dov FARAH.02/25/2018 10:43 PMHistory: Chest pain.Technique: Single AP chest projection.Findings: Single chest projection demonstrates norm al heart size and clearlungs. No infi ltrates or abnormalities are depicted. The osseous structuresappear intact.Impr ession:No acute-appearing cardiopulmon rosa elena abnormalities.Electronically Signed By: Quinton Dupree M.D., 02/2018 8:11 AMLegally authenticated by Blanac Lance 2018-02-26 08:11:5 3 TROPONIN ER 2018-02-26 01:50:00 Test Item Value Reference Range Comments TROPER (test code = TROPER) 0.01 ng/ml 0.0-0.08 INTERPRETIVE DATA A POC TR OPONIN OF </= 0.08 NG/ML IS CONSIDE RED NEGATIVE PROBRAIN NATRIURETIC [id number] 23:15:00 Test Item Value Reference Range Comments NT-PROBNP (test code = 32 pg/mL Exclusion for heart failure for PROBNP) patients of all ages is 300 pg/mL. Inclusion for heart failure for ashli ents age <50 is 450 pg/mL; for p atients age 50-75 is 900 pg/ mL; for patients age >75 is 1800 pg/mL. [id number] 23:15:00 Test Item Value Reference Range Comments %CKMB (test code = %MB) 1.0 % CKMB (test code = CKMB) 0.5 NG/ML 0.22-2.4 CK (test code = CK) 48 U/L 55-170 CKINTERP (test code = CKINTERP) NEGATIVE Negative BMP, BASIC METABOLIC [id number] 23:13:00 Test Item Value Reference Range Comments SODIUM (test code = NA) 139 MMOL/L 137-145 K+ (test code = KSERUM) 4.1 MMOL/L 3.5-5.1 PLE ASE NOTE NEW REFERENCE RANGE( S) IN EFFECT EFFE CTIVE 11/20/2009 - NEW A NALYZER (VITROS 5600) CHLORIDE (test code = CL) 105 MMOL/L 98-107 CO2 (test code = CO2) 29 MMOL/L 22-30 BUN (test code = BUN) 13 MG/DL 9-20 CREA (test code = CREA) 0.8 MG/DL 0.8-1.5 GLUCOSE (test code = 61 MG/DL 70-99 Fasting g lucose normal GLUCOSE) <100 MG/DL- [employer] recommendation CALCIUM (test code = 9.4 MG/DL 8.4-10.2 CABLOOD) GFR (test code = GFR) 111 mL/min/1.73m2 A GFR of >90 mL/min/1.73m2 is considered no rmal. [id number] 23:11:00 Test Item Value Reference Range Comments WBC (test code = WBC) 5.7 K/UL 3.5-10.9 RBC (test code = RBC) 4.14 M/UL 4.3-5.7 HGB (test code = HGB) 13.2 G/DL 13.0-17.9 HCT (test code = HCT) 36.8 % 38-52 MCV (test code = MCV) 88.9 FL 80-98 MCH (test code = MCH) 31.9 PG 28-32 MCHC (test code = MCHC) 35.9 G/DL 32.5-36.5 RDW (test code = RDW) 12.4 % 11.5-14.5 PLT (test code = PLT) 171 K/UL 150-450 MPV (test code = MPV) 10.9 FL 7.4-10.4 MANDIFF (test code = NO MANDIFF) SCAN (test code = SCAN) NO NEUT% (test code = NEUT%) 54.7 % 40-75 LYMPH% (test code = LYMPH%) 33.3 % 24-44 MONO% (test code = MONO%) 9.6 % 0-13 EOS% (test code = EOS%) 1.7 % 0-4 BASO % (test code = BASO%) 0.5 % 0-2 IG (test code = IG) 0 % 0-1 IG% (test code = IG%) 0.2 % 0-1 IG% = [place] myelocytes, Myelocytes, and Promyelocytes. (Immature neutro phils not including "bands ".) > 3% IG indicates risk o f sepsis NRBC% (test code = NRBC%) 0 /100 WBC ABS NEUT (test code = NEUT) 3.1 K/UL 1.2-7.2 PROTHROMBIN TIME WITH [id number] 23:07:00 Test Item Value Reference Range Comments PROTHROMBIN TIME (test code = 14.4 SECONDS 12.0-14.6 IN R Usual Range = 2 to 3 PT) for prevention o f deep vein thrombosis (DVT) INR (test code = INR) 1.1 [id number] 23:07:00 Test Item Value Reference Range Comments PTT (test code = PTT) 27.5 SECONDS 24.4-36.3 HEPARIN TH ERAPEUTIC RANGE 57-92 SECONDS TROPONIN [id number] 22:41:00 Test Item Value Reference Range Comments TROPER (test code = TROPER) 0.00 ng/ml 0.0-0.08 INTERPRETIVE DATA A POC TROPONIN OF </= 0.08 NG/ML IS CONSIDERED NEGAT ROMEL
[2019-08-23 14:52] LABS: Absolute Lymphocytes (CBC) 1.6 K/uL (0.7-4.9); Basophils % 1.1 % (0-1.3); Hematocrit 35.9 % (39.6-49.0); Lymphocytes % 33.4 % (15.3-44.8); MPV 9.1 fL (7.6-11.3); RBC Red Blood Cell Count 4.26 M/uL (4.33-5.43)
[2019-08-23 15:16] LABS: ALT/SGPT 24 U/L (12-78); AST/SGOT 21 U/L (15-37); Albumin 3.7 g/dL (3.4-5.0); Alkaline Phosphatase 87 U/L (45-117); BUN Blood Urea Nitrogen 10 mg/dL (7-18); Bicarbonate 27 mmol/L (21-32); Bilirubin Direct 0.2 mg/dL (0-0.2); Bilirubin Total 0.6 mg/dL (0.2-1.0); Glucose Level 100 mg/dL (74-106); Lipase 232 U/L (73-393); Potassium 4.2 mmol/L (3.5-5.1); Protein, Total 6.7 g/dL (6.4-8.2); Sodium Level 141 mmol/L (136-145)
[2019-08-23] MEDS ORDERED: ONDANSETRON 4 MG/2 ML VIAL ONE (15:20)
[2019-08-23] MEDS ORDERED: MORPHINE 4 MG/ML SYR ONE (15:20)
--- NOTE | 2019-08-23 16:06 | RAD REPORT ---
EXAM DESCRIPTION: US - Abdomen Exam Limited - 08/23/2019 3:52 pm CLINICAL HISTORY: r/o GB;Abd pain COMPARISON: Abdomen Pelvis W Contrast dated 10/05/2015 FINDINGS: No gallstones, sludge or other abnormalities within the gallbladder lumen. There is no wal l thickening or pericholecystic fluid. No common duct stone or biliary tree dilatation identified. IMPRESSION: Normal gallbladder and biliary tree ultrasound.
[2019-08-23] MEDS ORDERED: LIDOCAINE VISCOUS 2% SOLN 15 ML UDC ONE (16:22)
[2019-08-23] MEDS ORDERED: MAGNE/ALUM HYDROXD 30 ML UCUP ONE (16:22)
--- NOTE | 2019-08-23 17:06 | RAD REPORT ---
EXAM DESCRIPTION: CT - Abdomen Pelvis W Contrast - 08/23/2019 4:57 pm CLINICAL HISTORY: ABD PAIN COMPARISON: Abdomen Pelvis W Contrast dated 10/05/2015 TECHNIQUE: Biphasic, helical CT imaging of the abdomen and pelvis was performed following 100 ml non -ionic IV contrast. Oral contrast was given. All CT scans are performed using dose optimization technique as appropriate and may include automated exposure control or mA/KV adjustment according to patient size. FINDINGS: No suspicious findings in the lung bases. The liver, spleen, and pancreas show no suspicious findings. Gallbladder and biliary tree are also wi thout suspicious finding. Symmetric renal function is seen with no hydronephrosis or suspicious renal mass. No pyelonephritis o r acute parenchymal process. No bladder abnormalities. No adrenal abnormalities. No dilated bowel loops or bowel wall thickening. No suspicion for appendicitis. No free air, free flu id or inflammatory stranding. No hernia, mass or bulky lymphadenopathy. A few small 1 centimeter or less mesenteric lymph nodes are present. No suspicious bony findings. IMPRESSION: Contrast enhanced CT abdomen and pelvis showing no significant or suspicious finding.
--- NOTE | 2019-08-23 17:51 | EDPHYS ---
Physician Documentation [facility] Name: Benigno Mireles Age: 49 yrs Sex: Male : 1970 Arrival Date: 08/23/2019 Time: 12:52 Bed 25 Private MD: ED Physician Lionel Parr HPI: 08/22 16:20 This 49 yrs old Male presents to ER via Ambulatory with complaints of jr8 Abdominal Pain. 16:20 The patient presents with abdominal pain in the upper abdomen. Onset: The jr8 symptoms/episode began/occurred acutely, today. The symptoms radiate to the right shoulder. Associated signs and symptoms: Pertinent positives: nausea. The symptoms are described as shooting, stabbing. Modifying factors: The symptoms are alleviated by nothing, the symptoms are aggravated by nothing. Severity of pain: At its worst the pain was moderate in the emergency department the pain is unchanged. The patient has not experienced similar symptoms in the past. The patient has not recently seen a physician. Historical: - Allergies: 13:24 NKA; iw - Home Meds: 13:24 Omeprazole Oral [Active]; Carafate Oral [Active]; Flovent Inhl [Active]; iw - PMHx: 13:24 Arthritis; Bipolar disorder; CAD; CHF; GERD; Hypertension; iw - PSHx: 13:24 Gastric Bypass; Tonsillectomy; Appendectomy; Heart stents; sphincterotomy; neck; iw - Immunization history:: Adult Immunizations not up to date. - Social history:: Smoking status: Patient reports the use of cigarette tobacco products, smokes one pack cigarettes per day. ROS: 16:20 Eyes: Negative for injury, pain, redness, and discharge, ENT: Negative for injury, jr8 pain, and discharge, Neck: Negative for injury, pain, and swelling, Cardiovascular: Negative for chest pain, palpitations, and edema, Respiratory: Negative for shortness of breath, cough, wheezing, and pleuritic chest pain, Back: Negative for injury and pain, MS/Extremity: Negative for injury and deformity, Skin: Negative for injury, rash, and discoloration, Neuro: Negative for headache, weakness, numbness, tingling, and seizure. 16:20 Abdomen/GI: Positive for abdominal pain, Negative for vomiting, diarrhea, constipation, abdominal cramps, abdominal distension. Exam: 16:20 Eyes: Pupils equal round and reactive to light, extra-ocular motions intact. Lids and jr8 lashes normal. Conjunctiva and sclera are non-icteric and not injected. Cornea within normal limits. Periorbital areas with no swelling, redness, or edema. ENT: Nares patent. No nasal discharge, no septal abnormalities noted. Tympanic membranes are normal and external auditory canals are clear. Oropharynx with no redness, swelling, or masses, exudates, or evidence of obstruction, uvula midline. Mucous membranes moist. Neck: Trachea midline, no thyromegaly or masses palpated, and no cervical lymphadenopathy. Supple, full range of motion without nuchal rigidity, or vertebral point tenderness. No Meningismus. Cardiovascular: Regular rate and rhythm with a normal S1 and S2. No gallops, murmurs, or rubs. Normal PMI, no JVD. No pulse deficits. Respiratory: Lungs have equal breath sounds bilaterally, clear to auscultation and percussion. No rales, rhonchi or wheezes noted. No increased work of breathing, no retractions or nasal flaring. Back: No spinal tenderness. No costovertebral tenderness. Full range of motion. Skin: Warm, dry with normal turgor. Normal color with no rashes, no lesions, and no evidence of cellulitis. MS/ Extremity: Pulses equal, no cyanosis. Neurovascular intact. Full, normal range of motion. Neuro: Awake and alert, GCS 15, oriented to person, place, time, and situation. Cranial nerves II-XII grossly intact. Motor strength 5/5 in all extremities. Sensory grossly intact. Cerebellar exam normal. Normal gait. 16:20 Abdomen/GI: Inspection: abdomen appears normal, Bowel sounds: active, all quadrants, Palpation: soft, in all quadrants, moderate abdominal tenderness, in the epigastric area, mass, is not appreciated, rebound tenderness, is not appreciated, no appreciated organomegaly, Indicators: McBurney's point is not tender, Gomez's sign is negative, Rovsing's sign is negative, Liver: tenderness, is not appreciated. 16:40 ECG was reviewed by the Attending Physician. cp Vital Signs: 13:22 BP 140 / 86; Pulse 82; Resp 16; Temp 98.6; Pulse Ox 100% on R/A; Weight 81.65 kg; iw Height 6 ft. 1 in. (185.42 cm); Pain 10/10; 14:20 BP 124 / 94; Pulse 62; Resp 18 S; Pulse Ox 100% on R/A; ca1 15:30 BP 114 / 71; Pulse 58; Resp 16 S; Pulse Ox 100% on R/A; ca1 16:30 BP 118 / 75; Pulse 56; Resp 15 S; Pulse Ox 100% on R/A; ca1 17:11 BP 130 / 75; Pulse 82; Resp 16 S; Pulse Ox 95% on R/A; ca1 18:10 BP 118 / 75; Pulse 56; Resp 15 S; Pulse Ox 100% on R/A; ca1 13:22 Body Mass Index 23.75 (81.65 kg, 185.42 cm) iw MDM: 14:32 Patient medically screened. [facility] 17:50 Data reviewed: vital signs, nurses notes, lab test result(s), EKG, radiologic studies, cp CT scan, and as a result, I will discharge patient. 17:50 Differential diagnosis: cholecystitis, Cholelithiasis, gastritis, GI Bleed, cp non-specific abd pain, pancreatitis, Peptic Ulcer Disease, Perf. Duodenal Ulcer, Perf. Gastric Ulcer. Counseling: I had a detailed discussion with the patient and/or guardian regarding: the historical points, exam findings, and any diagnostic results supporting the discharge/admit diagnosis, lab results, radiology results, the need for outpatient follow up, a general surgeon, to return to the emergency department if symptoms worsen or persist or if there are any questions or concerns that arise at home, smoking cessation. Response to treatment: the patient's symptoms have markedly improved after treatment. Special discussion: Based on the patient's Hx, exam, and Dx evaluation, there is no indication for emergent surgery or inpatient Tx. It is understood by the patient/guardian that if the Sx's persist or worsen they need to return immediately for re-evaluation. 08/22 14:32 Order name: Basic Metabolic Panel; Complete Time: 16:08 8 08/22 17:40 Interpretation: Normal except: CL 109; CA 8.2. cp 08/22 14:32 Order name: CBC with Diff; Complete Time: 15:06 8 08/22 17:41 Interpretation: Normal except: RBC 4.26; HGB 12.7; HCT 35.9; MCV 84.5. cp 08/22 14:32 Order name: Creatinine for Radiology; Complete Time: 16:08 08/22 14:32 Order name: Hepatic Function; Complete Time: 16:08 08/22 14:32 Order name: Lipase; Complete Time: 16:08 08/22 15:06 Order name: US Abdomen Limited; Complete Time: 16:13 08/22 14:32 Order name: IV Saline Lock; Complete Time: 14:39 08/22 14:32 Order name: Labs collected and sent; Complete Time: 14:39 08/22 16:13 Order name: CT Abd/Pelvis - IV Contrast Only; Complete Time: 17:11 08/22 16:20 Order name: EKG - Nurse/Tech; Complete Time: 16:30 08/22 17:12 Order name: PO challenge; Complete Time: 17:14 cp EC:40 Rate is 57 beats/min. Rhythm is regular. [place] interval is normal. QRS interval is normal. cp QT interval is normal. Interpreted by me. Reviewed by me. Administered Medications: 15:13 Drug: Zofran (Ondansetron) 4 mg Route: IVP; Site: left antecubital; ca1 15:52 Follow up: Response: No adverse reaction; Nausea is decreased iw 15:17 Drug: morphine 4 mg {Note: RASS - 0.} Route: IVP; Site: left antecubital; ca1 15:52 Follow up: Response: No adverse reaction; Pain is decreased; RASS: Alert and Calm (0) iw 16:18 Drug: GI Cocktail without - (Maalox Suspension 30 ml, Lidocaine Liquid 2 % 15 ca1 ml) Route: PO; 17:15 Follow up: Response: No adverse reaction; Pain is decreased ca1 18:07 Drug: Bentyl 20 mg Route: PO; ca1 18:17 Follow up: Response: Medication administered at discharge. ca1 Disposition: 08/23 01:30 Co-signature as Attending Physician, Lionel Parr MD I agree with the assessment and kdr plan of care. Disposition: 08/23/19 17:51 Discharged to Home. Impression: Upper abdominal pain, unspecified. - Condition is Stable. - Discharge Instructions: Abdominal Pain, Adult, Gastritis, Adult. - Prescriptions for Bentyl 20 mg Oral Tablet - take 2 tablet by ORAL route every 6 hours As needed; 40 tablet. promethazine 25 mg Oral Tablet - take 1 tablet by ORAL route every 6 hours As needed; 20 tablet. - Medication Reconciliation Form, Thank You Letter, Antibiotic Education, Prescription Opioid Use form. - Follow up: Roberto Richardson MD; When: 1 - 2 days; Reason: Recheck today's complaints. - Problem is new. - Symptoms have improved. Signatures: Dispatcher [employer] EDVT Lionel Parr MD MD kdr Aletha Armenta RN RN iw Tyler Young PA PA jr8 Kevin Dos Santos PA PA cp Zamzam Brown RN RN ca1 Corrections: (The following items were deleted from the chart) 08/22 17:40 17:40 Normal except: CL 109. cp cp 18:19 17:51 08/23/2019 17:51 Discharged to Home. Impression: Upper abdominal pain, ca1 unspecified. Condition is Stable. Forms are Medication Reconciliation Form, Thank You Letter, Antibiotic Education, Prescription Opioid Use. Follow up: Roberto Richardson; When: 1 - 2 days; Reason: Recheck today's complaints. Problem is new. Symptoms have improved. cp
--- NOTE | 2019-08-23 17:51 | ER ---
Nurse's Notes [facility] Name: Benigno Mireles Age: 49 yrs Sex: Male : 1970 Arrival Date: 08/23/2019 Time: 12:52 Bed 25 Private MD: Diagnosis: Upper abdominal pain, unspecified Presentation: 08/22 13:22 Chief complaint: Patient states: abd pain since 10 am , denies n/v/d. Coronavirus iw screen: Proceed with normal triage. Patient denies a cough. Patient denies shortness of breath or difficulty breathing. Patient denies measured and/or subjective temperature greater than 100.4F prior to today's visit. Patient denies travel on a cruise ship or to a country the [facility] currently lists as an affected area. Ebola Screen: Patient negative for fever greater than or equal to 101.5 degrees Fahrenheit, and additional compatible Ebola Virus Disease symptoms Patient denies exposure to infectious person. Patient denies travel to an Ebola-affected area in the 21 days before illness onset. No symptoms or risks identified at this time. Initial Sepsis Screen: Does the patient meet any 2 criteria? No. Patient's initial sepsis screen is negative. Does the patient have a suspected source of infection? No. Patient's initial sepsis screen is negative. Risk Assessment: Do you want to hurt yourself or someone else? Patient reports no desire to harm self or others. Onset of symptoms was August 23, 2019. 13:22 Method Of Arrival: Ambulatory iw 13:22 Acuity: ALISHA 3 iw Historical: - Allergies: 13:24 NKA; iw - Home Meds: 13:24 Omeprazole Oral [Active]; Carafate Oral [Active]; Flovent Inhl [Active]; iw - PMHx: 13:24 Arthritis; Bipolar disorder; CAD; CHF; GERD; Hypertension; iw - PSHx: 13:24 Gastric Bypass; Tonsillectomy; Appendectomy; Heart stents; sphincterotomy; neck; iw - Immunization history:: Adult Immunizations not up to date. - Social history:: Smoking status: Patient reports the use of cigarette tobacco products, smokes one pack cigarettes per day. Screenin:20 Abuse screen: Denies threats or abuse. Denies injuries from another. Nutritional ca1 screening: No deficits noted. Tuberculosis screening: No symptoms or risk factors identified. Fall Risk IV access (20 points). Assessment: 14:20 General: Appears in no apparent distress. comfortable, Behavior is calm, cooperative, ca1 appropriate for age. Pain: Complains of pain in epigastric area Pain does not radiate. Pain currently is 10 out of 10 on a pain scale. Quality of pain is described as stabbing, Pain began 4 hours ago. Is continuous, Aggravated by repositioning. Neuro: Level of Consciousness is awake, alert, obeys commands, Oriented to person, place, time, situation, Appropriate for age. Cardiovascular: Heart tones S1 S2 present Capillary refill < 3 seconds Patient's skin is warm and dry. Respiratory: Airway is patent Respiratory effort is even, unlabored, Respiratory pattern is regular, symmetrical, Breath sounds are clear bilaterally. GI: Abdomen is flat, non-distended, Bowel sounds present X 4 quads. Abd is soft X 4 quads Abdomen is tender to palpation in epigastric area Patient currently denies nausea, vomiting. : No signs and/or symptoms were reported regarding the genitourinary system. EENT: No signs and/or symptoms were reported regarding the EENT system. Derm: Skin is intact, is healthy with good turgor, Skin is pink, warm \T\ dry. Musculoskeletal: Circulation, motion, and sensation intact. Capillary refill < 3 seconds. 15:30 Reassessment: Patient appears in no apparent distress at this time. Patient and/or ca1 family updated on plan of care and expected duration. Pain level reassessed. Patient is alert, oriented x 3, equal unlabored respirations, skin warm/dry/pink. US at bedside. 16:30 Reassessment: Patient appears in no apparent distress at this time. Patient and/or ca1 family updated on plan of care and expected duration. Pain level reassessed. Patient is alert, oriented x 3, equal unlabored respirations, skin warm/dry/pink. 16:51 Reassessment: PT to CT. ca1 17:11 Reassessment: Patient appears in no apparent distress at this time. Patient is alert, ca1 oriented x 3, equal unlabored respirations, skin warm/dry/pink. 18:10 Reassessment: Patient appears in no apparent distress at this time. Patient is alert, ca1 oriented x 3, equal unlabored respirations, skin warm/dry/pink. Vital Signs: 13:22 BP 140 / 86; Pulse 82; Resp 16; Temp 98.6; Pulse Ox 100% on R/A; Weight 81.65 kg; iw Height 6 ft. 1 in. (185.42 cm); Pain 10/10; 14:20 BP 124 / 94; Pulse 62; Resp 18 S; Pulse Ox 100% on R/A; ca1 15:30 BP 114 / 71; Pulse 58; Resp 16 S; Pulse Ox 100% on R/A; ca1 16:30 BP 118 / 75; Pulse 56; Resp 15 S; Pulse Ox 100% on R/A; ca1 17:11 BP 130 / 75; Pulse 82; Resp 16 S; Pulse Ox 95% on R/A; ca1 18:10 BP 118 / 75; Pulse 56; Resp 15 S; Pulse Ox 100% on R/A; ca1 13:22 Body Mass Index 23.75 (81.65 kg, 185.42 cm) iw ED Course: 12:52 Patient arrived in ED. ag5 13:23 Triage completed. iw 13:24 Arm band placed on. iw 14:10 Zamzam Brown, RN is Primary Nurse. ca1 14:20 Patient has correct armband on for positive identification. Bed in low position. Call ca1 light in reach. Side rails up X 1. Pulse ox on. NIBP on. Warm blanket given. 14:32 Tyler Young PA is PHCP. jr8 14:32 Lionel Parr MD is Attending Physician. jr8 14:37 No provider procedures requiring assistance completed. Initial lab(s) drawn, by vt, ca1 sent to lab. Inserted saline lock: 20 gauge in left antecubital area, using aseptic technique. Blood collected. 15:52 US Abdomen Limited In Process Unspecified. EDMS 16:37 PHCP role handed off by Tyler Young PA cp 16:37 Kevin Dos Santos PA is PHCP. cp 16:57 CT Abd/Pelvis - IV Contrast Only In Process Unspecified. EDMS 17:50 Roberto Richardson MD is Referral Physician. cp 18:18 IV discontinued, intact, bleeding controlled, No redness/swelling at site. Pressure ca1 dressing applied. Administered Medications: 15:13 Drug: Zofran (Ondansetron) 4 mg Route: IVP; Site: left antecubital; ca1 15:52 Follow up: Response: No adverse reaction; Nausea is decreased iw 15:17 Drug: morphine 4 mg {Note: RASS - 0.} Route: IVP; Site: left antecubital; ca1 15:52 Follow up: Response: No adverse reaction; Pain is decreased; RASS: Alert and Calm (0) iw 16:18 Drug: GI Cocktail without - (Maalox Suspension 30 ml, Lidocaine Liquid 2 % 15 ca1 ml) Route: PO; 17:15 Follow up: Response: No adverse reaction; Pain is decreased ca1 18:07 Drug: Bentyl 20 mg Route: PO; ca1 18:17 Follow up: Response: Medication administered at discharge. ca1 Outcome: 17:51 Discharge ordered by MD. cp 18:18 Discharged to home ambulatory. ca1 18:18 Condition: stable 18:18 Discharge instructions given to patient, Instructed on discharge instructions, follow up and referral plans. medication usage, Demonstrated understanding of instructions, follow-up care, medications, Prescriptions given X 2. 18:19 Patient left the ED. ca1 Signatures: Dispatcher [employer] EDAletha Ryan, RN JOSEFA Tyler Young PA PA jr8 Kevin Dos Santos PA PA cp Acob, Cheryl, RN RN ca1 Liz Gauthier ag5
[2019-08-23] MEDS ORDERED: DICYCLOMINE HCL 10 MG CAP ONE (18:16)
[2019-08-24 06:00] VITALS: TEMP 98.6
[2019-08-24 06:06] VITALS: BP 118/75; O2SAT 100
--- NOTE | 2019-08-24 17:06 | EKG ---
Test Date: 2019-08-23 Test Time: 16:29:58 Assistant Manager: LOWELL MEASUREMENT RESULTS: Intervals: Rate: 57 WV: 138 QRSD: 94 QT: 416 QTc: 404 [place]: P: 33 WV: 138 QRS: 32 T: 28 INTERPRETIVE STATEMENTS: Sinus bradycardia Otherwise normal ECG Compared to ECG 01/03/2019 09:47:35 Sinus rhythm no longer present Electronically Signed On 08-24-19 17:04:43 CDT by Karri Paul
== END 2019-08-23 18:19 | disposition home or self-care (01) ==
LOC: ER 12:51
DX: R10.10 Upper abdominal pain, unspecified (principal); F17.210 Nicotine dependence, cigarettes, uncomplicated; I10 Essential (primary) hypertension; F31.9 Bipolar disorder, unspecified; Z95.818 Presence of other cardiac implants and grafts; Z98.84 Bariatric surgery status
CPT/HCPCS: 93005; 85025; 80048; 36415; 80076; 83690; 74177; 76705; 96375; 96374; 99284; Q9967; J2405

== ENCOUNTER 2019-12-29 22:35 | Emergency (ER) | payer OTHER ==
--- OUTSIDE RECORDS SUMMARY | 2019-12-29 22:42 | XMS REPORT | Continuity of Care Document ---
:1970 Author Organization [facility] Reebonz Information LookAcross Care Team Providers Name [facility] Information Harmony Unavailable Un available Problems Problem Status Onset Classification Date Comments Sourc e Date Reported GI BLEED, VOMITING Active [facility] BLOOD AND IN STOOL 017 [facility] MORBID OBESITY Active [facility] [place] 014 [facility] CERVICAL SPONDYLOSIS Active [address] HYPOKALEMIA, GENERAL Active WEAKNESS 012 [place] OTHER Active [address] CHEST PAIN R/O ACS Active [address] DYSPNEA, AMS Active [address] Anxiety (finding) Active Problem 09/21/2016 [facility] Coronary Active Problem 09/21/2016 [facility] arteriosclerosis Med ical (disorder) [place] Congestive heart Active Problem 09/21/2016 [facility] failure (disorder) [facility] Chronic obstructive Active Problem 09/21/2016 [facility] lung disease Medical (disorder) [place] Hypertensive disorder, Active Problem 09/21/2016 [facility] systemic arterial Me dical (disorder) [place] Morbid obesity Active Problem 09/21/2016 [facility] [place] (disorder) [facility] Schizoaffective Active Problem 09/21/2016 [facility] disorder (disorder) Medical [place] Altered mental status Active Problem 11/28/2011 [facility] Anxiety Active Problem 11/28/2011 [facility] Chest pain Active Problem 11/28/2011 [facility] Nausea Active Problem 11/28/2011 [facility] Pain Active Problem 11/28/2011 [facility] Altered mental status Active Problem 06/25/2013 [facility] (finding) [facility] Chest pain (finding) Active Problem 06/25/2013 [facility] history of bipolar Resolved Problem 06/25/2013 [facility] disease(Confirmed) [facility] Hypercholesterolemia Active Problem 06/25/2013 [facility] (disorder) [facility] Nausea (finding) Active Problem 06/25/2013 [facility] Pain (finding) Active Problem 06/25/2013 [facility] Reflux (finding) Active Problem 06/25/2013 [facility] Sleep apnea (finding) Active Problem 06/25/2013 [facility] RESPIRATORY ABNORM NEC Active [facility] ALTERED MENTAL STATUS Active [facility] CERVICAL SPONDYLOSIS Active [facility] MORBID OBESITY Active [facility] Medications Medication Details Route Status Patient Ordering Order Source Instructions Provider Date Sucralfate 1000 1 gm = 1 tab, Active 09/18[facility] [place] MG Oral Tablet PO, QID, # 28 2017 Med ical [Carafate] tab, 0 Center Refill(s) Sucralfate 100 1 gm, 1 tab, No Longer 09/17[facility] MG/ML Oral Route: PO, Active 2016 Medical Suspension Drug form: Center [Carafate] TAB, QID, Dosing Weight 81.818, kg, Start date: 09/17/16 18:15:00 CDT, Stop date: 10/17/16 17:00:00 CDT pantoprazole Notes: (Same No Longer [facility] as: Protonix) Active [address] [place] [address] Trazodone 50 mg = 1 Active 09/17[facility] Hydrochloride 50 tab, PO, 2017 Medica l MG Oral Tablet Bedtime, # [address] tab, 1 Refill(s) Sertraline 100 100 mg = 1 Active 09/17[facility] Jason as MG Oral Tablet tab, PO, 2017 Medical [Zoloft] Daily, # 90 Center tab, 0 Refill(s) quetiapine 400 400 mg = 1 Active 09/17[facility] Jason as MG Oral Tablet tab, PO, QPM, 2016 Med ical [Seroquel] 0 Refill(s) [place] Lurasidone 60 mg = 1 Active 09/17[facility] Hydrochloride 60 tab, PO, 2017 Medica l MG Oral Tablet Daily, 0 Center [Latuda] Refill(s) Ondansetron Notes: (Same Inactive [place] as as: Zofran) 2017 [facility] MEDICATION WASTE Product Size: 4 mg Product Wasted: ___ mg Flumazenil Notes: (Same Inactive 09/17/ Jasona s as: 2017 Medical Romazicon) [place] Naloxone Notes: Same Inactive [facility] [place] as Narcan 2017 Medical Center Hydromorphone [place]: [place]: Dilaudid 2017 [facility] Morphine Notes: (Same Inactive [place] as:MORPhine 2017 Medical Sulfate) Center Labetalol 10 mg, 2 mL, Inactive [facility] Route: IVP, 2017 Medical Drug form: Center INJ, Q5Min, Dosing Weight 81.818, kg, PRN Elevated BP, Start date: 09/17/16 10:05:00 CDT, Duration: 5 doses or times, Stop date: 09/18/16 0:00:00 CDT Hydralazine Notes: (Same Inactive [place] as as: 2017 Medical Apresoline) Center Push over 5 minutes lithium Notes: Give No Longer [facility] with food. Active 2017 Medical (Same as: [place] Carbonate) Abilify Notes: Same No Longer [facility] as: Abilify Active 2017 Medical Non-Formulary Center Item Alprazolam 2 MG Notes: With No Longer [facility] Oral Tablet food or milk Active 2017 Medical [Xanax] (Same as: [place] Xanax) Docusate Notes: (Same No Longer [facility] as: Colace) Active 2017 Medical (Do Not Center Crush) Albuterol 0.833 Notes: (Same No Longer H [place] MG/ML / as: Duoneb) Active 2017 Medical Ipratropium Center Darragh 0.167 MG/ML Inhalant Solution [DuoNeb] sodium chloride [...] mg, PO, Active [place] BID, # 30 2016 Medical tab, 0 Center Refill(s) lithium 600 mg 600 mg = 1 Active Jason as oral capsule cap, PO, BID, 2017 Medic al 0 Refill(s) [place] Alprazolam 2 MG 2 mg = 1 tab, Inactive 09/17/ H [place] Oral Tablet PO, BID, 0 2017 Medical [Xanax] Refill(s) [place] aripiprazole 2 2 mg = 1 tab, Inactive [place] MG Oral Tablet PO, Daily, 0 2017 [facility] daryl [Abilify] Refill(s) [place] Sucralfate 100 1 gm = 10 mL, Inactive [place] MG/ML Oral PO, 2017 Medical Suspension QID-Before Center [Carafate] Meals, 0 Refill(s) Acetaminophen Notes: (Same No Longer [place] 325 MG / as: [place] Active 2017 Medical Hydrocodone 325/5) Do [place] Bitartrate 5 MG not exceed Oral Tablet 4gm/day of acetaminophen . Acetaminophen Notes: Do not No Longer [place] exceed 4 Active 2017 Medical gm/day. Center (Same as: Tylenol) Ondansetron Notes: (Same [place] Long[place] as: Zofran) Active 2017 Medical Center MEDICATION WASTE Product Size: 4 mg Product Wasted: 0 mg pantoprazole 40 = 1 Pack, PO, Active [place] MG Granules Daily, # 30 2013 Medical [Protonix] ea, 0 [place] Refill(s) Acetaminophen 20 15 mL, PO, Active [place] MG/ML / Q4H, Pain, # 2013 Medical Hydrocodone 470 mL, 0 Center Bitartrate 0.667 Refill(s) MG/ML Oral Solution Magnesium Oxide 500 mg, Inactive [place] Route: PO, 2013 Medical Drug form: [place] TAB, ONCE, Dosing Weight 139.545, kg, Start [...] Drug Active 2013 Medical Hydrocodone Form: SOLN, [place] Bitartrate 0.667 Dosing Weight MG/ML Oral 139.545, kg, Solution Q4H, Start date: 06/22/13 12:00:00, Duration: 30 day, Stop date: 07/22/13 8:00:00Do not exceed 4gm/day of acetaminophen . (Same as: Zolvit) Zofran 4 mg, 2 mL, No Longer [place] Route: IV, Active 2013 Medical Drug form: Center INJ, Q4H, Dosing Weight 139.545, kg, PRN Nausea, Start date: 06/22/13 9:07:00, Duration: 30 day, Stop date: 07/22/13 9:06:00(Same as: Zofran) Acetaminophen 20 15 mL, Route: No Longer [place] MG/ML / PO, Drug Active 2013 Medical Hydrocodone Form: SOLN, [place] Bitartrate 0.667 Dosing Weight MG/ML Oral 139.545, kg, Solution Q4H, PRN Pain, Start date: 06/22/13 7:52:00, Duration: 30 day, Stop date: 07/22/13 7:51:00Do not exceed 4gm/day of acetaminophen . (Same as: Zolvit) Enoxaparin 30 mg, 0.3 No Longer [place] mL, Route: Active 2013 Medical SUB-Q, Drug Center form: INJ, [id number], Dosing Weight 139.801, kg, Start date: 06/21/13 23:51:00, Duration: 30 day, Stop date: 07/21/13 11:51:00(Same as: Lovenox) Mefoxin 2 gm, Route: Inactive 06/21[facility] [place] IVPB, Drug 2013 Medical form: INJ, Center Q6H, Dosing Weight 139.801, kg, Start date: 06/21/13 15:00:00, Duration: 1 doses or times, Stop date: 06/21/13 15:00:00(Same As: Mefoxin) Naloxone 0.04 mg, 0.1 Inactive [place] mL, Route: 2013 Medical IVP, Drug [...] Romazicon) Labetalol 10 mg, 2 mL, Inactive [place] Route: IVP2013 Medical Drug form: Center INJ, Q5Min, Dosing Weight 139.801, kg, PRN Elevated BP, Start date: 06/21/13 12:20:00, Duration: 5 doses or times, Stop date: 06/22/13 0:00:00 Hydralazine 10 mg, 0.5 Inactive 06/21[facility] [place] mL, Route: 2013 Medical IVP, Drug Center form: INJ, Q20Min, Dosing Weight 139.801, kg, PRN Elevated BP, Start date: 06/21/13 12:20:00, Duration: 2 doses or times, Stop date: 06/22/13 0:00:00(Same as: Apresoline) Push over 5 minutes Ondansetron 4 mg, 2 mL, Inactive 06/21[facility] Jasona s Route: IVP, 2013 Medical Drug form: Center INJ, ONCE, Dosing Weight 139.801, kg, PRN Nausea & Vomiting, Start date: 06/21/13 12:20:00(Same as: Zofran) Hydromorphone 0.5 mg, 0.25 Inactive [place] mL, Route: 2013 Medical IVP, Drug Center form: INJ, Q5Min, Dosing Weight 139.801, kg, PRN Pain Score 7-10, Start date: 06/21/13 12:20:00, Duration: 4 doses or times, Stop date: 06/22/13 0:00:00Same as: Dilaudid Hydromorphone 15 mg, 30 mL, No Longer [facility] Route: IV, Active 2013 [facility] Loading Dose: 0.4mg, [employer]ROOM DANCER Dose: 0.3 mg, [employer]ER Lockout: 10 minutes, Continuous Basal Rate: 0 mg, 4 Hour Limit (In MG): 7.2, Drug Form: INJ, Continuous, Start date: 06/21/13 12:00:00, Duration: 30 day, Stop date: 07/21/13 1...(Same as: Dilaudid) conc = 0.5 mg/ml Hydromorphone BALLROOM DANCER Dose: ;Delay: ;Basal: Cefoxitin 20 2 gm, Route: Inactive [place] MG/ML Injectable IVPB, Drug 2013 [facility] Solution form: INJ, Center Q6H, Dosing Weight 139.801, kg, Start date: 06/21/13 12:00:00, Duration: 1 doses or times, Stop date: 06/21/13 12:00:00(Same As: Mefoxin) Naloxone 0.04 mg, 0.1 No Longer [facility] mL, Route: Active 2013 [facility] IVP, Drug Center form: INJ, Q2MIN, Dosing Weight 139.801, kg, PRN Narcotic Reversal, Start date: 06/21/13 11:50:00, Duration: 30 day, Stop date: 07/21/13 12:49:00Same as Narcan Promethazine 12.5 mg, 0.5 No Longer [facility] mL, Route: Active 2013 [facility] Drug Center form: INJ, Q4H, Dosing Weight [...] Zofran) Calcium Chloride 1,000 mL, No Longer [place] 0.0014 MEQ/ML / Rate: 100 Active 2013 Medica l Potassium ml/hr, Infuse Center Chloride 0.004 over: 10 hr, MEQ/ML / Sodium Route: IV, Chloride 0.103 Dosing Weight MEQ/ML / Sodium 139.801 kg, Lactate 0.028 Total Volume: MEQ/ML 1,000, Start Injectable date: Solution 06/21/13 11:50:00, Stop date: 07/21/13 11:49:00 heparin, porcine 5,000 unit, Inactive [facility] Route: SUB-Q, 2013 Medical ONCE, Dosing Center Weight 139.801, kg, Start date: 06/21/13 7:22:00, Stop date: 06/21/13 7:22:00 Mefoxin 2 gm, Route: Inactive [place] IVPB, Drug 2013 Medical form: INJ, Center PRE OP, Start date: 06/21/13 3:00:00, Duration: 1 day, Stop date: 06/22/13 2:59:00(Same As: Mefoxin) scopolamine 1 patch, Inactive [place] Route: TOP, 2013 Medical Drug form: [place] ERFILM, PRE OP, Start date: 06/21/13 3:00:00, [...] of acetaminophen Ambien PO, Bedtime, No Longer [facility] 0 Refill(s) Active 2013 [facility] Lipitor PO, Daily, 0 No Longer [facility] Refill(s) Active 2013 [facility] Prevacid 30 mg, PO, No Longer [facility] Daily, # 15 Active 2013 Medical cap, 0 Center Refill(s) aspirin 81 mg 81 mg, 1 tab, PO No Longer Mohan [facility] tablet, enteric Route: PO, Active 2011 Medic al coated Drug form: [place] ECTAB, Daily, Start date: 11/26/11 9:00:00, Duration: 30 day, Stop date: 12/25/11 9:00:00 Nexium 40 mg, Route: PO No Longer [place]an [place] PO, Daily, Active 2011 Medical Start date: [place] 11/26/11 9:00:00, Duration: 30 day, Stop date: 12/25/11 9:00:00 Abilify 2 mg, 1 tab, PO No Longer Mohan [place] as Route: PO, Active 2011 Medical Drug form: [place] TAB, Bedtime, Start date: 11/25/11 21:00:00, Duration: 30 day, Stop date: 12/24/11 21:00:00 OxyContin 20 mg, 1 tab, PO No Longer Mohan [facility] Route: PO, Active 2011 Medical Drug form: [place] ERTAB, Q12H, Start date: 11/25/11 21:00:00, Duration: 30 day, Stop date: 12/25/11 9:00:00 amitriptyline 50 mg, 1 tab, PO No Longer Moahn [facility] Route: PO, Active 2011 Medical Drug form: [place] TAB, Bedtime, Start date: 11/25/11 21:00:00, Duration: 30 day, Stop date: 12/24/11 21:00:00 cefazolin + 2 gm, Route: IVPB No Longer Mohan [facility] Sodium Chloride IVPB, ABXQ8H, Active 2011 Me dical 0.9% IV 100 mL Start date: Alberto musa 11/25/11 20:30:00, Duration: 3 doses or times, Stop date: 11/26/11 12:30:00 acetaminophen-ox 2 tab, Route: PO No Longer Mohan [facility] ycodone 325 mg-5 PO, Drug Active 2011 Medica l mg oral tablet Form: TAB, Center Q4H, PRN Pain Score 4-6, Start date: 11/25/11 18:15:00, Duration: 30 day, Stop date: 12/25/11 18:14:00 dexamethasone 4 mg, 1 mL, IV No Longer Mohan [facility] Route: IV, Active 2011 Medical Drug form: Center INJ, Q6H, Start date: 11/25/11 18:00:00, Duration: 1 day, Stop date: 11/26/11 12:00:00 Toradol 30 mg/mL 30 mg, 1 mL, IV No Longer Mohan 11/24 [facility] injectable Route: IV, Active 2011 Medical [...] 600 mg, 2 PO No Longer Mohan [facility] tab, Route: Active 2011 Medical PO, Drug Center form: ERTAB, BID, Start date: 11/25/11 17:00:00, Duration: 30 day, Stop date: 12/25/11 9:00:00 Colace 100 mg 100 mg, 1 PO No Longer Mohan [facility] oral capsule cap, Route: Active 2011 [...] gm, Route: IVPB No Longer Mohan 11/24 [facility] IVPB, Drug Active 2011 Medical form: INJ, Center ABXQ8H, Start date: 11/25/11 15:00:00, Duration: 24 hr, Stop date: 11/26/11 7:00:00 ondansetron 4 mg, 2 mL, IVP No Longer Dies Jason as Route: IVP, Active 2011 Medical Drug form: Center INJ, ONCE, PRN Nausea & Vomiting, Start date: 11/25/11 14:55:00 hydromorphone 0.5 mg, 0.25 IVP No Longer Dies [facility] mL, Route: Active 2011 Medical IVP, Drug Center form: INJ, Q5Min, PRN Pain Score 4-6, Start date: 11/25/11 14:55:00, Duration: 5 doses or times, Stop date: 11/26/11 0:00:00 naloxone 0.04 mg, 0.1 IVP No Longer Dies [facility] mL, Route: Active 2011 Medical IVP, [...] 5 mg, 0.5 PO No Longer Mohan [facility] tab, Route: Active 2011 Medical PO, Drug Center form: TAB, TID, PRN Spasm, Start date: 11/25/11 14:14:00, Duration: 30 day, Stop date: 12/25/11 14:13:00 Zofran 4 mg, 2 mL, IV No Longer [place]an [place] Route: IV, Active 2011 Medical Drug form: [place] INJ, Q6H, PRN as needed for nausea/vomiti ng, Start date: 11/25/11 14:14:00, Duration: 30 day, Stop date: 12/25/11 14:13:00 Dulcolax 10 mg, 2 tab, PO No Longer [place]an [place] Laxative Route: PO, Active 2011 Medical Drug form: [place] ECTAB, Daily, PRN Constipation, Start date: 11/25/11 14:12:00, Duration: 30 day, Stop date: 12/25/11 14:11:00 Cepacol Lozenge 1 lozenge, MUCOUS No Longer Mohan [facility] Route: MUCOUS MEM Active 2011 Medical MEM, Q2H, Center Drug form: CON PRN Sore Throat, Start date: 11/25/11 14:12:00, Duration: 30 day, Stop date: 12/25/11 14:11:00 morphine Sulfate 4 mg, 1 mL, IVP No Longer Mohan [facility] Route: IVP, Active 2011 Medical Drug form: [place] INJ, Q4H, PRN Pain Score 7-10, Start date: 11/25/11 14:11:00, Duration: 30 day, Stop date: 12/25/11 14:10:00 normal saline 1,000 mL, IV No Longer Mohan [place] 0.9% IV 1,000 mL Rate: 75 Active 2011 Medica l ml/hr, Infuse Center over: 13.3 hr, Route: IV, Dosing Weight 115.909 kg, Total Volume: 1,000, Start date: 11/25/11 14:11:00, Duration: 30 day, Stop date: 12/25/11 14:10:00 Percocet 5/325 1 tab, Route: PO No Longer Mohan [facility] oral tablet PO, Drug Active 2011 Medical Form: TAB, Center Q4H, PRN Pain Score 4-6, Start date: 11/25/11 14:10:00, Duration: 30 day, Stop date: 12/25/11 14:09:00 Klonopin 2 mg, 2 tab, PO No Longer [place] Route: PO, Active 2011 Medical Drug form: [place] TAB, BID, PRN Anxiety, Start date: 11/25/11 14:09:00, Duration: 30 day, Stop date: 12/25/11 14:08:00 cefazolin 1 gm, Route: IVPB No Longer [place]an [place] IVPB, Drug Active 2011 Medical form: [place] PDR/INJ, PRE OP, Priority: STAT, Start date: 11/25/11 6:16:00, Duration: 1 day, Stop date: 11/26/11 6:15:00 Percocet 10/325 1 to 2 tabs, PO Active [facility] [place] oral tablet PO, 4-6x/Day, 2011 Medica [...] No Longer Raichman Route: PO, Active 2011 [facility] Drug form: TAB, BID, Start date: 09/16/11 9:00:00, Duration: 30 day, Stop date: 10/15/11 17:00:00 Eskalith 300 mg, 1 PO No Longer Choudhury tab, Route: Active 2011 [facility] PO, Drug form: TAB, QAM, Start date: 09/16/11 9:00:00, Duration: 30 day, Stop date: 10/15/11 9:00:00 Plavix 75 mg, 1 tab, PO No Longer Choudhury Route: PO, Active 2011 [facility] Drug form: TAB, Daily, Start date: 09/16/11 9:00:00, Duration: 30 day, Stop date: 10/15/11 9:00:00 Abilify 10 mg, 2 tab, PO No Longer Choudhury Route: PO, Active 2011 [facility] Drug form: TAB, Daily, Start date: 09/16/11 9:00:00, Duration: 30 day, Stop date: 10/15/11 9:00:00 aspirin 325 mg 325 mg, 1 PO No Longer Choudhury tablet tab, Route: Active 2011 [facility] PO, Drug form: TAB, Daily, Start date: 09/16/11 9:00:00, Duration: 30 day, Stop date: 10/15/11 9:00:00 acetaminophen-hy 1 tab, Route: PO No Longer Raichman drocodone 325 PO, Drug Active 2011 [facility] mg-10 mg oral Form: TAB, tablet Q6H, PRN Pain, Start date: 09/16/11 8:07:00, Duration: 30 day, Stop date: 10/16/11 8:06:00 aspirin 81 mg 81 mg, 1 tab, CHEW No Longer Mckinney tablet, chewable Route: CHEW, Active 2011 [facility] Drug form: CHEWTAB, Breakfast, Start date: 09/16/11 8:00:00, Duration: 30 day, Stop date: 10/15/11 8:00:00 aspirin 325 mg 325 mg, 1 PO No Longer Mckin[place] tablet tab, Route: Active 2011 [facility] PO, Drug form: TAB, Breakfast, Start date: 09/16/11 8:00:00, Duration: 30 day, Stop date: 10/15/11 8:00:00 nitroglycerin 2% 1 inch, TOP No Longer Choudhury topical ointment Route: TOP, Active 2011 [facility] Drug form: OINT, Q24H, Start date: 09/16/11 2:00:00, Duration: 30 day, Stop date: 10/15/11 2:00:00 Lopressor 100 mg, 1 PO No Longer Choudhury tab, Route: Active 2011 [facility] PO, Drug form: TAB, Q12H, Start date: 09/15/11 21:00:00, Duration: 30 day, Stop date: 10/15/11 9:00:00 Eskalith 600 mg, 2 PO No Longer Choudhury 09/15/ tab, Route: Active 2011 [facility] PO, Drug form: TAB, Bedtime, Start date: 09/15/11 21:00:00, Duration: 30 day, Stop date: 10/14/11 21:00:00 trazodone 50 mg 100 mg, 2 PO No Longer Choudhury 09/15/ MH oral tablet tab, Route: Active 2011 [facility] PO, Drug form: TAB, Bedtime, Start date: 09/15/11 21:00:00, Duration: 30 day, Stop date: 10/14/11 21:00:00 nitroglycerin 0.4 mg, 1 SL No Longer Choudhury 09/15/ MH 0.4 mg tab, Route: Active 2011 [facility] sublingual SL, Drug tablet form: TAB, PRN, PRN Chest Pain, Start date: 09/15/11 19:09:00, Duration: 30 day, Stop date: 10/15/11 19:08:00 bacitracin/neomy 1 appl, TOP No Longer Choudhury 09/15/ turner/polymyxin B Route: TOP, Active 2011 [facility] topical ointment BID, Drug form: OINT, Start date: 09/15/11 19:00:00, Duration: 30 day, Stop date: 10/15/11 17:00:00 Protonix 40 mg, 1 tab, PO No Longer Choudhury 09/15/ MH Route: PO, Active 2011 [facility] Drug form: ECTAB, Before Dinner, Priority: NOW, [...] deine 300 mg-30 PO, Drug Active [address] [facility] [address] mg oral tablet Form: TAB, Q4H, PRN Pain, Start date: 09/15/11 18:33:00, Duration: 30 day, Stop date: 10/15/11 18:32:00 Lovenox 120 mg, 0.8 SUB-Q No Longer Mckinney mL, Route: Active 2011 [facility] SUB-Q, Drug form: INJ, [id number], Start date: 09/15/11 18:00:00, Duration: 30 day, Stop date: 10/15/11 6:00:00 metoprolol 12.5 mg, 0.5 PO No Longer Mckinney tab, Route: Active 2011 [facility] PO, Drug form: ERTAB, QAM, Priority: NOW, Start date: 09/15/11 17:24:00, Duration: 30 day, Stop date: 10/15/11 9:00:00 ondansetron 4 mg, Route: IVP No Longer Castellano IVP, Drug Active 2011 [facility] form: INJ, ONCE, Priority: STAT, Start date: 09/15/11 13:08:00, Stop date: 09/15/11 13:08:00 morphine Sulfate 5 mg, Route: IV No Longer Castellano IV, ONCE, Active 2011 [facility] Priority: STAT, Start date: 09/15/11 13:08:00, Stop date: 09/15/11 13:08:00 Sodium Chloride 250 mL, IVPB No Longer Hoberman 0.9% IV Route: IVPB, Active 2011 [facility] Start date: 09/15/11 12:29:00, Duration: 30 day, Stop date: 10/15/11 12:28:00, PRN Line Flush BD Normal Saline 10 mL, Route: IVP No Longer Hoberman Flush IVP, Drug Active 2011 [facility] Form: INJ, PRN, PRN Line Flush, Start date: 09/15/11 12:28:00, Duration: 30 day, Stop date: 10/15/11 12:27:00 Saline Flush 5 ml, Route: IVP No Longer Castellano 0.9% IVP, Drug Active 2011 [facility] Form: INJ, PRN, PRN Line Flush, Start date: 09/15/11 12:18:00, Duration: 24 hr, Stop date: 09/16/11 12:17:00 predniSONE 40 mg, 2 tab, PO No Longer Choudhury Route: PO, Active 2011 [facility] Drug form: TAB, Daily, Start date: 09/09/11 9:00:00, Duration: 30 day, Stop date: 10/08/11 9:00:00 Protonix 40 mg, 1 tab, PO No Longer Choudhury Route: PO, Active 2011 [facility] Drug form: ECTAB, Before Dinner, Start date: 09/08/11 16:30:00, Duration: 30 day, Stop date: 10/07/11 16:30:00 azithromycin 250 500 mg, 2 PO No Longer Choudhury 09/07/ MH mg oral tablet tab, Route: Active 2011 [facility] PO, Drug form: TAB, Q24H, Start date: 09/08/11 16:00:00, Duration: 30 day, Stop date: 10/07/11 16:00:00 Eskalith 600 mg, 2 PO No Longer Choudhury tab, Route: Active 2011 [facility] PO, Drug form: TAB, BID, Start date: 09/08/11 9:00:00, Duration: 30 day, Stop date: 10/07/11 17:00:00 aspirin 81 mg 81 mg, 1 tab, CHEW No Longer Choudhury tablet, chewable Route: CHEW, [facility]: CHEWTAB, Daily, Start date: 09/08/11 9:00:00, Duration: 30 day, Stop date: 10/07/11 9:00:00 Plavix 75 mg, 1 tab, PO No Longer Choudhury Route: PO, Active 2011 [facility] Drug form: TAB, Daily, Start date: 09/08/11 9:00:00, Duration: 30 day, Stop date: 10/07/11 9:00:00 Haldol 10 mg, 2 mL, IM No Longer Raichman Route: IM, Active 2011 [facility] Drug form: INJ, ONCE, Start date: 09/07/11 21:35:00, Stop date: 09/07/11 21:35:00 Haldol 5 mg, 1 mL, IM No Longer Choudhury MH Route: IM, Active 2011 [facility] Drug form: INJ, ONCE, Start date: 09/07/11 21:09:00, Stop date: 09/07/11 21:09:00 Abilify 2 mg, 1 tab, PO No Longer Choudhury 09/07/ MH Route: PO, Active 2011 [facility] Drug form: TAB, Bedtime, Start date: 09/07/11 21:00:00, Duration: 30 day, Stop date: 10/06/11 21:00:00 Lopressor 100 mg, 1 PO No Longer Choudhruy 09/07/ MH tab, Route: Active 2011 [facility] PO, Drug form: TAB, Q12H, Start date: 09/07/11 21:00:00, Duration: 30 day, Stop date: 10/07/11 9:00:00 Sodium Chloride 1,000 mL, IV No Longer Choudhury 09/07/ MH 0.9% IV 1,000 mL Rate: 80 Active 2011 [facility] est ml/hr, Infuse over: 12.5 hr, Route: IV, Dosing Weight 100 kg, Total Volume: 1,000, Start date: 09/07/11 20:00:00, Duration: 30 day, Stop date: 10/07/11 19:59:00 albuterol 2.49 mg, 3 NEB No Longer Choudhury 09/07/ MH mL, Route: Active 2011 [facility] NEB, Drug form: SOLN, RQ6H, Start date: 09/07/11 20:00:00, Duration: 30 day, Stop date: 10/07/11 14:00:00 methylPREDNISolo 60 mg, 0.96 IV No Longer Choudhury 09/06/ M H ne mL, Route: Active 2011 [facility] IV, Drug form: INJ, Q6H, Start date: 09/07/11 18:00:00, Duration: 30 day, Stop date: 10/07/11 12:00:00 albuterol 2.49 mg, 3 NEB No Longer Choudhury 09/06/ MH mL, Route: Active 2011 [facility] NEB, Drug form: SOLN, RQ6H, PRN Shortness of breath, Start date: 09/07/11 17:13:00, Duration: 30 day, Stop date: 10/07/11 17:12:00 Flexeril Substitution Active Allowed 2011 [facility] Flexeril Substitution Active Allowed 2011 [facility] trazodone Substitution Active Allowed 2011 [facility] Librium Substitution Active Allowed 2011 [facility] clonidine Substitution Active Allowed 2011 [facility] Klonopin Substitution Active Allowed 2011 [facility] Nexium Substitution Active Allowed 2011 [facility] Lopressor Substitution Active Allowed 2011 [facility] Plavix Substitution Active Allowed 2011 [facility] Abilify Substitution Active Allowed 2011 [facility] lithium Substitution Active Allowed 2011 [facility] Phenergan Substitution Active Allowed 2011 [facility] Haldol 5 mg/mL Substitution Active injectable Allowed 2011 [facility] solution Benadryl Substitution Active Allowed 2011 [facility] Suboxone 8 mg-2 Substitution Active mg sublingual Allowed, 2011 [facility] tablet, Maintenance disintegrating Ativan Substitution Active Allowed 2011 [facility] Sodium Chloride 250 mL, IVPB No Longer [place] 0.9% IV Route: IVPB, Active 2011 [facility] Start date: 09/07/11 9:12:00, Duration: 30 day, Stop date: 10/07/11 9:11:00, PRN Line Flush BD Normal Saline 10 mL, Route: IVP No Longer [place] Flush IVP, Drug Active 2011 [facility] Form: INJ, PRN, PRN Line Flush, Start date: 09/07/11 9:12:00, Duration: 30 day, Stop date: 10/07/11 9:11:00 naloxone Route: IVP, IVP No Longer [place] Drug form: Active 2011 [facility] INJ, ONCE, Priority: STAT, Start date: 09/07/11 8:58:00, Stop date: 09/07/11 8:58:00 Allergies, Adverse Reactions, Alerts No Known Medication Allergies Immunizations No Data Provided for This Section Results Order Name Results Value Reference Date Interpretation Comments Sarah [facility] HEMATOLOGY Basophils # 0.1 0.0 - 0.2 09/18 [facility] HEMATOLOGY Lymphocytes 1.2 1.0 - 5.5 09[place] /[place] [facility] HEMATOLOGY Basophils 1.0 0.0 - 1.0 09/18 [facility] HEMATOLOGY Eosinophils 0.1 0.0 - 0.5 09/18 [facility] # [facility] HEMATOLOGY Monocytes # 0.2 0.0 - 0.8 09/18 [facility] HEMATOLOGY Segs 71.8 45.0 - 09/18 [place] 75.0 [facility] HEMATOLOGY Segs-Bands # 4.1 1.5 - 8.1 09/18 [facility] HEMATOLOGY Monocytes 4.1 2.0 - 12.0 09/18 [facility] HEMATOLOGY Lymphocytes 20.5 20.0 - 09/18 [place] 40.0 [facility] HEMATOLOGY Eosinophils 2.6 0.0 - 4.0 09/18 s [facility] HEMATOLOGY RDW 13.2 11.5 - 09/18 [place] 14.5 [facility] HEMATOLOGY MCHC 34.6 32.0 - 09/18 [place] 36.0 [facility] HEMATOLOGY MCH 30.5 27.0 - 09/18 [place] 31.0 [facility] HEMATOLOGY Hct 22.2 42.0 - 09/18 [place] 54.0 [facility] HEMATOLOGY MCV 88.0 80.0 - 09/18 [place] 94.0 [facility] HEMATOLOGY Platelet 213 133 - 450 09/18 [facility] HEMATOLOGY MPV 8.7 7.4 - 10.4 09/18 [facility] HEMATOLOGY WBC 5.7 3.7 - 10.4 09/18 [facility] HEMATOLOGY RBC 2.52 4.70 - 09/18 [place] 6.10 [facility] HEMATOLOGY Hgb 7.7 14.0 - 09/18 [place] 18.0 [facility] CHEM PANEL eGFR 103 09/18 [facility] Comment: The Medical eGFR is Center calculated [...] PANEL CO2 25 24 - 32 09/18 [facility] CHEM PANEL Calcium Lvl 7.8 8.5 - 10.5 09/18 [facility] CHEM PANEL Potassium 3.6 3.5 - 5.1 09/18 [facility] CHEM PANEL AGAP 9.6 10.0 - 09/18 [facility] 20.0 [facility] CHEM PANEL Chloride Lvl 104 95 - 109 09/18 [facility] CHEM PANEL Creatinine 0.90 0.50 - 09/18 [facility] Lvl 1.40 [facility] CHEM PANEL Sodium Lvl 135 135 - 145 09/18 [facility] CHEM PANEL Glucose Lvl 180 70 - 99 09/18 [facility] CHEM PANEL BUN 10 7 - 22 09/18 [facility] BLOOD BANK RBC product Product available 09/17 [facility] RESULTS (09/17/16 8:34 AM) [facility] BLOOD BANK ABO/Rh A POS 09/17 [facility] RESULTS [facility] BLOOD BANK Antibody Negative 09/17 [facility] RESULTS Scrn (09/17/16 6:38 AM) [facility] CHEM PANEL Phosphorus 3.3 2.5 - 4.5 09/17 [facility] CHEM PANEL eGFR 105 09/17 Result [...] Alk Phos 64 39 - 136 06/ [address] CHEM PANEL ASPARTATE 6 0 - 37 06 [facility] TRANSAMINASE [address] CHEM PANEL Bili Total 0.6 0.2 - 1.3 09/[address] CHEM PANEL ALANINE 13 0 - 65 09/17 [facility] AMINOTRANSFE [address] [place] [address] CHEM PANEL Globulin 2.6 2.7 - 4.2 09/[address] CHEM PANEL A/G Ratio 1.0 0.7 - 1.6 09/[address] CHEM PANEL Sodium Lvl 141 135 - 145 09/[address] CHEM PANEL Creatinine 0.85 0.50 - 09/17 [facility] Lvl 1.40 /2016 [facility] CHEM PANEL BUN 18 7 - 22 09/[address] CHEM PANEL Potassium 4.4 3.5 - 5.1 09/[address] CHEM PANEL Glucose Lvl 96 70 - 99 09/[address] CHEM PANEL CO2 28 24 - 32 09/[address] CHEM PANEL AGAP 11.4 10.0 - 06 [facility] 20.0 [facility] CHEM PANEL Chloride Lvl 106 95 - 109 09/[address] CHEM PANEL B/C Ratio 21 6 - 25 09/[address] CHEM PANEL Calcium Lvl 8.3 8.5 - 10.5 09/17 [facility] as [address] [place] [address] CHEM PANEL Total 5.2 6.4 - 8.4 09/17 [facility] Protein [address] CHEM PANEL Albumin Lvl 2.6 3.5 - 5.0 09/17 [facility] 2016 [facility] CHEM PANEL Magnesium 2.1 1.8 - 2.4 09/17 [facility] [address] [place] [address] HEMATOLOGY Lymphocytes 1.6 1.0 - 5.5 09/17 [place] # /2016 [facility] HEMATOLOGY Segs-Bands # 5.0 1.5 - 8.1 09/17 [facility] HEMATOLOGY Monocytes # 0.5 0.0 - 0.8 09/17 s [facility] HEMATOLOGY Basophils # 0.1 0.0 - 0.2 09/17 s [facility] HEMATOLOGY Eosinophils 0.1 0.0 - 0.5 09/17 [place] # /2016 [facility] HEMATOLOGY Basophils 0.9 0.0 - 1.0 06 [facility] HEMATOLOGY Segs 69.6 45.0 - 06/ [place] 75.0 [facility] HEMATOLOGY Monocytes 6.4 2.0 - 12.0 09/17 [facility] HEMATOLOGY Lymphocytes 22.3 20.0 - 06/ [place] 40.0 /2016 [facility] HEMATOLOGY Eosinophils 0.8 0.0 - 4.0 09/17 [facility] HEMATOLOGY PTT 29.3 22.9 - 09/17 [place] 35.8 /2016 [facility] HEMATOLOGY INR 1.20 0.85 - 09/17 [place] 1.17 /2016 [facility] HEMATOLOGY PT 15.5 12.0 - 06 [place] 14.7 [facility] HEMATOLOGY RDW 12.8 11.5 - 06/ [place] 14.5 [facility] HEMATOLOGY Platelet 246 133 - 450 09/17 [facility] HEMATOLOGY MPV 9.0 7.4 - 10.4 09/17 [facility] HEMATOLOGY MCH 29.8 27.0 - 06 [place] 31.0 /2016 [facility] HEMATOLOGY MCHC 34.3 32.0 - 06/ [place] 36.0 [facility] HEMATOLOGY Hgb 7.6 14.0 - 06 [place] 18.0 /2017 [facility] HEMATOLOGY RBC 2.56 4.70 - 06/ [place] 6.10 [facility] HEMATOLOGY Hct 22.2 42.0 - 06 [place] 54.0 /2016 [facility] HEMATOLOGY MCV 87.0 80.0 - 06 [place] 94.0 /2016 [facility] HEMATOLOGY WBC 7.2 3.7 - 10.4 06 [facility] CHEM PANEL Magnesium 1.7 1.8 - 2.4 06/23 [facility] CHEM PANEL Phosphorus 3.1 2.5 - 4.5 06/23 [facility] ELECTROLYT AGAP 11.7 10.0 - 06/23 [facility] ES 20.0 [facility] ELECTROLYT eGFR 105 06/23 <sup>1</sup>R [facility] s esult Medical Comment: The Center eGFR [...] ELECTROLYT Creatinine 0.9 0.5 - 1.4 06/23 [facility] ELECTROLYT Potassium 3.7 3.5 - 5.1 06/23 [facility] ELECTROLYT Sodium Lvl 138 135 - 145 06/23 [facility] ELECTROLYT CO2 27 24 - 32 06/23 [facility] ELECTROLYT Chloride Lvl 103 95 - 109 06/23 [facility] ELECTROLYT BUN 11 7 - 22 06/23 [facility] ELECTROLYT Glucose Lvl 95 70 - 99 06/23 <sup>4</sup>I [facility] nterpretive Medical Data: Adult Center reference range values reflect the clinical guidelines
of the [employer]. ELECTROLYT Calcium Lvl 8.6 8.5 - 10.5 06/23 [facility] HEMATOLOGY MCV 87.7 80.0 - 06/23 [place] 94.0 /2013 [facility] HEMATOLOGY MCH 31.2 27.0 - 06/23 [place] 31.0 [facility] HEMATOLOGY Hct 34.1 42.0 - 06/23 54.0 /2013 [facility] HEMATOLOGY Hgb 12.1 14.0 - 06/23 [place] 18.0 /2013 [facility] HEMATOLOGY Platelet 148 133 - 450 06/23 [facility] HEMATOLOGY MPV 9.1 7.4 - 10.4 06/23 [facility] HEMATOLOGY RDW 14.3 11.5 - 06/23 14.5 [facility] HEMATOLOGY MCHC 35.6 32.0 - 06/23 [place] 36.0 [facility] HEMATOLOGY RBC X 10x6 3.89 4.70 - 06/23 6.10 /2013 [facility] HEMATOLOGY WBC X 10x3 6.6 3.7 - 10.4 06/23 [facility] HEMATOLOGY Eosinophils 0.1 0.0 - 0.5 06/23 s [facility] HEMATOLOGY Lymphocytes 1.7 1.0 - 5.5 06/23 s [facility] HEMATOLOGY Eosinophils 1.6 0.0 - 4.0 06/23 [facility] HEMATOLOGY Segs-Bands # 4.3 1.5 - 8.1 06/23 [facility] HEMATOLOGY Basophils 0.5 0.0 - 1.0 06/23 [facility] HEMATOLOGY Monocytes # 0.4 0.0 - 0.8 06/23 [facility] HEMATOLOGY Segs 66.0 45.0 - 06/23 75.0 [facility] HEMATOLOGY Lymphocytes 26.0 20.0 - 06/23 [place] 40.0 [facility] HEMATOLOGY Monocytes 5.9 2.0 - 12.0 06/23 [facility] CHEM PANEL eGFR 124 06/22 <sup>2</sup>R esult [...] PANEL Magnesium 2.0 1.8 - 2.4 06/22 [facility] CHEM PANEL Phosphorus 4.8 2.5 - 4.5 06/22 [facility] HEMATOLOGY WBC X 10x3 11.7 3.7 - 10.4 06/22 [facility] HEMATOLOGY MPV 9.5 7.4 - 10.4 06/22 [facility] HEMATOLOGY Hct 39.7 42.0 - 06/22 [place] 54.0 [facility] HEMATOLOGY MCH 29.8 27.0 - 06/22 [place] 31.0 [facility] HEMATOLOGY MCV 89.3 80.0 - 06/22 94.0 /2013 [facility] HEMATOLOGY RBC X 10x6 4.45 4.70 - 06/22 [place] 6.10 /2013 [facility] HEMATOLOGY Hgb 13.3 14.0 - 06/22 18.0 /2013 [facility] HEMATOLOGY RDW 14.3 11.5 - 06/22 14.5 [facility] HEMATOLOGY MCHC 33.4 32.0 - 06/22 [place] 36.0 /2013 [facility] HEMATOLOGY Platelet 185 133 - 450 06/22 [facility] HEMATOLOGY Monocytes # 0.5 0.0 - 0.8 06/22 [facility] HEMATOLOGY Segs-Bands # 10.4 1.5 - 8.1 06/22 [facility] HEMATOLOGY Lymphocytes 0.9 1.0 - 5.5 06/22 s # /2013 [facility] HEMATOLOGY Monocytes 4.1 2.0 - 12.0 06/22 [facility] HEMATOLOGY Basophils 0.1 0.0 - 1.0 06/22 [facility] HEMATOLOGY Lymphocytes 7.3 20.0 - 06/22 40.0 [facility] HEMATOLOGY Segs 88.5 45.0 - 06/22 75.0 [facility] CHEM PANEL AGAP 13.9 10.0 - 06/22 20.0 [facility] CHEM PANEL CO2 25 24 - 32 06/22 [facility] CHEM PANEL Calcium Lvl 8.9 8.5 - 10.5 06/22 [facility] CHEM PANEL Chloride Lvl 100 95 - 109 06/22 [facility] CHEM PANEL Sodium Lvl 134 135 - 145 06/22 [facility] CHEM PANEL Potassium 4.9 3.5 - 5.1 06/22 [facility] CHEM PANEL BUN 10 7 - 22 06/22 [facility] CHEM PANEL Creatinine 0.6 0.5 - 1.4 06/22 [facility] CHEM PANEL Glucose Lvl 98 70 - 99 06/22 <sup>5</sup>I nterpretive Medical Data: Adult Center reference range values reflect the clinical guidelines
of the [employer]. CHEM PANEL eGFR 82 06/21 [...] PANEL Creatinine 1.1 0.5 - 1.4 06/21 [facility] HEMATOLOGY Platelet 172 133 - 450 06/21 [facility] HEMATOLOGY aPTT 27.9 22.9 - 03 <sup>7</sup>I s 35.8 nterpretive Medical Data: Heparin Center Therapeutic Range: 57 - 92 [facility] CHEM PANEL B/C Ratio 13 6 - 25 06/15 [facility] CHEM PANEL A/G Ratio 1.3 0.7 - 1.6 06/15 [facility] CHEM PANEL Globulin 3.2 2.0 - 4.0 06/15 [facility] CHEM PANEL AGAP 15.2 10.0 - 06/15 20.0 [facility] CHEM PANEL ALANINE 37 0 - 65 06/15 [facility]INOTRANS [facility] CHEM PANEL Bili Total 0.9 0.2 - 1.3 06/15 [facility] CHEM PANEL Calcium Lvl 9.1 8.5 - 10.5 06/15 [facility] CHEM PANEL BUN 12 7 - 22 06/15 [facility] CHEM PANEL Glucose Lvl 66 70 - 99 06/15 <sup>6</sup>I nterpretive Medical Data: Adult Center reference range values reflect the clinical guidelines
of the [employer]. CHEM PANEL Alk Phos 100 39 - 136 06/15 [facility] CHEM PANEL Albumin Lvl 4.1 3.5 - 5.0 06/15 [facility] CHEM PANEL CO2 25 24 - 32 06/15 [facility] CHEM PANEL Chloride Lvl 104 95 - 109 06/15 [facility] CHEM PANEL Potassium 4.2 3.5 - 5.1 06/15 [facility] CHEM PANEL Sodium Lvl 140 135 - 145 06/15 [facility] CHEM PANEL ASPARTATE 15 0 - 37 06/15 TRANSAMINASE [facility] Center CHEM PANEL Total 7.3 6.4 - 8.4 06/15 [facility] HEMATOLOGY Basophils # 0.1 0.0 - 0.2 06/15 [facility] HEMATOLOGY Monocytes # 0.7 0.0 - 0.8 06/15 [facility] HEMATOLOGY Eosinophils 0.2 0.0 - 0.5 06/[place] # /2013 [facility] HEMATOLOGY Segs-Bands # 7.2 1.5 - 8.1 06/15 [facility] HEMATOLOGY Lymphocytes 2.7 1.0 - 5.5 06/15 s # /2013 [facility] HEMATOLOGY Lymphocytes 24.5 20.0 - 06/15 [place] 40.0 /2013 [facility] HEMATOLOGY Segs 66.4 45.0 - 06/15 [place] 75.0 /2013 [facility] HEMATOLOGY Monocytes 6.4 2.0 - 12.0 06/15 [facility] HEMATOLOGY Basophils 0.5 0.0 - 1.0 06/15 [facility] HEMATOLOGY Eosinophils 2.2 0.0 - 4.0 06/15 [facility] HEMATOLOGY MPV 9.7 7.4 - 10.4 06/15 [facility] HEMATOLOGY WBC X 10x3 10.9 3.7 - 10.4 06/15 [facility] HEMATOLOGY RDW 14.4 11.5 - 06/15 [place] 14.5 /2013 [facility] HEMATOLOGY RBC X 10x6 4.70 4.70 - 06/15 [place] 6.10 /2013 [facility] HEMATOLOGY Hct 41.3 42.0 - 06/15 [place] 54.0 /2013 [facility] HEMATOLOGY Hgb 14.5 14.0 - 06/15 [place] 18.0 /2013 [facility] HEMATOLOGY MCH 30.8 27.0 - 06/15 [place] 31.0 [facility] HEMATOLOGY MCV 87.7 80.0 - 06/15 [place] 94.0 /2013 [facility] HEMATOLOGY MCHC 35.1 32.0 - 06/15 [place] 36.0 /2013 [facility] SPECIAL Hgb A1C 4.4 <=5.6 % 06/15 [facility] CHEMISTRY [facility] URINE AND UA <=1.0 0.1 - 1.0 06/15 [facility] STOOL Urobilinogen mg/dL /2013 [facility] URINE AND Micro? Not Indicated 06/15 [facility] STOOL *NA* /2013 [facility] (06/15/2013 14:45:00 [facility] URINE AND UA pH 6.5 5.0 - 8.0 06/15 [facility] STOOL Medical Center URINE AND UA Turbidity Clear Clear 06/15 [facility] STOOL (06/15/2013 14:45:00 [facility] URINE AND UA Spec Grav 1.018 <=1.030 06/15 [facility] STOOL [facility] URINE AND UA Color Yellow Yellow 06/15 [facility] STOOL *NA* /2013 [facility] (06/15/2013 14:45:00 [facility] URINE AND UA Mucus Few /LPF None Seen 06/15 [facility] STOOL /LPF /2013 [facility] [place] URINE AND UA Glucose Negative Negative 06/15 [facility] mg/dL mg/dL [facility] URINE AND UA Ketones Negative Negative 06/15 [facility] mg/dL mg/dL [facility] [place] URINE AND UA Protein Negative Negative 06/15 [facility] mg/dL mg/dL [facility] URINE AND UA Leuk Est Negative Negative 06/15 [facility] (06/15/2013 14:45:00 [facility] URINE AND UA WBC <1 0 - 5 06/15 [facility] [place] URINE AND UA Blood Negative Negative 06/15 [facility] (06/15/2013 14:45:00 [facility] Center URINE AND UA Nitrite Negative Negative 06/15 [facility] (06/15/2013 14:45:00 [facility] URINE AND UA Bili Negative Negative 06/15 [facility] *NA* /2013 [facility] (06/15/2013 14:45:00 [facility] [place] BLOOD BANK ABO/Rh A POS 11/24 Unknown [facility] RESULTS [facility] Center BLOOD BANK Antibody Negative 11/24 Normal [facility] RESULTS Scrn (11/25/2011 10:10:00) [facility] Center CHEMISTRY AGAP 15.0 10.0 - 11/22 Normal [facility] 20.0 [facility] Center CHEMISTRY BUN 9 7 - 22 11/22 Normal [facility] Center CHEMISTRY Creatinine 0.9 0.5 - 1.4 11/22 Normal [facility] Lvl /2011 [facility] CHEMISTRY Glucose Lvl 75 70 - 99 11/22 Normal <sup>1</sup>I [place] nterpretive Medical Data: Adult Center reference range values reflect the clinical guidelines
of the [employer]. CHEMISTRY Chloride Lvl 106 95 - 109 08/07 Normal [facility] CHEMISTRY Sodium Lvl 142 135 - 145 08/ Normal [facility] CHEMISTRY CO2 26 24 - 32 08/ Normal [facility] CHEMISTRY Potassium 5.0 3.5 - 5.1 08/ Normal [place] Lvl /2011 [facility] CHEMISTRY Calcium Lvl 9.6 8.5 - 10.5 08/ [place] [facility] HEMATOLOGY Basophils # 0.0 0.0 - 0.2 08/07 [place] [facility] HEMATOLOGY Lymphocytes 3.3 1.0 - 5.5 08/ [place] # /2011 [facility] HEMATOLOGY Monocytes # 0.5 0.0 - 0.8 08/ [place] [facility] HEMATOLOGY Eosinophils 0.2 0.0 - 0.5 08/ [place] # /2011 [facility] HEMATOLOGY Segs 59.7 45.0 - 08/07 Normal [place] 75.0 /2011 [facility] HEMATOLOGY Monocytes 4.8 2.0 - 12.0 08/ Normal [facility] HEMATOLOGY Segs-Bands # 5.9 1.5 - 8.1 08/ Normal [facility] HEMATOLOGY Eosinophils 2.0 0.0 - 4.0 08/07 [place] [facility] HEMATOLOGY Basophils 0.5 0.0 - 1.0 08/ Normal [facility] HEMATOLOGY Lymphocytes 33.0 20.0 [...] [facility] HEMATOLOGY MCH 31.5 27.0 - 08 HI [facility] 31.0 /2011 [facility] HEMATOLOGY MPV 9.4 7.4 - 10.4 11/22 Normal [facility] HEMATOLOGY WBC 9.9 3.7 - 10.4 11/22 Normal [facility] HEMATOLOGY INR 1.04 0.85 - 11/22 Normal <sup>2</sup>I Elsa s 1.17 nterpretive Medical Data: Center RECOMMENDED RANGES FOR PROTIME INR:
2.0-3.0 for most medical and surgical thromboemboli c states.
2.5-3.5 for artificial heart valves and recurrent embolism.<br/ >
INR SHOULD BE USED ONLY FOR PATIENTS ON STABLE ANTICOAGULANT THERAPY. HEMATOLOGY PT 13.6 12.0 - 11/22 Normal [facility] 14.7 [facility] Center HEMATOLOGY PTT 29.0 22.9 - 11/22 Normal <sup>3</sup>I Elsa s 35.8 nterpretive Medical Data: [facility] Therapeutic Range: 57 - 92 Seconds CHEMISTRY Troponin-I <0.02 0.00 - 09/15 Normal 0.40 [facility] CHEMISTRY CK MB 3.0 0.5 - 3.6 09/15 Normal [facility] CHEMISTRY Total CK 90 12 - 191 09/15 Normal [facility] CHEMISTRY HDL 21 >=35 09/15 LOW [facility] CHEMISTRY CHD Risk 5.86 4.00 - 09/15 Normal 7.30 [facility] CHEMISTRY LDL 72 0 - 129 09/15 Normal [facility] CHEMISTRY Chol 123 120 - 200 09/15 Normal [facility] CHEMISTRY Trig 149 0 - 200 09/15 Normal [facility] CHEMISTRY Phosphorus 3.8 2.5 - 4.5 09/15 Normal [facility] CHEMISTRY BUN 6 7 - 22 09/15 LOW [facility] CHEMISTRY Glucose Lvl 98 70 - 99 09/15 Normal <sup>1</sup>I nterpretive [facility] Data: Adult reference range values reflect the clinical guidelines of the [employer]. CHEMISTRY Chloride Lvl 106 95 - 109 09/15 Normal [facility] CHEMISTRY Potassium 4.0 3.5 - 5.1 09/15 Normal Lvl /2011 [facility] CHEMISTRY Sodium Lvl 141 135 - 145 09/15 Normal [facility] CHEMISTRY Creatinine 0.9 0.5 - 1.4 09/15 Normal [facility] Lvl /2011 [facility] CHEMISTRY AGAP 10.0 10.0 - 09/15 Normal [facility] 20.0 /2011 [facility] CHEMISTRY Calcium Lvl 8.8 8.5 - 10.5 09/15 Normal /2011 [facility] CHEMISTRY CO2 29 24 - 32 09/15 Normal /2011 [facility] CHEMISTRY Magnesium 2.0 1.8 - 2.4 09/15 Normal Lvl /2011 [facility] CHEMISTRY CK MB Index 3.3 0.0 - 2.5 09/15 HI MH /2011 [facility] HEMATOLOGY Hgb 13.3 14.0 - 09/15 LOW [facility] 18.0 /2011 [facility] HEMATOLOGY MCV 92.0 80.0 - 09/15 Normal [facility] 94.0 /2011 [facility] HEMATOLOGY MCHC 34.6 32.0 - 09/15 Normal [facility] 36.0 /2011 [facility] HEMATOLOGY MCH 31.8 27.0 - 09/15 HI [facility] 31.0 [facility] HEMATOLOGY RDW 13.2 11.5 - 09/15 Normal 14.5 [facility] HEMATOLOGY Platelet 191 133 - 450 09/15 Normal /2011 [facility] HEMATOLOGY MPV 8.6 7.4 - 10.4 09/15 Normal /2011 [facility] HEMATOLOGY Hct 38.3 42.0 - 09/15 LOW 54.0 /2011 [facility] HEMATOLOGY RBC 4.16 4.70 - 09/15 LOW [facility] 6.10 /2011 [facility] HEMATOLOGY WBC 6.2 3.7 - 10.4 09/15 Normal /2011 [facility] HEMATOLOGY INR 1.04 0.85 - 09/15 Normal <sup>6</sup>I 1.17 nterpretive [facility] Data: RECOMMENDED RANGES FOR PROTIME INR: 2.0-3.0 for most medical and surgical thromboemboli c states. 2.5-3.5 for artificial heart valves and recurrent embolism. INR SHOULD BE USED ONLY FOR PATIENTS ON STABLE ANTICOAGULANT THERAPY. HEMATOLOGY PT 13.6 12.0 - 09/15 Normal [facility] 14.7 [facility] HEMATOLOGY PTT 31.9 22.9 - 09/15 Normal <sup>8</sup>I 35.8 /2011 nterpretive [facility] Data: Heparin Therapeutic Range: 57 - 92 Seconds HEMATOLOGY Basophils # 0.0 0.0 - 0.2 09/15 Normal /2011 [facility] HEMATOLOGY Eosinophils 0.1 0.0 - 0.5 09/15 Normal [facility] # /2011 [facility] HEMATOLOGY Monocytes # 0.4 0.0 - 0.8 09/15 Normal MH /2011 [facility] HEMATOLOGY Lymphocytes 1.4 1.0 - 5.5 09/15 Normal [facility] # /2011 [facility] HEMATOLOGY Segs-Bands # 4.3 1.5 - 8.1 09/15 Normal /2011 [facility] HEMATOLOGY Eosinophils 2.3 0.0 - 4.0 09/15 Normal /2011 [facility] HEMATOLOGY Basophils 0.5 0.0 - 1.0 09/15 Normal /2011 [facility] HEMATOLOGY Lymphocytes 21.8 20.0 - 09/15 Normal [facility] 40.0 /2011 [facility] HEMATOLOGY Segs 69.3 45.0 - 09/15 Normal [facility] 75.0 /2011 [facility] HEMATOLOGY Monocytes 6.1 2.0 - 12.0 09/15 Normal /2011 [facility] CHEMISTRY Hgb A1C 4.7 09/14 NA <sup>4</sup>I nterpretive [facility] Data: HbA1C% eAG(mg/dL) Interpretatio n 6.0 126 [...] 1.8 - 2.4 09/14 Normal Lvl /2011 [facility] CHEMISTRY TSH 0.820 0.360 - 09/14 Normal MH 3.740 /2011 [facility] CHEMISTRY CK MB 2.9 0.5 - 3.6 09/14 Normal [facility] CHEMISTRY CK MB Index 2.5 0.0 - 2.5 09/14 Normal [facility] CHEMISTRY Troponin-I <0.02 0.00 - 09/14 Normal MH 0.40 [facility] CHEMISTRY Total CK 118 12 - 191 09/14 Normal [facility] CHEMISTRY U Cannab Scr Negative Negative 09/14 NA MH *NA* /2011 [facility] (09/15/2011 13:00:00) CHEMISTRY U Phencyc Negative Negative 09/14 NA MH Scr *NA* /2011 [facility] (09/15/2011 13:00:00) CHEMISTRY U Opiate Scr Positive Negative 09/14 ABN MH *ABN* /2011 [facility] (09/15/2011 13:00:00) CHEMISTRY UDS Note See Note 5 09/14 Normal <sup>5</sup>I (09/15/2011 13:00:00) nterpretiv e [facility] Data: Drugs reported as positive have not [...] Negative 09/14 NA MH Scr *NA* /2011 [facility] (09/15/2011 13:00:00) CHEMISTRY U Amph Scr Negative Negative 09/14 NA MH *NA* [facility] (09/15/2011 13:00:00) CHEMISTRY U Annette Scr Negative Negative 09/14 NA MH *NA* /2011 [facility] (09/15/2011 13:00:00) CHEMISTRY U Benzodia Positive Negative 09/14 ABN MH Scr *ABN* /2011 [facility] (09/15/2011 13:00:00) CHEMISTRY BNP 36 <=100 09/14 Normal <sup>3</sup>I nterpretive [facility] Data: Elevated results are in line with increasing severity of congestive heart failure. Minor elevations between 100 and 300 may be seen with Myocardial Ischemia, Sodium retaining drugs, and compensated/t reated heart failure. CHEMISTRY Chloride Lvl 104 95 - 109 09/14 Normal [facility] CHEMISTRY Potassium 4.2 3.5 - 5.1 09/14 Normal Lvl [facility] CHEMISTRY Creatinine 1.0 0.5 - 1.4 09/14 Normal Lv [facility] CHEMISTRY BUN 8 7 - 22 09/14 Normal [facility] CHEMISTRY Sodium Lvl 138 135 - 145 09/14 Normal [facility] CHEMISTRY ALT 29 0 - 65 / Normal [facility] CHEMISTRY Alk Phos 57 39 - 136 09/14 Normal [facility] CHEMISTRY Albumin Lvl 3.5 3.5 - 5.0 09/14 Normal [facility] CHEMISTRY Calcium Lvl 8.9 8.5 - 10.5 09/14 Normal MH [facility] CHEMISTRY Total 6.5 6.4 - 8.4 09/14 Normal MH Protein [facility] CHEMISTRY CO2 29 24 - 32 09/14 Normal MH [facility] CHEMISTRY A/G Ratio 1.2 0.7 - 1.6 09/14 Normal MH [facility] CHEMISTRY B/C Ratio 8 6 - 25 09/14 Normal [facility] CHEMISTRY Globulin 3.0 2.0 - 4.0 09/14 Normal MH [facility] CHEMISTRY Bili Total 0.6 0.2 - 1.3 09/14 Normal [facility] CHEMISTRY AST 17 0 - 37 09/14 Normal [facility] CHEMISTRY Glucose Lvl 86 70 - 99 09/14 Normal <sup>2</sup>I nterpretive [facility] Data: Adult reference range values reflect the clinical guidelines of the [place] [employer]. CHEMISTRY AGAP 9.2 10.0 - 09/14 LOW MH 20.0 [facility] CHEMISTRY CK MB 3.0 0.5 - 3.6 09/14 Normal [facility] CHEMISTRY Troponin-I <0.02 0.00 - 09/14 Normal 0.40 /2011 [facility] CHEMISTRY Total CK 138 12 - 191 09/14 Normal [facility] CHEMISTRY CK MB Index 2.2 0.0 - 2.5 09/14 Normal [facility] HEMATOLOGY INR 1.01 0.85 - 09/14 Normal <sup>7</sup>I 1.17 /2011 nterpretive [facility] Data: RECOMMENDED RANGES FOR PROTIME INR: 2.0-3.0 for most medical and surgical thromboemboli c states. 2.5-3.5 for artificial heart valves and recurrent embolism. INR SHOULD BE USED ONLY FOR PATIENTS ON STABLE ANTICOAGULANT THERAPY. HEMATOLOGY PTT 30.3 22.9 - 09/14 Normal <sup>9</sup>I 35.8 /2012 nterpretive [facility] Data: Heparin Therapeutic Range: 57 - 92 Seconds HEMATOLOGY PT 13.3 12.0 - 0530 Normal MH 14.7 /2011 [facility] HEMATOLOGY MPV 9.6 7.4 - 10.4 05/ Normal MH /2011 [facility] MCHC 34.6 32.0 - 05 Normal MH 36.0 /2011 [facility] HEMATOLOGY RDW 13.0 11.5 - 09/14 Normal MH 14.5 /2011 [facility] HEMATOLOGY Platelet 206 133 - 450 05/ Normal MH /2011 [facility] HEMATOLOGY RBC 4.07 4.70 - 05 LOW MH 6.10 /2011 [facility] HEMATOLOGY MCV 91.8 80.0 - 05 Normal MH 94.0 /2011 [facility] HEMATOLOGY WBC 7.2 3.7 - 10.4 05/ Normal MH /2011 [facility] HEMATOLOGY Hgb 12.9 14.0 - 09/14 LOW MH 18.0 /2011 [facility] HEMATOLOGY Hct 37.3 42.0 - 09/14 LOW MH 54.0 /2011 [facility] HEMATOLOGY MCH 31.8 27.0 - 05 HI MH 31.0 [facility] HEMATOLOGY Basophils 0.6 0.0 - 1.0 05/ Normal MH /2011 [facility] HEMATOLOGY Eosinophils 0.1 0.0 - 0.5 05/ Normal MH # /2011 [facility] HEMATOLOGY Monocytes # 0.5 0.0 - 0.8 05/ Normal MH /2011 [facility] HEMATOLOGY Lymphocytes 1.9 1.0 - 5.5 05/ Normal MH # /2011 [facility] HEMATOLOGY Segs-Bands # 4.6 1.5 - 8.1 / Normal MH /2011 [facility] HEMATOLOGY Segs 64.4 45.0 - 09/14 Normal MH 75.0 /2011 [facility] HEMATOLOGY Eosinophils 2.0 0.0 - 4.0 / Normal MH /2011 [facility] HEMATOLOGY Monocytes 6.5 2.0 - 12.0 05/ Normal MH /2011 [facility] HEMATOLOGY Lymphocytes 26.5 20.0 - 09/14 Normal MH 40.0 /2011 [facility] HEMATOLOGY Basophils # 0.0 0.0 - 0.2 / Normal MH /2011 [facility] BEDSIDE Comment1 Notify 09/08 NA GLUCOSE RN/ /2012 [facility] TESTING BEDSIDE Gluc POC 101 70 - 99 09/08 HI <sup>1</sup>I GLUCOSE Lifscn /2011 nterpretive [facility] TESTING Data: Upper Reportable Limit: 200 mg/dL. BEDSIDE Gluc POC 98 70 - 99 09/08 Normal <sup>2</sup>I GLUCOSE Lifnj /2011 nterpretive [facility] TESTING Data: Upper Reportable Limit: 200 mg/dL. BEDSIDE Gluc POC 90 70 - 99 09/07 Normal <sup>3</sup>I GLUCOSE Lifnjn /2011 nterpretive [facility] TESTING Data: Upper Reportable Limit: 200 mg/dL. BEDSIDE Comment1 Notify 09/07 NA GLUCOSE RN/MD /2011 [facility] TESTING BEDSIDE Comment2 Assess 09/07 NA MH GLUCOSE Patient /2011 [facility] TESTING BEDSIDE Comment1 Notify 09/07 NA GLUCOSE RN/MD /2011 [facility] TESTING BEDSIDE Comment2 Assess 09/07 NA GLUCOSE Patient /2011 [facility] TESTING BEDSIDE Comment2 Assess 09/07 NA GLUCOSE Patient /2011 [facility] TESTING CHEMISTRY U Opiate Scr Negative Negative 09/06 NA MH *NA* /2011 [facility] (09/07/2011 11:56:00) CHEMISTRY U Phencyc Negative Negative 09/06 NA MH Scr *NA* [facility] (09/07/2011 11:56:00) CHEMISTRY UDS Note See Note 5 09/06 Normal <sup>5</sup>I (09/07/2011 11:56:00) /2011 nterpretiv e [facility] Data: Drugs reported as positive have not [...] Scr Negative Negative 09/06 NA MH *NA* [facility] (09/07/2011 11:56:00) CHEMISTRY U Benzodia Positive Negative 09/06 ABN MH Scr *ABN* [facility] (09/07/2011 11:56:00) CHEMISTRY U Cocaine Positive Negative 09/06 ABN MH Scr *ABN* [facility] (09/07/2011 11:56:00) CHEMISTRY U Cannab Scr Positive Negative 09/06 ABN MH *ABN* [facility] (09/07/2011 11:56:00) CHEMISTRY U Annette Scr Negative Negative 09/06 NA *NA* [facility] (09/07/2011 11:56:00) URINALYSIS UA Ketones Negative Negative 09/06 NA *NA* [facility] (09/07/2011 11:56:00) URINALYSIS UA Glucose Negative Negative 09/06 Normal (09/07/2011 11:56:00) [facility] URINALYSIS UA 0.2 0.1 - 1.0 09/06 Normal Urobilinogen [facility] URINALYSIS UA Blood Large Negative 09/06 ABN *ABN* [facility] (09/07/2011 11:56:00) URINALYSIS UA Bili Negative Negative 09/06 NA *NA* [facility] (09/07/2011 11:56:00) URINALYSIS UA Color Yellow Yellow 09/06 NA *NA* [facility] (09/07/2011 11:56:00) URINALYSIS UA Nitrite Negative Negative 09/06 Normal (09/07/2011 11:56:00) [facility] URINALYSIS UA Leuk Est Negative Negative 09/06 Normal (09/07/2011 11:56:00) [facility] URINALYSIS UA Protein Trace Negative 09/06 ABN *ABN* [facility] (09/07/2011 11:56:00) URINALYSIS UA pH 5.5 5.0 - 8.0 09/06 Normal [facility] URINALYSIS UA Spec Grav >=1.030 <=1.030 09/06 ABN *ABN* [facility] (09/07/2011 11:56:00) URINALYSIS UA Turbidity Slight Cloudy Clear 09/06 Normal (09/07/2011 11:56:00) [facility] URINALYSIS UA Amorph Few /HPF None Seen 09/06 ABN Erin *ABN* [facility] (09/07/2011 11:56:00) URINALYSIS UA Sq Epi Few /LPF Few 09/06 Normal MH (09/07/2011 11:56:00) /2011 [facility] URINALYSIS UA RBC 0-2 /HPF 0 - 2 09/06 Normal MH (09/07/2011 11:56:00) [facility] URINALYSIS UA WBC 6-10 /HPF None Seen 09/06 ABN MH *ABN* /2011 [facility] (09/07/2011 11:56:00) URINALYSIS UA Mucus Moderate /LPF None Seen 09/06 ABN MH *ABN* /2011 [facility] (09/07/2011 11:56:00) URINALYSIS UA Bacteria Few /HPF None Seen 09/06 Normal MH (09/07/2011 11:56:00) [facility] CHEMISTRY Rate Art 10 09/06 NA [facility] CHEMISTRY Mode Art nrm 09/06 NA [facility] CHEMISTRY Allens Art Positive 09/06 Normal MH (09/07/2011 09:18:00) [facility] CHEMISTRY BE Art 1 -2-2 - 2 09/06 Normal [facility] CHEMISTRY Temp Art 37.0 09/06 NA [facility] CHEMISTRY HCO3 Art 27 22 - 26 09/06 HI [facility] CHEMISTRY Site Art Right Ra 09/06 Normal (09/07/2011 09:18:00) [facility] CHEMISTRY O2 Sat Art 98.0 95.0 - 09/06 Normal MH 100.0 [facility] CHEMISTRY pCO2 Art 49 35 - 45 09/06 HI [facility] CHEMISTRY pO2 Art 115 80 - 100 09/06 [place] [facility] CHEMISTRY pH Art 7.35 7.35 - 09/06 Normal MH 7.45 [facility] CHEMISTRY Etoh (%) <0.003 09/06 NA <sup>6</sup>I nterpretive [facility] Data: Negative Range: <0.003% Toxic Range: >0.25% CHEMISTRY Ethanol Lvl <3 09/06 NA <sup>7</sup>I nterpretive [facility] Data: Negative Range: <3 mg/dL Toxic Range: >250 mg/dL CHEMISTRY Ammonia 28.0 <=45.0 09/06 Normal [facility] CHEMISTRY Bili Total 0.4 0.2 - 1.3 09/06 Normal MH /2011 [facility] CHEMISTRY ALT 20 0 - 65 05/ Normal MH /2011 [facility] CHEMISTRY AST 44 0 - 37 / HI MH /2011 [facility] CHEMISTRY Alk Phos 67 39 - 136 / Normal MH /2011 [facility] CHEMISTRY Albumin Lvl 3.5 3.5 - 5.0 09/06 Normal MH /2011 [facility] CHEMISTRY Potassium 4.6 3.5 - 5.1 09/06 Normal MH Lvl /2011 [facility] CHEMISTRY CO2 26 24 - 32 / Normal MH /2011 [facility] CHEMISTRY Chloride Lvl 109 95 - 109 / Normal MH /2011 [facility] CHEMISTRY Total 6.3 6.4 - 8.4 09/06 LOW MH Protein /2011 [facility] CHEMISTRY Calcium Lvl 8.1 8.5 - 10.5 09/06 LOW MH /2011 [facility] CHEMISTRY BUN 10 7 - 22 09/06 Normal MH /2011 [facility] CHEMISTRY Creatinine 0.9 0.5 - 1.4 09/06 Normal Lvl /2011 [facility] CHEMISTRY Sodium Lvl 142 135 - 145 09/06 Normal /2011 [facility] CHEMISTRY Glucose Lvl 111 70 - 99 09/06 HI <sup>4</sup>I /2011 nterpretive [facility] Data: Adult reference range values reflect the clinical guidelines of the [place] [employer]. CHEMISTRY Globulin 2.8 2.0 - 4.0 09/06 Normal /2011 [facility] CHEMISTRY A/G Ratio 1.3 0.7 - 1.6 09/06 Normal MH /2011 [facility] CHEMISTRY B/C Ratio 11 6 - 25 09/06 Normal /2011 [facility] CHEMISTRY AGAP 11.6 10.0 - 09/06 Normal MH 20.0 /2011 [facility] HEMATOLOGY Eosinophils 0.0 0.0 - 0.5 / Normal MH # /2011 [facility] HEMATOLOGY Basophils # 0.0 0.0 - 0.2 / Normal MH /2011 [facility] HEMATOLOGY Segs-Bands # 11.4 1.5 - 8.1 / HI MH /2011 [facility] HEMATOLOGY Lymphocytes 1.1 1.0 - 5.5 / Normal MH # /2011 [facility] HEMATOLOGY Monocytes # 0.6 0.0 - 0.8 / Normal MH /2011 [facility] HEMATOLOGY Basophils 0.2 0.0 - 1.0 / Normal MH /2011 [facility] HEMATOLOGY Lymphocytes 8.1 20.0 - 05/ LOW MH 40.0 /2012 [facility] HEMATOLOGY Segs 86.7 45.0 - 05/22 HI MH 75.0 /2011 [facility] HEMATOLOGY Eosinophils 0.1 0.0 - 4.0 09/06 Normal /2011 [facility] HEMATOLOGY Monocytes 4.9 2.0 - 12.0 09/06 Normal /2011 [facility] HEMATOLOGY Hgb 13.6 14.0 - 09/06 LOW MH 18.0 /2011 [facility] HEMATOLOGY RBC 4.20 4.70 - 09/06 LOW MH 6.10 /2011 [facility] HEMATOLOGY WBC 13.1 3.7 - 10.4 09/06 HI MH /2011 [facility] HEMATOLOGY Hct 38.5 42.0 - 09/06 LOW MH 54.0 /2011 [facility] HEMATOLOGY MCH 32.3 27.0 - 09/06 HI MH 31.0 /2011 [facility] HEMATOLOGY MCV 91.8 80.0 - 09/06 Normal MH 94.0 /2011 [facility] HEMATOLOGY RDW 13.6 11.5 - 09/06 Normal MH 14.5 /2011 [facility] MPV 9.2 7.4 - 10.4 09/06 Normal /2011 [facility] Platelet 226 133 - 450 09/06 Normal /2011 [facility] HEMATOLOGY MCHC 35.2 32.0 - 09/06 Normal MH 36.0 /2011 [facility] IMMUNOLOGY CDC-HIV 1/2 Negative Negative 09/06 [facility] *NA* /2011 [facility] (09/07/2011 08:40:00) Pathology Reports No Data Provided for This Section Diagnostic Reports Report Value Date Source Chest 1view PORTABLE CHEST 2013-06-21 12:06:00 06/21/2013 [facility] COMPARISON: September 15, 2011 CLINICAL INDICATION: r/o [...] Source Temperature Oral (F) 97.1 F 09/18/2016 [facility] Heart Rate 85 09/18/2016 [facility] Respitory Rate 18 09/18/2016 [facility] Systolic (mm Hg) 125 09/18/2016 [facility] Diastolic (mm Hg) 71 09/18/2016 [facility] Heart Rate 69 09/18/2016 [facility] Temperature Oral (F) 97.3 F 09/18/2016 [facility] Systolic (mm Hg) 118 09/18/2016 [facility] Diastolic (mm Hg) 81 09/18/2016 [facility] Respitory Rate 20 09/18/2016 [facility] Temperature Oral (F) 97.8 F 09/18/2016 [facility] Heart Rate 74 09/18/2016 [facility] Respitory Rate 18 09/18/2016 [facility] Systolic (mm Hg) 113 09/18/2016 [facility] Diastolic (mm Hg) 73 09/18/2016 [facility] BMI Calculated 23.8 09/17/2016 [facility] Weight 81.818 09/17/2016 [facility] Height 185.42 cm 09/17/2016 [facility] Respitory Rate 20 06/23/2013 [facility] Diastolic (mm Hg) 89 06/23/2013 [facility] Systolic (mm Hg) 139 06/23/2013 [facility] Heart Rate 88 06/23/2013 [facility] Temperature Oral (F) 97.6 F 06/23/2013 [facility] Diastolic (mm Hg) 90 06/23/2013 [facility] Systolic (mm Hg) 149 06/23/2013 [facility] Heart Rate 73 06/23/2013 [facility] Respitory Rate 20 06/23/2013 [facility] Temperature Oral (F) 98.4 F 06/23/2013 [facility] Diastolic (mm Hg) 80 06/23/2013 [facility] Temperature Oral (F) 97.9 F 06/23/2013 [facility] Heart Rate 72 06/23/2013 [facility] Respitory Rate 20 06/23/2013 [facility] Systolic (mm Hg) 128 06/23/2013 [facility] BMI Calculated 40.59 06/21/2013 [facility] Height 185.42 cm 06/21/2013 [facility] Weight 139.545 06/21/2013 [facility] BMI Calculated 40.66 06/21/2013 [facility] Weight 139.801 06/21/2013 [facility] Height 185.42 cm 06/15/2013 [facility] Respitory Rate 18 11/26/2011 [facility] Heart Rate 85 11/26/2011 [facility] Temperature Oral (F) 97.4 F 11/26/2011 [facility] Diastolic (mm Hg) 71 11/26/2011 [facility] Systolic (mm Hg) 123 11/26/2011 [facility] Systolic (mm Hg) 118 11/26/2011 [facility] Diastolic (mm Hg) 74 11/26/2011 [facility] Respitory Rate 18 11/26/2011 [facility] Temperature Oral (F) 97.1 F 11/26/2011 [facility] Heart Rate 90 11/26/2011 [facility] Diastolic (mm Hg) 73 11/26/2011 [facility] Systolic (mm Hg) 115 11/26/2011 [facility] Respitory Rate 18 11/26/2011 [facility] Heart Rate 80 11/26/2011 [facility] Temperature Oral (F) 97.6 F 11/26/2011 [facility] Weight 115.909 11/25/2011 [facility] Height 185.42 cm 11/25/2011 [facility] Weight 115.909 11/24/2011 [facility] Height 185.42 cm 11/24/2011 [facility] Weight 115.909 11/24/2011 [facility] Height 185.42 cm 11/24/2011 [facility] Temperature Oral (F) 97.3 F 09/16/2011 [facility] 73 09/16/2011 [facility] Rate 20 09/16/2011 [facility] Systolic (mm Hg) 124 09/16/[facility] Diastolic (mm Hg) 64 09/16/[address] Systolic (mm Hg) 129 09/16/[facility] Diastolic (mm Hg) 75 09/16/[address] Heart Rate 71 09/16/2011 [facility] Temperature Oral (F) 97.6 F 09/16/2011 [facility] Resp[facility] Rate 20 09/16/2011 [facility] Heart Rate 78 09/16/2011 [facility] Diastolic (mm Hg) 63 09/16/[address] Respitory Rate 19 09/16/2011 [facility] Systolic (mm Hg) 111 09/16/2011 [facility] Temperature Oral (F) 98.0 F 09/16/2011 [facility] Weight 118.182 09/15/2011 [facility] Height 185.42 cm 09/15/2011 [facility] Heart Rate 64 09/09/2011 [facility] Temperature Oral (F) 98.3 F 09/09/2011 [facility] Rate 18 09/09/2011 [facility] Diastolic (mm Hg) 91 09/09/[address] Systolic (mm Hg) 144 09/09/2011 [facility] Temperature Oral (F) 98.1 F 09/09/2011 [facility] Heart Rate 68 09/09/2011 [facility] Respitory Rate 18 09/09/2011 [facility] Diastolic (mm Hg) 99 09/09/[address] Systolic (mm Hg) 140 09/09/2011 [facility] Rate 18 09/09/2011 [facility] Heart Rate 68 09/09/2011 [facility] Temperature Oral (F) 98.1 F 09/09/2011 [facility] Diastolic (mm Hg) 99 09/09/2011 [facility] Systolic (mm Hg) 140 09/09/2011 [facility] Weight 100.000 09/07/2011 [facility] Encounters Location Location Encounter Encounter Reason Attending ADM MI Stat us Source Details Type Number For Provider Date Date Visit Inpatient [id number] DYSPNEA, THOMPSON 09/06 09/08 Active [facility] 1 AMS [place] [facility] [id number] THOMPSON 09/14 09/15 Discharg [facility] 2 CHOUDHURY ed Renéwe s t [facility] OU [id number] MARISSA 11/24 11/[address] /2011 ed [facility] Inpatient [id number] _MAPID:E Dick Lynn 06/21 06/23 [facility] [id number] NCNTRRFV /[address] [facility] 4 [id number] [facility] Inpatient [id number] Mohamed 09/17 09/18 [facility] 3 Fontanez /2016 [facility] Preadmit [id number] MORBID DICK LYNN Act dionisio [place] [address] [facility] Procedures Procedure Code Date Perfomer Comments Source Appendectomy [id number] [facility] Excision<sup>1</sup [id number] [place] [facility] Gastric bypass [id number] [facility] Operation [id number] [facility] Tonsillectomy [id number] [facility] Assessment and Plan Assessment and Plan Date Source Extracted from:Title: GI consult note 09/18/2016 [facility] Author: Melina Bonilla MD Date: 09/17/16 Assessment/Plan [...] Record - Dr. Sonali Bonilla MD Pager: [phone] Gastroenterology and Hepatology Fellow - PGY 4 [...] anxiety, schizoaffective disorders who was referred from [facility] for evaluation of acute GI bleed. 1.Acute [...] GI evaluation Extracted from:Title: Clinical Document 06/23/2013 [facility] Author: Robert Hinojosa Date: 06/22/2013 General Surgery Progress Note Patient: BRITTON KOHLI MR N: [id number] Age: 43 years Sex: Male : 1970 [...] 1,000 mL, hydromorphone 15 mg (HYDROmorphone 0.5mg/mL BALLROOM DANCER (15mg/30 mL) 15 mg) Physical Examination Vitals [...] Tot 0 0 0 06/21 24hr Tot [id number] 200 General: No acute distress, Patient alert and [...] start zolvit liquid for pain control. wean BALLROOM DANCER today . CV - HDS Pulm - [...] Application of Evicel. SURGEON: Dr. Dick Lynn. MOTORCYCLE DESIGNER: Dr. Thu Heath. INDICATIONS FOR PROCEDURE: This [...] small bowel was counted out and a [id number] functional end-to-side jejunojejunostomy was created using a single staple fire and closed with hand manuel turing. The mesentery defect was then closed using 2-0 silk suture. Attention was then turned back to the sm all pouch, which was opened using monopolar scissors using a 34-Monegasque calibration device to measure the size of [...] 06/21/2013 14:26 There were no qualified residents availa teja so I asked Dr. Thu Heath to assist. Plan of Care No Data Provided for This Section Social History Social History Date Source Social History TypeResponse 09/17/2016 [facility] Substance Abuse Use: Current. Type: Marijuana. Recreat [...]
--- OUTSIDE RECORDS SUMMARY | 2019-12-29 22:44 | XMS REPORT | Continuity of Care Document ---
:[address] [facility] t Address [address] [place] [address] Care Team Providers Name Role Phone Michel Hunter Attending Clinician Harris Lynn Attending Clinician Clyde Fontanez Admitting Clinician Harris Lynn Admitting Clinician Problems Condition Condition Condition Status Onset Resolution Last Treating Co mments Source Name Details Category Date Date Treatment Clinician Date GI BLEED, Diagnosis Active 2016-09-20 Memoria VOMITING 09-16 14:11:00 l BLOOD AND GI 00:00: Erick IN STOOL BLEED, 00 VOMITING BLOOD AND IN STOOL Active 09/16/2016 [facility] MORBID Diagnosis Active 2013-06-27 Mem oria OBESITY 05-04 21:46:00 l MORBID 00:00: [place] OBESITY 00 Active 05/04/2013 [facility] CERVICAL Diagnosis Active 2011-11-26 M emoria SPONDYLOSI 11-16 12:21:00 l S CERVICAL 00:00: Efrain n SPONDYLOSI 00 S Active 11/17/2011 [facility] HYPOKALEMI Diagnosis Active 2011-09-15 Memoria A, GENERAL 09-14 14:35:00 l WEAKNESS 10:00: [place] HYPOKALEMI 00 A, GENERAL WEAKNESS Active 09/15/2011 [facility] OTHER Diagnosis Active 2011-09-15 Mem oria 09-14 14:34:00 l OTHER 10:00: [place]key 00 Active 09/15/[address] [facility] CHEST PAIN Diagnosis Active 2011-09-16 Memoria R/O ACS 09-14 13:03:00 l CHEST 10:00: Erick PAIN R/O 00 ACS Active 09/15/[address] [facility] DYSPNEA, Diagnosis Active 2011-09-15 M emoria AMS -22 21:45:00 l DYSPNEA, 06:00: Efrain n AMS 00 Active 09/07/[address] [facility] history of Problem Resolve 2013-06-25 Memoria bipolar d 20:08:45 l disease(Co history Her staples nfirmed) of bipolar disease(Co nfirmed) Resolved Problem 06/25/2013 [facility] Anxiety Problem Active 2016-09-21 Phil jaqueline (finding) 00:38:37 l Anxiety Erick (finding) Active Problem 09/21/2016 [facility] Coronary Problem Active 2016-09-21 Mem oria arterioscl 00:38:37 l erosis Coronary Efrain n (disorder) arterioscl erosis (disorder) Active Problem 09/21/2016 [facility] Congestive Problem Active 2016-09-21 M emoria heart 00:38:37 l failure [place]key (disorder) Congestive heart failure (disorder) Active Problem 09/21/2016 [facility] Chronic Problem Active 2016-09-21 Phil jaqueline obstructiv 00:38:37 l e lung Chronic [place] disease obstructiv (disorder) e lung disease (disorder) Active Problem 09/21/2016 [facility] Hypertensi Problem Active 2016-09-21 M emoria ve 00:38:37 l disorder, Erick systemic Hypertensi arterial ve (disorder) disorder, systemic arterial (disorder) Active Problem 09/21/2016 [facility] Morbid Problem Active 2016-09-21 Memor ia obesity 00:38:37 l (disorder) Morbid Herm chris obesity (disorder) Active Problem 09/21/2016 [facility] Schizoaffe Problem Active 2016-09-21 M emoria ctive 00:38:37 l disorder [place]key (disorder) Schizoaffe ctive disorder (disorder) Active Problem 09/21/2016 [facility] Altered Problem Active 2011-11-28 Phil jaqueline mental 08:32:26 l status Altered Erick mental status Active Problem 11/28/2011 [facility] Anxiety Problem Active 2011-11-28 Phil jaqueline 08:32:26 l Anxiety [place] Active Problem 11/28/2011 [facility] Chest pain Problem Active 2011-11-28 M emoria 08:32:26 l Chest Erick pain Active Problem 11/28/2011 [facility] Nausea Problem Active 2011-11-28 Memor ia 08:32:26 l Nausea [place] Active Problem 11/28/2011 [facility] Pain Problem Active 2011-11-28 Memor ia 08:32:26 l Pain [place] Active Problem 11/28/2011 [facility] Altered Problem Active 2013-06-25 Phil jaqueline mental 20:08:45 l status Altered Erick (finding) mental status (finding) Active Problem 06/25/2013 [facility] Chest pain Problem Active 2013-06-25 M emoria (finding) 20:08:45 l Chest [place] pain (finding) Active Problem 06/25/2013 [facility] Hyperchole Problem Active 2013-06-25 M emoria sterolemia 20:08:45 l (disorder) Efrain n Hyperchole sterolemia (disorder) Active Problem 06/25/2013 [facility] Nausea Problem Active 2013-06-25 Memor ia (finding) 20:08:45 l Nausea [place]key (finding) Active Problem 06/25/2013 [facility] Pain Problem Active 2013-06-25 Memor ia (finding) 20:08:45 l Pain [place] (finding) Active Problem 06/25/2013 [facility] Reflux Problem Active 2013-06-25 Memor ia (finding) 20:08:45 l Reflux [place] (finding) Active Problem 06/25/2013 [facility] Sleep Problem Active 2013-06-25 Memor ia apnea 20:08:45 l (finding) Sleep Efrain n apnea (finding) Active Problem 06/25/2013 [facility] RESPIRATOR Diagnosis Active 2011-09-15 Memoria Y ABNORM 21:45:00 l NEC [place] RESPIRATOR Y ABNORM NEC Active [facility] ALTERED Diagnosis Active 2011-09-15 Me moria MENTAL 21:45:00 l STATUS ALTERED Erick MENTAL STATUS Active [facility] CERVICAL Diagnosis Active 2011-11-26 M emoria SPONDYLOSI 12:21:00 l S CERVICAL Efrain n SPONDYLOSI S Active [facility] MORBID Diagnosis Active 2013-06-27 Mem oria OBESITY 21:46:00 l MORBID Erick OBESITY Active [facility] Allergies, Adverse Reactions, Alerts This patient has no known allergies or adverse reactions. Social History Social Habit Start Date Stop Date Quantity Comments Source Social History 2016-09-17 2016-09-17 [facility] Bruno mirta 11:27:44 11:27:44 Medications Ordered Filled Start Stop Current Ordering Indication Dosage Frequency Signature Comments Components Source Medication Medication Date Date Medication? Clinician (SIG) Name Name Sucralfate Yes 1 gm = 1 Mem oria 1000 MG -03 tab, PO, l Oral Tablet 16:54: QID, # 28 H ermchris [Carafate] 00 tab, 0 Refill(s) Sucralfate No 1 gm, 1 Phil jaqueline 100 MG/ML 09-17 tab, l Oral 23:15: Route: PO, Erick Suspension 00 Drug form: [Carafate] TAB, QID, Dosing Weight 81.818, kg, Start date: 09/17/16 18:15:00 CDT, Stop date: 10/17/16 17:00:00 CDT pantoprazol No Notes: Phil jaqueline e 09-17 (Same as: l 23:15: Protonix) Trazodone Yes 50 mg = 1 Mem oria Hydrochlori -02 tab, PO, l de 50 MG 17:19: Bedtime, # staples Oral Tablet 00 30 tab, 1 Refill(s) Sertraline Yes 100 mg = 1 M emoria 100 MG Oral 6-02 tab, PO, l Tablet 17:19: Daily, # Erick [Zoloft] 00 90 tab, 0 Refill(s) quetiapine Yes 400 mg = 1 M emoria 400 MG Oral 6-02 tab, PO, l Tablet 17:19: QPM, 0 Erick [Seroquel] 00 Refill(s) Lurasidone 2017- Yes 60 mg = 1 Me moria Hydrochlori 6-02 tab, PO, l de 60 MG 17:19: Daily, 0 Rosie nn Oral Tablet 00 Refill(s) [Latuda] Ondansetron No Notes: Phil jaqueline 09-17 (Same as: l 15:05: Zofran) MEDICATION WASTE Product Size: 4 mg Product Wasted: ___ mg Flumazenil No Notes: Memor ia 6-02 (Same as: l 15:05: Romazicon) Erick 00 Naloxone No Notes: Memoria 6- Same as l 15:05: Narcan [place] 00 Hydromorpho No Notes: Phil jaqueline ne 6- Same as: l 15:05: Dilaudid [place] 00 Morphine No Notes: Memoria 6- (Same l 15:05: as:MORPhin Erick 00 e Sulfate) Labetalol No 10 mg, 2 Phil jaqueline 6-02 mL, Route: l 15:05: IVP, Drug form: INJ, Q5Min, Dosing Weight 81.818, kg, PRN Elevated BP, Start date: 09/17/16 10:05:00 CDT, Duration: 5 doses or times, Stop date: 09/18/16 0:00:00 CDT Hydralazine No Notes: Phil jaqueline 6- (Same as: l 15:05: Apresoline ) Push over 5 minutes lithium No Notes: Memoria 6- Give with l 14:00: food. [place]key 00 (Same as: [place] Carbonate) Abilify No Notes: Memoria 6-02 Same as: l 14:00: Abilify [place] 00 Non-Formul rosa elena Item Alprazolam No Notes: Memor ia 2 MG Oral -02 With food l Tablet 14:00: or milk [place] [Xanax] 00 (Same as: Xanax) Docusate No Notes: Memoria 6-02 (Same as: l 14:00: Colace) Erick 00 (Do Not Crush) Albuterol No Notes: Memori a 0.833 MG/ML 09-17 (Same as: l / 11:40: Duoneb) Erick Ipratropium 00 [place] 0.167 MG/ML Inhalant Solution [DuoNeb] sodium No 1,000 mL, Memori a chloride 09-17 Rate: 100 l 0.9% 1000 11:02: ml/hr, Efrain n ml INJ 00 Infuse 1,000 mL over: 10 hr, Route: IV, Dosing Weight 139.545 kg, Total Volume: 1,000, Start date: 09/17/16 6:02:00 CDT, Duration: 30 day, Stop date: 10/17/16 6:01:00 CDT Sodium No 100 mL, Memoria Chloride 09-17 Rate: 10 l 0.154 11:02: ml/hr, [place]key MEQ/ML 00 Infuse Injectable over: 10 Solution hr, Route: IVPB, Dosing Weight 139.545 kg, Total Volume: 100, Infuse at 8 mg / hr for 72 hours for GI bleeding, Start date: 09/17/16 6:02:00 CDT, Duration: 72 hr, Stop date: 09/20/16 6:01:00 CDT Protonix Yes 40 mg, PO, Mem oria 6-02 BID, # 30 l 10:58: tab, 0 Erick 00 Refill(s) lithium 600 Yes 600 mg = 1 Memoria mg oral 09-17 cap, PO, l capsule 10:58: BID, 0 Erick 00 Refill(s) Alprazolam No 2 mg = 1 Mem oria 2 MG Oral 02 tab, PO, l Tablet 10:58: BID, 0 [place] [Xanax] 00 Refill(s) aripiprazol No 2 mg = 1 Me moria e 2 MG Oral 6-02 tab, PO, l Tablet 10:58: Daily, 0 [place] [Abilify] 00 Refill(s) Sucralfate No 1 gm = 10 Me moria 100 MG/ML 09-17 mL, PO, l Oral 10:58: QID-Before [place]key Suspension 00 Meals, 0 [Carafate] Refill(s) Acetaminoph No Notes: Phil jaqueline en 325 MG / 09-17 (Same as: l Hydrocodone 10:56: [place] Rosie nn Bitartrate 00 325/5) Do 5 MG Oral not exceed Tablet 4gm/day of acetaminop hen. Acetaminoph No Notes: Do M emoria en 09-17 not exceed l 10:56: 4 gm/day. [place]key 00 (Same as: Tylenol) Ondansetron No Notes: Phil jaqueline 6-02 (Same as: l 10:56: Zofran) [place] 00 MEDICATION WASTE Product Size: 4 mg Product Wasted: 0 mg pantoprazol Yes = 1 Pack, M emoria e 40 MG 3-08 PO, Daily, l Granules 18:23: # 30 ea, 0 Her staples [Protonix] 00 Refill(s) Acetaminoph Yes 15 mL, PO, Memoria en 20 MG/ML 3-08 Q4H, Pain, l / 16:54: # 470 mL, [place] Hydrocodone 00 0 Bitartrate Refill(s) 0.667 MG/ML Oral Solution Magnesium No 500 mg, Memor ia Oxide 08 Route: PO, l 16:35: Drug form: [place] 00 TAB, ONCE, Dosing Weight 139.545, kg, Start date: 06/23/13 10:35:00, Stop date: 06/23/13 10:35:00 Magnesium No 2 gm, 50 Phil jaqueline Sulfate 3-08 mL, Route: l 13:35: IVPB, Drug form: INJ, ONCE, Dosing Weight 139.545, kg, Total dose = 2 gm, Start date: 06/23/13 7:35:00, Duration: 1 doses or times, Stop date: 06/23/13 7:35:00 Acetaminoph No 15 mL, Phil jaqueline en 20 MG/ML 07 Route: PO, l / 18:00: Drug Form: [place] Hydrocodone 00 SOLN, Bitartrate Dosing 0.667 MG/ML Weight Oral 139.545, Solution kg, Q4H, Start date: 06/22/13 12:00:00, Duration: 30 day, Stop date: 07/22/13 8:00:00Do not exceed 4gm/day of acetaminop hen. (Same as: Zolvit) Zofran No 4 mg, 2 Memoria 3-07 mL, Route: l 15:07: IV, Drug form: INJ, Q4H, Dosing Weight 139.545, kg, PRN Nausea, Start date: 06/22/13 9:07:00, Duration: 30 day, Stop date: 07/22/13 9:06:00(Sa me as: Zofran) Acetaminoph No 15 mL, Phil jaqueline en 20 MG/ML 307 Route: PO, l / 13:52: Drug Form: Erick Hydrocodone 00 SOLN, Bitartrate Dosing 0.667 MG/ML Weight Oral 139.545, Solution kg, Q4H, PRN Pain, Start date: 06/22/13 7:52:00, Duration: 30 day, Stop date: 07/22/13 7:51:00Do not exceed 4gm/day of acetaminop hen. (Same as: Zolvit) Enoxaparin No 30 mg, 0.3 M emoria 3-07 mL, Route: l 05:51: SUB-Q, Drug form: INJ, [id number], Dosing Weight 139.801, kg, Start date: 06/21/13 23:51:00, Duration: 30 day, Stop date: 07/21/13 11:51:00(S shagufta as: Lovenox) Mefoxin No 2 gm, Memoria 3 Route: l 21:00: IVPB, Drug form: INJ, Q6H, Dosing Weight 139.801, kg, Start date: 06/21/13 15:00:00, Duration: 1 doses or times, Stop date: 06/21/13 15:00:00(S shagufta As: Mefoxin) Naloxone No 0.04 mg, Memor ia 06 0.1 mL, l 18:20: Route: IVP, Drug form: INJ, Q2MIN, Dosing Weight 139.801, kg, PRN Narcotic Reversal, Start date: 06/21/13 12:20:00, Duration: 8 doses or times, Stop date: 06/22/13 0:00:00Sam e as Narcan Flumazenil No 0.2 mg, 2 Me moria 3-06 mL, Route: l 18:20: IVP, Drug form: INJ, PRN, Dosing Weight 139.801, kg, PRN Benzodiaze pine Reversal, Initial dose, Start date: 06/21/13 12:20:00, Duration: 1 day, Stop date: 06/22/13 12:19:00(S shagufta as: Romazicon) Labetalol 2013-0 No 10 mg, 2 Phil jaqueline 3-06 mL, Route: l 18:20: IVP, Drug form: INJ, Q5Min, Dosing Weight 139.801, kg, PRN Elevated BP, Start date: 06/21/13 12:20:00, Duration: 5 doses or times, Stop date: 06/22/13 0:00:00 Hydralazine 2013-0 No 10 mg, 0.5 Memoria 3-06 mL, Route: l 18:20: IVP, Drug form: INJ, Q20Min, Dosing Weight 139.801, kg, PRN Elevated BP, Start date: 06/21/13 12:20:00, Duration: 2 doses or times, Stop date: 06/22/13 0:00:00(Sa ks as: Apresoline ) Push over 5 minutes Ondansetron 2013-0 No 4 mg, 2 Mem oria 3-06 mL, Route: l 18:20: IVP, Drug form: INJ, ONCE, Dosing Weight 139.801, kg, PRN Nausea & Vomiting, Start date: 06/21/13 12:20:00(S shagufta as: Zofran) Hydromorpho 2013-0 No 0.5 mg, Mem oria ne 3-06 0.25 mL, l 18:20: Route: IVP, Drug form: INJ, Q5Min, Dosing Weight 139.801, kg, PRN Pain Score 7-10, Start date: 06/21/13 12:20:00, Duration: 4 doses or times, Stop date: 06/22/13 0:00:00Sam e as: Dilaudid Hydromorpho 2013-0 No 15 mg, 30 M emoria ne 3-06 mL, Route: l 18:00: IV, Initial Loading Dose: 0.4mg, MOVIE EXTRA Dose: 0.3 mg, MOVIE EXTRA Lockout: 10 minutes, Continuous Basal Rate: 0 mg, 4 Hour Limit (In MG): 7.2, Drug Form: INJ, Continuous , Start date: 06/21/13 12:00:00, Duration: 30 day, Stop date: 07/21/13 1...(Same as: Dilaudid) conc = 0.5 mg/ml Hydromorph one MOVIE EXTRA Dose: ;Delay: ;Basal: Cefoxitin 2013- No 2 gm, Memoria 20 MG/ML 3-06 Route: l Injectable 18:00: IVPB, Drug H ermann Solution 00 form: INJ, Q6H, Dosing Weight 139.801, kg, Start date: 06/21/13 12:00:00, Duration: 1 doses or times, Stop date: 06/21/13 12:00:00(S shagufta As: Mefoxin) Naloxone No 0.04 mg, Memor ia 3-06 0.1 mL, l 17:50: Route: [place] 00 IVP, Drug form: INJ, Q2MIN, Dosing Weight 139.801, kg, PRN Narcotic Reversal, Start date: 06/21/13 11:50:00, Duration: 30 day, Stop date: 07/21/13 12:49:00Sa me as Narcan Promethazin No 12.5 mg, Me moria e 3-06 0.5 mL, l 17:50: Route: IM, [place] 00 Drug form: INJ, Q4H, Dosing Weight 139.801, kg, PRN Nausea & Vomiting, Start date: 06/21/13 11:50:00, Duration: 30 day, Stop date: 07/21/13 11:49:00Do not give IV push. (Same as: Phenergan) Ondansetron No 4 mg, 2 Mem oria 3-06 mL, Route: l 17:50: IVP, Drug Erick 00 form: INJ, Q12H, Dosing Weight 139.801, kg, PRN Nausea & Vomiting, Start date: 06/21/13 11:50:00, Duration: 30 day, Stop date: 07/21/13 11:49:00(S shagufta as: Zofran) Calcium 2013- No 1,000 mL, Memor ia Chloride 3-06 Rate: 100 l 0.0014 17:50: ml/hr, Erick MEQ/ML / 00 Infuse Potassium over: 10 Chloride hr, Route: 0.004 IV, Dosing MEQ/ML / Weight Sodium 139.801 Chloride kg, Total 0.103 Volume: MEQ/ML / 1,000, Sodium Start Lactate date: 0.028 06/21/13 MEQ/ML 11:50:00, Injectable Stop date: Solution 07/21/13 11:49:00 heparin, No 5,000 Memoria porcine 3-06 unit, l 13:22: Route: Erick 00 SUB-Q, ONCE, Dosing Weight 139.801, kg, Start date: 06/21/13 7:22:00, Stop date: 06/21/13 7:22:00 Mefoxin No 2 gm, Memoria 3-06 Route: l 09:00: IVPB, Drug form: INJ, PRE OP, Start date: 06/21/13 3:00:00, Duration: 1 day, Stop date: 06/22/13 2:59:00(Sa me As: Mefoxin) scopolamine No 1 patch, Me moria 06 Route: l 09:00: TOP, Drug form: ERFILM, PRE OP, Start date: 06/21/13 3:00:00, Duration: 1 day, Stop date: 06/22/13 2:59:00Cha nge patch every 72 hours (Same as: Transderm- Scop) Ofirmev No 1,000 mg, Memor ia 06 100 mL, l 09:00: Route: IV, Drug form: INJ, PRE OP, Start date: 06/21/13 3:00:00, Duration: 1 day, Stop date: 06/22/13 2:59:00Inf use over 15 minutes Do not exceed 4gm/day of acetaminop hen Ambien No PO, Memoria 2-28 Bedtime, 0 l 22:39: Refill(s) Lipitor No PO, Daily, Phil jaqueline 2-28 0 l 22:31: Refill(s) Prevacid No 30 mg, PO, Mem oria 2-28 Daily, # l 22:31: 15 cap, 0 00 Refill(s) aspirin 81 No Harris Alvin 81 mg, 1 Memoria mg tablet, 8-10 Mohan tab, l enteric 14:00: Route: PO, Herm chris coated 00 Drug form: ECTAB, Daily, Start date: 11/26/11 9:00:00, Duration: 30 day, Stop date: 12/25/11 9:00:00 Nexium 2011-0 No Harris Esquivel 40 mg, Mem oria 8-10 Mohan Route: PO, l 14:00: Daily, [place] 00 Start date: 11/26/11 9:00:00, Duration: 30 day, Stop date: 12/25/11 9:00:00 Abilify 2011-0 No Harris Esquivel 2 mg, 1 M emoria 8-10 Mohan tab, l 02:00: Route: PO, Erick 00 Drug form: TAB, Bedtime, Start date: 11/25/11 21:00:00, Duration: 30 day, Stop date: 12/24/11 21:00:00 OxyContin 2011-0 No Harris Esquivel 20 mg, 1 Memoria 8-10 Mohan tab, l 02:00: Route: PO, [place] 00 Drug form: ERTAB, Q12H, Start date: 11/25/11 21:00:00, Duration: 30 day, Stop date: 12/25/11 9:00:00 amitriptyli 2011-0 No Harris Esquivel 50 mg, 1 Memoria ne 8-10 Mohan tab, l 02:00: Route: PO, [place] 00 Drug form: TAB, Bedtime, Start date: 11/25/11 21:00:00, Duration: 30 day, Stop date: 12/24/11 21:00:00 cefazolin + 2011-0 Ирина Esquivel 2 gm, Memoria Sodium 8-10 Mohan Route: l Chloride 01:30: IVPB, Erick 0.9% IV 100 00 ABXQ8H, mL Start date: 11/25/11 20:30:00, Duration: 3 doses or times, Stop date: 11/26/11 12:30:00 acetaminoph 0 Ирина Esquivel 2 tab, Memoria en-oxycodon - Mohan Route: PO, l e 325 mg-5 23:15: Drug Form: H ermann mg oral 00 TAB, Q4H, tablet PRN Pain Score 4-6, Start date: 11/25/11 18:15:00, Duration: 30 day, Stop date: 12/25/11 18:14:00 dexamethaso 2011- No Harris Esquivel 4 mg, 1 Memoria ne 11-24 Mohan mL, Route: l 23:00: IV, Drug Erick 00 form: INJ, Q6H, Start date: 11/25/11 18:00:00, Duration: 1 day, Stop date: 11/26/11 12:00:00 Toradol 30 No Harris Esquivel 30 mg, 1 Memoria mg/mL 11-24 Mohan mL, Route: l injectable 23:00: IV, Drug Her staples solution 00 form: INJ, Q6H, Start date: 11/25/11 18:00:00, Duration: 24 hr, Stop date: 11/26/11 12:00:00 Lopressor No Harris Esquivel 100 mg, 1 Memoria - Mohan tab, l 22:00: Route: PO, [place] 00 Drug form: TAB, BID, Start date: 11/25/11 17:00:00, Duration: 30 day, Stop date: 12/25/11 9:00:00 lithium 2011- No Harris Esquivel 600 mg, 2 Memoria - Mohan tab, l 22:00: Route: PO, Erick 00 Drug form: ERTAB, BID, Start date: 11/25/11 17:00:00, Duration: 30 day, Stop date: 12/25/11 9:00:00 Colace 100 No Harris Esquivel 100 mg, 1 Memoria mg oral 11-24 Mohan cap, l capsule 22:00: Route: PO, Herm chris Drug form: CAP, BID, Start date: 11/25/11 17:00:00, Duration: 30 day, Stop date: 12/25/11 9:00:00 Protonix No Harris Esquivel 40 mg, 1 Memoria - Mohan tab, l 21:30: Route: PO, [place] 00 Drug form: ECTAB, Before Dinner, Start date: 11/25/11 16:30:00, Duration: 30 day, Stop date: 12/24/11 16:30:00 cefazolin No Harris Esquivel 2 gm, Ramos evansrimichel (SCIP) 11-24 Mohan Route: l 20:00: IVPB, Drug form: INJ, ABXQ8H, Start date: 11/25/11 15:00:00, Duration: 24 hr, Stop date: 11/26/11 7:00:00 ondansetron No Joyce E 4 mg, 2 Memoria 11-24 Dies mL, Route: l 19:55: IVP, Drug form: INJ, ONCE, PRN Nausea & Vomiting, Start date: 11/25/11 14:55:00 hydromorpho No Joyce E 0.5 mg, Memoria ne 11-24 Dies 0.25 mL, l 19:55: Route: IVP, Drug form: INJ, Q5Min, PRN Pain Score 4-6, Start date: 11/25/11 14:55:00, Duration: 5 doses or times, Stop date: 11/26/11 0:00:00 naloxone 0 No Joyce E 0.04 mg, M nathanria 11-24 Dies 0.1 mL, l 19:55: Route: IVP, Drug form: INJ, Q2MIN, PRN Narcotic Reversal, Start date: 11/25/11 14:55:00, Duration: 8 doses or times, Stop date: 11/26/11 0:00:00 flumazenil No Joyce E 0.2 mg, 2 Memoria 11-24 Dies mL, Route: l 19:55: IVP, Drug form: INJ, PRN, PRN Benzodiaze pine Reversal, Initial dose, Start date: 11/25/11 14:55:00, Duration: 30 day, Stop date: 12/25/11 14:54:00 Flexeril Ирина Esquivel 5 mg, 0.5 Memoria 11-24 Mohan tab, l 19:14: Route: PO, Drug form: TAB, TID, PRN Spasm, Start date: 11/25/11 14:14:00, Duration: 30 day, Stop date: 12/25/11 14:13:00 Zofran 2011- No Harris Esquivel 4 mg, 2 Me moria 11-24 Mohan mL, Route: l 19:14: IV, Drug [place] 00 form: INJ, Q6H, PRN as needed for nausea/vom iting, Start date: 11/25/11 14:14:00, Duration: 30 day, Stop date: 12/25/11 14:13:00 Dulcolax No Harris Alvin 10 mg, 2 Memoria Laxative 11-24 Mohan tab, l 19:12: Route: PO, [place] 00 Drug form: ECTAB, Daily, PRN Constipati on, Start date: 11/25/11 14:12:00, Duration: 30 day, Stop date: 12/25/11 14:11:00 Cepacol No Harris Esquivel 1 lozenge, Memoria Lozenge 11-24 Mohan Route: l 19:12: MUCOUS Erick 00 MEM, Q2H, Drug form: CON PRN Sore Throat, Start date: 11/25/11 14:12:00, Duration: 30 day, Stop date: 12/25/11 14:11:00 morphine No Harris Alvin 4 mg, 1 Memoria Sulfate 11-24 Mohan mL, Route: l 19:11: IVP, Drug [place] 00 form: INJ, Q4H, PRN Pain Score 7-10, Start date: 11/25/11 14:11:00, Duration: 30 day, Stop date: 12/25/11 14:10:00 normal No Harris Alvin 1,000 mL, Memoria saline 0.9% 11-24 Mohan Rate: 75 l IV 1,000 mL 19:11: ml/hr, Herm chris Infuse over: 13.3 hr, Route: IV, Dosing Weight 115.909 kg, Total Volume: 1,000, Start date: 11/25/11 14:11:00, Duration: 30 day, Stop date: 12/25/11 14:10:00 Percocet Ирина Esquivel 1 tab, M emoria 5/325 oral 11-24 Mohan Route: PO, l tablet 19:10: Drug Form: Rosie nn 00 TAB, Q4H, PRN Pain Score 4-6, Start date: 11/25/11 14:10:00, Duration: 30 day, Stop date: 12/25/11 14:09:00 Klonopin 2011- No Harris Esquivel 2 mg, 2 Memoria 11-24 Mohan tab, l 19:09: Route: PO, [place] 00 Drug form: TAB, BID, PRN Anxiety, Start date: 11/25/11 14:09:00, Duration: 30 day, Stop date: 12/25/11 14:08:00 cefazolin 2011- No Harris Esquivel 1 gm, M nathanrimichel 11-24 Mohan Route: l 11:16: IVPB, Drug Erick 00 form: PDR/INJ, PRE OP, Priority: STAT, Start date: 11/25/11 6:16:00, Duration: 1 day, Stop date: 11/26/11 6:15:00 Percocet Yes Harris Alvin 1 to 2 Ramos evansrimichel 10/325 oral 11-22 Mohan tabs, PO, l tablet 21:40: 4-6x/Day, Efrain n 13 PRN, 20 tab, Substituti on Allowed, Soft Stop OxyContin Yes Harris Esquivel 20 mg, 1 Memoria 20 mg oral 11-22 Mhoan tab, PO, l tablet, 21:39: Q12H, Erick extended 00 Substituti release on Allowed, ERTAB amitriptyli Yes Harris Esquivel 50 mg, 1 Memoria ne 50 mg 11-22 Mohan tab, PO, l oral tablet 21:38: Bedtime, He rmann 30 30 tab, Substituti on Allowed, TAB aspirin 81 Yes Harris Alvin 81 mg, 1 Memoria mg tablet, 11-22 Mohan tab, PO, l enteric 21:37: Daily, 0 Efrain n coated 24 tab, Substituti on Allowed, ECTAB Klonopin No Matthieu 2 mg, 2 Memor ia 5-31 Wero tab, l 14:00: Shana Route: PO, Her staples 00 Drug form: TAB, BID, Start date: 09/16/11 9:00:00, Duration: 30 day, Stop date: 10/15/11 17:00:00 Eskalith 2011-0 No Vivek 300 mg, 1 M emoria 5-31 Radha Rae tab, l 14:00: [place] Route: PO, Rosie nn Drug form: TAB, QAM, Start date: 09/16/11 9:00:00, Duration: 30 day, Stop date: 10/15/11 9:00:00 Plavix 2011-0 No Vivek 75 mg, 1 Phil jaqueline - Radha Rae tab, l 14:00: Hyde Route: PO, Rosie nn Drug form: TAB, Daily, Start date: 09/16/11 9:00:00, Duration: 30 day, Stop date: 10/15/11 9:00:00 Abilify 2011-0 No Vivek 10 mg, 2 Mem oria -31 Radha Rae tab, l 14:00: [place] Route: PO, Rosie nn Drug form: TAB, Daily, Start date: 09/16/11 9:00:00, Duration: 30 day, Stop date: 10/15/11 9:00:00 aspirin 325 2011-0 No Vivek 325 mg, 1 Memoria mg tablet 09-15 Radha Rae tab, l 14:00: [place] Route: PO, Rosie nn Drug form: TAB, Daily, Start date: 09/16/11 9:00:00, Duration: 30 day, Stop date: 10/15/11 9:00:00 acetaminoph No Matthieu 1 tab, Mem oria en-hydrocod 09-15 Wero Route: PO, l one 325 13:07: Shana Drug Form: Erick mg-10 mg 00 TAB, Q6H, oral tablet PRN Pain, Start date: 09/16/11 8:07:00, Duration: 30 day, Stop date: 10/16/11 8:06:00 aspirin 81 2011-0 No Loki 81 mg, 1 M emoria mg tablet, 09-15 Moiz tab, l chewable 13:00: Faye Route: Roise nn CHEW, Drug form: CHEWTAB, Breakfast, Start date: 09/16/11 8:00:00, Duration: 30 day, Stop date: 10/15/11 8:00:00 aspirin 325 2011-0 No Loki 325 mg, 1 Memoria mg tablet 5-31 Moiz tab, l 13:00: [place] Route: PO, Rosie nn 00 Drug form: TAB, Breakfast, Start date: 09/16/11 8:00:00, Duration: 30 day, Stop date: 10/15/11 8:00:00 nitroglycer 2011-0 No Vivek 1 inch, Memoria in 2% 5-31 Radha Rae Route: l topical 07:00: Hyde TOP, Drug Her staples ointment 00 form: OINT, Q24H, Start date: 09/16/11 2:00:00, Duration: 30 day, Stop date: 10/15/11 2:00:00 Lopressor 2011-0 No Vivek 100 mg, 1 Memoria 5-31 Radha Rae tab, l 02:00: [place] Route: PO, Rosie nn 00 Drug form: TAB, Q12H, Start date: 09/15/11 21:00:00, Duration: 30 day, Stop date: 10/15/11 9:00:00 Eskalith 2011-0 No Vivek 600 mg, 2 M emoria 5-31 Radha Rae tab, l 02:00: [place] Route: PO, Rosie nn 00 Drug form: TAB, Bedtime, Start date: 09/15/11 21:00:00, Duration: 30 day, Stop date: 10/14/11 21:00:00 trazodone 2011-0 No Vivek 100 mg, 2 Memoria 50 mg oral 5-31 Radha Rae tab, l tablet 02:00: [place] Route: PO, Her staples 00 Drug form: TAB, Bedtime, Start date: 09/15/11 21:00:00, Duration: 30 day, Stop date: 10/14/11 21:00:00 nitroglycer 2011-0 No Vivek 0.4 mg, 1 Mem[facility] in 0.4 mg 5-31 Radha Rae tab, l sublingual 00:09: [place] Route: SL, [place] tablet 00 Drug form: TAB, PRN, PRN Chest Pain, Start date: 09/15/11 19:09:00, Duration: 30 day, Stop date: 10/15/11 19:08:00 bacitracin/ 2011-0 No Vivek 1 appl, Memoria neomycin/po 5-31 Radha Rae Route: l lymyxin B 00:00: [place] TOP, BID, H ermann topical 00 Drug form: ointment OINT, Start date: 09/15/11 19:00:00, Duration: 30 day, Stop date: 10/15/11 17:00:00 Protonix 2011-0 No Vivek 40 mg, 1 Me moria 5-31 Radha Rae tab, l 00:00: [place] Route: PO, Rosie nn 00 Drug form: ECTAB, Before Dinner, Priority: NOW, Start date: 09/15/11 19:00:00, Duration: 30 day, Stop date: 10/15/11 16:30:00 hydrOXYzine 2011-0 No Vivek 25 mg, 1 [facility] hydrochlori 5-30 Radha Rae tab, l de 25 mg 23:55: [place] Route: PO, H ermann oral tablet 00 Drug form: TAB, BID, Priority: NOW, Start date: 09/15/11 18:55:00, Duration: 30 day, Stop date: 10/15/11 17:00:00 acetaminoph 2011-0 No Vivek 1 tab, M emoria en-codeine 5-30 Radha Rae Route: PO, l 300 mg-30 23:33: [place] Drug Form: Erick mg oral 00 TAB, Q4H, tablet PRN Pain, Start date: 09/15/11 18:33:00, Duration: 30 day, Stop date: 10/15/11 18:32:00 Lovenox 2011-0 No Loki 120 mg, Memor ia 5-30 Moiz 0.8 mL, l 23:00: [place] Route: Erick 00 SUB-Q, Drug form: INJ, hibrG64M, Start date: 09/15/11 18:00:00, Duration: 30 day, Stop date: 10/15/11 6:00:00 metoprolol 2011-0 No Loki 12.5 mg, M emoria 5-30 Moiz 0.5 tab, l 22:24: [place] Route: PO, Rosie nn 00 Drug form: ERTAB, QAM, Priority: NOW, Start date: 09/15/11 17:24:00, Duration: 30 day, Stop date: 10/15/11 9:00:00 ondansetron 2011- No Haily Wade 4 mg, Memoria 5-30 Castellano Route: l 18:08: IVP, Drug form: INJ, ONCE, Priority: STAT, Start date: 09/15/11 13:08:00, Stop date: 09/15/11 13:08:00 morphine 2011- No Haily Wade 5 mg, Me moria Sulfate 5-30 Castellano Route: IV, l 18:08: ONCE, [place] 00 Priority: STAT, Start date: 09/15/11 13:08:00, Stop date: 09/15/11 13:08:00 Sodium 2011- No Prakash J 250 mL, Mem[facility] ia Chloride 5-30 [place]oberman Route: l 0.9% IV 17:29: IVPB, Start date: 09/15/11 12:29:00, Duration: 30 day, Stop date: 10/15/11 12:28:00, PRN Line Flush BD Normal No Prakash J 10 mL, Mem oria Saline 5-30 [place]oberman Route: l Flush 17:28: IVP, Drug Form: INJ, PRN, PRN Line Flush, Start date: 09/15/11 12:28:00, Duration: 30 day, Stop date: 10/15/11 12:27:00 Saline 2011- No Haily Wade 5 ml, Phil jaqueline Flush 0.9% 5-30 Castellano Route: l 17:18: IVP, Drug Form: INJ, PRN, PRN Line Flush, Start date: 09/15/11 12:18:00, Duration: 24 hr, Stop date: 09/16/11 12:17:00 predniSONE 2011-0 No Vivek 40 mg, 2 Memoria 5-24 Radha Rae tab, l 14:00: [place] Route: PO, Rosie Drug form: TAB, Daily, Start date: 09/09/11 9:00:00, Duration: 30 day, Stop date: 10/08/11 9:00:00 Protonix 2011-0 No Vivek 40 mg, 1 Me moria 5-23 Radha Rae tab, l 21:30: [place] Route: PO, Rosie Drug form: ECTAB, Before Dinner, Start date: 09/08/11 16:30:00, Duration: 30 day, Stop date: 10/07/11 16:30:00 azithromyci 2011-0 No Vivek 500 mg, 2 Memoria n 250 mg 5-23 Radha Rae tab, l oral tablet 21:00: [place] Route: PO, Drug form: TAB, Q24H, Start date: 09/08/11 16:00:00, Duration: 30 day, Stop date: 10/07/11 16:00:00 Eskalith 2011-0 No Vivek 600 mg, 2 M emoria 5-23 Radha Rae tab, l 14:00: [place] Route: PO, Rosie Drug form: TAB, BID, Start date: 09/08/11 9:00:00, Duration: 30 day, Stop date: 10/07/11 17:00:00 aspirin 81 2011-0 No Vivek 81 mg, 1 Memoria mg tablet, 5-23 Radha Rae tab, l chewable 14:00: [place] Route: CHEW, Drug form: CHEWTAB, Daily, Start date: 09/08/11 9:00:00, Duration: 30 day, Stop date: 10/07/11 9:00:00 Plavix 2011-0 No Vivek 75 mg, 1 Phil jaqueline 5-23 Radha Rae tab, l 14:00: [place] Route: PO, Rosie Drug form: TAB, Daily, Start date: 09/08/11 9:00:00, Duration: 30 day, Stop date: 10/07/11 9:00:00 Haldol 2011-0 No Matthieu 10 mg, 2 Memori a 5-23 Wero mL, Route: l 02:35: Shana IM, Drug form: INJ, ONCE, Start date: 09/07/11 21:35:00, Stop date: 09/07/11 21:35:00 Haldol 2011-0 No Vivek 5 mg, 1 Memor ia 5-23 Radha Rae mL, Route: l 02:09: [place] IM, Drug Erick 00 form: INJ, ONCE, Start date: 09/07/11 21:09:00, Stop date: 09/07/11 21:09:00 Abilify 2011-0 No Vivek 2 mg, 1 Phil jaqueline 5-23 Radha Rae tab, l 02:00: [place] Route: PO, Rosie nn 00 Drug form: TAB, Bedtime, Start date: 09/07/11 21:00:00, Duration: 30 day, Stop date: 10/06/11 21:00:00 Lopressor 2011-0 No Vivek 100 mg, 1 Memoria 5-23 Radha Rae tab, l 02:00: [place] Route: PO, Rosie nn 00 Drug form: TAB, Q12H, Start date: 09/07/11 21:00:00, Duration: 30 day, Stop date: 10/07/11 9:00:00 Sodium 2012-0 No Vivek 1,000 mL, Mem oria Chloride 5-23 Radha Rae Rate: 80 l 0.9% IV 01:00: [place] ml/hr, Efrain n 1,000 mL 00 Infuse over: 12.5 hr, Route: IV, Dosing Weight 100 kg, Total Volume: 1,000, Start date: 09/07/11 20:00:00, Duration: 30 day, Stop date: 10/07/11 19:59:00 albuterol 2011-0 No Vivek 2.49 mg, 3 Memoria 5-23 Radha Rae mL, Route: l 01:00: [place] NEB, Drug Efrain n 00 form: SOLN, RQ6H, Start date: 09/07/11 20:00:00, Duration: 30 day, Stop date: 10/07/11 14:00:00 methylPREDN 2011-0 No Vivek 60 mg, M emoria ISolone 5-22 Radha Rae 0.96 mL, l 23:00: [place] Route: IV, Rosie nn 00 Drug form: INJ, Q6H, Start date: 09/07/11 18:00:00, Duration: 30 day, Stop date: 10/07/11 12:00:00 albuterol 2011-0 No Vivek 2.49 mg, 3 Memoria 5-22 Radha Rae mL, Route: l 22:13: Mary Ellen MILES, Drug Efrain n 00 form: SOLN, RQ6H, PRN Shortness of breath, Start date: 09/07/11 17:13:00, Duration: 30 day, Stop date: 10/07/11 17:12:00 Flexeril 2011-0 Yes Substituti Mem oria 5-22 on Allowed l 14:29: Erick 04 Flexeril 0 Yes Substituti Mem oria 5-22 on Allowed l 14:27: Erick 46 trazodone 0 Yes Substituti Me moria 5-22 on Allowed l 14:27: Erick 35 Librium 0 Yes Substituti Phil jaqueline 5-22 on Allowed l 14:27: Erick 17 clonidine 2011-0 Yes Substituti Me moria 5-22 on Allowed l 14:26: Erick 37 Klonopin 0 Yes Substituti Mem oria 5-22 on Allowed l 14:26: Erick 14 Nexium 0 Yes Substituti Memor ia 5-22 on Allowed l 14:25: Erick 27 Lopressor 0 Yes Substituti Me moria 5-22 on Allowed l 14:22: Erick 20 Plavix 2011-0 Yes Substituti Memor ia 5-22 on Allowed l 14:21: Erick 51 Abilify 0 Yes Substituti Phil jaqueline 5-22 on Allowed l 14:21: Erick 45 lithium 0 Yes Substituti Phil jaqueline 5-22 on Allowed l 14:21: Erick 36 Phenergan 2011-0 Yes Substituti Me moria 5-22 on Allowed l 14:21: Erick 29 Haldol 5 2011-0 Yes Substituti Mem oria mg/mL 5-22 on Allowed l injectable 14:20: Erick solution 29 Benadryl 2011-0 Yes Substituti Mem oria 5-22 on Allowed l 14:20: Erick 16 Suboxone 8 2011-0 Yes Substituti M emoria mg-2 mg 5-22 on l sublingual 14:19: Allowed, Her staples tablet, 41 Maintenanc disintegrat e ing Ativan 0 Yes Substituti Memor ia 5-22 on Allowed l 14:18: [place] 58 Sodium 2012-0 No Hung Ward 250 mL, Me moria Chloride - [place] Route: l 0.9% IV 14:12: IVPB, Erick 00 Start date: 09/07/11 9:12:00, Duration: 30 day, Stop date: 10/07/11 9:11:00, PRN Line Flush BD Normal No Hung [place] 10 mL, Memoria Saline 09-06 [place] Route: l Flush 14:12: IVP, Drug Lackey 00 Form: INJ, PRN, PRN Line Flush, Start date: 09/07/11 9:12:00, Duration: 30 day, Stop date: 10/07/11 9:11:00 naloxone No [place] Route: M emoria - [place] IVP, Drug l 13:58: form: INJ, Erick 00 ONCE, Priority: STAT, Start date: 09/07/11 8:58:00, Stop date: 09/07/11 8:58:00 Vital Signs Vital Name Observation Time Observation Value Comments Source Temperature Oral (F) 2016-09-18 16:31:00 97.1 F [facility] Heart Rate 2016-09-18 16:31:00 [facility] [place] Respitory Rate 2016-09-18 16:31:00 Memori al [place] Systolic (mm Hg) 2016-09-18 16:31:00 Phil rial Erick Diastolic (mm Hg) 2016-09-18 16:31:00 Mem orial [place] Heart Rate 2016-09-18 12:50:00 [facility] [place] Temperature Oral (F) 2016-09-18 12:50:00 97.3 F [facility] Systolic (mm Hg) 2016-09-18 12:50:00 Phil rial [place] Diastolic (mm Hg) 2016-09-18 12:50:00 Mem orial [place] Respitory Rate 2016-09-18 12:50:00 [facility]ori al Erick Temperature Oral (F) 2016-09-18 09:00:00 97.8 F [facility] [place] Heart Rate 2016-09-18 09:00:00 [facility] Respitory Rate 2016-09-18 09:00:00 [facility] [place] Systolic (mm Hg) 2016-09-18 09:00:00 Phil rial [place] Diastolic (mm Hg) 2016-09-18 09:00:00 Mem [facility] [place] BMI Calculated 2016-09-17 11:09:00 [facility] [place] Weight 2016-09-17 11:09:00 [facility] Height 2016-09-17 11:09:00 185.42 cm [facility] [place] Respitory Rate 2013-06-23 14:10:00 [facility] [place] Diastolic (mm Hg) 2013-06-23 14:10:00 Mem orial Erick Systolic (mm Hg) 2013-06-23 14:10:00 Phil rial [place] Heart Rate 2013-06-23 14:10:00 [facility] Temperature Oral (F) 2013-06-23 14:10:00 97.6 F [facility] [place] Diastolic (mm Hg) 2013-06-23 11:16:00 Mem orial Erick Systolic (mm Hg) 2013-06-23 11:16:00 Phil rial [place] Heart Rate 2013-06-23 11:16:00 [facility] [place] Respitory Rate 2013-06-23 11:16:00 [facility]ori al [place] Temperature Oral (F) 2013-06-23 11:16:00 98.4 F [facility] [place] Diastolic (mm Hg) 2013-06-23 07:11:00 Mem orial Erick Temperature Oral (F) 2013-06-23 07:11:00 97.9 F [facility] Heart Rate 2013-06-23 07:11:00 [facility] Respitory Rate 2013-06-23 07:11:00 [facility] al [place] Systolic (mm Hg) 2013-06-23 07:11:00 Phil rial Erick BMI Calculated 2013-06-21 20:25:00 [facility] [place] Height 2013-06-21 20:25:00 185.42 cm [facility] [place] Weight 2013-06-21 20:25:00 [facility] [place] BMI Calculated 2013-06-21 12:49:00 [facility] [place] Weight 2013-06-21 12:49:00 [facility] [place] Height 2013-06-15 21:08:00 185.42 cm [facility] [place] Respitory Rate 2011-11-26 21:00:00 [facility] [place] Heart Rate 2011-11-26 21:00:00 [facility] Temperature Oral (F) 2011-11-26 21:00:00 97.4 F [facility] Diastolic (mm Hg) 2011-11-26 21:00:00 Mem orial [place] Systolic (mm Hg) 2011-11-26 21:00:00 Phil rial [place] Systolic (mm Hg) 2011-11-26 16:18:00 Phil rial [place] Diastolic (mm Hg) 2011-11-26 16:18:00 Mem orial [place] Respitory Rate 2011-11-26 16:18:00 [facility]ori al [place] Temperature Oral (F) 2011-11-26 16:18:00 97.1 F [facility] Heart Rate 2011-11-26 16:18:00 [facility] [place] Diastolic (mm Hg) 2011-11-26 12:26:00 Mem orial Erick Systolic (mm Hg) 2011-11-26 12:26:00 Phil rial Erick Respitory Rate 2011-11-26 12:26:00 [facility] [place] Heart Rate 2011-11-26 12:26:00 [facility] [place] Temperature Oral (F) 2011-11-26 12:26:00 97.6 F [facility] [place] Weight 2011-11-25 14:39:00 [facility] Height 2011-11-25 14:39:00 185.42 cm [facility] [place] Weight 2011-11-24 14:26:00 [facility] [place] Height 2011-11-24 14:26:00 185.42 cm [facility] Weight 2011-11-24 12:28:00 [facility] [place] Height 2011-11-24 12:28:00 185.42 cm [facility] [place] Temperature Oral (F) 2011-09-16 18:10:00 97.3 F [facility] Heart Rate 2011-09-16 18:10:00 [facility] [place] Respitory Rate 2011-09-16 18:10:00 Memori al [place] Systolic (mm Hg) 2011-09-16 18:10:00 Phil rial Erick Diastolic (mm Hg) 2011-09-16 18:10:00 Mem orial [place] Systolic (mm Hg) 2011-09-16 13:12:00 Phil rial Erick Diastolic (mm Hg) 2011-09-16 13:12:00 Mem orial [place] Heart Rate 2011-09-16 13:12:00 [facility] [place] Temperature Oral (F) 2011-09-16 13:12:00 97.6 F [facility] Respitory Rate 2011-09-16 13:12:00 [facility] [place] Heart Rate 2011-09-16 09:10:00 [facility] [place] Diastolic (mm Hg) 2011-09-16 09:10:00 Mem orial [place] Respitory Rate 2011-09-16 09:10:00 Memori al [place] Systolic (mm Hg) 2011-09-16 09:10:00 Phil rial [place] Temperature Oral (F) 2011-09-16 09:10:00 98.0 F [facility] Weight 2011-09-15 17:11:00 [facility] [place] Height 2011-09-15 17:11:00 185.42 cm [facility] Heart Rate 2011-09-09 20:09:00 [facility] [place] Temperature Oral (F) 2011-09-09 20:09:00 98.3 F [facility] Respitory Rate 2011-09-09 20:09:00 Memori al Erick Diastolic (mm Hg) 2011-09-09 20:09:00 Mem orial [place] Systolic (mm Hg) 2011-09-09 20:09:00 Phil rial [place] Temperature Oral (F) 2011-09-09 19:38:00 98.1 F [facility] Heart Rate 2011-09-09 19:38:00 [facility] [place] Respitory Rate 2011-09-09 19:38:00 Memori al Erick Diastolic (mm Hg) 2011-09-09 19:38:00 Mem orial [place] Systolic (mm Hg) 2011-09-09 19:38:00 Phil rial Erick Respitory Rate 2011-09-09 17:19:00 [facility] [place] Heart Rate 2011-09-09 17:19:00 [facility] Temperature Oral (F) 2011-09-09 17:19:00 98.1 F [facility] Diastolic (mm Hg) 2011-09-09 17:19:00 Mem orial E[place] Systolic (mm Hg) 2011-09-09 17:19:00 Phil rial [place] Weight 2011-09-07 13:27:00 [facility] Procedures Procedure Date / Time Performed Performing Clinician Sour e Appendectomy [facility] Excision<sup>1</sup> [facility] Gastric bypass [facility] Operation [facility] Tonsillectomy [facility] Encounters Start End Encounter Admission Attending Care Care Encounter Source Date/Time Date/Time Type Type Clinicians Facility Department ID 2016-09-17 2016-09-18 Outpatient Elsa [facility] [id number] 04:33:00 15:00:00 [place] Michel Shafer 2013-06-21 2013-06-23 Outpatient LOLA Lynn [facility] [id number] 06:39:00 13:00:00 Ish Iglesias Results Test Description Test Time Test Comments Results Result Sourc e Comments CHEST 1 VIEW 2018-02-26 [facility] 08:14:[address] [id number] IMAGING REPORTPatient Name: Sophia KOHLI of Service: [id number]: [id number] Sex: M Order #: [id number] [facility] 1970 X-[facility] Number: [id number] Record Number: [id number] Hospital Number: [id number] Physician: Herminio RAMIREZing Physician: Dov RAMIREZ.02/25/2018 10:43 PMHistory: Chest pain.Technique: Single AP chest projection.Findings: Single chest projection demonstrates normal heart size and clearlungs. No infiltrates or abnormalities are depicted. The osseous structuresappear intact.Impression:No acute-appearing cardiopulmonary abnormalities.Electro nically Signed By: Quinton Dupree M.D., 02/26/2018 8:11 AMLegally authenticated by MARIE Lance 2018-02-26 08:11:53 TROPONIN ER 2018-02-26 01:50:00 Test Item Value Reference Range Interpretation Comme nts TROPER (test code = TROPER) 0.01 ng/ml 0.0-0.08 INTERPRETIVE DATA A POC T ROPONIN OF </= 0.08 NG/ML IS CONSID ERED NEGATIVE PROBRAIN NATRIURETIC [id number] 23:15:00 Test Item Value Reference Range Interpretation Comments NT-PROBNP (test code 32 pg/mL Exclusi on for heart = PROBNP) failure for pat ients of all ages is 300 pg/mL. Inclusion for h eart failure for pat ients age <50 is 450 pg/m L; for patients age 50 -75 is 900 pg/mL; for ashli ents age >75 is 1800 pg/ mL. [id number] 23:15:00 Test Item Value Reference Range Interpretation Comments %CKMB (test code = %MB) 1.0 % CKMB (test code = CKMB) 0.5 NG/ML 0.22-2.4 CK (test code = CK) 48 U/L 55-170 L CKINTERP (test code = NEGATIVE Negative CKINTERP) BMP, BASIC METABOLIC [id number] 23:13:00 Test Item Value Reference Range Interpretation Comments SODIUM (test code = 139 MMOL/L 137-145 NA) K+ (test code = 4.1 MMOL/L 3.5-5.1 PLEASE NOTE NEW KSERUM) REFERENCE RANGE (S) IN EFFECT EFFECTIVE 010 - NEW ANALYZER (V ITROS 5600) CHLORIDE (test code 105 MMOL/L 98-107 = CL) CO2 (test code = 29 MMOL/L 22-30 CO2) BUN (test code = 13 MG/DL 9-20 BUN) CREA (test code = 0.8 MG/DL 0.8-1.5 CREA) GLUCOSE (test code 61 MG/DL 70-99 L Fasting glucose = GLUCOSE) normal <100 MG/ DL- [employer] recommendation* * CALCIUM (test code 9.4 MG/DL 8.4-10.2 = CABLOOD) GFR (test code = 111 A GFR of >9 0 GFR) mL/min/1.73m2 mL/min/1.73m2 is considered norm al. [id number] 23:11:00 Test Item Value Reference Range Interpretation Comments WBC (test code = 5.7 K/UL 3.5-10.9 WBC) RBC (test code = 4.14 M/UL 4.3-5.7 L RBC) HGB (test code = 13.2 G/DL 13.0-17.9 HGB) HCT (test code = 36.8 % 38-52 L HCT) MCV (test code = 88.9 FL 80-98 MCV) MCH (test code = 31.9 PG 28-32 MCH) MCHC (test code = 35.9 G/DL 32.5-36.5 MCHC) RDW (test code = 12.4 % 11.5-14.5 RDW) PLT (test code = 171 K/UL 150-450 PLT) MPV (test code = 10.9 FL 7.4-10.4 H MPV) MANDIFF (test code = NO MANDIFF) SCAN (test code = NO SCAN) NEUT% (test code = 54.7 % 40-75 NEUT%) LYMPH% (test code = 33.3 % 24-44 LYMPH%) MONO% (test code = 9.6 % 0-13 MONO%) EOS% (test code = 1.7 % 0-4 EOS%) BASO % (test code = 0.5 % 0-2 BASO%) IG (test code = IG) 0 % 0-1 IG% (test code = 0.2 % 0-1 IG% = Metam yelocytes, IG%) Myelocytes, and Promyelocytes. (Immature neutr ophils not including " bands".) > 3% IG indic ates risk of sepsis NRBC% (test code = 0 /100 WBC NRBC%) ABS NEUT (test code 3.1 K/UL 1.2-7.2 = NEUT) PROTHROMBIN TIME WITH [id number] 23:07:00 Test Item Value Reference Range Interpretation Comments PROTHROMBIN TIME 14.4 SECONDS 12.0-14.6 INR Usual R abdulaziz = 2 (test code = PT) to 3 for pr evention of deep vein thrombosis (DVT ) INR (test code = INR) 1.1 [id number] 23:07:00 Test Item Value Reference Range Interpretation Comments PTT (test code = 27.5 SECONDS 24.4-36.3 HEPARIN THE RAPEUTIC PTT) RANGE 57-92 SEC ONDS TROPONIN [id number] 22:41:00 Test Item Value Reference Range Interpretation Comments TROPER (test code = 0.00 ng/ml 0.0-0.08 TROPER) INTERPRETIVE DATA A POC TROPONIN OF </= 0.08 NG/ML IS CONSIDERED NEGA TIVE [id number] 13:51[facility] DrtufgpBVNEGEZKBB3219-41-95 13:51:001.2 [facility] NibwxjiDMHRUXEPIG1856-88-49 13:51:001.0[facility] 2016-09-18 13:51:000.1[facility] FsxswpmAJLDKKFKOK8287-23-91 13:51:000.2[facility] TfhwbxpFPDFOQHCVW9124-68-35 13:51:0071.8[facility] FarobdiJLOSKREVCX5264-47-77 13:51:004.1[facility] FestdojBTYWFEEOFC6742-21-83 13:51:004.1[facility] BHNWVUFZJK7713-86-57 13:51:0020.5[facility] DktcdflTBTYNQYEST9668-24-45 13:51:00 2.6[facility] BvmftkyHAENZIWCAR9529-90-35 13:51:0013.2[facility]ann[facility]OLOGY 2016-09-18 13:51:0034.6[facility] LbfnvcqGXKUMSUXIE0312-75-74 13:51:00 Test Item Value Reference Range Interpretation Comments MCH (test code = MCH) 30.5 pg 27.0-31.0 Memorial QpckbboNGRDNYQDXX2135-36-13 13:51:0022.2[facility]annHEMATOLOGY 2016-09-18 13:51:0088.0[facility] LuzyzwzRUZJICTCCD4364-53-70 13:51:21555Rmejzgzu ExmrbobFPPTTHPSYW3874-66-17 13:51:008.7[facility] XhoocyhWTTCOBSWBR7851-97-14 13:51:005.7[facility] FqwrpcrFQMBSGUGFJ2661-33-03 13:51:002.52[facility] SDXXYHKEQJ0860-96-87 13:51:007.7[facility] HermannCHEM NGGSW0447-08-75 13:43:23615 [facility]annCHE[facility] JGXNF2622-45-12 13:43:0025[facility]annCHEM PANEL 2016-09-18 13:43:007.8[facility]annCHEM VWMIT5067-66-64 13:43:003.6[facility]annCHE[facility] TSYWK9827-32-42 13:43:009.6[facility]annCHEM [id number] 13:43:30218Bitwksjm HermannCHEM FWIJQ2182-00-15 13:43:000.90[facility]annCHEM RAYUG4480-84-24 13:43:05613Atszmvlj HermannCHEM YZIFE8530-50-25 13:43:48545 [facility]annCHE[facility] [id number] 13:43:0010[facility]annBLOOD BANK [id number] 13:34:00Product available (09/17/16 8:34 AM)[facility] BLOOD BANK [id number] 11:38:00Negative (09/17/16 6:38 AM)[facility] CHEM [id number] 11:38:003.3[facility]annCHEM [id number] 11:38:69966 [facility]annCHE[facility] EPZQI7916-25-05 11:38:0064[facility]annCHEM PANEL 2016-09-17 11:38:006[facility]annCHEM [id number] 11:38:000.6[facility]annCHEM [id number] 11:38:0013[facility]annCHEM WZCPQ8188-42-31 11:38:002.6[facility]annCHEM SUMWQ4877-50-81 11:38:001.0[facility]annCHEM HWGIA1663-97-10 11:38:91434Uvcoloda HermannCHEM KJHTY0738-74-42 11:38:000.85 [facility]annCHEM [id number] 11:38:0018[facility] HermannCHEM PANEL 2016-09-17 11:38:004.4[facility] HermannCHEM [id number] 11:38:0096[facility]annCHEM UXBFC4712-00-70 11:38:0028[facility]annCHEM [id number] 11:38:0011.4[facility]annCHEM WFMBZ0073-02-25 11:38:41748Xygxpslc HermannCHEM RGWZL0167-68-83 11:38:0021[facility] HermannCHEM GPAWE7037-22-80 11:38:008.3 [facility]annCHEM [id number] 11:38:005.2[facility]annCHEM PANEL 2016-09-17 11:38:002.6[facility]annCHEM [id number] 11:38:002.1[facility] NubjeobCDXRKNGTPN2018-61-85 11:38:001.6[facility] VjtwoziTORWLXSLMQ8175-66-49 11:38:005.0[facility] NyfyosqVVTIWGJCPA1595-41-60 11:38:000.5[facility] QUANFNVFDH1350-69-40 11:38:000.1[facility] MkalqqqPXRUGXMNJL6065-48-55 11:38:000.1 [facility] NtpngzuDVJDUYHXIV6739-30-86 11:38:000.9[facility]annHEMATOLOGY 2016-09-17 11:38:0069.6[facility] SkhdoudIFRNZHULCP5954-32-08 11:38:006.4[facility] KhanvglRGJOEVQAOV2266-20-09 11:38:0022.3[facility] AdzminoTYFVUCPDPZ9650-62-10 11:38:000.8[facility] AbktuqrXXTKXOMREU4562-13-22 11:38:00 Test Item Value Reference Range Interpretation Comments PTT (test code = PTT) 29.3 s 22.9-35.8 [facility] ZvpqahzZPMVIPTISU4503-10-38 11:38:001.20[facility]HE[facility]OLOGY 2016-09-17 11:38:00 Test Item Value Reference Range Interpretation Comments PT (test code = PT) 15.5 s 12.0-14.7 [facility] FunoykgYFDORQMVVA9226-20-63 11:38:0012.8[facility]HE[facility]OLOGY 2016-09-17 11:38:52526Znnrnmeb FtjnwcqLKZPFTGBFE0645-29-47 11:38:009.0[facility] QwqwpcsWIEHAPFTQU9002-58-87 11:38:00 Test Item Value Reference Range Interpretation Comments MCH (test code = MCH) 29.8 pg 27.0-31.0 [facility] OcpckqeUJIZUDKQFK5043-27-88 11:38:0034.3[facility]annHEMATOLOGY 2016-09-17 11:38:007.6[facility] HfycymhVJPGAKJZGC6689-70-77 11:38:002.56[facility] MxvsbnvZDUQJIUGBM3969-99-23 11:38:0022.2[facility] JesebexQKYLDOQKWU1590-09-54 11:38:0087.0[facility] OkqjjotVGYRABYIIO7653-64-05 11:38:007.2[facility] HermannCHEM HVJIT9774-18-97 11:34:001.7[facility] HermannCHEM HMCTY2096-82-68 11:34:003.1 [facility] IgxiflfITHDBYSMLPMR9299-18-53 11:34:0011.7[facility] HermannELECTROLYTES 2013-06-23 11:34:78404Hhpxoimr SjxjuqnDGUDLXZKKNJN8772-18-34 11:34:000.9[facility] UeaaaxgYEJFTQGMUAEC9517-74-03 11:34:003.7[facility] PzmcijeOUCZEQTVDEVA6955-16-81 11:34:34155Vwbyutyf XoijxugLQNIJIEHEXBT3019-42-29 11:34:0027[facility] CVDSUQGLWPRZ0714-05-43 11:34:60900Vnugtkjt LadmocuCZBLBGDOYMNS4984-02-01 11:34:0011[facility] AqlxwrpSPKJFKASPMJX4805-50-09 11:34:0095[facility] VGJBEAWWWFKG3184-93-49 11:34:008.6[facility] TvgwgwrBWLKUBGNQB2451-06-48 11:34:00 87.7[facility] PfzlgwbSDSHWMJWDR5525-98-71 11:34:00 Test Item Value Reference Range Interpretation Comments MCH (test code = MCH) 31.2 pg 27.0-31.0 [facility] AwnrcneISTBKBXGEF3187-49-87 11:34:0034.1[facility]annHEMATOLOGY 2013-06-23 11:34:0012.1[facility] FirqcoxIBDKKPHZRV2268-20-85 11:34:87761Qtlzwkhd DolwsryFNKTUQYMST6824-71-40 11:34:009.1[facility] JhieshnHOKAOFJWED2026-27-21 11:34:0014.3[facility] PjqdktrIYAYOGQKNY2145-54-93 11:34:0035.6[facility] ADIVKRCYKB9247-03-48 11:34:003.89[facility] VqgkhcjNSQAYZZGIX5854-12-24 11:34:00 6.6[facility] BkdfisqSNHTFFFCDT0457-73-87 11:34:000.1[facility]annHEMATOLOGY 2013-06-23 11:34:001.7[facility] PmgxkcuKOOEADZWXQ4040-76-54 11:34:001.6[facility] SpfxlxtLCXMFLDVBH2027-12-95 11:34:004.3[facility] FtrnbmlMKJHQNVVWH8341-48-64 11:34:000.5[facility] GrtushfIVGCCIMVJN6507-82-00 11:34:000.4[facility] OBUSXOXOZK5361-65-03 11:34:0066.0[facility] UcqlqovSULVGENZVY5156-89-79 11:34:00 26.0[facility] WgmloyqAKQQLEDZUT6998-11-98 11:34:005.9[facility] HermannCHEM PANEL 2013-06-22 09:04:86770Oiplbbbe HermannCHEM YCIRG4713-97-61 09:04:252.0[facility] HermannCHEM HASRH0100-71-44 09:04:254.8[facility] ViqcnoePHIYMMWZUL5960-15-48 09:04:2511.7[facility] NbpkodeLHMDCNIRCA8504-39-54 09:04:259.5[facility] EOXMHQBZWY9855-22-20 09:04:2539.7[facility] NvmmvzrSQWPYSOLGB5751-75-18 09:04:25 Test Item Value Reference Range Interpretation Comments MCH (test code = MCH) 29.8 pg 27.0-31.0 [facility] DuyswmgQPQGVAPUHN9678-96-64 09:04:2589.3[facility]annHEMATOLOGY 2013-06-22 09:04:254.45[facility] XawfasgVSESOPJEZY0206-96-38 09:04:2513.3[facility] LzmhrfiBWGZSXPBGC4710-74-29 09:04:2514.3[facility] XullutmHYMNKZCYQO0581-78-38 09:04:2533.4[facility] GqbppppFYRQWYZQXT3114-68-54 09:04:67385Vortrfff Erick QTUGMHVUZU1003-18-61 09:04:250.5[facility] QylbrzqLHLJCKZKEX8707-12-51 09:04:25 10.4[facility] GrfosinJWIDXQNJXO9212-78-12 09:04:250.9[facility]annHEMATOLOGY 2013-06-22 09:04:254.1[facility] YprzcuhWZLSXPZITX4078-46-30 09:04:250.1[facility] GcsxqthMGEFVXUAQK5181-50-18 09:04:257.3[facility] CmazcsoPDBIDASHDO1176-36-42 09:04:2588.5[facility] HermannCHEM RLTKB0622-91-02 09:04:0013.9[facility] CHEM DOWKS4816-38-63 09:04:0025[facility]annCHEM TYKMO5250-30-42 09:04:008.9 [facility]annCHEM RXXQZ2724-53-83 09:04:64771Hlrbsqnt HermannCHEM PANEL 2013-06-22 09:04:30517Pogpgypy HermannCHEM UEQQB1843-33-47 09:04:004.9[facility]annCHEM WUXIV6039-34-66 09:04:0010[facility]annCHEM DTAKO3935-47-18 09:04:000.6[facility]annCHEM KPKCT8000-01-71 09:04:0098[facility]annCHEM IPFNV2275-90-53 17:50:0082[facility]annCHEM KFBYB2782-82-20 17:50:001.1 [facility] OdemcfnXKIAJSTLSN2712-88-64 17:50:87348Frbnnoxh HermannHEMATOLOGY 2013-06-21 17:50:00 Test Item Value Reference Range Interpretation Comments aPTT (test code = aPTT) 27.9 s 22.9-35.8 [facility]annCHEM LHYED3750-64-77 20:45:0013[facility]annCHEM PANEL 2013-06-15 20:45:001.3[facility] HermannCHEM KOATU2366-40-33 20:45:003.2[facility]annCHEM BVBXY3626-82-79 20:45:0015.2[facility]annCHEM SDGVF8003-64-76 20:45:0037[facility]annCHEM TFBWY3408-33-67 20:45:000.9[facility]annCHEM UXSTM5713-90-63 20:45:009.1[facility]annCHEM CUMNS2958-29-04 20:45:0012 [facility]annCHEM DIJTA6618-53-72 20:45:0066[facility]annCHEM PANEL 2013-06-15 20:45:33206Aniuoqzt HermannCHEM BUNUJ5199-43-36 20:45:004.1[facility]annCHEM XBQRV0831-83-30 20:45:0025[facility]annCHEM NRYXY8901-59-04 20:45:62216Ovzqlmzn HermannCHEM EIUTG4165-32-58 20:45:004.2[facility]annCHEM IRDUO9674-88-19 20:45:93106Zzzoqhsf HermannCHEM CKGQU4069-53-48 20:45:0015 [facility]annCHEM VUZKZ1441-95-31 20:45:007.3[facility] HermannHEMATOLOGY 2013-06-15 20:45:000.1[facility] WhkylqeEYXCRICKKI8215-56-16 20:45:000.7[facility] FoutftvYYATAFUVVZ9279-69-02 20:45:000.2[facility] BqcekwuMHGCJJNWNL1651-74-29 20:45:007.2[facility] DcgyoisIKOMJIRZYO7917-47-12 20:45:002.7[facility] OXEUKRVTLS9746-15-94 20:45:0024.5[facility] GjoyhwfSBWPUUTBDU2901-01-63 20:45:00 66.4[facility] SzwqyrtQGEEVIBWUT8371-57-46 20:45:006.4[facility]annHEMATOLOGY 2013-06-15 20:45:000.5[facility] CciyvuuDIZQWKAWTC2626-45-52 20:45:002.2[facility] ZrdtzefAKHRMWPKWL1013-66-16 20:45:009.7[facility] WzdekhxJGWZJVGAIF1645-67-57 20:45:0010.9[facility] AwldvgaSCWJEKABDO2338-04-36 20:45:0014.4[facility] NWYTWMPPEZ8245-75-20 20:45:004.70[facility] CnocauiSZRQRBLCTJ2185-85-67 20:45:00 41.3[facility] SubnebzSWPHAKICLR0964-01-00 20:45:0014.5[facility]annHEMATOLOGY 2013-06-15 20:45:00 Test Item Value Reference Range Interpretation Comments MCH (test code = MCH) 30.8 pg 27.0-31.0 [facility] WyqgvdtRCDSDFNGCK6035-05-74 20:45:0087.7[facility] HermannHEMATOLOGY 2013-06-15 20:45:0035.1[facility] HermannSPECIAL UKJIMBWHJ7116-96-43 20:45:004.4 [facility]annURINE AND XGGGY1344-42-47 20:45:00Not Indicated *NA*(06/15/2013 14:45:00 [employer])[facility] AND KHHPE3102-34-12 20:45:006.5 [facility] AND XNFDH7821-01-52 20:45:00Clear (06/15/2013 14:45:00 [employer])[facility] QLPBW9078-00-16 20:45:001.018[facility] AND QLYOP6958-18-51 20:45:00Yellow *NA*(06/15/2013 14:45:00 [employer])[facility] HLSLV5044-41-58 20:45:00Negative (06/15/2013 14:45:00 [employer])[facility] TAFOG2164-58-42 20:45:00<1[facility] AND FZVRG1453-36-49 20:45:00Negative (06/15/2013 14:45:00 [employer])[facility] WDJFB2680-33-29 20:45:00Negative (06/15/2013 14:45:00 [employer])[facility] LGCRR3633-65-36 20:45:00Negative *NA*(06/15/2013 14:45:00 [employer]) [facility]annBLOOD BANK UQUGBGL1136-08-72 15:10:00Negative (11/25/2011 10:10:00)[facility] YehzqowIPKPRPJDA2306-69-82 21:00:0015.0[facility] VXGSEPKBU9158-78-32 21:00:009[facility] XpnvhlbZUFBSCZSK4727-84-48 21:00:000.9 [facility] KskcaxhRLCEBNJYP3274-36-86 21:00:0075[facility] HermannCHEMISTRY 2011-11-23 21:00:36030Pkngxrgo OntqhqdGRTJOQMRD4895-54-20 21:00:56771Xpnofngf IsxvxkwAYWKKGQGR8846-72-72 21:00:0026[facility] YurkkjhIHNYBGBSH9236-25-98 21:00:005.0[facility] LwbrhquAQJOJTJDK9521-42-15 21:00:009.6[facility] AOKTSVIWBA0217-98-24 21:00:000.0[facility] BhuaateGFAMFIBIQF3562-69-32 21:00:003.3 [facility] CcjqpqdOCJVGIRVNT0364-58-25 21:00:000.5[facility] HermannHEMATOLOGY 2011-11-23 21:00:000.2[facility] GwrhikwUXHVXJPMKW5889-97-46 21:00:0059.7[facility] RcrnifnGHPGGGYMML6691-67-58 21:00:004.8[facility] LquewaqHUTHGUJCMN9409-44-59 21:00:005.9[facility] AmhtkigVMZVNGLGNR3194-86-86 21:00:002.0[facility] RYIIHNSZFX1695-34-75 21:00:000.5[facility] JxoslpbVGAPUYPGWZ0658-81-02 21:00:00 33.0[facility] VfaporrHYMBJPHMMI2701-20-77 21:00:0013.7[facility] HermannHEMATOLOGY 2011-11-23 21:00:76852Kjbtsabj ZnzqjqhYZLFSKSVZX6796-20-80 21:00:004.89[facility] BjxgxkoQIOLFJAGHI8569-97-24 21:00:0015.4[facility] YfrjiftEKNYYTGRKO1037-37-91 21:00:0045.3[facility] ZskciepGZCIQSKXMU0984-95-51 21:00:0034.0[facility] KROZFAFHDF2644-31-61 21:00:0092.6[facility] XnveokqZTMUAPYCMY3236-20-91 21:00:00 Test Item Value Reference Range Interpretation Comments MCH (test code = MCH) 31.5 pg 27.0-31.0 H [facility] GyfaetmFDWHUFJMRH5218-22-89 21:00:009.4[facility] HermannHEMATOLOGY 2011-11-23 21:00:009.9[facility] UymilprXWPUGPRRIK4382-76-00 21:00:001.04[facility] GawlyogCFGBFLYQTV1823-98-58 21:00:00 Test Item Value Reference Range Interpretation Comments PT (test code = PT) 13.6 s 12.0-14.7 N [facility] ZihkageODTQTWJCGZ7601-10-84 21:00:00 Test Item Value Reference Range Interpretation Comments PTT (test code = PTT) 29.0 s 22.9-35.[address] [facility] AziqppuZSVRBPCTP0534-28-13 12:30:00<0.02[facility] HermannCHEMISTRY 2011-09-16 12:30:003.0[facility] PasljbcJKEHIAYUL3039-99-02 12:30:0090[facility] LzonaxqTQOGYMVTI3532-88-73 12:30:0021[facility] BzkjvluYMOYHFOYY4555-76-90 12:30:005.86[facility] JqabspgAWZPQMMCA4584-37-88 12:30:0072[facility] CJCREDAJT5720-70-84 12:30:23713Xtvtmnub ZzktcdlAIGYIDMRK2387-62-10 12:30:93873 [facility] KfavbneHPFDWDNWK7013-05-95 12:30:003.8[facility] HermannCHEMISTRY 2011-09-16 12:30:006[facility] HwcoambJCINFOSWR7184-46-93 12:30:0098[facility] CmzkvzvUNLRRZIKU1123-44-52 12:30:32756Vbmheghu McogvdrCJBCPBVGT5554-46-35 12:30:004.0[facility] XwwwoveVLEBVXROP3890-72-62 12:30:48763Vmpxsvlc [facility] HGDXYNGXP0320-55-16 12:30:000.9[facility] UtegdpiXFJKEXNMA7326-87-60 12:30:0010.0 [facility] BftbccgZBOZKCQFE7255-28-62 12:30:008.8[facility] HermannCHEMISTRY 2011-09-16 12:30:0029[facility] SxpyovkOYIWVIRZB0894-38-87 12:30:002.0[facility] PgttzetQFNFETEEI1367-85-31 12:30:003.3[facility] AvxgrqrZEAZRZIVWL0507-01-13 12:30:0013.3[facility] IkrdebcYEVSDZUGRJ5700-90-64 12:30:0092.0[facility] JKRPVMSHDY9209-30-27 12:30:0034.6[facility] BhocxepDRQASEHSSA1613-21-54 12:30:00 Test Item Value Reference Range Interpretation Comments MCH (test code = MCH) 31.8 pg 27.0-31.0 H [facility] TzbmggbVQRQDPAHAW4686-23-88 12:30:0013.2[facility] HermannHEMATOLOGY 2011-09-16 12:30:26511Pjofhhtz IzlrodkLGBKSVGJRT7012-05-12 12:30:008.emorial JeolfljFTERRJLSEL3416-71-24 12:30:0038.3[facility] JxfdxvsVYQTEBVIPB0521-43-66 12:30:004.16[facility] RmybhakQYIOGHUGWA5395-47-64 12:30:006.2[facility] FAWKFPYZFH3594-86-82 12:30:001.04[facility] XazoaxzMGAZDHXROS5497-54-18 12:30:00 Test Item Value Reference Range Interpretation Comments PT (test code = PT) 13.6 s 12.0-14.[address] [facility] ZytqojnLTUAMYSSDY3751-53-45 12:30:00 Test Item Value Reference Range Interpretation Comments PTT (test code = PTT) 31.9 s 22.9-35.[address] [facility] QaqqappMOWJMYXAQO8289-63-29 12:30:000.0[facility]annHEMATOLOGY 2011-09-16 12:30:000.1[facility] GufhyiuKLWYSUNLWD2952-85-68 12:30:000.4[facility] TrqlqeaYJCCOTJAVD0065-35-97 12:30:001.4[facility] YhdweshIOLZLOOVXK6949-68-96 12:30:004.3[facility] MvpztbrEDCQLGUXWQ2125-69-70 12:30:002.3[facility] YLESCXIYBQ0916-79-17 12:30:000.5[facility] OxcnhhsXRCLSJBUKN4459-27-89 12:30:00 21.8[facility] NyzyghhRKQANMIWHG6614-69-39 12:30:0069.3[facility] HermannHEMATOLOGY 2011-09-16 12:30:006.1[facility] YalmvwdTGYNVBODZ5953-71-03 23:40:004.7[facility] GtsfeahOQPVFQZHC9710-19-29 23:40:001.9[facility] MivsdufXAAJVFXOW9272-34-52 23:40:000.820[facility] IkkrfriLGFBQBBZM7741-02-23 23:40:002.9[facility] ZVGEPPSAE7052-56-75 23:40:002.5[facility] LxtvnhrNHWGKVCWQ9780-28-79 23:40:00 <0.02[facility] LyleeegBSPBGVXAA2743-13-92 23:40:31946Fwjlqeja HermannCHEMISTRY 2011-09-15 18:00:00Negative *NA*(09/15/2011 13:00:00)[facility]annCHEMISTRY 2011-09-15 18:00:00Negative *NA*(09/15/2011 13:00:00)[facility]annCHEMISTRY 2011-09-15 18:00:00Positive *ABN*(09/15/2011 13:00:00)[facility]annCHEMISTRY 2011-09-15 18:00:00See Note 5(09/15/2011 13:00:00)[facility]annCHEMISTRY 2011-09-15 18:00:00Negative *NA*(09/15/2011 13:00:00)[facility]annCHEMISTRY 2011-09-15 18:00:00Negative *NA*(09/15/2011 13:00:00)[facility]annCHEMISTRY 2011-09-15 18:00:00Negative *NA*(09/15/2011 13:00:00)[facility]annCHEMISTRY 2011-09-15 18:00:00Positive *ABN*(09/15/2011 13:00:00)[facility]annCHEMISTRY 2011-09-15 18:00:0036[facility] OhvdbyfJFMPJUWLD5634-75-97 18:00:87430Mmfambip GkiqwcoSMYLJHDBU3683-59-55 18:00:004.2[facility] LhuxvlwQARYTNLQN1561-91-31 18:00:001.0[facility] XeipdtyJWYYLFUTT2625-94-41 18:00:008[facility] USVDNFZIF5482-66-98 18:00:00961Hqdinawa FftpuwaACFAHRYPL4332-72-07 18:00:0029 [facility] FswbcocHZGPHZVZK3562-41-07 18:00:0057[facility] HermannCHEMISTRY 2011-09-15 18:00:003.5[facility] QsganvrGQBQFRUEP0580-00-77 18:00:008.9[facility] DihgcdcVBUFRMHKK2550-49-98 18:00:006.5[facility] UxzjcnxJWZWNJDVR2035-39-28 18:00:0029[facility] AqefmdmJGRJLPABL7817-75-03 18:00:001.2[facility] YQVJXGOFF4602-53-27 18:00:008[facility] IgkjxhbHOEMYUDWV2619-57-74 18:00:003.0 [facility] FzymbvfJQDXRUKPC3804-21-18 18:00:000.6[facility] HermannCHEMISTRY 2011-09-15 18:00:0017[facility] TaswjmbDWROBNAJM9560-23-69 18:00:0086[facility] JsgbriqIQCKECPHZ8279-23-88 18:00:009.2[facility] XnhkfevSWBOFZKLC1340-77-56 18:00:003.0[facility] QgobwpdLNDIGFQQS8352-06-24 18:00:00<0.02[facility] FQPQDZVYX7294-93-51 18:00:02908Qksdzrzh JbjzklcJDNSZTDIK4207-50-50 18:00:002.2 [facility] TgypwefSAKPSLVLTW1028-48-90 18:00:001.01[facility] HermannHEMATOLOGY 2011-09-15 18:00:00 Test Item Value Reference Range Interpretation Comments PTT (test code = PTT) 30.3 s 22.9-35.[address] [facility] QjeantwDQSGRMOVMW0524-33-40 18:00:00 Test Item Value Reference Range Interpretation Comments PT (test code = PT) 13.3 s 12.0-14.[address] [facility] XuvgvgpSXESXNGDLS6899-54-87 18:00:009.6[facility]annHEMATOLOGY 2011-09-15 18:00:0034.6[facility] MrrqxhqZPAVBKZWKM8444-20-11 18:00:0013.0[facility] IjbpkwsFKETRSYHXB0812-72-43 18:00:28370Aiozdouy NskjcehIXAOMATPOY5331-51-85 18:00:004.07[facility] KrhniidBRDCWKIBHJ8068-87-07 18:00:0091.8[facility] HLKVRKMELM6697-18-93 18:00:007.2[facility] YjdywfrMIFXPGUTOD3252-58-59 18:00:00 12.9[facility] NirlhqyIPCNSYWWUV6301-94-02 18:00:0037.3[facility]annHEMATOLOGY 2011-09-15 18:00:00 Test Item Value Reference Range Interpretation Comments MCH (test code = MCH) 31.8 pg 27.0-31.0 H [facility] VfqmmnyQTXOMQENLG7332-17-33 18:00:000.6[facility] HermannHEMATOLOGY 2011-09-15 18:00:000.1[facility] ThzbbrcIKRIIMFXAB4093-03-92 18:00:000.5[facility] DczghieAWGMIHMWPC2660-83-84 18:00:001.9[facility] QxbiuyrUUJOFMZTRI5146-45-83 18:00:004.6[facility] UpeutrxZLKSQVUPGU3130-31-33 18:00:0064.4[facility] ODIUQYGTSZ4678-12-70 18:00:002.0[facility] XodpnxiPRTYYKOUQM4922-27-39 18:00:006.5 [facility] HzqnrybUCJSNZQEIH7693-81-91 18:00:0026.5[facility] HermannHEMATOLOGY 2011-09-15 18:00:000.0[facility] HermannBEDSIDE GLUCOSE OGUETZO6839-10-05 12:50:00 101[facility] HermannBEDSIDE GLUCOSE KOIFTUU1265-42-76 01:43:0098[facility] BEDSIDE GLUCOSE WRRUSJY6790-17-36 21:45:0090[facility] KvpyovmLKJSOVBKH7674-00-04 16:56:00Negative *NA*(09/07/2011 11:56:00)[facility] SpqimcdQFJCXYCLA6560-11-11 16:56:00Negative *NA*(09/07/2011 11:56:00)[facility] TungzovAJSLWXNLZ8127-26-44 16:56:00See Note 5(09/07/2011 11:56:00)[facility] FealxoyXSSZTLYQG6874-08-24 16:56:00Negative *NA*(09/07/2011 11:56:00)[facility] HijtbnpLAFOMGLWU3432-90-14 16:56:00Positive *ABN*(09/07/2011 11:56:00)[facility] BtihlgzFCDJJYABH2354-43-79 16:56:00Positive *ABN*(09/07/2011 11:56:00)[facility] PneqbolZPGFULWBR3794-39-38 16:56:00Positive *ABN*(09/07/2011 11:56:00)[facility] FwpcjdvAQVYJZWWN1381-66-31 16:56:00Negative *NA*(09/07/2011 11:56:00)[facility] LibbzajHBJNOTMBTL1042-93-33 16:56:00Negative *NA*(09/07/2011 11:56:00)[facility] HjgihdlXILRZSZQNG4827-13-89 16:56:00Negative (09/07/2011 11:56:00)[facility] FkxozyqRHBLXWVNIU4270-68-05 16:56:000.2[facility] MzkiregPNWJZSXJCD0530-67-54 16:56:00Large *ABN*(09/07/2011 11:56:00)[facility] YyjcmmdJUXOKBEDAI1737-02-71 16:56:00Negative *NA*(09/07/2011 11:56:00)[facility] YoqohmsXXOYRRPJVT6445-02-89 16:56:00Yellow *NA*(09/07/2011 11:56:00)[facility] XgghzmjFIIACEBIDP8962-46-98 16:56:00Negative (09/07/2011 11:56:00)[facility] KqurzpuPWZTOPDCWM9504-46-51 16:56:00Negative (09/07/2011 11:56:00)[facility]YrdgxtzOHPPUGOEOH7927-97-50 16:56:00Trace *ABN*(09/07/2011 11:56:00)[facility] HospitalIfsggdgWKQUMEWXNC2575-03-32 16:56:00 Test Item Value Reference Range Interpretation Comments UA pH (test code = UA pH) 5.5 1 5.0-8.0 N [facility] HospitalNcaqctcHLNXEFXKKJ2142-45-78 16:56:00>=1.030 *ABN*(09/07/2011 11:56:00)[facility] HospitalEzxadcnHYIOCHMLCA9502-78-63 16:56:00Slight Cloudy (09/07/2011 11:56:00)[facility] YahtxceAUVUXKBMEI1177-58-90 16:56:00Few /HPF *ABN*(09/07/2011 11:56:00)[facility] HospitalAzmwfulCICNQOLKQV7631-08-61 16:56:00Few /LPF (09/07/2011 11:56:00)[facility] HospitalRzfpjpoCJUHUIGAKL3588-52-30 16:56:000-2 /HPF (09/07/2011 11:56:00)[facility] HospitalKtaykdfSODGTEMPAM3205-73-67 16:56:006-10 /HPF *ABN*(09/07/2011 11:56:00)[facility] HospitalAairzroHUXUQWLRHT8802-66-54 16:56:00Moderate /LPF *ABN*(09/07/2011 11:56:00)[facility] HospitalSvmvnsyWRDEHPWLXA1341-84-33 16:56:00Few /HPF (09/07/2011 11:56:00)[facility] HospitalEnowalmMJZLRMJYF9449-23-23 14:18:0010[facility] GqgpereXEGMVRIKD8943-71-61 14:18:00Positive (09/07/2011 09:18:00)[facility] EupkobaFCMEVOGOZ3070-95-55 14:18:001[facility] BiuakfoKVCUYWRLV9298-02-47 14:18:00 37.0[facility] CyfbuwlSRABPLFUF4815-06-62 14:18:0027[facility] HermannCHEMISTRY 2011-09-07 14:18:00Right Ra (09/07/2011 09:18:00)[facility]annCHEMISTRY 2011-09-07 14:18:0098.0[facility] BynldxwWRIRGTSTG7517-24-26 14:18:0049[facility] JaoycnbKTMUBAVAS0540-19-13 14:18:09230Utmgpeed DonvexjBOLEWCOPO1470-50-70 14:18:007.35[facility] UonlnfkMPKZWHBHI5613-17-00 13:40:00<0.003[facility] TrxmqfxKAEMGNHBX4416-00-96 13:40:00<3[facility] SuawhjxYICPJDFHS7079-12-46 13:40:0028.0[facility] BjvlltyFRHANXDEU2652-79-42 13:40:000.4[facility] RRIQYWKNL7620-80-62 13:40:0020[facility] LhctizkEXWYXREIC7090-41-33 13:40:0044 [facility] AbnqrffROXAGHFAD7325-70-60 13:40:0067[facility] HermannCHEMISTRY 2011-09-07 13:40:003.5[facility] LmpoucmXZWQTGYHR6483-51-61 13:40:004.6[facility] CunvtfjCURZWBUCU4180-19-21 13:40:0026[facility] XxsxsxoGHWSCHAMS9064-24-37 13:40:51232Tuubxyqp QiokjpzJUFUBKFUY5476-85-74 13:40:006.3[facility] TARDKYDMU8126-28-68 13:40:008.1[facility] PohwpkgDOBJGCBER1029-17-19 13:40:0010 [facility] GvznjetENYMXRRWW1783-15-60 13:40:000.9[facility] HermannCHEMISTRY 2011-09-07 13:40:68293Eczzkjfv CyxaccyYRNROQHYN7268-66-49 13:40:69557Yqzmhcgy BwijxmmIDNJHFBYR1837-35-71 13:40:002.8[facility] HglafyvKXPBLYDRC7434-57-26 13:40:001.3[facility] PqolpwjPJUHRXCEB6734-97-24 13:40:0011[facility] SVNMSZFDF4790-90-02 13:40:0011.6[facility] EnptkuwAXYRNTGZDL3271-42-42 13:40:000.0 [facility] UrhxjgiLGKTLGVBOZ5699-06-39 13:40:000.0[facility] HermannHEMATOLOGY 2011-09-07 13:40:0011.4[facility] EpyxqlsJESWHRHHES3211-18-90 13:40:001.1[facility] HhgvmtfUDNRQSOGAN7231-11-73 13:40:000.6[facility] ThcikvnCEASCNGJDA4148-50-38 13:40:000.2[facility] JhimhvfJZSDQGZEWS3437-60-01 13:40:008.1[facility] ZDLZAIVQYI8703-06-31 13:40:0086.7[facility] GqlmqeiSUOVJFTGHA7010-32-20 13:40:00 0.1[facility] FhwhhwuMUQWSOEQOK0611-15-33 13:40:004.9[facility] HermannHEMATOLOGY 2011-09-07 13:40:0013.6[facility] YcmxjwwHWQUOJUQSA8656-49-53 13:40:004.20[facility] DhfwzluZSJAVQYZNU0423-89-99 13:40:0013.1[facility] LlcakcnFMESSQOGHM8434-71-43 13:40:0038.5[facility] YlhriwwYQWIGKBJCU4167-83-79 13:40:00 Test Item Value Reference Range Interpretation Comments MCH (test code = MCH) 32.3 pg 27.0-31.0 H [facility] UciteejEWOJNXGJDM2206-29-09 13:40:0091.8[facility] HermannHEMATOLOGY 2011-09-07 13:40:0013.6[facility] RubzzuxXVMMKCDORJ6683-28-04 13:40:009.2[facility] ObrhmrbVQQZIEHFPS1872-93-33 13:40:02753Yabxjlzc LmkylinYYOCNAYEJJ8757-20-72 13:40:0035.2[facility] SxaytrcTOVFLKTNFF2815-47-15 13:40:00Negative *NA*(09/07/2011 08:40:00)[facility]
[2019-12-29] MEDS ORDERED: HYDROCODONE/APAP 7.5/325 MG TAB ONE (23:13)
[2019-12-29] MEDS ORDERED: MAGNE/ALUM HYDROXD 30 ML UCUP ONE (23:13)
[2019-12-29] MEDS ORDERED: LIDOCAINE VISCOUS 2% SOLN 15 ML UDC ONE (23:13)
[2019-12-29] MEDS ORDERED: AMOX/K CLAV 875 MG TAB ONE (23:18)
[2019-12-29] MEDS ORDERED: LIDOCAINE 1% MPF 5 ML VIAL ONE (23:18)
--- NOTE | 2019-12-30 00:04 | EDPHYS ---
Physician Documentation [facility] Name: Benigno Mireles Age: 49 yrs Sex: Male : 1970 Arrival Date: 12/29/2019 Time: 22:37 Bed 13 Private MD: ED Physician Selwyn Pressley HPI: 12/29 00:11 This 49 yrs old Male presents to ER via Ambulatory with complaints of kb Laceration To Nose. 00:11 The patient has a laceration related to: slipped in water in kitchen and hit nose on kb cabinet occurred at home, and there are no complicating factors. The injury was accidental. The laceration(s) is(are) located on the right side of nose. Onset: The symptoms/episode began/occurred just prior to arrival. Associated signs and symptoms: The patient has no apparent associated signs or symptoms. The patient has not experienced similar symptoms in the past. The patient has not recently seen a physician. Pt slipped and fell hitting nose on cabinet and causing laceration to right side of nose. States he thought it went all the way through the nose. Also requests a GI cocktail since he is here for his chronic ulcers.. Historical: - Allergies: 12/28 22:55 NKA; wh - PMHx: 22:55 Arthritis; Bipolar disorder; CAD; CHF; GERD; Hypertension; wh - PSHx: 22:55 Appendectomy; Heart stents; wh - Immunization history:: Adult Immunizations up to date, Last tetanus immunization: up to date. - Social history:: Smoking status: Patient reports the use of cigarette tobacco products, smokes one pack cigarettes per day. ROS: 12/29 00:10 Constitutional: Negative for fever, chills, and weight loss, Cardiovascular: Negative kb for chest pain, palpitations, and edema, Respiratory: Negative for shortness of breath, cough, wheezing, and pleuritic chest pain, Abdomen/GI: Negative for abdominal pain, nausea, vomiting, diarrhea, and constipation, Back: Negative for injury and pain, MS/Extremity: Negative for injury and deformity, Neuro: Negative for headache, weakness, numbness, tingling, and seizure. Skin: Positive for laceration(s), of the right side of nose. Exam: 00:10 Constitutional: This is a well developed, well nourished patient who is awake, alert, kb and in no acute distress. Head/Face: Normocephalic, atraumatic. Chest/axilla: Normal chest wall appearance and motion. Nontender with no deformity. No lesions are appreciated. Cardiovascular: Regular rate and rhythm with a normal S1 and S2. No gallops, murmurs, or rubs. Normal PMI, no JVD. No pulse deficits. Respiratory: Lungs have equal breath sounds bilaterally, clear to auscultation and percussion. No rales, rhonchi or wheezes noted. No increased work of breathing, no retractions or nasal flaring. Abdomen/GI: Soft, non-tender, with normal bowel sounds. No distension or tympany. No guarding or rebound. No evidence of tenderness throughout. MS/ Extremity: Pulses equal, no cyanosis. Neurovascular intact. Full, normal range of motion. Neuro: Awake and alert, GCS 15, oriented to person, place, time, and situation. Cranial nerves II-XII grossly intact. Motor strength 5/5 in all extremities. Sensory grossly intact. Cerebellar exam normal. Normal gait. 00:10 Skin: injury, laceration(s), the wound is approximately 1.5 cm(s), of the right side of nose, that can be described as clean, no foreign body, linear, without bleeding. Vital Signs: 12/28 22:52 BP 129 / 84; Pulse 57; Resp 18; Temp 98.3; Pulse Ox 99% on R/A; Weight 79.38 kg; Height 6 ft. 1 in. (185.42 cm); Pain 8/10; 12/29 00:11 BP 115 / 80; Pulse 60; Resp 18; Pulse Ox 99% on R/A; 12/28 22:52 Body Mass Index 23.09 (79.38 kg, 185.42 cm) MDM: 12/28 22:47 Patient medically screened. kb 12/29 00:04 Data reviewed: vital signs, nurses notes. Data interpreted: Pulse oximetry: on room air kb is 99 %. Interpretation: normal. Counseling: I had a detailed discussion with the patient and/or guardian regarding: the historical points, exam findings, and any diagnostic results supporting the discharge/admit diagnosis, the need for outpatient follow up, a family practitioner, to return to the emergency department if symptoms worsen or persist or if there are any questions or concerns that arise at home. ED course: Infraorbital nerve block performed by Dr Pressley using 1% lidocaine without epi. 3ml injected. Pt reported he was numb a few minutes after injection. I went into the room and pt reported he was no longer numb but his nose was only tender. I cleaned laceration with chlorhexidine and irrigated with NS. Pt did not tolerate well. Pt does not want any more injections for anesthetic, would not like suture repair. Laceration is superficial on bridge of nose, not gaping. I recommended one suture be placed at tip of nose to close the gaping section. Pt does not want repair, stating "if it doesn't go all the way through then I'm good." I dried nose and applied steri-strip to help keep section closed.. 12/28 23:04 Order name: Prolene, Sutures; Complete Time: 23:56 kb 12/28 23:04 Order name: Dressing - Wound; Complete Time: 23:11 kb 12/28 23:04 Order name: Gloves, Sterile; Complete Time: 23:11 kb 12/28 23:04 Order name: Setup Suture Tray; Complete Time: 23:11 kb Administered Medications: 12/28 23:11 Drug: Barnum (7.5 mg-325 mg) 1 tabs Route: PO; 23:56 Follow up: Response: No adverse reaction; Pain is decreased; RASS: Alert and Calm (0) 23:11 Drug: GI Cocktail without - (Maalox Suspension 30 ml, Lidocaine Liquid 2 % 15 wh ml) Route: PO; 23:56 Follow up: Response: No adverse reaction; Pain is decreased 23:11 Drug: Augmentin 875 mg Route: PO; 23:56 Follow up: Response: No adverse reaction 23:55 Drug: Lidocaine (1 %) 1 vials {Note: Administered by Provider.} Volume: 5 ml; Route: wh Infiltration; 12/29 00:10 Drug: Flexeril 10 mg Route: PO; 00:11 Follow up: Response: No adverse reaction Disposition: 04:46 Co-signature as Attending Physician, Selwyn Pressley MD. rn Disposition: 12/30/19 00:03 Discharged to Home. Impression: Laceration without foreign body of nose. - Condition is Stable. - Discharge Instructions: Facial Laceration, [id number]. - Prescriptions for Keflex 500 mg Oral Capsule - take 1 capsule by ORAL route every 8 hours for 7 days; 21 capsule. - Medication Reconciliation Form, Thank You Letter, Antibiotic Education, Prescription Opioid Use form. - Follow up: Emergency Department; When: As needed; Reason: Worsening of condition. Follow up: Private Physician; When: 2 - 3 days; Reason: Recheck today's complaints, Continuance of care, Re-evaluation by your physician. Signatures: Zuleika Briggs, CAREN-C VP DIRECTOR OF [employer]ATIVE [employer]ATEGY-CkSelwyn Durham MD MD rn Habalo, Winsy wh Corrections: (The following items were deleted from the chart) 00:11 00:03 12/30/2019 00:03 Discharged to Home. Impression: Laceration without foreign body wh of nose. Condition is Stable. Forms are Medication Reconciliation Form, Thank You Letter, Antibiotic Education, Prescription Opioid Use. Follow up: Emergency Department; When: As needed; Reason: Worsening of condition. Follow up: Private Physician; When: 2 - 3 days; Reason: Recheck today's complaints, Continuance of care, Re-evaluation by your physician. kb
--- NOTE | 2019-12-30 00:04 | ER ---
Nurse's Notes [facility] Name: Benigno Mireles Age: 49 yrs Sex: Male : 1970 Arrival Date: 12/29/2019 Time: 22:37 Bed 13 Private MD: Diagnosis: Laceration without foreign body of nose Presentation: 12/28 22:52 Chief complaint: Patient states: he was cooking when he slipped and fell hitting his face on a window pane. Pt suffered laceration to his right nare. Pt denies LOC. Coronavirus screen: Client denies travel out of the [place] in the last 14 days. At this time, the client does not indicate any symptoms associated with coronavirus-19. Ebola Screen: Patient negative for fever greater than or equal to 101.5 degrees Fahrenheit, and additional compatible Ebola Virus Disease symptoms Patient denies exposure to infectious person. Complicating Factors: There are no complicating factors for this patient. Initial Sepsis Screen: Does the patient meet any 2 criteria? No. Patient's initial sepsis screen is negative. Does the patient have a suspected source of infection? No. Patient's initial sepsis screen is negative. Risk Assessment: Do you want to hurt yourself or someone else? Patient reports no desire to harm self or others. Onset of symptoms was December 29, 2019. 22:52 Method Of Arrival: Ambulatory 22:52 Acuity: ALISHA 4 Historical: - Allergies: 22:55 NKA; - PMHx: 22:55 Arthritis; Bipolar disorder; CAD; CHF; GERD; Hypertension; - PSHx: 22:55 Appendectomy; Heart stents; - Immunization history:: Adult Immunizations up to date, Last tetanus immunization: up to date. - Social history:: Smoking status: Patient reports the use of cigarette tobacco products, smokes one pack cigarettes per day. Screenin:56 Abuse screen: Denies threats or abuse. Denies injuries from another. Nutritional screening: No deficits noted. Tuberculosis screening: No symptoms or risk factors identified. Fall Risk None identified. Assessment: 22:55 General: Appears in no apparent distress. Behavior is calm, cooperative, appropriate for age. Pain: Complains of pain in right side of nose. Neuro: Level of Consciousness is awake, alert, obeys commands, Oriented to person, place, time, situation, Appropriate for age. Cardiovascular: Capillary refill < 3 seconds. Respiratory: Airway is patent Respiratory effort is even, unlabored, Respiratory pattern is regular, symmetrical. GI: Abdomen is flat, non-distended. : No signs and/or symptoms were reported regarding the genitourinary system. EENT: No signs and/or symptoms were reported regarding the EENT system. Derm: Skin is intact, is healthy with good turgor, Skin is pink, warm \T\ dry. normal. Musculoskeletal: Circulation, motion, and sensation intact. Injury Description: Laceration sustained to right side of nose is 0.5 to 2.5 cm long. 12/29 00:10 Reassessment: Patient appears in no apparent distress at this time. No changes from previously documented assessment. Patient and/or family updated on plan of care and expected duration. Pain level reassessed. Patient is alert, oriented x 3, equal unlabored respirations, skin warm/dry/pink. 04:44 Reassessment: prescription for Keflex has been called in to pt pharmacy at this time. sg Vital Signs: 12/28 22:52 BP 129 / 84; Pulse 57; Resp 18; Temp 98.3; Pulse Ox 99% on R/A; Weight 79.38 kg; Height 6 ft. 1 in. (185.42 cm); Pain 8/10; 12/29 00:11 BP 115 / 80; Pulse 60; Resp 18; Pulse Ox 99% on R/A; wh 12/28 22:52 Body Mass Index 23.09 (79.38 kg, 185.42 cm) ED Course: 12/28 22:37 Patient arrived in ED. bp1 22:42 Zuleika Briggs FNP-C is PHCP. lp1 22:43 Selwyn Pressley MD is Attending Physician. lp1 22:52 Juan Pop is Primary Nurse. wh 22:54 Triage completed. 22:57 Arm band placed on right wrist. 22:57 Patient has correct armband on for positive identification. Bed in low position. Call light in reach. Side rails up X 1. Pulse ox on. NIBP on. 23:56 Assist provider with laceration repair on right side of nose using Steri-strips. Set up tray. Performed by Zuleika DREW Dressed with Patient tolerated well. Patient did not have IV access during this emergency room visit. Administered Medications: 23:11 Drug: Slinger (7.5 mg-325 mg) 1 tabs Route: PO; 23:56 Follow up: Response: No adverse reaction; Pain is decreased; RASS: Alert and Calm (0) 23:11 Drug: GI Cocktail without - (Maalox Suspension 30 ml, Lidocaine Liquid 2 % 15 wh ml) Route: PO; 23:56 Follow up: Response: No adverse reaction; Pain is decreased 23:11 Drug: Augmentin 875 mg Route: PO; 23:56 Follow up: Response: No adverse reaction 23:55 Drug: Lidocaine (1 %) 1 vials {Note: Administered by Provider.} Volume: 5 ml; Route: wh Infiltration; 12/29 00:10 Drug: Flexeril 10 mg Route: PO; 00:11 Follow up: Response: No adverse reaction Outcome: 00:03 Discharge ordered by . cris 00:11 Discharged to home ambulatory. 00:11 Condition: stable 00:11 Discharge instructions given to patient, Instructed on discharge instructions, follow up and referral plans. wound care, Demonstrated understanding of instructions, follow-up care, wound care. 00:11 Patient left the ED. Signatures: Zuleika Briggs FNP-C FNP-Daniel Fong, RN RN sg Desirae Stone, RN RN lp1 Juan Pop Sindi Mccoy Corrections: (The following items were deleted from the chart) 00:01 09 23:56 Assist provider with laceration repair on right side of nose using sutures. Set up tray. Performed by Zuleika DREW Dressed with Patient tolerated well.
[2019-12-30] MEDS ORDERED: CYCLOBENZAPRINE 10 MG TAB ONE (00:20)
[2019-12-30 00:57] VITALS: BP 115/80; O2SAT 99
[2019-12-30 00:59] VITALS: TEMP 98.3
== END 2019-12-30 00:11 | disposition home or self-care (01) ==
LOC: ER 22:35
DX: S01.21XA Laceration without foreign body of nose, initial encounter (principal); W01.198A Fall on same level from slipping, tripping and stumbling with subsequent striking against other object, initial encounter; Y93.9 Activity, unspecified; Y92.9 Unspecified place or not applicable; I10 Essential (primary) hypertension; F17.210 Nicotine dependence, cigarettes, uncomplicated; Z95.818 Presence of other cardiac implants and grafts
CPT/HCPCS: 99283